=== PATIENT | male | born 1955 | race Caucasian/White ===

== ENCOUNTER 2021-06-18 23:06 | Emergency (ER) | payer SELFPAY ==
--- NOTE | ~2021-06-18 | XR_ITS ---
XR chest 1V portable DATE: 06/18/2021 23:22 INDICATION: Chest pain TECHNIQUE: Portable AP views on 06/18/2021 at 23/12 and 2313 hours COMPARISON: 01/13/2015 2 view chest FINDINGS: Diffuse osteopenia. Bilateral rotator cuff atrophy is suggested. Heart size is within normal range. No pulmonary infiltrate or consolidation, pleural effusion or pulm onary vascular congestion or pneumothorax is detected. IMPRESSION: No active cardiopulmonary disease Reviewed, dictated and finalized at location A.
[2021-06-18 23:06] VITALS: BP 128/90; PULSE 105; RESP 12; TEMP 37.3; O2SAT 100
--- NOTE | 2021-06-18 23:14 | ECG_ITS ---
Measurements Intervals [place] Rate: 96 P: 69 SD: 221 QRS: -68 QRSD: 137 T: 71 QT: 393 QTc: 497 Interpretive Statements SINUS RHYTHM WITH FIRST DEGREE AV BLOCK LEFT BUNDLE BRANCH BLOCK LOW VOLTAGE- PRECORDIAL LEADS INFERIOR INFARCT, AGE INDETERMINATE ABNORMAL ECG Electronically Signed On 06-19-2021 6:50:32 CDT by Terry Vicente D.O.
[2021-06-18 23:45] VITALS: PULSE 95; RESP 9; O2SAT 97
[2021-06-18 23:46] VITALS: BP 128/93; PULSE 97; RESP 13; O2SAT 97
[2021-06-18 23:58] LABS: Hematocrit 39.5 % (40.0-54.0); Hemoglobin 13.8 g/dL (14.0-18.0); Mean Corpuscular HGB Conc 34.9 g/dL (32.0-36.0); Mean Corpuscular Volume 94.5 fL (78.0-102.0); Mean Platelet Volume 12.2 fl (8.7-11.0); Platelet Count Result 152 K/mm3 (150-420); Red Blood Count 4.18 M/mm3 (4.70-6.10); Red Cell Distribution Width 15.4 % (11.6-14.4); White Blood Count 11.1 K/mm3 (4.8-10.8)
[2021-06-19] VITALS (13 sets, daily range): BP systolic 126–144; BP diastolic 88–108; PULSE 94–105; RESP 12–25; O2SAT 97–99
[2021-06-19] MEDS: THIAMINE HCL INJ 100 MG, FOLIC ACID 1 MG, MULTIVITAMINS-12 INJ 10 ML, MAGNESIUM SULFATE... 1000 MG IV CONT (00:01)
[2021-06-19 00:06] LABS: Amphetamine Screen Urine Negative (Negative); Barbiturate Screen Urine Negative (Negative); Benzodiazepines Screen Urine Negative (Negative); Cannabinoid Screen Urine Negative (Negative); Cocaine Screen Urine Negative (Negative); Methadone Screen Urine Negative (Negative); Opiate Screen Urine Negative (Negative); Phencyclidine Screen Urine Negative (Negative)
[2021-06-19 00:12] LABS: Lactic Acid Reflex 1.7 mmol/L (0.4-2.0)
[2021-06-19 00:21] LABS: Alanine Aminotransferase 20 U/L (16-63); Albumin Level 2.3 g/dL (3.4-5.0); Alkaline Phosphatase 165 U/L (46-116); Anion Gap 9 mmol/L (8-16); Aspartate Amino Transferase 59 U/L (15-37); Bilirubin,Total 1.3 mg/dL (0.00-1.00); Blood Urea Nitrogen 4 mg/dL (7-18); Calcium 7.3 mg/dL (8.5-10.1); Carbon Dioxide 23 mmol/L (21-32); Chloride 109 mmol/L (98-108); Estimated Glomerular Filt Rate > 60; Glucose 111 mg/dL (70-99); Osmolality Calculated 289 mOsm/kg (285-295); Potassium 3.2 mmol/L (3.5-5.1); Sodium 141 mmol/L (136-145); Total Protein 6.8 g/dL (6.4-8.2)
[2021-06-19 00:25] LABS: Ethanol 288 mg/dL (0-6); Troponin I 355.4 ng/L (0.00-60.4)
[2021-06-19 00:39] LABS: Band Neutrophils Percent 0 % (0-6); Lymphocytes Absolute Manual 4.99 K/mm3 (1.1-4.5); Lymphocytes Percent Manual 45 % (18-44); Monocytes Absolute Manual 0.88 K/mm3 (0.1-0.90); Monocytes Percent Manual 8 % (3-9); Neutrophils Absolute Manual 5.21 K/mm3 (1.3-6.7); Neutrophils Percent Manual 47 % (46-73); Platelet Estimate Adequate (Adequate); Total Cells Counted 100
--- NOTE | 2021-06-19 00:46 | PC.NURSE ---
PT HAS BEEN READJUSTED ON STRETCHER MULTIPLE TIMES. PT DENIES ANY CP, SOB. PT IS AWARE OF PLAN OF CARE, CURRENTLY AWAITING RETURN CALL FROM [facility]. NAD NOTED. VSS PER MONITOR.
--- NOTE | 2021-06-19 00:51 | PC.NURSE ---
2330 PT IS RESTING ON STRETCHER, WARM BLANKET PROVIDED. PT DENIES ANY NEEDS OR COMPLAINTS AT THIS TIME. WILL CONTINUE TO MONITOR.
--- NOTE | 2021-06-19 00:52 | PC.NURSE ---
0005 NO CHANGE IN PT STATUS. IVF INFUSING ORDERED WITHOUT DIFFICULTY. PT REPORTS CP OVER THE PAST 3 DAYS, HOWEVER HAS BEEN ON A BUS X 3 DAYS COMING FROM [place]. PT STATES PAIN HAS BEEN INTERMITTENT, HOWEVER NONE AT PRESENT.
--- NOTE | 2021-06-19 01:01 | ED.GENADULT ---
HPI - General Adult General Chief complaint: Unspecified Stated complaint: pain Time Seen by Provider: 06/18/21 23:10 Source: patient and RN notes reviewed Mode of arrival: ambulatory Limitations: no limitations History of Present Illness Onset (ago): hour(s) (8) Location: chest Radiation: non-radiation Severity: moderate Severity scale (1-10): 7 Quality: aching, dull and constant Pain Consistency: constant Relieving factors: none Exacerbating factors: none Associated symptoms: chest pain Treatments prior to arrival: none Related Data Home Medications Medication Instructions Recorded Confirmed No Home Medications 06/19/21 06/19/21 Allergies Allergy/AdvReac Type Severity Reaction Status Date / Time No Known Allergies Allergy Verified 06/18/21 23:49 Review of Systems Review of Systems: All systems reviewed & are unremarkable except as noted in HPI and below PMFSH Past Medical History Medical History COPD (chronic obstructive pulmonary disease) ETOH abuse Non-STEMI (non-ST elevated myocardial infarction) Tobacco abuse Family History Family History Mother Carcinoma of colon Family history of Alzheimer's disease Father Family history of diabetes mellitus in first degree relative Social History Social History Smoking packs per day: 0 Smoking cigarettes per day: 0.0 Years smoked: 30 Smoking pack-years: 0.00 Smoking status: Current every day smoker Tobacco type: cigarettes Second hand tobacco smoke exposure: Yes Smoking end date: 06/19/21 Alcohol intake: current Substance use: never Spiritual care concerns: No Exam Const: General: cooperative, no acute distress and Physically active Orientation/consciousness: patient oriented x3 Limitations: no limitations HENMT: Head: normal to inspection, normocephalic and atraumatic Ears: hearing grossly normal bilaterally, external ears normal, TM's normal bilaterally and EAC's normal General nose exam: Normal external nose present and Normal nares present Face and sinus: normal facial exam and sinuses nontender Mouth: Yes Normal oral and palatal mucosa present and Yes moist mucous membranes Teeth and gingiva: dentition normal Throat: posterior oropharynx normal Eyes: General: appearance normal, both eyes and all related structures Visual Batista: normal visual batista by confrontation Eyelids: eyelids normal Conjunctivae: conjunctivae normal Sclera: sclerae normal Cornea: corneas normal Pupils: Equal, round and reactive pupils present and Pupils normal by confrontation EOM: EOMs intact bilaterally Direct Ophthalmoscopy: normal light reflex Neck: Neck: normal visual inspection, full ROM and no lymphadenopathy Chest: Chest palpation & inspection: normal inspection of the chest and normal palpation of entire chest wall Resp: Effort & Inspection: normal respiratory effort and able to speak in complete sentences Auscultation: clear to auscultation bilaterally Cardio: Jugular venous distension: no JVD Palpation: normal PMI Rate: regular rate Rhythm: regular rhythm Heart sounds: S1 normal heart sound present and S2 normal heart sound present GI: Inspection: normal to inspection GI Palp: No abdominal tenderness Auscultation: normal bowel sounds : General: Yes bladder normal to inspection and Yes bladder normal to palpation Back/Spine/Pelvis: Back: no CVA tenderness Cervical Spine: cervical ROM normal Thoracic/Lumbar Spine: thoraco-lumbar ROM normal Skin: General skin exam: normal color and no rashes or lesions noted Neuro: General: patient oriented x3, moves all extremities, no meningeal signs, no focal motor deficits and CN's II-XI intact bilaterally Cranial nerves: Yes CN's II-XII intact bilaterally, Yes Facial sensation intact/muscles of mastication intact,
--- NOTE | 2021-06-19 01:41 | PC.NURSE ---
PT REFUSED POTASSIUM, STATES IT'S ALWAYS LOW. ERP AWARE. PT IS AWAITING EMS TRANSPORT AT THIS TIME. WILL CONTINUE TO MONITOR. NAD NOTED. VSS.
== END 2021-06-19 02:00 | disposition short-term general hospital (02) ==
PROVIDERS: Emergency Provider Emergency Medicine
DX: I21.4 Non-ST elevation (NSTEMI) myocardial infarction (principal)
CPT/HCPCS: 36415; 71045; 80053; 80307; 83605; 84484; 85025; 93005; 96365; 99285; J3411; J3475; J7030

== ENCOUNTER 2021-06-19 03:31 | Observation (INO) | payer MEDICAID, SELFPAY ==
[2021-06-19] VITALS (11 sets, daily range): BP systolic 114–135; BP diastolic 75–88; PULSE 71–102; RESP 16–22; TEMP 36.6–37.9; O2SAT 93–100; BMI 27.5; BMI 26.9
--- NOTE | 2021-06-19 | ECHO_ITS ---
Patient Info Name: Estiven Rg Age: 65 years : 1955 Gender: Male Ht: 77 in Wt: 231 lbs BSA: 2.40 m2 HR: 81 bpm BP: 127 / 88 mmHg Technical Quality: Good Exam Date: 06/19/2021 9:44 AM Exam Location: [facility] Patient Status: Outpatient Admit Date: 06/19/2021 Staff Ordering Physician: Stefan Martinez DO Core Paster: Christy Parra RDCS Attending Provider: Stefan Martinez DO Exam Type: CA echo doppler color flow Study Info Indications I20.0 - Unstable angina Complete two-dimensional, color flow and Doppler transthoracic echocardiogram is performed. Summary 1. Complete two-dimensional, color flow and Doppler transthoracic echocardiogram is performed. 2. Left ventricular chamber dimension is normal. 3. Left ventricular systolic function is normal, estimated at 55-60%. 4. Left ventricular septal wall motion is abnormal with septal motion related to pacing. 5. The left ventricular diastolic function is grade I diastolic dysfunction. 6. E/e' 7 is not elevated. 7. Left atrial chamber dimension is mildly enlarged. 8. Right atrial chamber dimension is mildly enlarged. 9. The mitral valve has moderately calcified annulus. 10. There is mild mitral valve regurgitation. 11. There is mild tricuspid valve regurgitation. 12. No pulmonary hypertension, estimated pulmonary arterial systolic pressure is 34 mmHg. 13. There is trace pulmonic regurgitation. Left Ventricle E/e' 7 is not elevated. Left ventricular chamber dimension is normal. Left ventricular systolic function is normal, estimated at 55-60%. Left ventricular septal wall motion is abnormal with septal motion related to pacing. The left ventricular diastolic function is grade I diastolic dysfunction. Right Ventricle Right ventricular chamber dimension is normal. Right ventricular systolic function is normal. Left Atria Left atrial chamber dimension is mildly enlarged. Right Atria Right atrial chamber dimension is mildly enlarged. Aortic Valve The aortic valve is trileaflet. There is no aortic valve sclerosis. There is no aortic valve stenosis. There is no aortic valve regurgitation. Pulmonic Valve There is trace pulmonic regurgitation. Mitral Valve The mitral valve has moderately calcified annulus. There is no mitral valve stenosis. There is mild mitral valve regurgitation. Tricuspid Valve There is mild tricuspid valve regurgitation. No pulmonary hypertension, estimated pulmonary arterial systolic pressure is 34 mmHg. Pericardium/Pleural The pericardium appears normal. There is no pericardial effusion. Inferior Vena Cava Normal inferior vena cava with >50% collapse upon inspiration consistent with normal right atrial pressure, 5 mmHg. Aorta The aortic root size at the sinus of Valsalva is normal. Left Ventricular Outflow Tract Name Value Normal LVOT 2D LVOT Diameter 2.6 cm LVOT Doppler LVOT Peak Gradient 3 mmHg LVOT Mean Gradient 2 mmHg LVOT VTI 15 cm LVOT VTI/AV VTI Ratio 0.8
--- NOTE | ~2021-06-19 | MR_ITS ---
EXAMINATION: MR abdomen wo/w con DATE: 06/21/2021 14:00 INDICATION: Hepatocellular carcinoma. Liver mass. TECHNIQUE: Magnetic resonance imaging (MRI) of the abdomen was performed without and with 20 mL Multi lucien intravenous contrast. Sequences included coronal T2-weighted SS-FSE, coronal and axial FS 2D-F IESTA, axial STIR FSE, axial T2-weighted SS-FSE, axial T2-weighted FS SS-FSE, axial diffusion-weighte d SE, axial dual-echo T1-weighted FSPGR, and axial and coronal T1-weighted LAVA. Postcontrast axial T 1-weighted LAVA images were obtained in a time course. Postcontrast coronal T1-weighted LAVA images w ere obtained. COMPARISON: CT dated 06/20/2021 FINDINGS: Again seen is a shrunken cirrhotic liver with surface nodularity. 8.2 cm mass in segment IVb of the l iver which demonstrates heterogeneous arterial enhancement greater than the surrounding liver with wa shout on delayed imaging. There is also a nonenhancing peripheral capsule. No other hepatic lesions i dentified. Couple small low signal intensity gallstones at the neck of the otherwise normal-appearing gallbladder. Pancreas, bilateral adrenal glands and left kidney are normal. 3 T2 hyperintense nonenh ancing subcentimeter cysts in the right kidney. Visualized portions of the bowels are unremarkable. N o pathologically enlarged abdominal lymphadenopathy. Mild lumbar levocurvature with mild spondylosis. IMPRESSION: 1. 7.8 cm enhancing mass with washout and nonenhancing peripheral capsule in segment IVb of the liver or the spleen consistent with a LI-RADS 5 lesion (100% definite hepatocellular carcinoma). 2. Cirrhosis 3. Cholelithiasis. Reviewed, dictated and finalized at location A. IMPRESSION: 1. 7.8 cm enhancing mass with washout and nonenhancing peripheral capsule in se gment IVb of the liver or the spleen consistent with a LI-RADS 5 lesion (100% d efinite hepatocellular carcinoma). 2. Cirrhosis 3. Cholelithiasis.
--- NOTE | ~2021-06-19 | CT_ITS ---
EXAMINATION: CT abdomen pelvis w con DATE: 06/20/2021 10:30 INDICATION: Liver mass. TECHNIQUE: Computed tomography (CT) of the abdomen and pelvis was performed with 100 mL Omnipaque 300 intravenous contrast. Automated exposure control and iterative reconstruction technique were employe d. The dose-length product was 995.03 mGy-cm. COMPARISON: CT abdomen and pelvis 04/21/2014 FINDINGS: The visualized portions of the lung bases demonstrate mild atelectasis. Calcified pulmonary nodules are consistent with old granulomatous disease. There is mucous plugging in right lower lobe. There is a trace right pleural effusion. The heart size is normal. No pericardial effusion. The live r is small with nodular surface contour, consistent with cirrhosis. There is a 7.7 cm hyperenhancing mass in left hepatic lobe. There are gallstones in the gallbladder, which is normal in size. The sple en is small. The pancreas, adrenal glands, and left kidney are normal. There are cysts in right kidne y measuring up to 10 mm. There are no dilated loops of bowel. The appendix is normal. Paraesophageal varices are noted. There is a small volume of pelvic ascites. There is lumbar levocurvature and mild spondylosis. IMPRESSION: 1. 7.7 cm hyperenhancing liver mass, new from 04/21/14, consistent with hepatocellular carcinoma (LI-R ADS category LR-4). Consider abdomen MRI without and with contrast to assess for washout, which would upgrade the mass to category LR-5. Biopsy is likely not necessary given these imaging findings. 2. Cirrhosis of the liver with portal venous hypertension. 3. Small volume of ascites. Reviewed, dictated and finalized at location B. IMPRESSION: 1. 7.7 cm hyperenhancing liver mass, new from 04/21/14, consistent with hepatoce llular carcinoma (LI-RADS category LR-4). Consider abdomen MRI without and with contrast to assess for washout, which would upgrade the mass to category LR-5. Biopsy is likely not necessary given these imaging findings. 2. Cirrhosis of the liver with portal venous hypertension. 3. Small volume of ascites.
--- NOTE | ~2021-06-19 | US_ITS ---
US abdomen limited DATE: 06/19/2021 08:29 INDICATION: Transaminitis. History of ethanol abuse. TECHNIQUE: Real-time imaging and Doppler analysis, liver, pancreas, gallbladder COMPARISON: 04/21/2014 CT abdomen pelvis FINDINGS: There is surface nodularity of the liver consistent with cirrhosis. Approximately 7.5 cm liver mass is suggested. CTR MR evaluation of liver is recommended. Cholelithiasis. No gallbladder wall thickening. Negative sonographic Michele's sign. The common bile duct measures 5.6 mm. The pancreas is obscured. IMPRESSION: Cirrhosis 7.5 cm liver mass; this raises concern for hepatocellular carcinoma. CT or MR liver examination is re commended Cholelithiasis Reviewed, dictated and finalized at [facility]. Reviewed, dictated and finalized at location A. IMPRESSION: Cirrhosis 7.5 cm liver mass; this raises concern for hepatocellular carcinoma. CT or MR l iver examination is recommended Cholelithiasis
--- NOTE | ~2021-06-19 | US_ITS ---
US venous doppler [facility] DATE: 06/19/2021 08:29 INDICATION: Deep venous thrombosis TECHNIQUE: Real-time and color flow imaging and Doppler analysis of the veins of the right leg COMPARISON: None FINDINGS: The left greater saphenous vein is patent. There is spontaneous and phasic flow and normal augmentation and color flow signal and normal compression of the deep veins of the right lower extrem ity. IMPRESSION: No evidence of deep venous thrombosis of right leg Reviewed, dictated and finalized at [facility]. Reviewed, dictated and finalized at location A.
--- NOTE | 2021-06-19 02:42 | ADMGEN ---
This patient, Estiven Rg, was admitted to IMU Room 214-01 at 0235 direct admit from [facility]. Patient/family oriented to hospital policies and general routines including ID bracelet, bed and alarms, visiting hours, pain management, procedures, bathroom and other care routines, personal items, smoking policy, room service/diet, and visiting hours. Information on how to activate the Rapid Response Team has been discussed. Patient/Family are encouraged to report perceived risks to care and to ask questions if they do not understand what they are told or what they should do.
--- NOTE | 2021-06-19 03:37 | PM.IMHP ---
H&P: HPI History of Present Illness Date/Time: Greater than 30 minutes spent reviewing chart, evaluating, treating, and counseling patient. Anticipate less than 48 hours admission, will admit under observation 06/19/21 03:37 65 yo M PMHx of EtOH abuse, tobacco abuse, COPD, PUD. Patient reports he just moved here from [place] via bus for 2 days, arrived yesterday. Patient reports he had sharp epigastric pain that started after walking upstairs yesterday evening. Patient reports pain lasted about 20 minutes, radiating to back and neck. He states his sister noted that he was pale and diaphoretic. Patient admits to nausea with pain. Has SOB at baseline, but has been worse since yesterday. Patient admits to smoking 2 ppd for 10 years, now down to 2 cigarettes a day. He states he is a heavy drinker, drinks about 9 cans of beer a day. Denies ever withdrawing from alcohol. States he has been coughing up some yellow phlegm about 2 days ago, which is new for him. Denies fevers/chills, palpitations, vomiting, diarrhea, dysuria, hematuria. No pleuritic component to chest pain. Patient reports constipation, last BM 3 days ago. Patient reports he has LE edema at baseline, states he has some circulation problem and neuropathy. Patient arrived in [facility], vitals stable. Labs remarkable for WBC 11, potassium 3.2, AST 59, bilirubin 1.3, Alk phos 165. Alcohol 288. Initial troponin 355. EKG showing old anterior and inferior infarcts, no acute ST elevation. Potassium repleted, IVF given. ED physician reports patient was given NGT with resolution of chest pain. Patient transferred for further evaluation of chest pain. Chief Complaint: chest pain Review of Systems Review of Systems: 10 point ROS reviewed, negative unless otherwise specified per HPI [facility] Past Medical History Medical History (Updated 06/19/21 @ 03:53 by Stefan Martinez DO) COPD (chronic obstructive pulmonary disease) ETOH abuse Tobacco abuse Family History Family History (Updated 09/04/15 @ 23:19 by DOCTOR UNKNOWN) Mother Carcinoma of colon Family history of Alzheimer's disease Father Family history of diabetes mellitus in first degree relative Social History Social History Smoking status: Current every day smoker Meds Home Medications and Allergies Home Medications Medication Instructions Recorded Confirmed Type No Home Medications 06/19/21 06/19/21 History Allergies Allergy/AdvReac Type Severity Reaction Status Date / Time No Known Allergies Allergy Verified 06/18/21 23:49 Vital Signs Vital Signs - 24 hr 06/19/21 02:47 Temperature 98 F Pulse Rate 99 Respiratory Rate 20 Blood Pressure 135/88 Pulse Oximetry 98 Exam Const: General: comfortable and no acute distress HENMT: Mouth: Yes dry mucous membranes Eyes: General: appearance normal, both eyes and all related structures Resp: Auscultation: clear to auscultation bilaterally Cardio: Rate: regular rate Rhythm: regular rhythm GI: GI Palp: Yes Soft to palpation and Yes Tenderness to palpation present (GI) (diffuse) Auscultation: abnormal bowel sounds (hypoactive BS) Skin: General skin exam: normal color Extrem: Right lower extremity: edema Left lower extremity: edema (LLE edema > RLE edema) Details: pitting and 1+ Psych: Mental Status: mental status grossly normal Other: slightly confused, pleasant Assessment and Plan Assessment and plan (1) Non-ST elevated myocardial infarction (non-STEMI): Code(s): I21.4 - Non-ST elevation (NSTEMI) myocardial infarction Status: Acute Assessment and Plan: cardiology c/s. High suspicion of angina given history. ECHO ordered. Check lipid panel and A1c. Patient with normal sats on RA, however given history r/o PE as below (2) Edema of left lower extremity: Code(s): R60.0 - Localized edema Status: Acute Assessment and Plan: Check ECHO as above. Given unilateral edema and history of p
[2021-06-19 04:37] LABS: Basophils Absolute Auto 0.1 K/mm3 (0.0-0.1); Basophils Percent Auto 0.6 % (0.2-1.2); Eosinophils Percent Auto 0.3 % (0-4.4); Hematocrit 40.7 % (42.0-52.0); Immature Granulocyte Absolute 0.06 K/mm3 (0.00-0.031); Immature Granulocyte Percent A 0.5 % (0-0.5); Lymphocytes Absolute Auto 5.02 K/mm3 (0.9-3.2); Lymphocytes Percent Auto 45.1 % (18.3-44.2); Mean Corpuscular HGB Conc 34.4 g/dl (32-36); Mean Corpuscular Hemoglobin 32.9 pg (26-34); Mean Corpuscular Volume 95.8 fl (80-100); Mean Platelet Volume 12.5 fl (7.4-10.4); Monocytes Absolute Auto 1.5 K/mm3 (0.1-0.6); Monocytes Percent Auto 13.7 % (2.6-8.5); Neutrophils Absolute Auto 4.4 K/mm3 (1.3-6.7); Neutrophils Percent Auto 39.8 % (45.5-73.1); Platelet Count Result 150 k/mm3 (150-375); Red Blood Count 4.25 M/mm3 (4.6-6.20); Red Cell Distribution Width 15.8 % (11.5-14.5); White Blood Count 11.1 K/mm3 (4.5-10.0)
[2021-06-19 04:46] LABS: Hemoglobin A1C 4.6 % (<5.7)
[2021-06-19 04:49] LABS: Cholesterol 145 mg/dL (0-200); HDL Direct 23 mg/dL; Magnesium 1.6 mg/dL (1.6-2.3); Triglycerides 220 mg/dL (<150)
[2021-06-19 04:50] LABS: Alanine Aminotransferase 25 U/L (6-50); Alkaline Phosphatase 180 U/L (38-126); Anion Gap 10 mmol/L (8-16); Aspartate Amino Transferase 71 U/L (17-59); Bilirubin,Total 1.9 mg/dL (0.2-1.3); Blood Urea Nitrogen 2 mg/dL (9-20); Carbon Dioxide 19 mmol/L (22-30); Chloride 112 mmol/L (98-107); Estimated CRCL calculation 138 ml/min; Estimated Glomerular Filt Rate > 60; Glucose 113 mg/dL (65-110); Potassium 3.4 mmol/L (3.4-5.0); Sodium 141 mmol/L (137-145)
[2021-06-19] MEDS: MULTIVITAMINS-12 INJ VIAL 1 5 ML, MULTIVITAMINS-12 INJ VIAL 2 5 ML in SODIUM CHLORIDE 0... 125 ML IV CONT (04:50)
[2021-06-19 05:00] LABS: LDL Cholesterol Direct 73 mg/dL
[2021-06-19 05:02] LABS: Troponin I 0.027 ng/mL (0.000-0.034)
[2021-06-19] MEDS: POTASSIUM CHLORIDE 20 MEQ TABLET 40 MEQ PO (06:30)
[2021-06-19] MEDS: MAGNESIUM SULF 2 GM/WATER 50ML 2 GM/50 ML BAG IVPB ×2 (06:30→11:42)
--- NOTE | 2021-06-19 07:43 | ECG_ITS ---
Measurements Intervals [place] Rate: 71 P: 36 [place]: 217 QRS: -61 QRSD: 132 T: 6 QT: 476 QTc: 521 Interpretive Statements SINUS RHYTHM WITH FIRST DEGREE AV BLOCK LEFT BUNDLE BRANCH BLOCK LOW VOLTAGE- LIMB LEADS INFERIOR INFARCT OR DUE TO LBBB ABNORMAL ECG Electronically Signed On 06-19-2021 15:08:58 CDT by Terry Vicente D.O.
--- NOTE | 2021-06-19 07:49 | PM.CNCAR ---
Assessment and Plan Assessment and plan (1) Elevated troponin: Code(s): R77.8 - Other specified abnormalities of plasma proteins Status: Acute Assessment and Plan: No symptoms to suggest ACS. Troponin went from 355 at [place] [64] to normal here .027 [.034]. 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 Obtain echo. (2) ETOH abuse: Code(s): F10.10 - Alcohol abuse, uncomplicated Status: Acute Assessment and Plan: Counseled regarding alcohol cessation. Monitor and treat withdrawals. (3) Tobacco abuse: Code(s): Z72.0 - Tobacco use Status: Acute Assessment and Plan: Counseled regarding smoking cessation. (4) Abdominal pain: Code(s): R10.9 - Unspecified abdominal pain Status: Acute Assessment and Plan: Has history of PUD and hiatal hernia and has intermittent melena. (5) NSVT (nonsustained ventricular tachycardia): Code(s): I47.2 - Ventricular tachycardia Status: Acute Assessment and Plan: Probably due to alcoholism with low potassium and Mag. Replete levels. Start Metoprolol Tarate 25 mg BID. History of Present Illness History of Present Illness Consult date/time: 06/19/21 07:49 Reason for consult: Elevated troponin. 65 yr old man presented to [place] ER last night for epigastric pain then transferred to [place] for further management. He has a history of significant alcohol abuse, smoking, COPD, cirrhosis of liver, PUD, melena. He moved back to [place] as he is originally from [place] before moving to [place] for 30 years. He arrived just 2 days ago. He has a daughter who lives in [place], [place]. Reports he has intermittent epigastric pain probably due to heart burn and he has hiatal hernia, but yesterday it was more severe that he went to ER. He has chronic sob and can walk only short distances due to weakness/fatigue/MARTINEZ. He smokes 2 ppd down to 2 cigarettes per day. He drinks on average 9 beers a day for many years. His last drink was yesterday and it was 1/2 pint of whiskey and 2 beers. He complains of left ear pain and headaches currently. Denies chest pain, sob, orthopnea, PND, edema, dizziness, palpitations. Troponin at [place] showed elevation of 355 [64], then rechecked here it was OK at .027. EKG shows sinus rhythm with first degree AV block, LBBB. Telemetry shows some short nonsustained VT. WBC 11.1, Potassium 3.2, Mag 1.6, AST 71, Alk Phos 180 then 3.4. TG 220. Ethyl alcohol level 288 [6]. CXR is OK. Reason For Visit: NSTEMI Review of Systems Review of Systems: All systems reviewed & are unremarkable except as noted in HPI and below Constitutional: Constitutional: Reports as per HPI, Denies chills, Reports fatigue and Denies fever(s) Cardiovascular: Cardiovascular: Reports as per HPI, Denies chest pain, Denies irregular heart rhythm and Denies lightheadedness Respiratory: Respiratory: Reports as per HPI, Reports cough and Reports dyspnea on exertion Gastrointestinal: Gastrointestinal: Reports as per HPI, Reports abdominal pain and Reports nausea Genitourinary: Genitourinary: Reports as per HPI and Denies dysuria Musculoskeletal: Musculoskeletal: Reports as per HPI Neurologic: Reports as per HPI, Denies dizziness and Denies syncope [facility] Past Medical History Medical History (Updated 06/19/21 @ 07:59 by Terry Vicente DO) COPD (chronic obstructive pulmonary disease) ETOH abuse Tobacco abuse Family History Family History (Updated 09/04/15 @ 23:19 by DOCTOR UNKNOWN) Mother Carcinoma of colon Family history of Alzheimer's disease Father Family history of diabetes mellitus in first degree relative Social History Social History Smoking packs per day: 0 Smoking cigarettes per day: 0.0 Years smoked: 30 Smoking pack-years: 0.00 Smoking status: Current every day smoker Tobacco type: cigarettes Second hand tobacco smoke exposure: Yes Smoking end date: 06/19/21 Alcohol intake: current S
[2021-06-19] MEDS: ACETAMINOPHEN 325 MG TABLET 650 MG PO ×2 (08:00→20:25)
[2021-06-19] MEDS: METOPROLOL TARTRATE 25 MG TABLET PO ×2 (08:42→20:18)
[2021-06-19] MEDS: PANTOPRAZOLE 40 MG TABLET PO (08:42)
[2021-06-19] MEDS: ENOXAPARIN 40 MG/0.4 ML SYRINGE SUB-Q (08:43)
--- NOTE | 2021-06-19 09:53 | PM.IMPN ---
Progress Note: A&P Assessment and Plan (1) Abdominal pain: Qualifiers: Abdominal location: epigastric Qualified Code(s): R10.13 - Epigastric pain Code(s): R10.9 - Unspecified abdominal pain Status: Acute Assessment and Plan: Improving Likely related to have alcohol intake with gastritis versus pancreatitis Continue PPI and advance diet as tolerated (2) Transaminitis: Code(s): R74.01 - Elevation of levels of liver transaminase levels Status: Acute Assessment and Plan: Hepatitis ABC panel negative Right upper quadrant ultrasound with 7.[address] abdomen and pelvis with contrast and alpha fetoprotein ordered to clarify prior to considering biopsy (3) ETOH abuse: Code(s): F10.10 - Alcohol abuse, uncomplicated Status: Acute Assessment and Plan: Patient reports no withdrawals and does not have withdrawals. Continue to monitor. MVI. (4) Tobacco abuse: Code(s): Z72.0 - Tobacco use Status: Acute Assessment and Plan: He is aware of need to quit (5) COPD (chronic obstructive pulmonary disease): Qualifiers: COPD type: unspecified COPD Qualified Code(s): J44.9 - Chronic obstructive pulmonary disease, unspecified Code(s): J44.9 - Chronic obstructive pulmonary disease, unspecified Status: Acute Assessment and Plan: albuterol prn (6) Elevated troponin I level: Code(s): R77.8 - Other specified abnormalities of plasma proteins Status: Acute Assessment and Plan: Dramatic drop in troponin I possibly due to alcohol intoxication versus lab error No evidence for acute coronary syndrome (7) NSVT (nonsustained ventricular tachycardia): Code(s): I47.2 - Ventricular tachycardia Status: Acute (8) Left otitis externa: Qualifiers: Otitis externa type: unspecified type Chronicity: acute Qualified Code(s): H60.502 - Unspecified acute noninfective otitis externa, left ear Code(s): H60.92 - Unspecified otitis externa, left ear Status: Acute Assessment and Plan: Cortisporin otic (9) Edema of left lower extremity: Code(s): R60.0 - Localized edema Status: Acute Assessment and Plan: Lower extremity Dopplers negative for DVT Likely simply dependent edema Subjective Date/time seen: 06/19/21 09:53 Interval history: 06/19 visit. Left ear pain worse with cough or pressure or movement of the year. Slight decreased hearing. Discomfort no fevers or chills. Mild epigastric discomfort. Denied chest pain. With slowly and a mass in his liver about a year ago he thinks it was 0.5 cm at that time. Review of Systems Review of Systems: All systems reviewed & are unremarkable except as noted in HPI and below Exam Narrative: HEENT: PERRL, sclerae nonicteric, pharyngeal mucosa pink and intact, RIGHT EAR WITH MOD CERUMEN, LEFT EAR MILD ERYTHEMA OF CANAL AND MODERATE CERUMEN, VISIBLE TM'S WNL. LEFT EAR TENDER TO TRAGUS PRESSURE. NECK: No JVD CHEST: Clear to auscultation. Normal effort. HEART: NL S1/S2, regular ABDOMEN: BS+, soft, nontender, w/o mass EXTREMITIES: No cyanosis, edema, or clubbing NEUROLOGIC: CN intact and symmetric to inspection. MUSCULOSKELETAL: Tone and strength symmetric. PSYCH: Alert. Oriented to person, place, and time. Objective Data Vital Signs Vital Signs: Vital Signs - 24 hr 06/19/21 02:47 06/19/21 04:00 06/19/21 06:00 Temperature 98 F 99.1 F Pulse Rate 99 97 102 H Respiratory Rate 20 20 Blood Pressure 135/88 127/88 Pulse Oximetry 98 99 06/19/21 08:00 Temperature 97.9 F Pulse Rate 96 Respiratory Rate 16 Blood Pressure 115/77 Pulse Oximetry 97 Intake/Output Intake/Output: Intake & Output 06/16/21 06/17/21 06/18/21 06/19/21 23:59 23:59 23:59 23:59 Output Total 400 Balance -400 Meds/Results Medications: Active Medications Generic Name Dose Route Start Last Admin Trade Name Freq P
[2021-06-19] MEDS: NEOMYCIN/POLYMYXIN/HYDROCORT OT SUSP 10 ML BTL (*BKC) 3 DROP LEFT EAR ×3 (11:43→20:18)
--- NOTE | 2021-06-19 11:51 | PCCCNOTE ---
On 06/17/21, the student, [Karime Hedrick], provided care and completed [facility] documentation on this patient. I have reviewed the student's documentation and agree with the findings.
[2021-06-19 12:38] LABS: Anion Gap 7 mmol/L (8-16); Blood Urea Nitrogen 2 mg/dL (9-20); Carbon Dioxide 19 mmol/L (22-30); Chloride 112 mmol/L (98-107); Estimated CRCL calculation 163 ml/min; Estimated Glomerular Filt Rate > 60; Glucose 113 mg/dL (65-110); Sodium 138 mmol/L (137-145)
[2021-06-19 12:50] LABS: Troponin I 0.022 ng/mL (0.000-0.034)
[2021-06-19 12:54] LABS: Iron 121 ug/dL (49-181)
[2021-06-19 13:03] LABS: Percent Iron Saturation 54 % (20-50)
[2021-06-19 13:26] LABS: Hepatitis B Surface Antigen Negative (Negative)
[2021-06-19 13:31] LABS: Hepatitis B Core IgM Result Negative (Negative)
[2021-06-19 13:44] LABS: Hepatitis C Virus Antibody Negative (Negative)
--- NOTE | 2021-06-19 18:19 | PC.NURSE ---
patient transferred to room 302 from IMU
[2021-06-19 20:33] LABS: Troponin I 0.019 ng/mL (0.000-0.034)
[2021-06-20] MEDS: ACETAMINOPHEN 325 MG TABLET 650 MG PO ×4 (05:44→20:27)
[2021-06-20 06:00] VITALS: BP 121/83; PULSE 79; RESP 24; TEMP 37.2; O2SAT 96
[2021-06-20 07:11] LABS: Basophils Absolute Auto 0.1 K/mm3 (0.0-0.1); Basophils Percent Auto 0.5 % (0.2-1.2); Eosinophils Percent Auto 0.2 % (0-4.4); Hematocrit 40.4 % (42.0-52.0); Hemoglobin 13.8 g/dL (14.0-18.0); Immature Granulocyte Absolute 0.05 K/mm3 (0.00-0.031); Immature Granulocyte Percent A 0.4 % (0-0.5); Lymphocytes Absolute Auto 5.46 K/mm3 (0.9-3.2); Lymphocytes Percent Auto 44.1 % (18.3-44.2); Mean Corpuscular HGB Conc 34.2 g/dl (32-36); Mean Corpuscular Hemoglobin 33.2 pg (26-34); Mean Corpuscular Volume 97.1 fl (80-100); Mean Platelet Volume 12.4 fl (7.4-10.4); Monocytes Absolute Auto 1.8 K/mm3 (0.1-0.6); Monocytes Percent Auto 14.3 % (2.6-8.5); Neutrophils Percent Auto 40.5 % (45.5-73.1); Platelet Count Result 133 k/mm3 (150-375); Red Blood Count 4.16 M/mm3 (4.6-6.20); Red Cell Distribution Width 15.7 % (11.5-14.5); White Blood Count 12.4 K/mm3 (4.5-10.0)
[2021-06-20 07:26] LABS: Alanine Aminotransferase 22 U/L (6-50); Albumin Level 2.7 g/dL (3.5-5.1); Alkaline Phosphatase 128 U/L (38-126); Anion Gap 5 mmol/L (8-16); Aspartate Amino Transferase 54 U/L (17-59); Bilirubin,Total 4.3 mg/dL (0.2-1.3); Blood Urea Nitrogen 6 mg/dL (9-20); Calcium 7.4 mg/dL (8.4-10.2); Carbon Dioxide 20 mmol/L (22-30); Chloride 108 mmol/L (98-107); Estimated CRCL calculation 163 ml/min; Estimated Glomerular Filt Rate > 60; Glucose 102 mg/dL (65-110); Magnesium 1.8 mg/dL (1.6-2.3); Potassium 3.9 mmol/L (3.4-5.0); Sodium 133 mmol/L (137-145)
[2021-06-20 08:00] VITALS: PULSE 80; RESP 24; O2SAT 96
[2021-06-20 08:14] VITALS: PULSE 80
[2021-06-20] MEDS: PANTOPRAZOLE 40 MG TABLET PO (08:14)
[2021-06-20] MEDS: METOPROLOL TARTRATE 25 MG TABLET PO (08:14)
[2021-06-20] MEDS: NEOMYCIN/POLYMYXIN/HYDROCORT OT SUSP 10 ML BTL (*BKC) 3 DROP LEFT EAR ×4 (08:14→20:26)
--- NOTE | 2021-06-20 11:49 | PM.IMPN ---
Progress Note: A&P Assessment and Plan (1) Abdominal pain: Qualifiers: Abdominal location: epigastric Qualified Code(s): R10.13 - Epigastric pain Code(s): R10.9 - Unspecified abdominal pain Status: Acute Assessment and Plan: Improving Likely related to have alcohol intake with gastritis versus pancreatitis Continue PPI and HH diet (2) Transaminitis: Code(s): R74.01 - Elevation of levels of liver transaminase levels Status: Acute Assessment and Plan: Hepatitis ABC panel negative Right upper quadrant ultrasound with 7.5 cm mass 06/19. CT abdomen and pelvis with contrast and alpha fetoprotein ordered to clarify prior to considering biopsy 06/20. CT abdomen and pelvis with contrast appears to show a large mass in the right lobe of the liver however no official reading is available. (3) ETOH abuse: Code(s): F10.10 - Alcohol abuse, uncomplicated Status: Acute Assessment and Plan: Patient reports no hx of withdrawals and does not have withdrawals. Continue to monitor. MVI. (4) Tobacco abuse: Code(s): Z72.0 - Tobacco use Status: Acute Assessment and Plan: He is aware of need to quit (5) COPD (chronic obstructive pulmonary disease): Qualifiers: COPD type: unspecified COPD Qualified Code(s): J44.9 - Chronic obstructive pulmonary disease, unspecified Code(s): J44.9 - Chronic obstructive pulmonary disease, unspecified Status: Acute Assessment and Plan: albuterol prn (6) Elevated troponin I level: Code(s): R77.8 - Other specified abnormalities of plasma proteins Status: Acute Assessment and Plan: Dramatic drop in troponin I possibly due to alcohol intoxication versus lab error No evidence for acute coronary syndrome (7) NSVT (nonsustained ventricular tachycardia): Code(s): I47.2 - Ventricular tachycardia Status: Acute (8) Left otitis externa: Qualifiers: Otitis externa type: unspecified type Chronicity: acute Qualified Code(s): H60.502 - Unspecified acute noninfective otitis externa, left ear Code(s): H60.92 - Unspecified otitis externa, left ear Status: Acute Assessment and Plan: Cortisporin otic (9) Edema of left lower extremity: Code(s): R60.0 - Localized edema Status: Acute Assessment and Plan: Lower extremity Dopplers negative for DVT Likely simply dependent edema Subjective Date/time seen: 06/20/21 11:49 Interval history: 06/20 visit. Abdominal pain much better. Appetite good. Low-grade fever 5:14 p.m. with some sweats. Did not sleep well. A bit tired today. No complaints of left ear pain today. Denied chest pain or shortness of breath. Denied abnormal bleeding GI or issues. Review of Systems Review of Systems: All systems reviewed & are unremarkable except as noted in HPI and below Exam Narrative: HEENT: PERRL, sclerae nonicteric, pharyngeal mucosa pink and intact NECK: No JVD CHEST: Clear to auscultation. Normal effort. HEART: NL S1/S2, regular ABDOMEN: BS+, soft, nontender, w/o mass EXTREMITIES: No cyanosis, edema, or clubbing NEUROLOGIC: CN intact and symmetric to inspection. MUSCULOSKELETAL: Tone and strength symmetric. PSYCH: Alert. Oriented to person, place, and time. Objective Data Vital Signs Vital Signs: Vital Signs - 24 hr 06/19/21 12:38 06/19/21 16:00 06/19/21 18:06 Temperature 98.5 F 98.8 F 98.0 F Pulse Rate 78 85 84 Pulse Rate [Bilateral Pedal (Dorsalis Pedis)] Respiratory Rate 16 20 16 Blood Pressure 114/78 118/83 126/76 Pulse Oximetry 100 97 97 06/19/21 18:30 06/19/21 20:00 06/19/21 20:18 Temperature 99.4 F Pulse Rate 85 85 85 Pulse Rate [Bilateral Pedal (Dorsalis Pedis)] 85 Respiratory Rate 16 16 Blood Pressure 121/87 Pulse Oximetry 96 96 06/19/21 22:00 06/20/21 06:00 06/20/21 08:00 Temperature 100.3 F H 98.9 F Pulse Rate 73 79 80 Pulse Rate
--- NOTE | 2021-06-20 13:36 | PM.PNCARD ---
Progress Note: A&P Assessment and Plan (1) Elevated troponin: Code(s): R77.8 - Other specified abnormalities of plasma proteins Status: Acute Assessment and Plan: No symptoms to suggest ACS. Troponin went from 355 at [place] [64] to normal here .027 [.034]. 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 Echo shows EF 55-60%, mild biatrial enlargement, mod MAC, mild MR/TR, trace PI. (2) ETOH abuse: Code(s): F10.10 - Alcohol abuse, uncomplicated Status: Acute Assessment and Plan: Counseled regarding alcohol cessation. Monitor and treat withdrawals. (3) Tobacco abuse: Code(s): Z72.0 - Tobacco use Status: Acute Assessment and Plan: Counseled regarding smoking cessation. (4) Abdominal pain: Qualifiers: Abdominal location: epigastric Qualified Code(s): R10.13 - Epigastric pain Code(s): R10.9 - Unspecified abdominal pain Status: Acute Assessment and Plan: Has history of PUD and hiatal hernia and has intermittent melena. Has liver mass. CT abd pending. (5) NSVT (nonsustained ventricular tachycardia): Code(s): I47.2 - Ventricular tachycardia Status: Acute Assessment and Plan: Probably due to alcoholism with low potassium and Mag. Repleted levels. Started Metoprolol Tarate 25 mg BID. Change Metoprolol to Metoprolol Succinate 25 mg daily. Will sign off. Have patient f/u with me in next 2 weeks. Subjective Date/time seen: 06/20/21 3:36 He has left ear pain. Denies anymore epigastric pain. No chest pain or sob. Exam Const: General: cooperative, healthy appearing and comfortable Resp: Auscultation: clear to auscultation bilaterally, no crackles, no rales, no rhonchi and wheezes Cardio: Jugular venous distension: no JVD Rate: regular rate Heart sounds: no murmurs Peripheral pulses: dorsalis pedis present GI: GI Palp: Yes abdominal tenderness and Yes Soft to palpation Neuro: General: oriented to person, oriented to place and oriented to time Extrem: Right lower extremity: no edema Left lower extremity: no edema Objective Data Vital Signs Vital Signs: Vital Signs - 24 hr 06/19/21 16:00 06/19/21 18:06 06/19/21 18:30 Temperature 98.8 F 98.0 F 99.4 F Pulse Rate 85 84 85 Pulse Rate [Bilateral Pedal (Dorsalis Pedis)] 85 Respiratory Rate 20 16 16 Blood Pressure 118/83 126/76 121/87 Pulse Oximetry 97 97 96 06/19/21 20:00 06/19/21 20:18 06/19/21 22:00 Temperature 100.3 F H Pulse Rate 85 85 73 Pulse Rate [Bilateral Pedal (Dorsalis Pedis)] Respiratory Rate 16 22 H Blood Pressure 116/75 Pulse Oximetry 96 93 06/20/21 06:00 06/20/21 08:00 06/20/21 08:14 Temperature 98.9 F Pulse Rate 79 80 80 Pulse Rate [Bilateral Pedal (Dorsalis Pedis)] Respiratory Rate 24 H 24 H Blood Pressure 121/83 Pulse Oximetry 96 96 Intake/Output Intake/Output: Intake & Output 06/17/21 06/18/21 06/19/21 06/20/21 23:59 23:59 23:59 23:59 Intake Total 325 350 Output Total 675 Balance -350 350 Meds/Results Medications: Active Medications Generic Name Dose Route Start Last Admin Trade Name Freq PRN Reason Stop Dose Admin Acetaminophen 650 mg 06/19/21 04:09 06/20/21 10:59 Acetaminophen 325 Mg Tablet PO 650 mg Q4H PRN Administration Headache Albuterol 2.5 mg 06/19/21 03:36 Albuterol Sulfate Neb 2.5 Mg/3 Ml Inh INHALATION Q4HRT PRN Shortness Of Breath Metoprolol Tartrate 25 mg 06/19/21 09:00 06/20/21 08:14 Metoprolol Tartrate 25 Mg Tablet PO 25 mg Q12HR JACK Administration Neomycin/Polymyxin/Hydrocortisone 3 drop 06/19/21 13:00 06/20/21 12:02 Neomycin/Polymyxin/Hydrocort Ot Susp 10 Ml Btl (*Bkc) LEFT EAR 3 drop QID JACK Administration Pantoprazole Sodium 40 mg 06/19/21 09:00 06/20/21 08:14 Pantoprazole 40 Mg Tablet PO 40 mg QAM JACK Administration Perflutren Lipid Microsphere 0 ml 06/19/21 03:25 Perflutren Lipid Ronnie
[2021-06-20 18:46] VITALS: BP 106/66; PULSE 77; RESP 16; TEMP 37.2; O2SAT 97
[2021-06-20 21:02] VITALS: BP 110/70; PULSE 72; RESP 16; TEMP 36.6; O2SAT 97
[2021-06-21 05:32] VITALS: BP 138/75; PULSE 79; RESP 18; TEMP 36.6; O2SAT 99
[2021-06-21] MEDS: ACETAMINOPHEN 325 MG TABLET 650 MG PO ×2 (05:37→09:12)
[2021-06-21 06:44] LABS: Basophils Absolute Auto 0.1 K/mm3 (0.0-0.1); Basophils Percent Auto 0.4 % (0.2-1.2); Eosinophils Absolute Auto 0.1 K/mm3 (0-0.3); Eosinophils Percent Auto 0.4 % (0-4.4); Hematocrit 40.1 % (42.0-52.0); Hemoglobin 13.8 g/dL (14.0-18.0); Immature Granulocyte Absolute 0.08 K/mm3 (0.00-0.031); Immature Granulocyte Percent A 0.6 % (0-0.5); Lymphocytes Absolute Auto 5.87 K/mm3 (0.9-3.2); Lymphocytes Percent Auto 42.6 % (18.3-44.2); Mean Corpuscular HGB Conc 34.4 g/dl (32-36); Mean Corpuscular Hemoglobin 33.3 pg (26-34); Mean Corpuscular Volume 96.9 fl (80-100); Mean Platelet Volume 12.2 fl (7.4-10.4); Monocytes Absolute Auto 1.7 K/mm3 (0.1-0.6); Neutrophils Absolute Auto 6.1 K/mm3 (1.3-6.7); Platelet Count Result 126 k/mm3 (150-375); Red Blood Count 4.14 M/mm3 (4.6-6.20); Red Cell Distribution Width 15.2 % (11.5-14.5); White Blood Count 13.8 K/mm3 (4.5-10.0)
[2021-06-21 06:55] LABS: Alanine Aminotransferase 18 U/L (6-50); Albumin Level 2.5 g/dL (3.5-5.1); Alkaline Phosphatase 114 U/L (38-126); Anion Gap 3 mmol/L (8-16); Aspartate Amino Transferase 42 U/L (17-59); Bilirubin,Total 3.2 mg/dL (0.2-1.3); Blood Urea Nitrogen 7 mg/dL (9-20); Calcium 7.3 mg/dL (8.4-10.2); Carbon Dioxide 21 mmol/L (22-30); Chloride 108 mmol/L (98-107); Estimated CRCL calculation 156 ml/min; Estimated Glomerular Filt Rate > 60; Glucose 84 mg/dL (65-110); Potassium 3.6 mmol/L (3.4-5.0); Sodium 132 mmol/L (137-145)
[2021-06-21 08:00] VITALS: PULSE 80; RESP 18; O2SAT 99
[2021-06-21] MEDS: PANTOPRAZOLE 40 MG TABLET PO (09:12)
[2021-06-21] MEDS: NEOMYCIN/POLYMYXIN/HYDROCORT OT SUSP 10 ML BTL (*BKC) 3 DROP LEFT EAR ×2 (09:13→13:13)
[2021-06-21] MEDS: KETOROLAC 30 MG/ML VIAL (*BKC) IV PUSH (09:14)
[2021-06-21 09:57] VITALS: PULSE 80
[2021-06-21] MEDS: METOPROLOL SUCCINATE EXT REL 25 MG TABCR PO (09:57)
[2021-06-21] MEDS: SODIUM CHLORIDE 0.9% IV 1,000 ML 100 ML IV CONT (09:57)
[2021-06-21 11:04] LABS: INR 1.4; Prothrombin Time 16.7 Seconds (11.1-14.7)
--- NOTE | 2021-06-21 13:01 | PDONCCN ---
HPI - Date of Consult Date/Time: 06/21/21 13:01 Requesting Physician: MORAIMA Callahan Primary Care Provider: [employer] [facility] - Consult Narrative Reason for consult: Hepatocellular carcinoma Narrative: Estiven Rg is a 65 year old male with history of alcohol abuse recently moved from [place]. He came into the hospital with sharp epigastric pain after walking up stairs. Patient has some nausea. He also have a history of smoking 2 pack per day for 10 years duration. According the patient he was diagnosed to have liver mass about a year ago in [place]. CT abdomen and pelvis done on June 20 showed 7.7 cm hyperenhancing liver mass consistent with hepatocellular carcinoma with liver cirrhosis and portal venous hypertension along with small volume of ascites. He denies any chest pain. Denies any weight loss. Denies any other new complaints. Review of Systems - Review of Systems All systems reviewed & are unremarkable except as noted in HPI and bel - Neurologic Denies syncope PMFSH Medical History: Medical History (Last Reviewed 06/21/21 @ 07:46 by Toyin Rocha MD) COPD (chronic obstructive pulmonary disease) ETOH abuse Non-STEMI (non-ST elevated myocardial infarction) Tobacco abuse Family History: Family History (Last Reviewed 06/21/21 @ 07:46 by Toyin Rocha MD) Mother Carcinoma of colon Family history of Alzheimer's disease Father Family history of diabetes mellitus in first degree relative - Social History Social History: Social History (Last Reviewed 06/21/21 @ 07:46 by Toyin Rocha MD) Alcohol Use: Alcohol intake: current Substance Use: Substance use: never Others: Spiritual care concerns: No Smoking Status: Smoking status: Current every day smoker Tobacco type: cigarettes Second hand tobacco smoke exposure: Yes Smoking end date: 06/19/21 Smoking Pack-years: Smoking packs per day: 0 Smoking cigarettes per day: 2 Years smoked: 30 Smoking pack-years: 3.00 Meds Home Medications Medication Instructions Recorded Confirmed Type No Home Medications 06/19/21 06/19/21 History Allergies Allergy/AdvReac Type Severity Reaction Status Date / Time No Known Allergies Allergy Verified 06/18/21 23:49 Results - Labs CBC & Chem 7: 06/21/21 06:07 06/21/21 06:07 Labs: Short CBC 06/21/21 Range/Units 06:07 WBC 13.8 H (4.5-10.0) K/mm3 Hgb 13.8 L (14.0-18.0) g/dL Hct 40.1 L (42.0-52.0) % Plt Count 126 L (150-375) k/mm3 BMP 06/21/21 06:07 Sodium 132 L Potassium 3.6 Chloride 108 H Carbon Dioxide 21 L BUN 7 L Creatinine 0.60 L Glucose 84 Calcium 7.3 L Liver Function 06/21/21 Range/Units 06:07 Total Bilirubin 3.2 H (0.2-1.3) mg/dL AST 42 (17-59) U/L ALT 18 (6-50) U/L Alkaline Phosphatase 114 (38-126) U/L Albumin 2.5 L (3.5-5.1) g/dL Assessment and Plan - Additional Plan Hepatocellular carcinoma. Patient is 65-year-old male with history of alcohol abuse diagnosed to have liver mass about a year ago while he was in [place]. Patient he now came into the hospital with sharp abdominal pain along with some nausea. CT scan showed 7.7 cm hyperenhancing liver mass consistent with hepatocellular carcinoma along with liver cirrhosis and portal hypertension. He also had small volume of ascites. I will cancel the liver biopsy and will order the MRI of liver. I will also order for fetoprotein. Further staging workup will be done as an outpatient after confirmation of the diagnosis. Patient was provided with my office information for follow-up and further management of this likely hepatocellular carcinoma. I have answered all the questions to patient's satisfaction. Exam - Vital Signs Vital Signs - 24 hr 06/20/21 18:46 06/20/21 21:02 06/21/21 05:32 Temperature 37.2 C 36.6 C 36.6 C Pulse Rate 77
--- NOTE | 2021-06-21 13:23 | PM.IMPN ---
Progress Note: A&P Assessment and Plan (1) Abdominal pain: Qualifiers: Abdominal location: epigastric Qualified Code(s): R10.13 - Epigastric pain Code(s): R10.9 - Unspecified abdominal pain Status: Acute Assessment and Plan: Improving Likely related to have alcohol intake with gastritis versus pancreatitis Continue PPI and HH diet - 06/21/21: Abdominal pain has resolved. There is a notable large Hepatic mass in the liver that resembles a Hepatocellular Carcinoma. I consulted Dr. Wayne who is agreeable to seeing the patient, but would prefer an MRI over an US biopsy at this time. It was ordered and is currently pending. (2) Transaminitis: Code(s): R74.01 - Elevation of levels of liver transaminase levels Status: Acute Assessment and Plan: Hepatitis ABC panel negative Right upper quadrant ultrasound with 7.5 cm mass 06/19. CT abdomen and pelvis with contrast and alpha fetoprotein ordered to clarify prior to considering biopsy 06/20. CT abdomen and pelvis with contrast appears to show a large mass in the right lobe of the liver however no official reading is available. - 06/21/21: Large liver mass being managed as above in problem #1. We are currently awaiting MRI results. Transaminitis is most likely secondary to this mass. Bilirubin is elevated also at 3.2 and pt. has mild icterus. Dr. Wayne is covering and we are awaiting results of MRI. (3) ETOH abuse: Code(s): F10.10 - Alcohol abuse, uncomplicated Status: Acute Assessment and Plan: Patient reports no hx of withdrawals and does not have withdrawals. Continue to monitor. MVI. - 06/21/2021: Pt. admits to drinking daily for the past three years at least a 6 pack of beer. He states that prior to that he also drank, but it was intermittently, and not every day. He has not demonstrated any symptoms of Withdrawl here as inpatient. (4) Tobacco abuse: Code(s): Z72.0 - Tobacco use Status: Acute Assessment and Plan: He is aware of need to quit - 06/21/2021: Offered nicotine patch, pt. declines. (5) COPD (chronic obstructive pulmonary disease): Qualifiers: COPD type: unspecified COPD Qualified Code(s): J44.9 - Chronic obstructive pulmonary disease, unspecified Code(s): J44.9 - Chronic obstructive pulmonary disease, unspecified Status: Acute Assessment and Plan: albuterol prn - 06/21/2021: Lungs are currently without any adventitious sounds and he has no dyspnea. Will continue to monitor and intervene as necessary. (6) Elevated troponin I level: Code(s): R77.8 - Other specified abnormalities of plasma proteins Status: Resolved Assessment and Plan: Dramatic drop in troponin I possibly due to alcohol intoxication versus lab error No evidence for acute coronary syndrome - 06/21/2021: Resolved now. Pt. has no pain, Cardiology has consulted and does not appreciate any ACS. In addition, they have signed off of his care attributing the elevated troponin (64), to possibly a machine malfunction as by the time the pt. arrived here it was normal at 0.34. ECHO was performed and demonstrated an EF of 55-60%, mild biatrial enlargement, mod MAC, mild MR/TR, trace PI. (7) NSVT (nonsustained ventricular tachycardia): Code(s): I47.2 - Ventricular tachycardia Status: Acute Assessment and Plan: - 06/21/2021: No further Arrhythmia noted. (8) Left otitis externa: Qualifiers: Otitis externa type: unspecified type Chronicity: acute Qualified Code(s): H60.502 - Unspecified acute noninfective otitis externa, left ear Code(s): H60.92 - Unspecified otitis externa, left ear Status: Acute Assessment and Plan: Cortisporin otic - 06/21/2021: Continue Cortisporin Otic QID. Pt. with continued left ear pain today. Toradol ordered prn. (9) Edema of left lower extremity: Code(s): R60.0 - Localized edema Status: Acute Ass
--- NOTE | 2021-06-21 14:19 | PM.DS ---
DS: Admitting Diagnosis Discharge Date 06/21/2021 Admitting Diagnosis NSTEMI, Edema of LLE, Transaminitis, ETOH Abuse, Tobacco abuse, COPD DS: Discharge Diagnosis Discharge Diagnosis (1) Abdominal pain: Qualifiers: Abdominal location: epigastric Qualified Code(s): R10.13 - Epigastric pain Code(s): R10.9 - Unspecified abdominal pain Status: Acute Assessment and Plan: Improving Likely related to have alcohol intake with gastritis versus pancreatitis Continue PPI and HH diet - 06/21/21: Date of discharge: Abdominal pain has resolved. There is a notable large Hepatic mass in the liver that resembles a Hepatocellular Carcinoma. I consulted Dr. Wayne who is agreeable to seeing the patient, but would prefer an MRI over an US biopsy at this time. MRI is performed and the pt. will follow up with Dr. Wayne as an outpatient. In addition, he would like to schedule with Dr. Rios for a PCP as an outpatient. (2) Transaminitis: Code(s): R74.01 - Elevation of levels of liver transaminase levels Status: Acute Assessment and Plan: Hepatitis ABC panel negative Right upper quadrant ultrasound with 7.5 cm mass 06/19. CT abdomen and pelvis with contrast and alpha fetoprotein ordered to clarify prior to considering biopsy 06/20. CT abdomen and pelvis with contrast appears to show a large mass in the right lobe of the liver however no official reading is available. - 06/21/21: Large liver mass being managed as above in problem #1. We are currently awaiting MRI results. Transaminitis is most likely secondary to this mass. Bilirubin is elevated also at 3.2 and pt. has mild icterus. Dr. Wayne has consulted and he will follow up the MRI results with the patient in 1-2 weeks. (3) ETOH abuse: Code(s): F10.10 - Alcohol abuse, uncomplicated Status: Acute Assessment and Plan: Patient reports no hx of withdrawals and does not have withdrawals. Continue to monitor. MVI. - 06/21/2021: Pt. admits to drinking daily for the past three years at least a 6 pack of beer. He states that prior to that he also drank, but it was intermittently, and not every day. He has not demonstrated any symptoms of Withdrawl here as inpatient. (4) Tobacco abuse: Code(s): Z72.0 - Tobacco use Status: Acute Assessment and Plan: He is aware of need to quit - 06/21/2021: Offered nicotine patch, pt. declines. (5) COPD (chronic obstructive pulmonary disease): Qualifiers: COPD type: unspecified COPD Qualified Code(s): J44.9 - Chronic obstructive pulmonary disease, unspecified Code(s): J44.9 - Chronic obstructive pulmonary disease, unspecified Status: Acute Assessment and Plan: albuterol prn - 06/21/2021: Lungs are currently without any adventitious sounds and he has no dyspnea. Will continue to monitor and intervene as necessary. (6) Elevated troponin I level: Code(s): R77.8 - Other specified abnormalities of plasma proteins Status: Resolved Assessment and Plan: Dramatic drop in troponin I possibly due to alcohol intoxication versus lab error No evidence for acute coronary syndrome - 06/21/2021: Resolved now. Pt. has no pain, Cardiology has consulted and does not appreciate any ACS. In addition, they have signed off of his care attributing the elevated troponin (64), to possibly a machine malfunction as by the time the pt. arrived here it was normal at 0.34. ECHO was performed and demonstrated an EF of 55-60%, mild biatrial enlargement, mod MAC, mild MR/TR, trace PI. Cardiology has signed off. (7) NSVT (nonsustained ventricular tachycardia): Code(s): I47.2 - Ventricular tachycardia Status: Acute Assessment and Plan: - 06/21/2021: No further Arrhythmia noted. (8) Left otitis externa: Qualifiers: Otitis externa type: unspecified type Chronicity: acute Qualified Code(s): H60.502 - Unspecified acute noninfective otitis ext
[2021-06-21 14:32] VITALS: BP 122/71; PULSE 65; RESP 16; TEMP 36.8; O2SAT 100
[2021-06-24 14:57] LABS: Alpha Fetoprotein Tumor Marker 5.3 ng/mL (<6.1)
== END 2021-06-21 15:05 | disposition home or self-care (01) ==
LOC: ANHIMU 09:57 → ANH3MEDSUR 18:16
PROVIDERS: Internal Medicine; Internal Medicine Cardiovascular Disease; Admitting Provider Internal Medicine; Visit Provider Nurse Practitioner Adult Health
DX: R10.13 Epigastric pain (principal); R93.2 Abnormal findings on diagnostic imaging of liver and biliary tract; K74.60 Unspecified cirrhosis of liver; K76.6 Portal hypertension; I47.2 Ventricular tachycardia; J44.9 Chronic obstructive pulmonary disease, unspecified; H60.92 Unspecified otitis externa, left ear; R74.01 Elevation of levels of liver transaminase levels; R60.0 Localized edema; R77.8 Other specified abnormalities of plasma proteins; F17.210 Nicotine dependence, cigarettes, uncomplicated; F10.10 Alcohol abuse, uncomplicated
CPT/HCPCS: 36415; 74177; 74183; 76705; 80048; 80053; 80061; 82105; 83036; 83540; 83550; 83735; 84484; 85025; 85610; 86705; 86803; 87340; 93005; 93306; 93970; 96372; 96374; 96375; 96376; A9270; A9577; G0378; G0379; J1650; J1885; J3475; J7030; Q9967

== ENCOUNTER 2021-07-09 13:35 | Emergency (ER) | payer MEDICAID, SELFPAY ==
[2021-07-09] VITALS (25 sets, daily range): BP systolic 77–125; BP diastolic 57–79; PULSE 65–94; RESP 15–22; TEMP 37.2; O2SAT 97–100
--- NOTE | ~2021-07-09 | XR_ITS ---
EXAMINATION: XR chest 1V portable DATE: 07/09/2021 14:45 INDICATION: Hypotension. TECHNIQUE: A single frontal view of the chest was obtained on 2 radiographs. COMPARISON: Chest single view 06/18/2021, CT abdomen and pelvis 06/20/2021 FINDINGS: The chest demonstrates clear lungs without pneumonia, pleural effusion, or pneumothorax. Th e heart size is normal. IMPRESSION: 1. No acute cardiopulmonary disease. Reviewed, dictated and finalized at location A.
--- NOTE | 2021-07-09 14:17 | ECG_ITS ---
Measurements Intervals [place] Rate: 78 P: 74 [place]: 222 QRS: -64 QRSD: 126 T: 59 QT: 415 QTc: 473 Interpretive Statements SINUS RHYTHM WITH FIRST DEGREE AV BLOCK LEFT ANTERIOR FASCICULAR BLOCK [QRS AXIS <= -45, QR IN I, RS IN II] POSSIBLE ANTERIOR MYOCARDIAL INFARCTION , PROBABLY OLD [30 ms Q WAVE IN V3/V4, OR R < 0.2 mV IN V4] INFERIOR MYOCARDIAL INFARCTION , PROBABLY OLD [40+ ms Q WAVE AND/OR ST/T ABNORMALITY IN II/aVF] ABNORMAL ECG COMPARED TO ECG 06/19/2021 11:22:53 LEFT ANTERIOR FASCICULAR BLOCK NOW PRESENT Electronically Signed On 07-09-2021 16:50:42 CDT by Mateo Betancourt M.D.
[2021-07-09] MEDS: SODIUM CHLORIDE 0.9% IV 1,000 ML 999 ML IV CONT ×2 (14:25→15:47)
[2021-07-09 14:36] LABS: Hematocrit 40.7 % (40.0-54.0); Hemoglobin 13.7 g/dL (14.0-18.0); Mean Corpuscular HGB Conc 33.7 g/dL (32.0-36.0); Mean Corpuscular Hemoglobin 33.7 pg (27.0-31.0); Mean Platelet Volume 11.2 fl (8.7-11.0); Platelet Count Result 188 K/mm3 (150-420); Red Blood Count 4.07 M/mm3 (4.70-6.10); Red Cell Distribution Width 15.7 % (11.6-14.4); White Blood Count 8.6 K/mm3 (4.8-10.8)
[2021-07-09 14:49] LABS: Band Neutrophils Percent 0 % (0-6); Basophils Percent Manual 0 % (0-1); Eosinophils Absolute Manual 0.08 K/mm3 (0.02-0.5); Eosinophils Percent Manual 1 % (1-6); Lymphocytes Absolute Manual 4.12 K/mm3 (1.1-4.5); Lymphocytes Percent Manual 48 % (18-44); Monocytes Absolute Manual 1.54 K/mm3 (0.1-0.90); Monocytes Percent Manual 18 % (3-9); Neutrophils Absolute Manual 2.83 K/mm3 (1.3-6.7); Neutrophils Percent Manual 33 % (46-73); Platelet Estimate Adequate (Adequate); Total Cells Counted 100
[2021-07-09 14:56] LABS: Alanine Aminotransferase 35 U/L (16-63); Albumin Level 2.2 g/dL (3.4-5.0); Alkaline Phosphatase 129 U/L (46-116); Anion Gap 5 mmol/L (8-16); Aspartate Amino Transferase 65 U/L (15-37); Bilirubin,Total 1.4 mg/dL (0.00-1.00); Blood Urea Nitrogen 9 mg/dL (7-18); Calcium 8.3 mg/dL (8.5-10.1); Carbon Dioxide 25 mmol/L (21-32); Chloride 105 mmol/L (98-108); Estimated CRCL calculation 98 ml/min; Estimated Glomerular Filt Rate > 60; Glucose 112 mg/dL (70-99); Osmolality Calculated 279 mOsm/kg (285-295); Potassium 3.7 mmol/L (3.5-5.1); Sodium 135 mmol/L (136-145); Total Protein 7.5 g/dL (6.4-8.2)
[2021-07-09 15:35] LABS: Add Urine Microscopic? YES; Bilirubin Urine 2+ (Negative); Blood Urine Negative (Negative); Color Urine Dark Yellow (Yellow); Glucose Urine UA Negative (Negative); Ketones Urine Trace (Negative); Leukocyte Esterase Ur Trace (Negative); Nitrate Urine Positive (Negative); Protein Urine Trace (Negative); Specific Grav Ur 1.015 (1.010-1.020)
[2021-07-09 15:42] LABS: Appearance Urine Cloudy (Clear); RBC Urine None seen /hpf (0-2)
[2021-07-09 15:43] LABS: Bacteria Urine 4+ /hpf; Squamous Epithelial Cell Urine Few /hpf (Few)
[2021-07-09 16:23] LABS: NT Pro B Type Natriuretic Pept 454 pg/mL (0-125)
[2021-07-09 16:27] LABS: Troponin I 261.8 ng/L (0.00-60.4)
--- NOTE | 2021-07-09 16:49 | ED.GENADULT ---
HPI - General Adult General Chief complaint: Unspecified Stated complaint: low blood pressure,cant hear out of left ear Time Seen by Provider: 07/09/21 13:39 Source: patient and RN notes reviewed Mode of arrival: wheelchair Limitations: no limitations History of Present Illness complaint: low BP. Onset (ago): hour(s) (1) Radiation: non-radiation Quality: other (pt denied acute chest pain or SOB) Relieving factors: none Exacerbating factors: none Associated symptoms: other (left ear congestion/pain) Related Data Home Medications Medication Instructions Recorded Confirmed No Home Medications 07/09/21 07/09/21 Allergies Allergy/AdvReac Type Severity Reaction Status Date / Time No Known Allergies Allergy Verified 07/09/21 14:05 Review of Systems Review of Systems: All systems reviewed & are unremarkable except as noted in HPI and below Constitutional: Constitutional: Reports no additional constitutional complaints Eyes: Eyes: Reports no additional eye complaints ENT: Reports system reviewed and no additional complaints, except as documented Cardiovascular: Cardiovascular: Reports no additional cardiovascular complaints Respiratory: Respiratory: Reports no additional respiratory complaints Gastrointestinal: Gastrointestinal: Reports no additional gastrointestinal complaints Musculoskeletal: Musculoskeletal: Reports no additional musculoskeletal complaints Integumentary/Breasts: Skin/Breast: Reports system reviewed and no additional complaints, except as docu Neurologic: Reports system reviewed and no additional complaints, except as documented Psychiatric: Psychiatric: Reports no additional psychiatric complaints Endocrine: Endocrine: Reports no additional endocrine complaints Hematologic/Lymphatic: Hematologic/Lymphatic: Reports no additional hematologic/lymphatic complaints Allergic/Immunologic: Allergic/Immunologic: Reports no additional allergic/immunologic complaints PMFSH Past Medical History Medical History COPD (chronic obstructive pulmonary disease) ETOH abuse Non-STEMI (non-ST elevated myocardial infarction) Tobacco abuse Family History Family History Mother Carcinoma of colon Family history of Alzheimer's disease Father Family history of diabetes mellitus in first degree relative Social History Social History Smoking packs per day: 0 Smoking cigarettes per day: 0.0 Years smoked: 30 Smoking pack-years: 0.00 Smoking status: Current every day smoker Tobacco type: cigarettes Second hand tobacco smoke exposure: Yes Smoking end date: 06/19/21 Alcohol intake: current Substance use: never Spiritual care concerns: No Exam Const: General: cooperative and no acute distress Nutritional Appearance: well nourished Orientation/consciousness: patient oriented x3 Limitations: no limitations HENMT: Head: normal to inspection and other (mild left TM dullness) Ears: external ears normal, TM's normal bilaterally and EAC's normal General nose exam: Normal external nose present and Normal nares present Face and sinus: normal facial exam and sinuses nontender Mouth: Yes Normal oral and palatal mucosa present and Yes moist mucous membranes Teeth and gingiva: dentition normal Throat: posterior oropharynx normal Eyes: Conjunctivae: conjunctivae normal Pupils: Equal, round and reactive pupils present EOM: EOMs intact bilaterally Neck: Neck: normal visual inspection, no lymphadenopathy and no meningeal signs Chest: Chest palpation & inspection: normal inspection of the chest Resp: Effort & Inspection: normal respiratory effort Auscultation: clear to auscultation bilaterally Cardio: Rate: regular rate Rhythm: regular rhythm GI: GI Palp: Yes Soft to palpation and No Tenderness to palpation present (
[2021-07-09] MEDS: ACETAMINOPHEN 325 MG TABLET 650 MG PO (17:19)
[2021-07-09] MEDS: guaiFENesin 12 HR 600 MG TABCR PO (17:21)
--- NOTE | 2021-07-09 17:25 | PC.NURSE ---
Pt refusing transfer to [facility]. Pt states that he does not have money for a cab and would be stranded there. Pt states that he has the number for the admissions advisor and will call them himself tomorrow. Pt agreed to finish antibiotic before signing out AMA. ERP aware.
== END 2021-07-09 18:02 | disposition left against medical advice (07) ==
PROVIDERS: Emergency Provider Emergency Medicine; PCP Nurse Practitioner Family
DX: I21.4 Non-ST elevation (NSTEMI) myocardial infarction (principal); H69.92 Unspecified Eustachian tube disorder, left ear; N39.0 Urinary tract infection, site not specified
CPT/HCPCS: 36415; 71045; 80053; 81001; 83880; 84484; 85025; 93005; 96361; 96365; 99284; A9270; J0696; J7030

== ENCOUNTER 2021-07-21 14:36 | Emergency (ER) | payer MEDICAID, SELFPAY ==
[2021-07-21] VITALS (32 sets, daily range): BP systolic 110–133; BP diastolic 71–112; PULSE 74–98; RESP 11–23; TEMP 36.8–36.9; O2SAT 92–100
--- NOTE | ~2021-07-21 | CT_ITS ---
EXAMINATION: CT chest abdomen pelvis wo con DATE: 07/21/2021 16:03 INDICATION: EPIGASTRIC PAIN,SOB,WEAKNESS,CP . TECHNIQUE: Computed tomography (CT) of the chest, abdomen, and pelvis was performed without intraveno us contrast. Automated exposure control and iterative reconstruction technique were employed. The dos e-length product was 1130.27 mGy-cm. COMPARISON: CT abdomen pelvis 06/20/2021. MR abdomen 06/21/2021. FINDINGS: Thoracic aorta: Moderate arch calcification. No significant dilation. Lung parenchyma and airways: Lungs are clear. Small focus of aerated secretion in the mid trachea, ot herwise the airways are clear. Thoracic inlet, axillae and chest wall: No thyroid or soft tissue mass. No axillary lymphadenopathy. Mediastinum: No mass or lymphadenopathy. Heart and pericardium: Normal heart size. No pericardial effusion. Aortic and mitral valve calcificat ion. Coronary artery calcifications: Mild. Pleura: No effusion or mass. Fat-containing left posterior diaphragmatic hernia. Thoracic bones: No acute osseous finding in the chest. ABDOMEN/PELVIS: Liver: Cirrhotic change. 9.5 cm left lobe mass, previously reported as hepatocellular carcinoma, incr eased in size. Biliary/Gallbladder: Cholelithiasis. No bile duct dilation. Pancreas: No mass or duct dilation. Spleen: Normal. Adrenals:No mass. Kidneys: No mass, stone, or hydronephrosis. GI tract: No small or large bowel dilation. Normal appendix. Diverticulosis without diverticulitis. Mesentery/Peritoneum: No ascites, mass, or free air. Upper abdominal varices. Retroperitoneum: No mass. Atherosclerotic abdominal arterial calcifications. Pelvis: Partially decompressed bladder with wall thickening and surrounding inflammatory change. Pros tatomegaly. Soft Tissues: Soft tissues and body wall unremarkable. Abdominopelvic bones: No acute osseous finding in the abdomen/pelvis. IMPRESSION: No acute finding in the chest, abdomen, or pelvis. Enlarging left liver lobe hepatocellular carcinoma , now 9.5 cm. Cirrhosis with portal hypertension. Cholelithiasis. Reviewed, dictated and finalized at location K. IMPRESSION: No acute finding in the chest, abdomen, or pelvis. Enlarging left liver lobe he patocellular carcinoma, now 9.5 cm. Cirrhosis with portal hypertension. Choleli thiasis.
--- NOTE | 2021-07-21 15:43 | ECG_ITS ---
Measurements Intervals [place] Rate: 83 P: 22 IN: 208 QRS: -57 QRSD: 137 T: 50 QT: 435 QTc: 514 Interpretive Statements SINUS RHYTHM INTRAVENTRICULAR CONDUCTION DELAY [130+ ms QRS DURATION] POSSIBLE ANTERIOR MYOCARDIAL INFARCTION , OF INDETERMINATE AGE [30 ms Q WAVE IN V3/V4, OR R < 0.2 mV IN V4] ABNORMAL ECG COMPARED TO ECG 07/09/2021 14:37:49 INTRAVENTRICULAR CONDUCTION DELAY NOW PRESENT Electronically Signed On 07-22-2021 12:49:12 CDT by Robin Barber M.D.
[2021-07-21] MEDS: SODIUM CHLORIDE 0.9% IV 1,000 ML 999 ML IV CONT (16:15)
[2021-07-21 16:19] LABS: Hematocrit 35.1 % (40.0-54.0); Hemoglobin 12.4 g/dL (14.0-18.0); Mean Corpuscular HGB Conc 35.3 g/dL (32.0-36.0); Mean Corpuscular Hemoglobin 33.7 pg (27.0-31.0); Mean Corpuscular Volume 95.4 fL (78.0-102.0); Mean Platelet Volume 10.9 fl (8.7-11.0); Platelet Count Result 156 K/mm3 (150-420); Red Blood Count 3.68 M/mm3 (4.70-6.10); Red Cell Distribution Width 16.5 % (11.6-14.4); White Blood Count 9.4 K/mm3 (4.8-10.8)
[2021-07-21 16:38] LABS: Alanine Aminotransferase 29 U/L (16-63); Albumin Level 2.2 g/dL (3.4-5.0); Alkaline Phosphatase 176 U/L (46-116); Anion Gap 10 mmol/L (8-16); Aspartate Amino Transferase 75 U/L (15-37); Bilirubin,Total 1.3 mg/dL (0.00-1.00); Blood Urea Nitrogen 6 mg/dL (7-18); Calcium 7.5 mg/dL (8.5-10.1); Carbon Dioxide 21 mmol/L (21-32); Chloride 114 mmol/L (98-108); Estimated CRCL calculation 103 ml/min; Estimated Glomerular Filt Rate > 60; Glucose 88 mg/dL (70-99); Lactic Acid Reflex 1.6 mmol/L (0.4-2.0); Lipase 132 U/L (73-393); Osmolality Calculated 296 mOsm/kg (285-295); Potassium 3.4 mmol/L (3.5-5.1); Sodium 145 mmol/L (136-145); Total Protein 6.7 g/dL (6.4-8.2)
[2021-07-21 16:40] LABS: Base Excess ABG -0.7 mmol/L (0-2); Oxygen Content ABG 17.5 %vol (16.0-22.0); Oxygen Saturation ABG 96.9 % (95-97); Oxyhemoglobin 95.9 % (94-100); PCO2 ABG 30.3 mmHg (35-45); PO2 ABG 98.5 mmHg (80-90); Total Hemoglobin 12.9 g/dL (12.0-18.0); pH ABG 7.48 (7.35-7.45)
[2021-07-21 16:40] LABS: Troponin I 451.5 ng/L (0.00-60.4)
[2021-07-21 16:41] LABS: Device ROOM AIR; Modified Allen's Test Pass; Site Drawn RIGHT RADIAL
--- NOTE | 2021-07-21 16:45 | PC.NURSE ---
pt has ivf infusing as ordered without difficulty. pt is awaiting return call from cardiology and [facility] hospitalist at this time. pt reports abd pain. vss. will continue to monitor.
[2021-07-21 17:01] LABS: Band Neutrophils Percent 1 % (0-6); Basophils Percent Manual 0 % (0-1); Eosinophils Absolute Manual 0.47 K/mm3 (0.02-0.5); Eosinophils Percent Manual 5 % (1-6); Lymphocytes Absolute Manual 6.67 K/mm3 (1.1-4.5); Lymphocytes Percent Manual 71 % (18-44); Monocytes Absolute Manual 0.37 K/mm3 (0.1-0.90); Monocytes Percent Manual 4 % (3-9); Neutrophils Absolute Manual 1.88 K/mm3 (1.3-6.7); Neutrophils Percent Manual 19 % (46-73); Platelet Estimate Adequate (Adequate); Total Cells Counted 100
--- NOTE | 2021-07-21 17:07 | PC.NURSE ---
PT REFUSED ASA DUE TO ULCERS. ERP AWARE. PT PROVIDED URINE SPECIMEN, SENT TO LAB.
[2021-07-21 17:10] LABS: Add Urine Microscopic? YES; Appearance Urine Clear (Clear); Bilirubin Urine 1+ (Negative); Blood Urine 1+ (Negative); Color Urine Yellow (Yellow); Glucose Urine UA Negative (Negative); Ketones Urine Negative (Negative); Leukocyte Esterase Ur 1+ (Negative); Nitrate Urine Negative (Negative); Protein Urine 1+ (Negative)
[2021-07-21 17:20] LABS: Bacteria Urine Trace /hpf; Squamous Epithelial Cell Urine Rare /hpf (Few)
--- NOTE | 2021-07-21 17:34 | ED.GENADULT ---
HPI - General Adult General Chief complaint: Unspecified Stated complaint: dizzy,pain in ear Time Seen by Provider: 07/21/21 14:40 Source: patient and RN notes reviewed Mode of arrival: ambulatory Limitations: no limitations History of Present Illness HPI narrative: dizziness and earache Onset (ago): day(s) (1) Location: head Severity: mild Severity scale (1-10): 3 Quality: aching Pain Consistency: constant Relieving factors: none Exacerbating factors: none Associated symptoms: chest pain Related Data Home Medications Medication Instructions Recorded Confirmed cetirizine 10 mg tablet 10 mg PO DAILY 07/21/21 07/21/21 hydrocodone 5 mg-acetaminophen 325 1 tablet PO Q8H PRN Pain 07/21/21 07/21/21 mg tablet pantoprazole 40 mg tablet,delayed 40 mg PO QAM 07/21/21 07/21/21 release Allergies Allergy/AdvReac Type Severity Reaction Status Date / Time No Known Allergies Allergy Verified 08/27/21 07:30 Review of Systems Review of Systems: All systems reviewed & are unremarkable except as noted in HPI and below Constitutional: Constitutional: Reports no additional constitutional complaints Eyes: Eyes: Reports no additional eye complaints ENT: Reports system reviewed and no additional complaints, except as documented Cardiovascular: Cardiovascular: Reports no additional cardiovascular complaints Respiratory: Respiratory: Reports no additional respiratory complaints Gastrointestinal: Gastrointestinal: Reports no additional gastrointestinal complaints Musculoskeletal: Musculoskeletal: Reports no additional musculoskeletal complaints Integumentary/Breasts: Skin/Breast: Reports system reviewed and no additional complaints, except as docu Neurologic: Reports system reviewed and no additional complaints, except as documented Psychiatric: Psychiatric: Reports no additional psychiatric complaints Endocrine: Endocrine: Reports no additional endocrine complaints Hematologic/Lymphatic: Hematologic/Lymphatic: Reports no additional hematologic/lymphatic complaints Allergic/Immunologic: Allergic/Immunologic: Reports no additional allergic/immunologic complaints [facility] Past Medical History Medical History COPD (chronic obstructive pulmonary disease) ETOH abuse Non-STEMI (non-ST elevated myocardial infarction) Tobacco abuse Family History Family History Mother Family history of Alzheimer's disease Carcinoma of colon Father Family history of diabetes mellitus in first degree relative Septicemia Femur fracture Social History Social History Smoking packs per day: 0 Smoking cigarettes per day: 0.0 Years smoked: 30 Smoking pack-years: 0.00 Smoking status: Current every day smoker Second hand tobacco smoke exposure: Yes Alcohol intake: current Substance use: never Spiritual care concerns: No Exam Const: General: healthy appearing and no acute distress Nutritional Appearance: well nourished Orientation/consciousness: patient oriented x3 Limitations: no limitations HENMT: Head: normal to inspection Ears: external ears normal, TM's normal bilaterally and EAC's normal General nose exam: Normal external nose present and Normal nares present Face and sinus: normal facial exam and sinuses nontender Mouth: Yes Normal oral and palatal mucosa present and Yes moist mucous membranes Teeth and gingiva: dentition normal Throat: posterior oropharynx normal Eyes: General: appearance normal, both eyes and all related structures Conjunctivae: conjunctivae normal Pupils: Equal, round and reactive pupils present EOM: EOMs intact bilaterally Neck: Neck: normal visual inspection, no lymphadenopathy and no meningeal signs Chest: Chest palpation & inspection: normal inspection of the chest Resp: Effort & Inspection: normal respirato
[2021-07-21 17:53] LABS: Troponin I 462.6 ng/L (0.00-60.4)
--- NOTE | 2021-07-21 18:02 | PC.NURSE ---
pt is lying on stretcher in exam room awaiting room assignment at [facility] for transfer. pt is aware of plan of care. pt denies any needs or complaints at this time. will continue to monitor. vss per monitor.
--- NOTE | 2021-07-21 18:17 | PC.NURSE ---
madina diane paged at this time
== END 2021-07-21 18:35 | disposition short-term general hospital (02) ==
PROVIDERS: Emergency Provider Emergency Medicine; PCP Family Medicine
DX: I21.4 Non-ST elevation (NSTEMI) myocardial infarction (principal); C22.0 Liver cell carcinoma; F17.200 Nicotine dependence, unspecified, uncomplicated
CPT/HCPCS: 36415; 36600; 71250; 74176; 80053; 81001; 82805; 83605; 83690; 84484; 85025; 93005; 96360; 99285; J7030

== ENCOUNTER 2021-07-21 19:14 | Inpatient (IN) | payer MEDICAID, SELFPAY ==
--- NOTE | ~2021-07-21 | XR_ITS ---
EXAMINATION: XR chest 1V portable Exam Date/Time: 07/24/2021 17:02 CDT HISTORY: shortness of breath HX COPD Comparison: 07/09/2021. RESULT: Lines, tubes, and devices: None. Lungs and pleura: Mild diffuse reticular pattern. Cardiomediastinal silhouette: Stable cardiomediastinal silhouette. Other: No acute osseous or upper abdominal finding. IMPRESSION: Pulmonary opacities may reflect mild interstitial edema. Reviewed, dictated and finalized at location K.
[2021-07-21 19:25] VITALS: BP 150/88; PULSE 87; RESP 18; TEMP 36.6; O2SAT 100
--- NOTE | 2021-07-21 20:00 | PM.IMHP ---
H&P: HPI History of Present Illness Date/Time: 07/21/21 20:00 Chief Complaint: Chest pain. Narrative: This is a 65-year-old male with past medical history significant for alcohol dependence, hepatocellular carcinoma, COPD/emphysema, tobacco dependence. 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 Patient has had a productive cough of sputum which was initially clear phlegm and now has turned lin color however no fevers but states that has had chills, bilateral lower extremity swelling, shortness of breath, fatigue, patient does not have a transportation and had to walk under extreme heat to his primary care physician's office for evaluation of these he was sent to emergency room from his primary care physician's office. Preliminary lab work was significant for elevated troponin a CT of chest abdomen and pelvis showed increased mass of the liver. Patient drinks 4-5 beers daily and is trying to cut back on his tobacco use usually smokes 1-2 cigarettes daily, has been admitted for further evaluation, management and treatment. Review of Systems Review of Systems: Chest pain on and off, recurrent falls, dizziness, Constitutional: Constitutional: Reports chills, Reports fatigue, Denies fever(s), Reports frequent falls, Reports lethargy, Denies night sweats, Denies poor appetite and Reports weight gain Eyes: Eyes: Denies change in vision ENT: Denies dysphagia, Reports vertigo, Reports dizziness, Denies nasal congestion, Denies nasal discharge, Denies odynophagia and Reports disequilibrium Cardiovascular: Cardiovascular: Reports chest pain, Denies syncope, Reports pedal edema, Denies irregular heart rhythm, Reports leg edema, Reports lightheadedness, Denies radiating jaw, neck or arm pain, Denies palpitations and Reports dyspnea on exertion Respiratory: Respiratory: Reports change in phlegm color, Reports chest congestion, Reports cough, Reports excessive phlegm production, Denies pain on inspiration and Reports dyspnea on exertion Gastrointestinal: Gastrointestinal: Denies abdominal pain, Denies dyspepsia and Denies heartburn Genitourinary: Genitourinary: Denies dysuria Musculoskeletal: Musculoskeletal: Reports back pain Integumentary/Breasts: Skin/Breast: Denies rash Neurologic: Reports vertigo, Reports dizziness, Denies focal weakness, Denies Sensory deficit (Neuro) and Reports disequilibrium Psychiatric: Psychiatric: Reports no additional psychiatric complaints and Reports as per HPI Endocrine: Endocrine: Denies cold intolerance, Denies fatigue, Denies flushing, Denies heat intolerance, Denies polyphagia, Denies polydipsia and Denies palpitations Hematologic/Lymphatic: Hematologic/Lymphatic: Reports no additional hematologic/lymphatic complaints and Reports as per HPI Allergic/Immunologic: Allergic/Immunologic: Reports no additional allergic/immunologic complaints and Reports as per HPI PMFSH Past Medical History Medical History COPD (chronic obstructive pulmonary disease) ETOH abuse Non-STEMI (non-ST elevated myocardial infarction) Tobacco abuse Family History Family History (Updated 07/21/21 @ 20:13 by Ml Medina RN) Mother Family history of Alzheimer's disease Carcinoma of colon Father Family history of diabetes mellitus in first degree relative Septicemia Femur fracture Social History Social History (Updated 07/21/21 @ 13:57 by Rosi Nicholas) Smoking packs per day: 0 Smoking cigarettes per day: 0.0 Years smoked: 30 Smoking pack-years: 0.00 Smoking status: Current every day smoker Second hand tobacco smoke exposure: Yes Alcohol intake:
--- NOTE | 2021-07-21 20:11 | ADMGEN ---
This patient, Estiven Rg, was admitted to IMU Room 201-01 at 1915. Patient/family oriented to hospital policies and general routines including ID bracelet, bed and alarms, visiting hours, pain management, procedures, bathroom and other care routines, personal items, smoking policy, room service/diet, and visiting hours. Information on how to activate the Rapid Response Team has been discussed. Patient/Family are encouraged to report perceived risks to care and to ask questions if they do not understand what they are told or what they should do.
[2021-07-21 20:16] VITALS: BMI 28.8
[2021-07-21 20:19] VITALS: PULSE 87; RESP 18; O2SAT 100
[2021-07-21 22:00] VITALS: PULSE 83
--- NOTE | 2021-07-21 22:32 | PC.NURSE ---
dr grover is aware that patient is here. still waiting for orders.
--- NOTE | 2021-07-21 23:16 | PC.NURSE ---
patient is c/o chest pain, upset stomach and diarrhea. [employer] manpower development manager is aware that patient is not feeling well. dr grover was informed of patients arrival through [employer] manpower development manager. still waiting on orders.
--- NOTE | 2021-07-21 23:20 | PC.NURSE ---
dr grover was made aware by manas again of patients arrival, and current symptoms.
[2021-07-21 23:23] VITALS: BP 150/88
--- NOTE | 2021-07-21 23:26 | ECG_ITS ---
Measurements Intervals [place] Rate: 81 P: 42 TN: 208 QRS: -56 QRSD: 136 T: 51 QT: 435 QTc: 507 Interpretive Statements SINUS RHYTHM INTRAVENTRICULAR CONDUCTION DELAY [130+ ms QRS DURATION] POSSIBLE ANTERIOR MYOCARDIAL INFARCTION [30 ms Q WAVE IN V3/V4, OR R < 0.2 mV IN V4], OF INDETERMINATE AGE INFERIOR MYOCARDIAL INFARCTION [40+ ms Q WAVE AND/OR ST/T ABNORMALITY IN II/aVF], PROBABLY OLD COMPARED TO ECG 07/21/2021 16:18:09 NO SIGNIFICANT CHANGES Electronically Signed On 07-22-2021 11:14:56 CDT by Alissa Gamino MD
[2021-07-22] VITALS (17 sets, daily range): BP systolic 120–139; BP diastolic 74–93; PULSE 81–107; RESP 18–22; TEMP 36.5–36.9; O2SAT 96–99
--- NOTE | 2021-07-22 | ECHOL_ITS ---
Patient Info Name: Estiven Rg Age: 65 years : 1955 Gender: Male Ht: 77 in Wt: 175 lbs BSA: 2.06 m2 BP: 135 / 79 mmHg Technical Quality: Good Exam Date: 07/22/2021 2:18 PM Exam Location: [facility] Patient Status: Inpatient Admit Date: 07/21/2021 Staff Ordering Physician: Jamal Grace MD Licensing Services Clerk: Darien Michele RDCS, RT Attending Provider: Balwinder Krause MD Referring Physician: Sanjay BARBOZA; Exam Type: CA echo limited Study Info Indications R60.0 - Localized edema Limited two-dimensional transthoracic echocardiogram is performed with contrast. Summary 1. Limited echocardiogram to assess for wall motion abnormalities. 2. Definity contrast administered improved wall motion interpretation. 3. Left ventricular chamber dimension is mildly enlarged. 4. Left ventricular systolic function is severely reduced, estimated at 25-30%. 5. Left ventricular septal wall motion is abnormal with septal motion related to bundle branch block. Left Ventricle Definity contrast administered improved wall motion interpretation. The left ventricular diastolic function is indeterminate as it was not assessed. Limited echocardiogram to assess for wall motion abnormalities. Left ventricular chamber dimension is mildly enlarged. Left ventricular systolic function is severely reduced, estimated at 25-30%. Left ventricular septal wall motion is abnormal with septal motion related to bundle branch block. Ventricles Name Value Normal LV Dimensions 2D/MM IVS Diastolic Thickness (2D) 1.1 cm 0.6-1.0 LVID Diastole (2D) 4.5 cm 4.2-5.8 LVIW Diastolic Thickness (2D) 1.0 cm 0.6-1.0 LVID Systole (2D) 4.0 cm 2.5-4.0 LV Mass (2D Cubed) 162.02 g 88.00-224.00 LV Mass Index (2D Cubed) 78 g/m2 49-115 Relative Wall Thickness (2D) 0.47 LV Fractional Shortening/Ejection Fraction 2D/MM LV Fractional Shortening (2D) 11 % 25-43 LV EF (2D Teicholz) 24 % 52-72 LV Diastolic Volume (4C MOD) 131 ml LV EF (4C MOD) 19 % LV Diastolic Volume (2C MOD) 97 ml LV EF (2C MOD) 28 % LV Diastolic Volume (BP MOD) 113 ml 62-150 LV Diastolic Volume Index (BP MOD) 55 ml/m2 34-74 LV Systolic Volume (BP MOD) 88 ml 21-61 LV Systolic Volume Index (BP MOD) 43 ml/m2 11-31 LV EF (BP MOD) 22 % 52-72 LV Diastolic Length (4C) 9.4 cm LV Systolic Length (4C) 9.0 cm LV Stroke Volume (4C MOD) 25 ml Report Signatures
[2021-07-22] MEDS: THIAMINE HCL INJ 100 MG, FOLIC ACID INJ 1 MG, MULTIVITAMINS-12 INJ VIAL 1 5 ML, MULTIVI... 125 MG IV CONT (00:43)
[2021-07-22] MEDS: chlordiazePOXIDE (*CRX) 25 MG CAPSULE 50 MG PO ×4 (00:45→23:44)
[2021-07-22 01:07] LABS: Magnesium 1.6 mg/dL (1.6-2.3); Phosphorus 4.6 mg/dL (2.5-4.5)
[2021-07-22 01:44] LABS: Troponin I 0.035 ng/mL (0.000-0.034)
[2021-07-22] MEDS: HYDROcodone/acetaminophen (*CRX) 5-325 MG TABLET 1 TAB PO (01:44)
[2021-07-22 02:04] LABS: NT Pro B Type Natriuretic Pept 348 pg/mL (5-100)
--- NOTE | 2021-07-22 02:12 | PC.NURSE ---
dr grover called at 0145 and 0210 for critical troponin on patient in 201. no answer. patient is not having chest pain at this time. patient is sleeping. still waiting on dr grover to call back.
--- NOTE | 2021-07-22 02:58 | PC.NURSE ---
finally was able to give dr grover the critical results on 201. called at 0145, 0210, [phone], on [facility] and hospitalist phone. was able to reach her in dr aguilar number. charge nurse segundo aware and household appliance installer aware.
[2021-07-22] MEDS: MAGNESIUM SULF 2 GM/WATER 50ML 2 GM/50 ML BAG IVPB (04:18)
[2021-07-22] MEDS: LORazepam INJ (*CRX) 2 MG/ML VIAL IV PUSH ×2 (04:19→10:32)
[2021-07-22] MEDS: DOXYCYCLINE 100 MG/NS 100 ML 100 MG/100 ML BAG IVPB ×2 (04:19→17:55)
[2021-07-22 04:35] LABS: Troponin I 0.038 ng/mL (0.000-0.034)
[2021-07-22] MEDS: ENOXAPARIN 120 MG/0.8 ML SYRINGE 110 MG SUB-Q (06:04)
[2021-07-22 07:42] LABS: Troponin I 0.037 ng/mL (0.000-0.034)
[2021-07-22 08:21] LABS: Basophils Absolute Auto 0.1 K/mm3 (0.0-0.1); Basophils Percent Auto 0.8 % (0.2-1.2); Eosinophils Absolute Auto 0.4 K/mm3 (0-0.3); Eosinophils Percent Auto 5.3 % (0-4.4); Hematocrit 36.9 % (42.0-52.0); Hemoglobin 12.1 g/dL (14.0-18.0); Immature Granulocyte Absolute 0.02 K/mm3 (0.00-0.031); Immature Granulocyte Percent A 0.3 % (0-0.5); Lymphocytes Absolute Auto 4.06 K/mm3 (0.9-3.2); Lymphocytes Percent Auto 51.5 % (18.3-44.2); Mean Corpuscular HGB Conc 32.8 g/dl (32-36); Mean Corpuscular Volume 100.5 fl (80-100); Mean Platelet Volume 11.8 fl (7.4-10.4); Monocytes Absolute Auto 0.8 K/mm3 (0.1-0.6); Monocytes Percent Auto 10.6 % (2.6-8.5); Neutrophils Absolute Auto 2.5 K/mm3 (1.3-6.7); Neutrophils Percent Auto 31.5 % (45.5-73.1); Platelet Count Result 139 k/mm3 (150-375); Red Blood Count 3.67 M/mm3 (4.6-6.20); White Blood Count 7.9 K/mm3 (4.5-10.0)
[2021-07-22 08:23] LABS: Alanine Aminotransferase 25 U/L (6-50); Albumin Level 2.5 g/dL (3.5-5.1); Alkaline Phosphatase 179 U/L (38-126); Anion Gap 7 mmol/L (8-16); Aspartate Amino Transferase 74 U/L (17-59); Bilirubin,Total 2.2 mg/dL (0.2-1.3); Blood Urea Nitrogen 5 mg/dL (9-20); Calcium 7.2 mg/dL (8.4-10.2); Carbon Dioxide 21 mmol/L (22-30); Chloride 115 mmol/L (98-107); Estimated CRCL calculation 121 ml/min; Estimated Glomerular Filt Rate > 60; Glucose 87 mg/dL (65-110); Potassium 3.5 mmol/L (3.4-5.0); Sodium 143 mmol/L (137-145)
[2021-07-22] MEDS: PANTOPRAZOLE 40 MG TABLET PO (10:17)
[2021-07-22] MEDS: LORATADINE 10 MG TABLET PO (10:18)
--- NOTE | 2021-07-22 10:18 | PM.IMPN ---
Progress Note: A&P Assessment and Plan (1) Hepatocellular carcinoma: Code(s): C22.0 - Liver cell carcinoma Status: Acute Assessment and Plan: Patient is supposed to follow-up in the outpatient setting However patient lacks transportation content development manager consult Supportive care He is scheduled to see in [facility] which he has not been there yet. (2) PUD (peptic ulcer disease): Code(s): K27.9 - Peptic ulcer, site unspecified, unspecified as acute or chronic, without hemorrhage or perforation Status: Acute Assessment and Plan: PPI Continue to monitor Zofran p.r.n. for nausea (3) Elevated troponin I level: Code(s): R77.8 - Other specified abnormalities of plasma proteins Status: Resolved Assessment and Plan: Repeat troponin downtrending now back to normal Cardiology consult due to patient's risk factors HOANG risk score is 5-7 Recent echocardiogram reviewed EKG with no acute changes Supportive care On Lovenox full dose (4) Tobacco abuse: Code(s): Z72.0 - Tobacco use Status: Acute Assessment and Plan: Patient is down to 1-2 cigarettes a day and is trying to completely quit Nicotine patch as needed (5) COPD (chronic obstructive pulmonary disease): Qualifiers: COPD type: unspecified COPD Qualified Code(s): J44.9 - Chronic obstructive pulmonary disease, unspecified Code(s): J44.9 - Chronic obstructive pulmonary disease, unspecified Status: Acute Assessment and Plan: Breathing treatments Currently on doxycycline due to change in sputum quality which will be continued (6) ETOH abuse: Code(s): F10.10 - Alcohol abuse, uncomplicated Status: Acute Assessment and Plan: CIWA protocol as needed On scheduled Librium Subjective Date/time seen: 07/22/21 10:18 Interval history: HPI:This is a 65-year-old male with past medical history significant for alcohol dependence, hepatocellular carcinoma, COPD/emphysema, tobacco dependence.? 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 Patient has had a productive cough of sputum which was initially clear phlegm and now has turned lin color however no fevers? but? states that has had chills, bilateral lower extremity swelling, shortness of breath, fatigue, patient does not have a transportation and had to walk under extreme heat to his primary care physician's office for evaluation of these he was sent to emergency room from his primary care physician's office.? Preliminary lab work was significant for elevated troponin a CT of chest abdomen and pelvis showed increased mass of the liver.? Patient drinks 4-5 beers daily and is trying to cut back on his tobacco use usually smokes 1-2 cigarettes daily, has been admitted for further evaluation, management and treatment. 07/22/2021 feels weak and tired was retching and threw up during the visit. Abdominal pain reported which has been chronic. No fever chills no current chest pain denies shortness of breath has been having cough Review of Systems Review of Systems: All systems reviewed & are unremarkable except as noted in HPI and below (HPI) Exam Narrative: GENERAL: The patient is ill looking, not in acute distress HEENT: Nonicteric sclerae, PERRLA, EOMI. Oropharynx clear. Moist mucous membranes. Conjunctivae appear well perfused. CHEST: Chest wall is nontender. HEART: Regular rate and rhythm without murmur, rubs, or gallops LUNGS: Coarse breath sounds bilaterally. no respiratory distress ABDOMEN: Soft, positive bowel sounds, tender epigastric area, no organomegaly. SKIN: No rash, no excessive bruising, petechiae, or pur
[2021-07-22] MEDS: ONDANSETRON INJ 4 MG/2 ML VIAL IV PUSH (10:42)
--- NOTE | 2021-07-22 10:56 | PM.CNCAR ---
Assessment and Plan Assessment and plan (1) Chest pain: Code(s): R07.9 - Chest pain, unspecified Status: Acute Assessment and Plan: Resolved now. Could be CAD, musculoskeletal, COPD. (2) Elevated troponin I level: Code(s): R77.8 - Other specified abnormalities of plasma proteins Status: Resolved Assessment and Plan: Troponin peaked at .038 here and trended down. Could be related to alcoholism, CAD. 06/19/21 Echo: EF 55-60%, grade I diastolic dysfunction (E/e '7), mild biatrial enlargement, mild MR/TR. Receiving Lovenox. Since troponin peaked, may stop Lovenox. Start aspirin if OK from GI standpoint given history of PUD/melena. Obtain limited echo to assess WMA. (3) Tobacco abuse: Code(s): Z72.0 - Tobacco use Status: Acute Assessment and Plan: Counseled regarding smoking cessation. (4) ETOH abuse: Code(s): F10.10 - Alcohol abuse, uncomplicated Status: Acute Assessment and Plan: Advise to avoid alcohol. (5) NSVT (nonsustained ventricular tachycardia): Code(s): I47.2 - Ventricular tachycardia Status: Acute Assessment and Plan: He had NSVT last month but Metoprolol was stopped for unknown reasons. Resume Metoprolol Tartate 25 mg BID. History of Present Illness History of Present Illness Consult date/time: 07/22/21 10:56 65 yr old man presented to [place] ER last night for chest pain then transferred to [place] for further management. He has a history of significant alcohol abuse, smoking, COPD, cirrhosis of liver, PUD, melena, hepatocellular carcinoma. He moved back to [place] as he is originally from [place] before moving to [place] for 30 years. He has a daughter who lives in [place], [place]. States he was walking to his PCP office yesterday when had chest pain that prompted him to go to ER. Reports he has intermittent epigastric pain probably due to heart burn and he has hiatal hernia. He has chronic sob and can walk only short distances due to weakness/fatigue/MARTINEZ.? He smokes 2 ppd down to 2 cigarettes per day. He drinks on average 9 beers a day for many years. Denies sob, orthopnea, PND, edema, dizziness, palpitations. Consult reason: chest pain Reason For Visit: chest pain, elevated trop Review of Systems Review of Systems: All systems reviewed & are unremarkable except as noted in HPI and below Constitutional: Constitutional: Reports as per HPI, Denies chills and Denies fever(s) Cardiovascular: Cardiovascular: Reports as per HPI, Reports chest pain and Denies leg edema Respiratory: Respiratory: Reports as per HPI and Denies dyspnea Gastrointestinal: Gastrointestinal: Reports as per HPI and Reports abdominal pain Genitourinary: Genitourinary: Reports as per HPI and Denies dysuria Musculoskeletal: Musculoskeletal: Reports as per HPI Neurologic: Reports as per HPI, Denies dizziness and Denies syncope [facility] Past Medical History Medical History COPD (chronic obstructive pulmonary disease) ETOH abuse Non-STEMI (non-ST elevated myocardial infarction) Tobacco abuse Family History Family History (Updated 07/21/21 @ 20:13 by Ml Medina RN) Mother Family history of Alzheimer's disease Carcinoma of colon Father Family history of diabetes mellitus in first degree relative Septicemia Femur fracture Social History Social History (Updated 07/21/21 @ 13:57 by Rosi Nicholas) Smoking packs per day: 0 Smoking cigarettes per day: 0.0 Years smoked: 30 Smoking pack-years: 0.00 Smoking status: Current every day smoker Second hand tobacco smoke exposure: Yes Alcohol intake: current Substance use: never Spiritual care concerns: No Meds Home Medications and Allergies Home Medications Medication Instructions Recorded Confirmed Type cetirizine 10 mg tablet 10 mg PO DAILY 07/21/21 07/21/21 History hydrocodone 5 mg-acetam
--- NOTE | 2021-07-22 12:09 | PCCCNOTE ---
On 07/22/21, the student, [Karime Hedrick], provided care and completed [employer] documentation on this patient. I have reviewed the student's documentation and agree with the findings.
[2021-07-22 12:10] LABS: Glucose Point of Care 110 mg/dl (65-105)
[2021-07-22] MEDS: METOPROLOL TARTRATE 25 MG TABLET PO (13:43)
[2021-07-22] MEDS: PERFLUTREN LIPID MICROSPHERES 1.5 ML VIAL DILUTED TO 10 ML TOTAL VOLUME IV PUSH (14:16)
[2021-07-22 16:14] LABS: Glucose Point of Care 94 mg/dl (65-105)
[2021-07-22] MEDS: carvediloL 3.125 MG TABLET PO (22:21)
[2021-07-22] MEDS: SACUBITRIL/VALSARTAN 24-26 MG TABLET 1 TAB PO (22:22)
[2021-07-23] VITALS (17 sets, daily range): BP systolic 110–125; BP diastolic 68–82; PULSE 55–98; RESP 18–24; TEMP 36.4–37.7; O2SAT 93–98
[2021-07-23 00:19] LABS: Glucose Point of Care 103 mg/dl (65-105)
[2021-07-23] MEDS: DOXYCYCLINE 100 MG/NS 100 ML 100 MG/100 ML BAG IVPB ×2 (04:24→16:08)
--- NOTE | 2021-07-23 07:49 | PC.NURSE ---
Spoke with Dr. Vicente regarding patient's mental. Pt is lethargic and only able to answer that he's at [facility]. Pt not oriented enough to sign consent. Only contact listed is a friend . RN called contact and got voicemail, message was left. Awaiting return call. When asked who the patient would like to make decisions for him if he's unable to, pt stated I don't know. I don't have anybody. New order from Dr. Vicente to cancel Lexiscan for today
--- NOTE | 2021-07-23 07:54 | PC.NURSE ---
Notified Dr. Krause of patient being lethargic. Informed him that RN has spoken with Dr. Vicente regarding the situation, and the Lexiscan has been canceled. Pt is receiving Librium 50mg PO q6h, last dose at 2344 on 07/22/21. Pt also has 2mg Ativan IVP q4h PRN for anxiety, last dose was at 1032 on 07/22/21. New order to hold Librium until seen by MD. Will continue to monitor
--- NOTE | 2021-07-23 08:04 | PM.PNCARD ---
Progress Note: A&P Assessment and Plan (1) Chest pain: Code(s): R07.9 - Chest pain, unspecified Status: Acute Assessment and Plan: Resolved now. Could be CAD, musculoskeletal, COPD. (2) Elevated troponin I level: Code(s): R77.8 - Other specified abnormalities of plasma proteins Status: Resolved Assessment and Plan: Troponin peaked at .038 here and trended down. Could be related to alcoholism, CAD. 06/19/21 Echo: EF 55-60%, grade I diastolic dysfunction (E/e '7), mild biatrial enlargement, mild MR/TR. Limited echo on 07/22/21 shows EF 25-30%, mild LAE. Start aspirin, Atorvastatin, Entresto and Coreg. Stop Lovenox as no chest pains and troponin had peaked. Add Clopidogrel. (3) Tobacco abuse: Code(s): Z72.0 - Tobacco use Status: Acute Assessment and Plan: Counseled regarding smoking cessation. (4) ETOH abuse: Code(s): F10.10 - Alcohol abuse, uncomplicated Status: Acute Assessment and Plan: Advise to avoid alcohol. 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 Appears to be euvolemic. Started on Coreg, Entresto. Limited echo on 07/22/21 shows EF 25-30%, mild LAE. Consider lexiscan nuclear stress test vs left heart cath, and I was tending towards nuclear stress test given risk of non-compliance, progressive liver cancer. However, he is confused and cannot have either test/procedure at this time. His confusion could be due to sedatives to control alcohol withdrawal. (6) NSVT (nonsustained ventricular tachycardia): Code(s): I47.2 - Ventricular tachycardia Status: Acute Assessment and Plan: He had NSVT last month but Metoprolol was stopped for unknown reasons. Started Coreg. Subjective Date/time seen: 07/23/21 08:04 Patient is confused this morning, pulling off his gown. No chest pain or sob. Exam Const: General: cooperative and comfortable Resp: Auscultation: clear to auscultation bilaterally, no crackles, no rales, no rhonchi and no wheezes Cardio: Jugular venous distension: no JVD Rate: regular rate Rhythm: regular rhythm Heart sounds: no murmurs Peripheral pulses: dorsalis pedis present GI: GI Palp: No abdominal tenderness and Yes Soft to palpation Neuro: General: oriented to person, oriented to place and oriented to time Extrem: Right lower extremity: no edema Left lower extremity: no edema Objective Data Vital Signs Vital Signs: Vital Signs - 24 hr 07/22/21 10:00 07/22/21 11:53 07/22/21 12:00 Temperature 98.2 F Pulse Rate 97 103 H 105 H Respiratory Rate 20 Blood Pressure 135/79 Pulse Oximetry 96 Oxygen Delivery 07/22/21 12:00 07/22/21 13:43 07/22/21 13:57 Temperature Pulse Rate 107 H Respiratory Rate Blood Pressure Pulse Oximetry 96 Oxygen Delivery Room Air Room Air 07/22/21 14:00 07/22/21 16:00 07/22/21 16:00 Temperature Pulse Rate 98 82 Respiratory Rate Blood Pressure Pulse Oximetry Oxygen Delivery Room Air 07/22/21 16:00 07/22/21 18:00 07/22/21 19:59 Temperature 98.1 F 98.1 F Pulse Rate 81 89 86 Respiratory Rate 22 H 18 Blood Pressure 120/76 120/76 Pulse Oximetry 97 97 Oxygen Delivery 07/22/21 20:00 07/22/21 20:00 07/22/21 20:00 Temperature Pulse Rate 87 87 Respiratory Rate 18 Blood Pressure 120/76 Pulse Oximetry 97 Oxygen Delivery Room Air 07/22/21 22:21 07/23/21 00:00 07/22/21 22:00 Temperature 98 F Pulse Rate 88 85 87 Respiratory Rate 20 Blood Pressure 117/75 Pulse Oximetry 98 Oxygen Delivery 07/23/21 00:00 07/23/21 00:00 07/23/21 00:00 Temperature Pulse Rate 85 84 Respiratory Rate 20 Blood Pressure 117/75 Pulse Oximetry 98 Oxygen Delivery Room Air 07/23/21 02:00 07/23/21 04:00 07/23/21 04:00 Temperature
[2021-07-23 08:13] LABS: Basophils Percent Auto 0.5 % (0.2-1.2); Eosinophils Percent Auto 0.1 % (0-4.4); Hematocrit 41.5 % (42.0-52.0); Hemoglobin 14.6 g/dL (14.0-18.0); Immature Granulocyte Absolute 0.03 K/mm3 (0.00-0.031); Immature Granulocyte Percent A 0.4 % (0-0.5); Lymphocytes Absolute Auto 2.91 K/mm3 (0.9-3.2); Lymphocytes Percent Auto 36.7 % (18.3-44.2); Mean Corpuscular HGB Conc 35.2 g/dl (32-36); Mean Corpuscular Hemoglobin 33.6 pg (26-34); Mean Corpuscular Volume 95.4 fl (80-100); Mean Platelet Volume 12.3 fl (7.4-10.4); Monocytes Absolute Auto 0.8 K/mm3 (0.1-0.6); Monocytes Percent Auto 10.3 % (2.6-8.5); Neutrophils Absolute Auto 4.1 K/mm3 (1.3-6.7); Platelet Count Result 136 k/mm3 (150-375); Red Blood Count 4.35 M/mm3 (4.6-6.20); Red Cell Distribution Width 16.6 % (11.5-14.5); White Blood Count 7.9 K/mm3 (4.5-10.0)
[2021-07-23 08:24] LABS: Ammonia 18 umol/L (9-30)
[2021-07-23 08:26] LABS: Alanine Aminotransferase 25 U/L (6-50); Albumin Level 2.7 g/dL (3.5-5.1); Alkaline Phosphatase 141 U/L (38-126); Anion Gap 4 mmol/L (8-16); Aspartate Amino Transferase 86 U/L (17-59); Bilirubin,Total 2.3 mg/dL (0.2-1.3); Blood Urea Nitrogen 9 mg/dL (9-20); Calcium 7.5 mg/dL (8.4-10.2); Carbon Dioxide 23 mmol/L (22-30); Chloride 108 mmol/L (98-107); Estimated CRCL calculation 117 ml/min; Estimated Glomerular Filt Rate > 60; Glucose 96 mg/dL (65-110); Magnesium 1.5 mg/dL (1.6-2.3); Potassium 3.8 mmol/L (3.4-5.0); Sodium 135 mmol/L (137-145)
[2021-07-23 12:09] LABS: Glucose Point of Care 111 mg/dl (65-105)
[2021-07-23] MEDS: ENOXAPARIN 40 MG/0.4 ML SYRINGE SUB-Q (12:28)
[2021-07-23] MEDS: carvediloL 3.125 MG TABLET PO ×2 (12:29→20:36)
[2021-07-23] MEDS: SACUBITRIL/VALSARTAN 24-26 MG TABLET 1 TAB PO ×2 (12:29→20:36)
[2021-07-23] MEDS: CLOPIDOGREL BISULFATE 75 MG TABLET PO (12:29)
[2021-07-23] MEDS: PANTOPRAZOLE 40 MG TABLET PO (12:29)
[2021-07-23] MEDS: LORATADINE 10 MG TABLET PO (12:29)
[2021-07-23] MEDS: ATORVASTATIN 40 MG TABLET PO (13:27)
[2021-07-23] MEDS: ASPIRIN 81 MG ENTERIC TABLET PO (13:28)
[2021-07-23] MEDS: MAGNESIUM SULF 2 GM/WATER 50ML 2 GM/50 ML BAG IVPB (13:29)
--- NOTE | 2021-07-23 16:23 | PM.IMPN ---
Progress Note: A&P Assessment and Plan (1) Hepatocellular carcinoma: Code(s): C22.0 - Liver cell carcinoma Status: Acute Assessment and Plan: Patient is supposed to follow-up in the outpatient setting However patient lacks transportation merchandising execution manager consult Supportive care He is scheduled to see in [facility] which he has not been there yet. (2) PUD (peptic ulcer disease): Code(s): K27.9 - Peptic ulcer, site unspecified, unspecified as acute or chronic, without hemorrhage or perforation Status: Acute Assessment and Plan: PPI Continue to monitor Zofran p.r.n. for nausea (3) Elevated troponin I level: Code(s): R77.8 - Other specified abnormalities of plasma proteins Status: Resolved Assessment and Plan: Repeat troponin downtrending now back to normal Cardiology consult due to patient's risk factors HOANG risk score is 5-7 Recent echocardiogram reviewed EKG with no acute changes Supportive care On Lovenox full dose started with Echocardiogram with lowered ejection fraction down to 20-25%. Patient started on Entresto and beta-vania by Cardiology Stress test ordered for ski florentino evaluation (4) Tobacco abuse: Code(s): Z72.0 - Tobacco use Status: Acute Assessment and Plan: Patient is down to 1-2 cigarettes a day and is trying to completely quit Nicotine patch as needed (5) COPD (chronic obstructive pulmonary disease): Qualifiers: COPD type: unspecified COPD Qualified Code(s): J44.9 - Chronic obstructive pulmonary disease, unspecified Code(s): J44.9 - Chronic obstructive pulmonary disease, unspecified Status: Acute Assessment and Plan: Breathing treatments Currently on doxycycline due to change in sputum quality which will be continued (6) ETOH abuse: Code(s): F10.10 - Alcohol abuse, uncomplicated Status: Acute Assessment and Plan: CIWA protocol as needed On scheduled Librium (7) Delirium: Code(s): R41.0 - Disorientation, unspecified Status: Acute Assessment and Plan: Hypoactive delirium. Could be from Librium will lower the dose monitor Labs were stable Ammonia level is normal Subjective Date/time seen: 07/23/21 16:23 Interval history: HPI:This is a 65-year-old male with past medical history significant for alcohol dependence, hepatocellular carcinoma, COPD/emphysema, tobacco dependence.? 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 Patient has had a productive cough of sputum which was initially clear phlegm and now has turned lin color however no fevers? but? states that has had chills, bilateral lower extremity swelling, shortness of breath, fatigue, patient does not have a transportation and had to walk under extreme heat to his primary care physician's office for evaluation of these he was sent to emergency room from his primary care physician's office.? Preliminary lab work was significant for elevated troponin a CT of chest abdomen and pelvis showed increased mass of the liver.? Patient drinks 4-5 beers daily and is trying to cut back on his tobacco use usually smokes 1-2 cigarettes daily, has been admitted for further evaluation, management and treatment. 07/22/2021 feels weak and tired was retching and threw up during the visit. Abdominal pain reported which has been chronic. No fever chills no current chest pain denies shortness of breath has been having cough 07/23/2021 more sleepy today. She was course has been lower. Awakes and arouses upon verbal command and answers appropriately. Review of Systems Review of Systems: All systems reviewed & are unr
[2021-07-23] MEDS: chlordiazePOXIDE (*CRX) 25 MG CAPSULE PO (18:23)
[2021-07-24] VITALS (19 sets, daily range): BP systolic 108–123; BP diastolic 71–80; PULSE 65–87; RESP 14–20; TEMP 36.8–37.3; O2SAT 94–99
[2021-07-24 00:10] LABS: Glucose Point of Care 89 mg/dl (65-105)
[2021-07-24] MEDS: chlordiazePOXIDE (*CRX) 25 MG CAPSULE PO ×5 (00:25→23:12)
[2021-07-24] MEDS: ONDANSETRON INJ 4 MG/2 ML VIAL IV PUSH (00:29)
[2021-07-24] MEDS: DOXYCYCLINE 100 MG/NS 100 ML 100 MG/100 ML BAG IVPB ×2 (03:26→16:21)
[2021-07-24 04:45] LABS: Basophils Percent Auto 0.5 % (0.2-1.2); Eosinophils Absolute Auto 0.1 K/mm3 (0-0.3); Eosinophils Percent Auto 1.4 % (0-4.4); Hematocrit 39.7 % (42.0-52.0); Hemoglobin 13.3 g/dL (14.0-18.0); Immature Granulocyte Absolute 0.02 K/mm3 (0.00-0.031); Immature Granulocyte Percent A 0.3 % (0-0.5); Lymphocytes Absolute Auto 3.23 K/mm3 (0.9-3.2); Lymphocytes Percent Auto 49.5 % (18.3-44.2); Mean Corpuscular HGB Conc 33.5 g/dl (32-36); Mean Corpuscular Hemoglobin 32.9 pg (26-34); Mean Corpuscular Volume 98.3 fl (80-100); Mean Platelet Volume 12.7 fl (7.4-10.4); Monocytes Absolute Auto 0.7 K/mm3 (0.1-0.6); Neutrophils Absolute Auto 2.4 K/mm3 (1.3-6.7); Neutrophils Percent Auto 37.3 % (45.5-73.1); Nucleated Red Blood Cells Perc 0.3 % (0.0-0.2); Platelet Count Result 110 k/mm3 (150-375); Red Blood Count 4.04 M/mm3 (4.6-6.20); Red Cell Distribution Width 16.9 % (11.5-14.5); White Blood Count 6.5 K/mm3 (4.5-10.0)
[2021-07-24 04:52] LABS: Alanine Aminotransferase 29 U/L (6-50); Albumin Level 2.2 g/dL (3.5-5.1); Alkaline Phosphatase 111 U/L (38-126); Anion Gap 3 mmol/L (8-16); Aspartate Amino Transferase 112 U/L (17-59); Bilirubin,Total 1.6 mg/dL (0.2-1.3); Blood Urea Nitrogen 10 mg/dL (9-20); Calcium 7.1 mg/dL (8.4-10.2); Carbon Dioxide 21 mmol/L (22-30); Chloride 111 mmol/L (98-107); Estimated CRCL calculation 135 ml/min; Estimated Glomerular Filt Rate > 60; Glucose 87 mg/dL (65-110); Lipase 144 U/L (23-300); Magnesium 1.7 mg/dL (1.6-2.3); Potassium 3.3 mmol/L (3.4-5.0); Sodium 135 mmol/L (137-145)
--- NOTE | 2021-07-24 06:58 | PM.PNCARD ---
Progress Note: A&P Assessment and Plan (1) Chest pain: Code(s): R07.9 - Chest pain, unspecified Status: Acute Assessment and Plan: Resolved now. Could be CAD, musculoskeletal, COPD. (2) Elevated troponin I level: Code(s): R77.8 - Other specified abnormalities of plasma proteins Status: Resolved Assessment and Plan: Troponin peaked at .038 here and trended down. Could be related to alcoholism, CAD. 06/19/21 Echo: EF 55-60%, grade I diastolic dysfunction (E/e '7), mild biatrial enlargement, mild MR/TR. Limited echo on 07/22/21 shows EF 25-30%, mild LAE. On aspirin, Clopidogrel, Atorvastatin, Entresto and Coreg. (3) Tobacco abuse: Code(s): Z72.0 - Tobacco use Status: Acute Assessment and Plan: Counseled regarding smoking cessation. (4) ETOH abuse: Code(s): F10.10 - Alcohol abuse, uncomplicated Status: Acute Assessment and Plan: Advise to avoid alcohol. 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 Appears to be euvolemic. On Coreg, Entresto. Limited echo on 07/22/21 shows EF 25-30%, mild LAE. Consider lexiscan nuclear stress test vs left heart cath, and I was tending towards nuclear stress test for risk stratification given risk of non-compliance, progressive liver cancer. He was confused yesterday and could not proceed with stress testing. His confusion could be due to sedatives to control alcohol withdrawal. Discuss with patient his cardiac status and proposed plan to have nuclear stress test on Monday. If it is abnormal, we may continue with medical therapy given risk of non-compliance with medication, and liver cancer. (6) NSVT (nonsustained ventricular tachycardia): Code(s): I47.2 - Ventricular tachycardia Status: Acute Assessment and Plan: He had NSVT last month but Metoprolol was stopped for unknown reasons. On Coreg. Start MagOx 400 mg daily for low Mag level. Subjective Date/time seen: 07/24/21 06:58 Reports feeling weak. No chest pain or sob. Exam Const: General: cooperative and comfortable Resp: Auscultation: clear to auscultation bilaterally, no crackles, no rales, no rhonchi and no wheezes Cardio: Jugular venous distension: no JVD Rate: regular rate Rhythm: regular rhythm Heart sounds: no murmurs Peripheral pulses: dorsalis pedis present GI: GI Palp: No abdominal tenderness and Yes Soft to palpation Neuro: General: oriented to person, oriented to place and oriented to time Extrem: Right lower extremity: no edema Left lower extremity: no edema Objective Data Vital Signs Vital Signs: Vital Signs - 24 hr 07/23/21 08:00 07/23/21 08:00 07/23/21 08:00 Temperature 97.6 F Pulse Rate 80 88 Pulse Rate [Bilateral Pedal (Dorsalis Pedis) Palpation] Respiratory Rate 20 Blood Pressure 116/76 116/76 Pulse Oximetry 98 Oxygen Delivery 07/23/21 08:00 07/23/21 10:00 07/23/21 12:00 Temperature 100 F H Pulse Rate 87 91 Pulse Rate [Bilateral Pedal (Dorsalis Pedis) Palpation] Respiratory Rate 24 H Blood Pressure 118/68 Pulse Oximetry 98 96 Oxygen Delivery Room Air 07/23/21 12:29 07/23/21 12:00 07/23/21 12:00 Temperature Pulse Rate 98 88 Pulse Rate [Bilateral Pedal (Dorsalis Pedis) Palpation] Respiratory Rate Blood Pressure 118/68 Pulse Oximetry Oxygen Delivery 07/23/21 12:00 07/23/21 14:00 07/23/21 15:46 Temperature Pulse Rate 85 85 Pulse Rate [Bilateral Pedal (Dorsalis Pedis) Palpation] Respiratory Rate 24 H Blood Pressure Pulse Oximetry 98 98 Oxygen Delivery Room Air Room Air 07/23/21 15:48 07/23/21 16:00 07/23/21 16:00 Temperature 99.2 F Pulse Rate 82 82 Pulse Rate [Bilateral Pedal (Dorsalis Pedis) Palpation] 82 Respiratory Rate 20 Blood Pressure 110/69 110/69
[2021-07-24 07:46] LABS: Glucose Point of Care 96 mg/dl (65-105)
[2021-07-24] MEDS: ATORVASTATIN 40 MG TABLET PO (09:04)
[2021-07-24] MEDS: ASPIRIN 81 MG ENTERIC TABLET PO (09:04)
[2021-07-24] MEDS: LORATADINE 10 MG TABLET PO (09:04)
[2021-07-24] MEDS: carvediloL 3.125 MG TABLET PO ×2 (09:05→21:35)
[2021-07-24] MEDS: CLOPIDOGREL BISULFATE 75 MG TABLET PO (09:05)
[2021-07-24] MEDS: PANTOPRAZOLE 40 MG TABLET PO (09:05)
[2021-07-24] MEDS: MAGNESIUM OXIDE 400 MG TABLET PO (09:06)
[2021-07-24] MEDS: ENOXAPARIN 40 MG/0.4 ML SYRINGE SUB-Q (09:06)
[2021-07-24] MEDS: SACUBITRIL/VALSARTAN 24-26 MG TABLET 1 TAB PO ×2 (09:06→21:35)
--- NOTE | 2021-07-24 11:38 | PM.IMPN ---
Progress Note: A&P Assessment and Plan (1) Hepatocellular carcinoma: Code(s): C22.0 - Liver cell carcinoma Status: Acute Assessment and Plan: Patient is supposed to follow-up in the outpatient setting However patient lacks transportation manager money consult Supportive care He is scheduled to see in [facility] which he has not been there yet. (2) PUD (peptic ulcer disease): Code(s): K27.9 - Peptic ulcer, site unspecified, unspecified as acute or chronic, without hemorrhage or perforation Status: Acute Assessment and Plan: PPI Continue to monitor Zofran p.r.n. for nausea (3) Elevated troponin I level: Code(s): R77.8 - Other specified abnormalities of plasma proteins Status: Resolved Assessment and Plan: Repeat troponin downtrending now back to normal Cardiology consult due to patient's risk factors HOANG risk score is 5-7 Recent echocardiogram reviewed EKG with no acute changes Supportive care On Lovenox full dose started with Echocardiogram with lowered ejection fraction down to 20-25%. Patient started on Entresto and beta-vania by Cardiology Stress test ordered for ischemic evaluation (4) Tobacco abuse: Code(s): Z72.0 - Tobacco use Status: Acute Assessment and Plan: Patient is down to 1-2 cigarettes a day and is trying to completely quit Nicotine patch as needed (5) COPD (chronic obstructive pulmonary disease): Qualifiers: COPD type: unspecified COPD Qualified Code(s): J44.9 - Chronic obstructive pulmonary disease, unspecified Code(s): J44.9 - Chronic obstructive pulmonary disease, unspecified Status: Acute Assessment and Plan: Breathing treatments Currently on doxycycline due to change in sputum quality which will be continued (6) ETOH abuse: Code(s): F10.10 - Alcohol abuse, uncomplicated Status: Acute Assessment and Plan: CIWA protocol as needed On scheduled Librium (7) Delirium: Code(s): R41.0 - Disorientation, unspecified Status: Acute Assessment and Plan: Hypoactive delirium. Could be from Librium will lower the dose monitor Labs were stable Ammonia level is normal More awake today. Librium dose lowered Plan PT OT to see Start diet Subjective Date/time seen: 07/24/21 11:38 Interval history: HPI:This is a 65-year-old male with past medical history significant for alcohol dependence, hepatocellular carcinoma, COPD/emphysema, tobacco dependence.? 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 Patient has had a productive cough of sputum which was initially clear phlegm and now has turned lin color however no fevers? but? states that has had chills, bilateral lower extremity swelling, shortness of breath, fatigue, patient does not have a transportation and had to walk under extreme heat to his primary care physician's office for evaluation of these he was sent to emergency room from his primary care physician's office.? Preliminary lab work was significant for elevated troponin a CT of chest abdomen and pelvis showed increased mass of the liver.? Patient drinks 4-5 beers daily and is trying to cut back on his tobacco use usually smokes 1-2 cigarettes daily, has been admitted for further evaluation, management and treatment. 07/22/2021 feels weak and tired was retching and threw up during the visit. Abdominal pain reported which has been chronic. No fever chills no current chest pain denies shortness of breath has been having cough 07/23/2021 more sleepy today. She was course has been lower. Awakes and arouses upon verbal command and answers appropria
[2021-07-24 12:21] LABS: Glucose Point of Care 97 mg/dl (65-105)
[2021-07-24] MEDS: POTASSIUM CHLORIDE 20 MEQ PACKET (FOR LIQUID) 40 MEQ PO (13:54)
[2021-07-24] MEDS: ARTIFICIAL TEARS OPHTH SOLN 15 ML BOTTLE 1 DROP EACH EYE (13:54)
[2021-07-24 17:17] LABS: Glucose Point of Care 86 mg/dl (65-105)
[2021-07-24] MEDS: FUROSEMIDE INJ 40 MG/4 ML VIAL IV PUSH (18:20)
[2021-07-24] MEDS: IPRATROPIUM BR 0.02% INH SOLN 0.5 MG/2.5 ML VIAL INHALATION (18:28)
[2021-07-24] MEDS: ALBUTEROL SULFATE NEB 2.5 MG/0.5 ML INH (18:32)
[2021-07-24] MEDS: HYDROcodone/acetaminophen (*CRX) 5-325 MG TABLET 1 TAB PO (23:10)
[2021-07-24 23:25] LABS: Glucose Point of Care 103 mg/dl (65-105)
[2021-07-25] VITALS (16 sets, daily range): BP systolic 94–107; BP diastolic 60–76; PULSE 69–95; RESP 14–20; TEMP 36.5–37.2; O2SAT 96–100
[2021-07-25] MEDS: MORPHINE SULFATE (*CRX) 2 MG/ML INJ IV PUSH (00:22)
[2021-07-25] MEDS: DOXYCYCLINE 100 MG/NS 100 ML 100 MG/100 ML BAG IVPB ×2 (03:10→16:34)
[2021-07-25 04:35] LABS: Basophils Percent Auto 0.4 % (0.2-1.2); Eosinophils Absolute Auto 0.2 K/mm3 (0-0.3); Eosinophils Percent Auto 2.6 % (0-4.4); Hematocrit 38.5 % (42.0-52.0); Hemoglobin 13.3 g/dL (14.0-18.0); Immature Granulocyte Absolute 0.03 K/mm3 (0.00-0.031); Immature Granulocyte Percent A 0.4 % (0-0.5); Lymphocytes Absolute Auto 4.31 K/mm3 (0.9-3.2); Lymphocytes Percent Auto 56.3 % (18.3-44.2); Mean Corpuscular HGB Conc 34.5 g/dl (32-36); Mean Corpuscular Hemoglobin 33.2 pg (26-34); Monocytes Percent Auto 12.9 % (2.6-8.5); Neutrophils Absolute Auto 2.1 K/mm3 (1.3-6.7); Neutrophils Percent Auto 27.4 % (45.5-73.1); Platelet Count Result 104 k/mm3 (150-375); Red Blood Count 4.01 M/mm3 (4.6-6.20); Red Cell Distribution Width 16.9 % (11.5-14.5); White Blood Count 7.7 K/mm3 (4.5-10.0)
[2021-07-25 05:02] LABS: Alanine Aminotransferase 30 U/L (6-50); Albumin Level 2.6 g/dL (3.5-5.1); Alkaline Phosphatase 121 U/L (38-126); Anion Gap 5 mmol/L (8-16); Aspartate Amino Transferase 107 U/L (17-59); Bilirubin,Total 1.5 mg/dL (0.2-1.3); Blood Urea Nitrogen 10 mg/dL (9-20); Calcium 7.4 mg/dL (8.4-10.2); Carbon Dioxide 21 mmol/L (22-30); Chloride 110 mmol/L (98-107); Estimated CRCL calculation 135 ml/min; Estimated Glomerular Filt Rate > 60; Glucose 91 mg/dL (65-110); Magnesium 1.5 mg/dL (1.6-2.3); Potassium 3.3 mmol/L (3.4-5.0); Sodium 136 mmol/L (137-145)
[2021-07-25 05:12] LABS: Anisocytosis 1+ (NORMAL); Atypical Lymphocytes Present
[2021-07-25] MEDS: chlordiazePOXIDE (*CRX) 25 MG CAPSULE PO ×3 (05:52→23:44)
[2021-07-25 05:55] LABS: Glucose Point of Care 88 mg/dl (65-105)
--- NOTE | 2021-07-25 07:16 | PM.PNCARD ---
Progress Note: A&P Assessment and Plan (1) Chest pain: Code(s): R07.9 - Chest pain, unspecified Status: Acute Assessment and Plan: Resolved now. Could be CAD, musculoskeletal, COPD. (2) Elevated troponin I level: Code(s): R77.8 - Other specified abnormalities of plasma proteins Status: Resolved Assessment and Plan: Troponin peaked at .038 here and trended down. Could be related to alcoholism, CAD. 06/19/21 Echo: EF 55-60%, grade I diastolic dysfunction (E/e '7), mild biatrial enlargement, mild MR/TR. Limited echo on 07/22/21 shows EF 25-30%, mild LAE. On aspirin, Clopidogrel, Atorvastatin, Entresto and Coreg. (3) Tobacco abuse: Code(s): Z72.0 - Tobacco use Status: Acute Assessment and Plan: Counseled regarding smoking cessation. (4) ETOH abuse: Code(s): F10.10 - Alcohol abuse, uncomplicated Status: Acute Assessment and Plan: Advise to avoid alcohol. 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 Appears to be euvolemic. On Coreg, Entresto. Limited echo on 07/22/21 shows EF 25-30%, mild LAE. Consider lexiscan nuclear stress test vs left heart cath, and I was tending towards nuclear stress test for risk stratification given risk of non-compliance, progressive liver cancer. He was confused yesterday and could not proceed with stress testing. His confusion could be due to sedatives to control alcohol withdrawal. Discuss with patient his cardiac status and proposed plan to have nuclear stress test on Monday. If it is abnormal, we may continue with medical therapy given risk of non-compliance with medication, and liver cancer. Discuss life vent to prevent sudden cardiac arrest and he is interested in it but concerned about cost. Will place order and determine cost. Replete potassium and Mag. CXR showed mild pulm edema and he received a dose of Lasix. (6) NSVT (nonsustained ventricular tachycardia): Code(s): I47.2 - Ventricular tachycardia Status: Acute Assessment and Plan: He had NSVT last month but Metoprolol was stopped for unknown reasons. On Coreg. On MagOx 400 mg daily for low Mag level. Subjective Date/time seen: 07/25/21 07:16 Denies chest pain or sob. He feels weak. Exam Const: General: cooperative and comfortable Resp: Auscultation: clear to auscultation bilaterally, no crackles, no rales, no rhonchi and no wheezes Cardio: Jugular venous distension: no JVD Rate: regular rate Rhythm: regular rhythm Heart sounds: no murmurs Peripheral pulses: dorsalis pedis present GI: GI Palp: No abdominal tenderness and Yes Soft to palpation Neuro: General: oriented to person, oriented to place and oriented to time Extrem: Right lower extremity: no edema Left lower extremity: no edema Objective Data Vital Signs Vital Signs: Vital Signs - 24 hr 07/24/21 07:56 07/24/21 09:05 07/24/21 08:00 Temperature 99.1 F Pulse Rate 76 65 79 Pulse Rate [Bilateral Pedal (Dorsalis Pedis) Palpation] Respiratory Rate 20 Blood Pressure 112/71 Pulse Oximetry 96 Oxygen Delivery 07/24/21 10:00 07/24/21 08:00 07/24/21 08:00 Temperature Pulse Rate 82 82 Pulse Rate [Bilateral Pedal (Dorsalis Pedis) Palpation] 73 Respiratory Rate 20 Blood Pressure 112/71 Pulse Oximetry 96 Oxygen Delivery Room Air 07/24/21 12:00 07/24/21 12:00 07/24/21 12:00 Temperature 98.4 F Pulse Rate 73 74 Pulse Rate [Bilateral Pedal (Dorsalis Pedis) Palpation] 74 Respiratory Rate 20 Blood Pressure 122/75 Pulse Oximetry 95 Oxygen Delivery 07/24/21 14:00 07/24/21 14:00 07/24/21 12:00 Temperature Pulse Rate 86 Pulse Rate [Bilateral Pedal (Dorsalis Pedis) Palpation] Respiratory Rate Blood Pressure Pulse Oximetry 96 Oxygen Delivery Room
[2021-07-25] MEDS: POTASSIUM CHLORIDE 20 MEQ PACKET (FOR LIQUID) 40 MEQ PO (09:00)
[2021-07-25] MEDS: CLOPIDOGREL BISULFATE 75 MG TABLET PO (09:01)
[2021-07-25] MEDS: ATORVASTATIN 40 MG TABLET PO (09:01)
[2021-07-25] MEDS: MAGNESIUM OXIDE 400 MG TABLET PO ×2 (09:01→17:47)
[2021-07-25] MEDS: carvediloL 3.125 MG TABLET PO ×2 (09:01→21:24)
[2021-07-25] MEDS: ENOXAPARIN 40 MG/0.4 ML SYRINGE SUB-Q (09:02)
[2021-07-25] MEDS: LORATADINE 10 MG TABLET PO (09:03)
[2021-07-25] MEDS: PANTOPRAZOLE 40 MG TABLET PO (09:03)
[2021-07-25] MEDS: ASPIRIN 81 MG ENTERIC TABLET PO (09:03)
[2021-07-25] MEDS: SACUBITRIL/VALSARTAN 24-26 MG TABLET 1 TAB PO ×2 (09:03→21:23)
--- NOTE | 2021-07-25 11:11 | PCSTNOTE ---
Attempted bedside swallow evaluation at 11:00 AM, but patient refused evaluation. After further education, patient continued to refuse to be evaluated.
--- NOTE | 2021-07-25 11:14 | PCOTNOTE ---
Attempted to see pt. for occupational therapy evaluation. Per nurse, pt. is currently leaving AMA.
--- NOTE | 2021-07-25 11:56 | PC.NURSE ---
Patient oriented x4, no complaints of chest pain or shortness of breath. Patient signed AMA paperwork. Patient encouraged by this nurse, physical therapy, and physician to remain in the hospital for further evaluation and care - patient scheduled for stress test tomorrow, life vest at discharge. Patient advised that he does not want stress test, and if I feel bad, I'll come back. Dr. Vicente, Dr. Krause notified.
--- NOTE | 2021-07-25 15:20 | PM.IMPN ---
Progress Note: A&P Assessment and Plan (1) Hepatocellular carcinoma: Code(s): C22.0 - Liver cell carcinoma Status: Acute Assessment and Plan: Patient is supposed to follow-up in the outpatient setting However patient lacks transportation manager home consult Supportive care He is scheduled to see in [facility] which he has not been there yet. (2) PUD (peptic ulcer disease): Code(s): K27.9 - Peptic ulcer, site unspecified, unspecified as acute or chronic, without hemorrhage or perforation Status: Acute Assessment and Plan: PPI Continue to monitor Zofran p.r.n. for nausea (3) Elevated troponin I level: Code(s): R77.8 - Other specified abnormalities of plasma proteins Status: Resolved Assessment and Plan: Repeat troponin downtrending now back to normal Cardiology consult due to patient's risk factors HOANG risk score is 5-7 Recent echocardiogram reviewed EKG with no acute changes Supportive care On Lovenox full dose started with Echocardiogram with lowered ejection fraction down to 20-25%. Patient started on Entresto and beta-vania by Cardiology Stress test ordered for ischemic evaluation that is scheduled to be done tomorrow (4) Tobacco abuse: Code(s): Z72.0 - Tobacco use Status: Acute Assessment and Plan: Patient is down to 1-2 cigarettes a day and is trying to completely quit Nicotine patch as needed (5) COPD (chronic obstructive pulmonary disease): Qualifiers: COPD type: unspecified COPD Qualified Code(s): J44.9 - Chronic obstructive pulmonary disease, unspecified Code(s): J44.9 - Chronic obstructive pulmonary disease, unspecified Status: Acute Assessment and Plan: Breathing treatments Currently on doxycycline due to change in sputum quality which will be continued (6) ETOH abuse: Code(s): F10.10 - Alcohol abuse, uncomplicated Status: Acute Assessment and Plan: CIWA protocol as needed On scheduled Librium (7) Delirium: Code(s): R41.0 - Disorientation, unspecified Status: Acute Assessment and Plan: Hypoactive delirium. Could be from Librium will lower the dose monitor Labs were stable Ammonia level is normal More awake now. Librium dose lowered Plan PT OT to see Start diet Subjective Date/time seen: 07/25/21 15:20 Interval history: HPI:This is a 65-year-old male with past medical history significant for alcohol dependence, hepatocellular carcinoma, COPD/emphysema, tobacco dependence.? 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 Patient has had a productive cough of sputum which was initially clear phlegm and now has turned lin color however no fevers? but? states that has had chills, bilateral lower extremity swelling, shortness of breath, fatigue, patient does not have a transportation and had to walk under extreme heat to his primary care physician's office for evaluation of these he was sent to emergency room from his primary care physician's office.? Preliminary lab work was significant for elevated troponin a CT of chest abdomen and pelvis showed increased mass of the liver.? Patient drinks 4-5 beers daily and is trying to cut back on his tobacco use usually smokes 1-2 cigarettes daily, has been admitted for further evaluation, management and treatment. 07/22/2021 feels weak and tired was retching and threw up during the visit. Abdominal pain reported which has been chronic. No fever chills no current chest pain denies shortness of breath has been having cough 07/23/2021 more sleepy today. She was course has been lower. Awakes and arouses upon v
--- NOTE | 2021-07-25 15:24 | PC.NURSE ---
Addendum entered by Soumya Randolph RN 07/25/21 15:41: 206-2 Original Note: Pt alert and oriented stating he wanted to leave AMA. soybean specialties cook(Soumya), Kacey MANNING and Dr Krause at bedside talking to patient asking all orientation questions. Dr. Krause agreed patient cognitive to leave AMA. Patient signed paperwork and got dressed. Called a cab for the patient and he agreed to pay out of pocket. When cab arrived pt stated he would not pay for the cab and tripped on his feet. Security placed patient in wheelchair and tried to convince patient to stay. Patient stated I will not go to the ER. Therapeutic Mentor, myself, and security and compliance project manager and Director discussed the plan. CNO Surekha agreed to send patient back to and readmit under Dr. Krause. Dr. Krause called to go back and assess patient. At this time he has not gone to the bedside to discuss the plan with the patient. Called admitting to readmit patient back with original medical number.
--- NOTE | 2021-07-25 15:40 | PC.NURSE ---
Addendum entered by Kacey Evans RN 07/25/21 15:42: *at this time. Original Note: Patient returned to room per CNO instructions, patient oriented x4, no complaints of chest pain or shortness of breath at this aysha.
[2021-07-25 16:31] LABS: Glucose Point of Care 87 mg/dl (65-105)
[2021-07-25 18:21] LABS: Glucose Point of Care 91 mg/dl (65-105)
[2021-07-25] MEDS: ALBUTEROL SULFATE NEB 2.5 MG/0.5 ML INH (18:37)
[2021-07-25] MEDS: IPRATROPIUM BR 0.02% INH SOLN 0.5 MG/2.5 ML VIAL INHALATION (18:37)
[2021-07-25 23:48] LABS: Glucose Point of Care 85 mg/dl (65-105)
[2021-07-26] VITALS (10 sets, daily range): BP systolic 92–103; BP diastolic 59–76; PULSE 71–85; RESP 16–20; TEMP 36.4–36.6; O2SAT 96–100
[2021-07-26] MEDS: DOXYCYCLINE 100 MG/NS 100 ML 100 MG/100 ML BAG IVPB (03:37)
[2021-07-26 04:28] LABS: Basophils Percent Auto 0.3 % (0.2-1.2); Eosinophils Absolute Auto 0.3 K/mm3 (0-0.3); Eosinophils Percent Auto 3.4 % (0-4.4); Hematocrit 37.7 % (42.0-52.0); Hemoglobin 13.2 g/dL (14.0-18.0); Immature Granulocyte Absolute 0.02 K/mm3 (0.00-0.031); Immature Granulocyte Percent A 0.2 % (0-0.5); Lymphocytes Absolute Auto 5.02 K/mm3 (0.9-3.2); Lymphocytes Percent Auto 57.3 % (18.3-44.2); Mean Corpuscular Hemoglobin 32.9 pg (26-34); Mean Platelet Volume 12.7 fl (7.4-10.4); Monocytes Absolute Auto 1.4 K/mm3 (0.1-0.6); Neutrophils Percent Auto 22.8 % (45.5-73.1); Platelet Count Result 108 k/mm3 (150-375); Red Blood Count 4.01 M/mm3 (4.6-6.20); Red Cell Distribution Width 16.9 % (11.5-14.5); White Blood Count 8.8 K/mm3 (4.5-10.0)
[2021-07-26 04:41] LABS: Alanine Aminotransferase 27 U/L (6-50); Albumin Level 2.4 g/dL (3.5-5.1); Alkaline Phosphatase 111 U/L (38-126); Anion Gap 1 mmol/L (8-16); Aspartate Amino Transferase 90 U/L (17-59); Bilirubin,Total 1.4 mg/dL (0.2-1.3); Blood Urea Nitrogen 8 mg/dL (9-20); Calcium 7.6 mg/dL (8.4-10.2); Carbon Dioxide 23 mmol/L (22-30); Chloride 111 mmol/L (98-107); Estimated CRCL calculation 159 ml/min; Estimated Glomerular Filt Rate > 60; Glucose 81 mg/dL (65-110); Magnesium 1.4 mg/dL (1.6-2.3); Potassium 3.4 mmol/L (3.4-5.0); Sodium 135 mmol/L (137-145)
[2021-07-26] MEDS: chlordiazePOXIDE (*CRX) 25 MG CAPSULE PO ×2 (05:41→12:35)
--- NOTE | 2021-07-26 08:20 | PM.PNCARD ---
Progress Note: A&P Assessment and Plan (1) Chest pain: Code(s): R07.9 - Chest pain, unspecified Status: Acute Assessment and Plan: Resolved now. Could be CAD, musculoskeletal, COPD. (2) Elevated troponin I level: Code(s): R77.8 - Other specified abnormalities of plasma proteins Status: Resolved Assessment and Plan: Troponin peaked at .038 here and trended down. Could be related to alcoholism, CAD. 06/19/21 Echo: EF 55-60%, grade I diastolic dysfunction (E/e '7), mild biatrial enlargement, mild MR/TR. Limited echo on 07/22/21 shows EF 25-30%, mild LAE. On aspirin, Clopidogrel, Atorvastatin, Entresto and Coreg. (3) Tobacco abuse: Code(s): Z72.0 - Tobacco use Status: Acute Assessment and Plan: Counseled regarding smoking cessation. (4) ETOH abuse: Code(s): F10.10 - Alcohol abuse, uncomplicated Status: Acute Assessment and Plan: Advise to avoid alcohol. 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 Appears to be euvolemic. On Coreg, Entresto. Limited echo on 07/22/21 shows EF 25-30%, mild LAE. Consider lexiscan nuclear stress test vs left heart cath, and I was tending towards nuclear stress test for risk stratification given risk of non-compliance, progressive liver cancer. He was confused yesterday and could not proceed with stress testing. His confusion could be due to sedatives to control alcohol withdrawal. Discuss with patient his cardiac status and proposed plan to have nuclear stress test today but he refused it. If it is abnormal, we may continue with medical therapy given risk of non-compliance with medication, and liver cancer. Discuss life vent to prevent sudden cardiac arrest and he is interested in it but concerned about cost. Will place order and determine cost. Replete potassium and Mag. CXR showed mild pulm edema and he received a dose of Lasix. After determining life vest, he may d/c home and f/u with me in 1 week. (6) NSVT (nonsustained ventricular tachycardia): Code(s): I47.2 - Ventricular tachycardia Status: Acute Assessment and Plan: He had NSVT last month but Metoprolol was stopped for unknown reasons. On Coreg. Increased MagOx 400 mg BID for low Mag level. Mag Nestor 2 gm IV x1. Subjective Date/time seen: 07/26/21 08:20 He feels good today. No chest pain or sob. Mildly weak. Exam Const: General: cooperative and comfortable Resp: Auscultation: clear to auscultation bilaterally, no crackles, no rales, no rhonchi and no wheezes Cardio: Jugular venous distension: no JVD Rate: regular rate Rhythm: regular rhythm Heart sounds: no murmurs Peripheral pulses: dorsalis pedis present GI: GI Palp: No abdominal tenderness and Yes Soft to palpation Neuro: General: oriented to person, oriented to place and oriented to time Extrem: Right lower extremity: no edema Left lower extremity: no edema Objective Data Vital Signs Vital Signs: Vital Signs - 24 hr 07/25/21 09:01 07/25/21 10:00 07/25/21 16:31 Temperature 98.1 F Pulse Rate 72 75 74 Pulse Rate [Bilateral Pedal (Dorsalis Pedis) Palpation] Respiratory Rate 16 Blood Pressure 94/66 L Pulse Oximetry 100 Oxygen Delivery 07/25/21 16:00 07/25/21 18:30 07/25/21 18:30 Temperature Pulse Rate 70 71 Pulse Rate [Bilateral Pedal (Dorsalis Pedis) Palpation] Respiratory Rate 20 Blood Pressure Pulse Oximetry 97 Oxygen Delivery Room Air Room Air 07/25/21 18:38 07/25/21 16:00 07/25/21 18:00 Temperature Pulse Rate 81 76 71 Pulse Rate [Bilateral Pedal (Dorsalis Pedis) Palpation] Respiratory Rate 20 Blood Pressure Pulse Oximetry Oxygen Delivery 07/25/21 20:00 07/25/21 20:00 07/25/21 20:00 Temperature 98.9 F Pulse Rate 76 74 Pulse Rate [Bila
[2021-07-26] MEDS: PANTOPRAZOLE 40 MG TABLET PO (08:40)
[2021-07-26] MEDS: MAGNESIUM OXIDE 400 MG TABLET PO (08:40)
[2021-07-26] MEDS: ATORVASTATIN 40 MG TABLET PO (08:41)
[2021-07-26] MEDS: LORATADINE 10 MG TABLET PO (08:41)
[2021-07-26] MEDS: ASPIRIN 81 MG ENTERIC TABLET PO (08:41)
[2021-07-26] MEDS: carvediloL 3.125 MG TABLET PO (08:41)
[2021-07-26] MEDS: SACUBITRIL/VALSARTAN 24-26 MG TABLET 1 TAB PO (08:41)
[2021-07-26] MEDS: CLOPIDOGREL BISULFATE 75 MG TABLET PO (08:41)
[2021-07-26] MEDS: ENOXAPARIN 40 MG/0.4 ML SYRINGE SUB-Q (08:41)
[2021-07-26] MEDS: MAGNESIUM SULF 2 GM/WATER 50ML 2 GM/50 ML BAG IVPB (08:41)
--- NOTE | 2021-07-26 10:35 | PCSTNOTE ---
Please refer to the Bedside Swallow Evaluation in the EMR. Please note, silent aspiration cannot be ruled out at bedside.
[2021-07-26 11:28] LABS: Glucose Point of Care 87 mg/dl (65-105)
--- NOTE | 2021-07-26 15:15 | PC.NURSE ---
Patient notified of risks of leaving AMA. [Jimi ] notified. Follow up instructions given to patient. Patient signed AMA form.
--- NOTE | 2021-07-26 17:06 | PM.DS ---
DS: Admitting Diagnosis Discharge Date 07/26/21 Admitting Diagnosis Chest pain DS: Discharge Diagnosis Discharge Diagnosis (1) Hepatocellular carcinoma: Code(s): C22.0 - Liver cell carcinoma Status: Acute Assessment and Plan: Patient is supposed to follow-up in the outpatient setting However patient lacks transportation corporate development manager consult Supportive care He is scheduled to see in [facility] which he has not been there yet. (2) PUD (peptic ulcer disease): Code(s): K27.9 - Peptic ulcer, site unspecified, unspecified as acute or chronic, without hemorrhage or perforation Status: Acute Assessment and Plan: PPI Continue to monitor Zofran p.r.n. for nausea (3) Elevated troponin I level: Code(s): R77.8 - Other specified abnormalities of plasma proteins Status: Resolved Assessment and Plan: Repeat troponin downtrending now back to normal Cardiology consult due to patient's risk factors HOANG risk score is 5-7 Recent echocardiogram reviewed EKG with no acute changes Supportive care On Lovenox full dose started with Echocardiogram repeat with lowered ejection fraction down to 20-25%. Patient started on Entresto and beta-vania by Cardiology Stress test recommended by Cardiology patient however refused. He was also discussed with regards to Life Vest and arrangements were being made however patient was remanded getting discharged. He was discussed with regard to risk of getting discharged prematurely and he understands the risk. I visited him several times during the day to certified lactation counselor on this He is alert and oriented x3 and decisional (4) Tobacco abuse: Code(s): Z72.0 - Tobacco use Status: Acute Assessment and Plan: Patient is down to 1-2 cigarettes a day and is trying to completely quit Nicotine patch as needed (5) COPD (chronic obstructive pulmonary disease): Qualifiers: COPD type: unspecified COPD Qualified Code(s): J44.9 - Chronic obstructive pulmonary disease, unspecified Code(s): J44.9 - Chronic obstructive pulmonary disease, unspecified Status: Acute Assessment and Plan: Breathing treatments Currently on doxycycline due to change in sputum quality which will be continued (6) ETOH abuse: Code(s): F10.10 - Alcohol abuse, uncomplicated Status: Acute Assessment and Plan: CIWA protocol as needed On scheduled Librium (7) Delirium: Code(s): R41.0 - Disorientation, unspecified Status: Acute Assessment and Plan: Hypoactive delirium. Could be from Librium will lower the dose monitor Labs were stable Ammonia level is normal More awake now. Librium dose lowered Plan PT OT to see and recommended rehab placement which he refuses as well Start diet DS: Summary Hospital Course Hospital Course: The patient was admitted with chest pain. He has underlying history of liver cancer and supposed to see an oncologist however has not made it there due to social issues and transportation issues. He also continues to drink and came in with alcohol withdrawal symptoms. For which he was treated he had hypoactive delirium due to a fall and/or medications. When he became more awake he became adamant at leaving. His evaluation this admission was noted to have cardiomyopathy with ejection fraction 20-25% he refused to undergo stress testing and also refused to get LifeVest. He was also weak and PT OT suggested going to rehab placement and arrangements were made however he refused to go there as well. He holds decisional capacity upon my evaluation has he is alert and oriented and understands his disease process as well as his risk of leaving against medical advise. Time Spent with Patient Time attestation: Total time spent providing and/or coordinating discharge services: 60 minutes Exam Narrative: GENERAL: The patient is ill looking, More awake but slow to respond (likel
[2021-08-02 08:10] LABS: Glucose Point of Care 88 mg/dl (65-105)
== END 2021-07-26 15:15 | disposition left against medical advice (07) | DRG 198 ==
PROVIDERS: Internal Medicine; Admitting Provider Internal Medicine; PCP Family Medicine; Visit Provider Internal Medicine
DX: R07.89 Other chest pain (principal); C22.0 Liver cell carcinoma; K27.9 Peptic ulcer, site unspecified, unspecified as acute or chronic, without hemorrhage or perforation; R41.0 Disorientation, unspecified; T42.6X5A Adverse effect of other antiepileptic and sedative-hypnotic drugs, initial encounter; F10.239 Alcohol dependence with withdrawal, unspecified; I42.6 Alcoholic cardiomyopathy; I25.10 Atherosclerotic heart disease of native coronary artery without angina pectoris; R77.8 Other specified abnormalities of plasma proteins; J44.9 Chronic obstructive pulmonary disease, unspecified; I50.20 Unspecified systolic (congestive) heart failure; I47.2 Ventricular tachycardia; F17.210 Nicotine dependence, cigarettes, uncomplicated; K44.9 Diaphragmatic hernia without obstruction or gangrene; W19.XXXA Unspecified fall, initial encounter; I25.2 Old myocardial infarction
CPT/HCPCS: 36415; 71045; 80053; 82140; 82948; 83690; 83735; 83880; 84100; 84484; 85025; 92610; 93005; 93308; 94640; 96365; 96366; 96367; 96372; 96375; 97116; 97162; 97165; 97530; A9270; G0378; G0379; J1650; J1940; J2060; J2270; J2405; J3411; J3475; J7030; Q9957

== ENCOUNTER 2021-08-20 12:18 | Outpatient (CLI) | payer OTHER, SELFPAY ==
[2021-08-20 12:54] LABS: INR 1.1; Partial Thromboplastin Time 29.1 SEC (23.90-30.70); Prothrombin Time 12.4 Seconds (9.50-12.10)
[2021-08-23 12:17] LABS: Fibrinogen 249 mg/dL (175-425)
[2021-08-24 23:04] LABS: Factor VIII Activity 182 % normal (50-180)
[2021-08-25 15:58] LABS: Alpha Fetoprotein Tumor Marker 5.2 ng/mL (<6.1)
== END 2021-08-20 12:19 | disposition home or self-care (01) ==
LOC: CHSLAB 12:21
PROVIDERS: PCP Family Medicine; Visit Provider Internal Medicine Hematology & Oncology
DX: K76.9 Liver disease, unspecified (principal)
CPT/HCPCS: 36415; 82105; 85240; 85384; 85610; 85730

== ENCOUNTER 2021-08-24 10:00 | Outpatient (CLI) | payer OTHER, SELFPAY ==
--- NOTE | ~2021-08-24 | XR_ITS ---
XR lumbar spine 2-3V DATE: 08/24/2021 11:02 INDICATION: Fall on concrete 5 days ago. Back, coccyx and bilateral hip pain TECHNIQUE: AP, lateral, coned lateral lumbosacral views COMPARISON: 11/15/2014 CT lumbar spine FINDINGS: Mild thoracolumbar dextroscoliosis. Osteopenia. There are 6 functional lumbar vertebrae. There is mild degenerative disc disease of the lumbar spine. No fracture or bone destruction is evident. Included lower thoracic and lumbar pedicles are intact. N o spondylolisthesis. The sacroiliac joints are intact. There is abdominal aortic and iliac arterial calcification; no evidence of abdominal aortic aneurysm IMPRESSION: Mild degenerative disc disease Osteopenia No fracture Reviewed, dictated and finalized at location B.
--- NOTE | ~2021-08-24 | XR_ITS ---
XR hip BI 2V w AP pelvis DATE: 08/24/2021 11:02 INDICATION: Fall on concrete. Back, coccyx and bilateral hip pain TECHNIQUE: AP pelvis. AP and lateral views of each hip. COMPARISON: 10/07/2012 pelvis 08/24/2021 lumbar spine FINDINGS: The pubic symphysis and sacroiliac joints are intact. No pelvic fracture or left or right hip fracture or dislocation is detected. Hip joint spaces appear relatively well preserved and symmetric. No avascular necrosis or bone destruction. IMPRESSION: No pelvic or hip fracture or dislocation is detected Reviewed, dictated and finalized at location B.
== END 2021-08-24 10:01 | disposition home or self-care (01) ==
LOC: CHSIMG 10:06
PROVIDERS: PCP Family Medicine; Visit Provider Family Medicine
DX: M25.559 Pain in unspecified hip (principal); M54.9 Dorsalgia, unspecified; W19.XXXA Unspecified fall, initial encounter
CPT/HCPCS: 72100; 73521

== ENCOUNTER 2021-11-19 02:19 | Outpatient (CLI) | payer OTHER, SELFPAY ==
[2021-11-19] VITALS (8 sets, daily range): BP systolic 117–133; BP diastolic 78–88; PULSE 63–74; RESP 14–16; TEMP 36.8; O2SAT 98–100
--- NOTE | ~2021-11-19 | US_ITS ---
EXAMINATION: US biopsy liver DATE: 11/19/2021 13:48 INDICATION: Liver mass. TECHNIQUE: The procedure including the risks, benefits, and alternatives was discussed with the patie nt. Risks discussed included bleeding and infection. The patient understood the risks and agreed to p roceed. The skin overlying the liver was prepped and draped in usual sterile fashion. Anesthetic was administered with 1% lidocaine subcutaneously. An 18 gauge core biopsy needle was then used to obta in 4 core biopsy specimens under continuous sonographic guidance. The entry site was cleaned and dres sed. There were no immediate complications. FINDINGS: Ultrasound images demonstrate the needle in an 8 cm liver mass. IMPRESSION: 1. Ultrasound-guided core needle biopsy of a liver mass. Reviewed, dictated and finalized at location A.
[2021-11-19] MEDS: SODIUM CHLORIDE 0.9% IV 1,000 ML 30 ML IV CONT (11:50)
[2021-11-19 12:04] LABS: Immature Platelet Fraction Pct 14.7 % (0.9-11.2); Mean Platelet Volume 12.8 fl (7.4-10.4); Platelet Count Result 86 k/mm3 (150-375)
[2021-11-19 12:13] LABS: INR 1.3
--- NOTE | 2021-11-19 12:18 | SUR.PREOP ---
1215- CONTACTED ULTRASOUND. UPDATED TECH THAT PT LAB VALUES ARE BACK AND PLATELET COUNT IS LOW- 86 AND PT LEVEL, ELEVATED- 16. HE STATED THEY WILL DISCUSS WITH DR. SPAIN AND HAVE HIM REVIEW.
--- NOTE | 2021-11-19 12:53 | SUR.PREOP ---
[facility] STATES DR. SPAIN IS AWARE OF LAB RESULTS AND PLANS TO PROCEED
--- NOTE | 2021-11-19 18:40 | SUR.PHASEII ---
1445- Patient requesting to be discharged home. Call to Dr. Hanks to notify patient wanting to leave early. Patient educated of risks leaving prior to 4 hour observation post procedure. 1515- Dr. Hanks to bedside and explained patient can be discharged. Patient given parameters for returning to Emergency department.
== END 2021-11-19 15:55 | disposition home or self-care (01) ==
PROVIDERS: PCP Family Medicine; Visit Provider Radiology Diagnostic Radiology
PROC: BF45ZZZ Ultrasonography of Liver (ICD-10-PCS; CPT 47000; principal; 2021-11-19 13:00)
DX: C22.8 Malignant neoplasm of liver, primary, unspecified as to type (principal)
CPT/HCPCS: 36415; 47000; 76942; 85049; 85055; 85610; 88307; 88312; 88342; J7030

== ENCOUNTER 2022-01-24 17:03 | Observation (INO) | payer OTHER, SELFPAY ==
--- NOTE | ~2022-01-24 | XR_ITS ---
XR chest 2V DATE: 01/24/2022 19:02 INDICATION: Lightheadedness. Weakness. Elevated white blood cell count. History of COPD. TECHNIQUE: PA and lateral views COMPARISON: 07/24/2021 portable AP chest at 1702 hours FINDINGS: Heart size is within normal range. There is bilateral hyperinflation consistent with histor y of COPD. No pulmonary infiltrate or consolidation, pleural effusion or pulmonary vascular congestio n or pneumothorax is detected. There is osteopenia. Degenerative change of the thoracic spine. IMPRESSION: No active pulmonary disease Reviewed, dictated and finalized at location [facility]. [facility]IST IMPRESSION: No active pulmonary disease
--- NOTE | ~2022-01-24 | CT_ITS ---
EXAMINATION: CT abdomen pelvis w con DATE: 01/24/2022 20:57 INDICATION: Elevated white blood cell count. History of hepatocellular carcinoma, peptic ulcer diseas e, hypertension. Increased weakness. TECHNIQUE: Computed tomography (CT) of the abdomen and pelvis was performed with 100 CC Omnipaque 350 intravenous contrast. Automated exposure control and iterative reconstruction technique were employe d. Exam dose: 1011.52 mGy-cm total exam DLP. COMPARISON: 07/21/2021 CT chest abdomen 06/21/2021 MR abdomen FINDINGS: There is scattered bilateral lower lung patchy infiltrates, including most prominently some scattered tree-in-bud infiltrates in the left lower lobe, likely infectious. Heart size is normal. No pericardial or pleural effusion. Approximately 8.6 x 9.5 cm centrally necrotic mass in the medial segment of the left hepatic lobe. There is surface nodularity of liver consistent with cirrhosis. Varices are noted. Multiple gallstones. No pericholecystic abnormal fluid fat stranding. No bile duct or pancreatic duct dilatation. There are several up to 8 mm hypoattenuating lesions of the right kidney, likely small cysts. The kid neys are otherwise unremarkable. There is mild diffuse thickening of the urinary bladder wall. There is extensive calcification of the abdominal aorta, iliac and femoral arteries. No abdominal aor tic aneurysm. No intraperitoneal or retroperitoneal or pelvic mass lesion or adenopathy or ascites, o ther than the previously reported hepatic mass lesion. Diffuse idiopathic skeletal hyperostosis of the lower thoracic spine. IMPRESSION: Scattered bilateral pulmonary infiltrates likely due to pneumonia Metastatic carcinoma of the liver Cirrhosis, varices Cholelithiasis Probable right renal cysts Reviewed, dictated and finalized at Location [facility]. Reviewed, dictated and finalized at location A. WAY WORKER
[2022-01-24 17:06] VITALS: BP 99/83; PULSE 101; RESP 16; TEMP 37.2; O2SAT 95
--- NOTE | 2022-01-24 17:40 | ED.WEAKNESS ---
HPI - Weakness General Chief complaint: Weakness Stated complaint: ambulance Time Seen by Provider: 01/24/22 17:10 Source: patient, EMS and RN notes reviewed Mode of arrival: EMS Limitations: no limitations History of Present Illness MD Complaint: generalized weakness Onset (ago): day(s) (1) Duration: constant Location: generalized Migration: none Severity: severe Relieving factors: none Exacerbating factors: exertion Associated symptoms: headaches, loss of appetite, myalgias and other ( Lightheaded) Related Data Home Medications Medication Instructions Recorded Confirmed cetirizine 10 mg tablet 10 mg PO DAILY 07/21/21 01/24/22 Allergies Allergy/AdvReac Type Severity Reaction Status Date / Time No Known Allergies Allergy Verified 01/24/22 17:13 Review of Systems Review of Systems: All systems reviewed & are unremarkable except as noted in HPI and below PMFSH Past Medical History Medical History (Updated 01/24/22 @ 22:18 by Rahat Barrera MD) COPD (chronic obstructive pulmonary disease) ETOH abuse Hepatocellular carcinoma Hyperlipidemia (03/14/14) Non-STEMI (non-ST elevated myocardial infarction) PUD (peptic ulcer disease) Systolic heart failure Tobacco abuse Family History Family History Mother Family history of Alzheimer's disease Carcinoma of colon Father Family history of diabetes mellitus in first degree relative Septicemia Femur fracture Social History Social History Smoking packs per day: 0 Smoking cigarettes per day: 0.0 Years smoked: 32 Smoking pack-years: 0.00 Smoking status: Current every day smoker Tobacco type: cigarettes Second hand tobacco smoke exposure: Yes Alcohol intake: current Drinks per week: 8 Substance use: never Substance use type: does not use Lack of Transportation: YES Lack of Food: Never True Current Housing: I Have Housing Concerned About Future Housing: No Difficulty Paying Gas/Electric Bills: No Difficulty Paying for Meds: No Currently Unemployed: No Education: High School Diploma/GED Difficulty w/ Childcare or Family Care: No Spiritual care concerns: No Exam Const: General: no acute distress, alert and ill appearing acutely Nutritional Appearance: well nourished Orientation/consciousness: patient oriented x3 HENMT: Head: normal to inspection Ears: external ears normal Face/Nose/Sinus: Normal external nose present Face and sinus: normal facial exam Mouth: Yes moist mucous membranes Eyes: Conjunctivae: conjunctivae normal Pupils: Equal, round and reactive pupils present EOM: EOMs intact bilaterally Neck: Neck: normal visual inspection Resp: Effort & Inspection: normal respiratory effort Auscultation: clear to auscultation bilaterally Cardio: Rate: regular rate Rhythm: regular rhythm GI: GI Palp: Yes Soft to palpation and No Tenderness to palpation present (GI) Auscultation: normal bowel sounds Back/Spine/Pelvis: Cervical Spine: cervical ROM normal Thoracic/Lumbar Spine: thoraco-lumbar ROM normal Skin: General skin exam: normal color Rashes: no rashes Neuro: General: patient oriented x3, moves all extremities, no focal motor deficits and CN's II-XI intact bilaterally Speech: normal speech Gait exam (Neuro): Normal gait present Extrem: General: normal to inspection and no clubbing, cyanosis or edema Psych: Mental Status: mental status grossly normal Affect: normal affect Attitude: cooperative Course Course Emergency Course: I discussed the case with Dr. Osorio who agreed with admission. Vital Signs Vital signs: Vital Signs Temperature 37.2 C 01/24/22 17:06 Pulse Rate 101 H 01/24/22 17:06 Respiratory Rate 16 01/24/22 17:06 Blood Pressure 99/83 L 01/24/22 17:06 Pulse Oximetry 95 01/24/22 17:06 Oxygen Delivery Room Air 01/24/22 17:06 Temperature 36.8 C
[2022-01-24 18:04] LABS: Basophils Absolute Auto 0.06 K/mm3 (0.00-0.10); Basophils Percent Auto 0.3 % (0.0-1.0); Hematocrit 40.6 % (40.0-54.0); Hemoglobin 14.3 g/dL (14.0-18.0); Immature Granulocyte Absolute 0.08 K/mm3 (0.00-0.00); Immature Granulocyte Percent A 0.4 % (0.0-0.0); Lymphocytes Absolute Auto 2.97 K/mm3 (1.10-4.50); Lymphocytes Percent Auto 15.4 % (18.0-42.0); Mean Corpuscular HGB Conc 35.2 g/dL (32.0-36.0); Mean Corpuscular Hemoglobin 34.2 pg (27.0-31.0); Mean Corpuscular Volume 97.1 fL (78.0-102.0); Mean Platelet Volume 12.4 fl (8.7-11.0); Monocytes Absolute Auto 1.53 K/mm3 (0.10-0.90); Monocytes Percent Auto 7.9 % (2.0-11.0); Neutrophils Absolute Auto 14.7 K/mm3 (1.7-7.2); Platelet Count Result 128 K/mm3 (150-420); Red Blood Count 4.18 M/mm3 (4.70-6.10); White Blood Count 19.3 K/mm3 (4.8-10.8)
[2022-01-24 18:19] LABS: Alanine Aminotransferase 49 U/L (16-63); Albumin Level 2.4 g/dL (3.4-5.0); Alkaline Phosphatase 129 U/L (46-116); Anion Gap 15 mmol/L (8-16); Aspartate Amino Transferase 109 U/L (15-37); Bilirubin,Total 2.2 mg/dL (0.00-1.00); Blood Urea Nitrogen 7 mg/dL (7-18); CRP 3.7 mg/dL (0.0-0.9); Calcium 7.6 mg/dL (8.5-10.1); Carbon Dioxide 22 mmol/L (21-32); Chloride 106 mmol/L (98-108); Estimated Glomerular Filt Rate > 60; Glucose 118 mg/dL (70-99); Magnesium 1.2 mg/dL (1.8-2.4); Osmolality Calculated 295 mOsm/kg (285-295); Potassium 3.4 mmol/L (3.5-5.1); Sodium 143 mmol/L (136-145)
[2022-01-24 18:39] LABS: Influenza A QL RT-PCR Negative (Negative); Influenza B QL RT-PCR Negative (Negative); SARS-CoV-2 RNA PCR Negative (Negative)
[2022-01-24] MEDS: MAGNESIUM SULF 4 GM/WATER100ML 4 GM/100 ML BAG IVPB (18:57)
[2022-01-24 19:45] VITALS: BP 129/85; PULSE 82; RESP 20; O2SAT 96
[2022-01-24 19:46] LABS: Appearance Urine Clear (Clear); Bilirubin Urine 1+ (Negative); Blood Urine Negative (Negative); Glucose Urine UA Negative (Negative); Ketones Urine Negative (Negative); Leukocyte Esterase Ur Trace LEU/UL (Negative); Nitrate Urine Negative (Negative); Protein Urine 1+ (Negative); Specific Grav Ur 1.015 (1.010-1.020); Urobilinogen Urine >=8.0 mg/dL (0.2-1.0)
--- NOTE | 2022-01-24 19:46 | PC.NURSE ---
Care resumed, upon assessment of pt. Mag not infusing as site is clotted. IVP flush of NS given and Mag rider resumed and infusing s difficulty. VSS on pt at this time. Pt assisted c SBA to stand and urinate. Output of approx 600ml dark bonny urine collected and sent for UA per order. Pt c/o feeling some dizziness when standing, is A&O x3. Informed pt on wait time for rest of lab results, call pratt at pt side.
[2022-01-24 19:55] LABS: Add Urine Microscopic? YES; Bacteria Urine None seen /hpf; Color Urine Dark Yellow (Yellow); Mucus Urine Few /lpf; RBC Urine 0-2 /hpf (0-2); Squamous Epithelial Cell Urine None seen /hpf (Few); WBC Urine 0-3 /hpf (0-3)
--- NOTE | 2022-01-24 20:12 | PC.NURSE ---
Pt assisted to sitting bedside, Dr Barrera in to discuss POC options c pt. CT scan ordered of abd/pelvi. VSS.
[2022-01-24 21:30] VITALS: BP 134/72; PULSE 78; RESP 20; O2SAT 97
[2022-01-24 22:00] VITALS: O2SAT 96
--- NOTE | 2022-01-24 22:02 | PC.NURSE ---
Pt resting, no distress, still awaiting CT report results.
--- NOTE | 2022-01-24 22:11 | PC.NURSE ---
Dr Barrera spoke to pt. about CT results, orders to admit, Call placed to HORTENSIA Oritz.
[2022-01-24 22:27] VITALS: BP 122/81; PULSE 77; RESP 20; TEMP 36.6; O2SAT 96
[2022-01-24 22:46] LABS: Lactic Acid Reflex 3.7 mmol/L (0.4-2.0)
--- NOTE | 2022-01-24 22:50 | PC.NURSE ---
call repoaced for 2nd attempt to reach HORTENSIA Ortiz hospitalist for Dr Barrera to speak to. Awaiting return call.
--- NOTE | 2022-01-24 23:30 | PC.NURSE ---
3rd attempt call made to reach [facility] [facility] to speak c Dr Barrera. Pt repositioned for comfort, explained awaiting call back from hospitalist for possible admission. VSS, call pratt in reach.
[2022-01-24 23:44] VITALS: BP 128/83; PULSE 73; RESP 20; TEMP 36.7; O2SAT 95
--- NOTE | 2022-01-24 23:53 | PC.NURSE ---
Call placed again to HORTENSIA Ortiz per Dr Barrera request to keep calling. Message left again for callback to speak to hospitalist for this pt for admission.
[2022-01-25] VITALS (10 sets, daily range): BP systolic 116–138; BP diastolic 80–89; PULSE 67–94; RESP 16–20; TEMP 36.2–36.8; O2SAT 94–98; BMI 27.3
[2022-01-25] MEDS: LACTATED RINGERS 1,000 ML 999 ML IV CONT (00:08)
--- NOTE | 2022-01-25 00:25 | PC.NURSE ---
Call placed to [facility], Dr Mercado number received to try to call him to respond for possible pt admission. ERP Dr Barrera spoke c Dr Meracdo and orders received then to admit pt. ERP Dr Barrera to make pt a full admit and place orders.
--- NOTE | 2022-01-25 00:31 | PC.NURSE ---
Orders in per Dr Barrera for admit, call placed to NIGEL Mclaughlin on and info about pt given. pt will be full admit to Rm [id number].
--- NOTE | 2022-01-25 00:35 | PC.NURSE ---
Call back received from HORTENSIA Ortiz asking if we were trying to call. Advised CIVIL RIGHTS REPRESENTATIVE that ER Dr Barrera already spoke to Dr Osorio and pt has been accepted for admission.
[2022-01-25] MEDS: THIAMINE HCL 100 MG TABLET 50 MG PO (01:12)
[2022-01-25] MEDS: LACTATED RINGERS 1,000 ML 150 ML IV CONT ×3 (01:13→16:50)
--- NOTE | 2022-01-25 02:25 | PC.NURSE ---
Notified Elpidio Collado NP of patient having moderate risk on [place] Suicide Scale due to attempting suicide in [address] [facility]. Patient no longer has suicidal thoughts.
--- NOTE | 2022-01-25 02:43 | ADMGEN ---
This patient, Estiven Rg, was admitted to 2nd Floor Room 209-1. Patient/family oriented to hospital policies and general routines including ID bracelet, bed and alarms, pain management, procedures, bathroom and other care routines, personal items, smoking policy, room service/diet, and visiting hours. Information on how to activate the Rapid Response Team has been discussed. Patient/Family are encouraged to report perceived risks to care and to ask questions if they do not understand what they are told or what they should do.
[2022-01-25 05:30] LABS: Hematocrit 36.8 % (40.0-54.0); Hemoglobin 12.7 g/dL (14.0-18.0); Mean Corpuscular HGB Conc 34.5 g/dL (32.0-36.0); Mean Corpuscular Hemoglobin 33.1 pg (27.0-31.0); Mean Corpuscular Volume 95.8 fL (78.0-102.0); Mean Platelet Volume 12.8 fl (8.7-11.0); Platelet Count Result 127 K/mm3 (150-420); Red Blood Count 3.84 M/mm3 (4.70-6.10); Red Cell Distribution Width 13.7 % (11.6-14.4); White Blood Count 16.3 K/mm3 (4.8-10.8)
[2022-01-25 05:47] LABS: Lactic Acid 2.4 mmol/L (0.4-2.0)
[2022-01-25 05:48] LABS: Alanine Aminotransferase 41 U/L (16-63); Alkaline Phosphatase 109 U/L (46-116); Anion Gap 11 mmol/L (8-16); Aspartate Amino Transferase 89 U/L (15-37); Bilirubin,Total 2.9 mg/dL (0.00-1.00); Blood Urea Nitrogen 8 mg/dL (7-18); Calcium 7.5 mg/dL (8.5-10.1); Carbon Dioxide 23 mmol/L (21-32); Chloride 106 mmol/L (98-108); Estimated CRCL calculation 109 ml/min; Estimated Glomerular Filt Rate > 60; Glucose 100 mg/dL (70-99); Osmolality Calculated 288 mOsm/kg (285-295); Potassium 3.2 mmol/L (3.5-5.1); Sodium 140 mmol/L (136-145); Total Protein 6.2 g/dL (6.4-8.2)
[2022-01-25 05:57] LABS: Magnesium 1.6 mg/dL (1.8-2.4)
--- NOTE | 2022-01-25 11:24 | PM.IMHP ---
H&P: HPI History of Present Illness Date/Time: 01/25/22 11:24 Chief Complaint: Weakness, lightheadedness Narrative: This is a 67-year-old male who presented to our emergency department for her lightheadedness and weakness. According to patient he woke up yesterday morning feeling weak unable to phlegm up his stairs. He notes that he felt lightheaded and dizzy all day he also has had a cough with yellow sputum for a couple of days. patient has a past medical history of COPD, ETOH abuse, liver cancer, hyperlipidemia, congestive heart failure and tobacco dependence notes that his neighbor came over and this is when he neighbor experiencing having a syncopal episode. Patient's vital signs on admission 37.2, 101, 16, 99/83, 95% on air, WBCs 19.3, hemoglobin 14.3, hematocrit 40.6, platelets 128, sodium 143, potassium 3.4, BUN 7 creatinine 1.13, blood sugar 118 , lactic acid 3.7 patient admitted for pneumonia and COPD exacerbation. The patient denies CP, palpitation, extremity numbness, constipation, diarrhea, chills, or fever. Patient notes his symptoms have since resolved he still continues to have shortness of breath. Review of Systems Review of Systems: A 14 organ system Review of Systems was performed and pertinent positives included in the HPI, otherwise remaining ROS is negative. [facility] Past Medical History Medical History (Updated 01/27/22 @ 14:39 by FRANK FordC) COPD (chronic obstructive pulmonary disease) ETOH abuse Hepatocellular carcinoma Hyperlipidemia (03/14/14) Non-STEMI (non-ST elevated myocardial infarction) PUD (peptic ulcer disease) Systolic heart failure Tobacco abuse Family History Family History Mother Family history of Alzheimer's disease Carcinoma of colon Father Family history of diabetes mellitus in first degree relative Septicemia Femur fracture Social History Social History Smoking packs per day: 0 Smoking cigarettes per day: 0.0 Years smoked: 32 Smoking pack-years: 0.00 Smoking status: Current every day smoker Tobacco type: cigarettes Second hand tobacco smoke exposure: Yes Alcohol intake: current Drinks per week: 8 Substance use: never Substance use type: does not use Lack of Transportation: YES Lack of Food: Never True Current Housing: I Have Housing Concerned About Future Housing: No Difficulty Paying Gas/Electric Bills: No Difficulty Paying for Meds: No Currently Unemployed: No Education: High School Diploma/GED Difficulty w/ Childcare or Family Care: No Spiritual care concerns: No Meds Home Medications and Allergies Home Medications Medication Instructions Recorded Confirmed Type cetirizine 10 mg tablet 10 mg PO DAILY 07/21/21 01/24/22 History pantoprazole 40 mg tablet,delayed 40 mg PO DAILY #90 tabs 12/07/21 01/24/22 Rx release oxycodone 5 mg tablet 5 mg PO Q8H PRN pain #30 tabs 01/19/22 01/24/22 Rx albuterol sulfate 90 mcg/actuation 2 puff inhalation QID PRN 01/26/22 Rx aerosol inhaler (Proventil HFA) Shortness Of Breath #8.5 grams azithromycin 250 mg tablet See Rx Instructions PO .COMPLEX #6 01/26/22 Rx (Zithromax Z-Juan) tabs benzonatate 100 mg capsule 200 mg PO TID #20 caps 01/26/22 Rx methylprednisolone 4 mg tablets in See Rx Instructions PO .COMPLEX 01/26/22 Rx a dose pack (Medrol (Juan)) #21 ea Allergies Allergy/AdvReac Type Severity Reaction Status Date / Time No Known Allergies Allergy Verified 01/24/22 17:13 Vital Signs Vital Signs - 24 hr 01/24/22 17:06 01/24/22 19:45 01/24/22 21:30 Temperature 99.0 F Pulse Rate 101 H 82 78 Respiratory Rate 16 20 20 Blood Pressure 99/83 L 129/85 134/72 Pulse Oximetry 95 96 97 Oxygen Delivery Room Air Room Air 01/24/22 22:27 01/24/22 22:00 01/24/22 23:44 Temperature 97.9 F 98.1 F Pulse Rate 77 73 Respiratory Rate 20 20 Bl
[2022-01-25] MEDS: methylPREDNISolone SOD SUCC 40 MG VIAL IV PUSH ×2 (12:32→22:30)
[2022-01-25] MEDS: BENZONATATE 100 MG CAPSULE 200 MG PO ×2 (12:45→16:56)
[2022-01-25] MEDS: IPRATROPIUM 0.5 MG/ALBUTEROL SULFATE 2.5 MG AMPUL.NEB 3 ML INHALATION ×3 (13:20→23:32)
[2022-01-25] MEDS: ACETAMINOPHEN 325 MG TABLET 650 MG PO (16:35)
--- NOTE | 2022-01-25 18:19 | PC.NURSE ---
Patient became very sweaty and clammy. Tylenol had been administered for pain, and patient stated that he thinks his fever broke, though no significant fever noted in VS today. Kettle Hand assisted patient with bed bath and changed bedding. Patient states that he is feeling somewhat better and is resting comfortably.
[2022-01-25] MEDS: traZODone HCL 50 MG TABLET PO (20:33)
[2022-01-25] MEDS: guaiFENesin 12 HR 600 MG TABCR 1200 MG PO (20:33)
[2022-01-26] VITALS: BP 120/83; PULSE 75; RESP 18; TEMP 36; O2SAT 96
[2022-01-26] MEDS: LACTATED RINGERS 1,000 ML 150 ML IV CONT ×2 (01:06→08:52)
[2022-01-26] MEDS: IPRATROPIUM 0.5 MG/ALBUTEROL SULFATE 2.5 MG AMPUL.NEB 3 ML INHALATION ×2 (05:14→12:51)
[2022-01-26 05:15] VITALS: PULSE 70; RESP 16; O2SAT 95
[2022-01-26 05:24] VITALS: PULSE 68; RESP 16
[2022-01-26 05:33] LABS: Hematocrit 39.3 % (40.0-54.0); Hemoglobin 13.7 g/dL (14.0-18.0); Mean Corpuscular HGB Conc 34.9 g/dL (32.0-36.0); Mean Corpuscular Hemoglobin 33.7 pg (27.0-31.0); Mean Corpuscular Volume 96.8 fL (78.0-102.0); Mean Platelet Volume 12.6 fl (8.7-11.0); Platelet Count Result 135 K/mm3 (150-420); Red Blood Count 4.06 M/mm3 (4.70-6.10); Red Cell Distribution Width 13.4 % (11.6-14.4); White Blood Count 13.6 K/mm3 (4.8-10.8)
[2022-01-26 05:54] LABS: Alanine Aminotransferase 39 U/L (16-63); Albumin Level 2.1 g/dL (3.4-5.0); Alkaline Phosphatase 122 U/L (46-116); Anion Gap 12 mmol/L (8-16); Aspartate Amino Transferase 66 U/L (15-37); Blood Urea Nitrogen 9 mg/dL (7-18); Calcium 7.9 mg/dL (8.5-10.1); Carbon Dioxide 20 mmol/L (21-32); Chloride 106 mmol/L (98-108); Estimated CRCL calculation 89 ml/min; Estimated Glomerular Filt Rate > 60; Glucose 140 mg/dL (70-99); Osmolality Calculated 286 mOsm/kg (285-295); Potassium 3.9 mmol/L (3.5-5.1); Sodium 138 mmol/L (136-145); Total Protein 6.7 g/dL (6.4-8.2)
[2022-01-26 08:00] VITALS: BP 117/87; PULSE 89; RESP 16; TEMP 36.6; O2SAT 95
[2022-01-26] MEDS: PANTOPRAZOLE 40 MG TABLET PO (08:39)
[2022-01-26] MEDS: LORATADINE 10 MG TABLET PO (08:39)
[2022-01-26] MEDS: BENZONATATE 100 MG CAPSULE 200 MG PO ×2 (08:39→13:47)
[2022-01-26] MEDS: guaiFENesin 12 HR 600 MG TABCR 1200 MG PO (08:40)
--- NOTE | 2022-01-26 10:34 | PM.DS ---
DS: Admitting Diagnosis Discharge Date 01/26/2022 Admitting Diagnosis Pneumonia, Hypomagnesium , LIVer METS DS: Discharge Diagnosis Discharge Diagnosis (1) Pneumonia: Qualifiers: Laterality: bilateral Lung location: lower lobe of lung Pneumonia type: due to unspecified organism Qualified Code(s): J18.9 - Pneumonia, unspecified organism Code(s): J18.9 - Pneumonia, unspecified organism Status: Acute Assessment and Plan: Imaging indicates pneumonia Wbc's 19.3>16.3 Lactic acid 3.7>2.4 Started azithromycin Rocephin Blood culture No Growth (2) Hypomagnesemia: Code(s): E83.42 - Hypomagnesemia Status: Acute Assessment and Plan: Replaced supplements (3) Back pain: Code(s): M54.9 - Dorsalgia, unspecified Status: Acute Assessment and Plan: Continue pain medication (4) Hepatocellular carcinoma: Code(s): C22.0 - Liver cell carcinoma Status: Acute Assessment and Plan: Imaging indicateMetastatic carcinoma of the liver Follow-up with his oncologist lpc FAREED (5) Lightheadedness: Code(s): R42 - Dizziness and giddiness Status: Acute Assessment and Plan: Resolved Possibly secondary to COPD versus pneumonia Treat underlying cause (6) COPD (chronic obstructive pulmonary disease): Qualifiers: COPD type: unspecified COPD Qualified Code(s): J44.9 - Chronic obstructive pulmonary disease, unspecified Code(s): J44.9 - Chronic obstructive pulmonary disease, unspecified Status: Acute Assessment and Plan: Worsened by pneumonia Continue breathing treatments along with antibiotic, steroids Continue supplementary oxygen Home with oral antibiotic, steroids and nebulizer treatments DS: Summary Hospital Course Reason for hospitalization: pneumonia, hypo magnesium, liver Mets Hospital Course: this is a 66-year-old male that was admitted to the hospital with increased shortness of breath was found to have pneumonia. Patient has previously been treated with for some liver Mets and is being followed by oncologist. Patient was also found to have some hypo magnesium IV magnesium as being given. Patient was treated with some IV fluids as well as some IV antibiotics breathing treatments and IV steroids. Patient's symptoms are improving he is now not requiring any oxygen and vitals are stable patient has remained afebrile and labs are trending down at this time patient will with a nebulizer oral antibiotics and oral steroids and follow-up with the primary care provider as well as his oncologist. On discharge patient's labs are as potassium 3.9, sodium 138, BUN 9, creatinine 0.96, RBCs 40.06, WBCs 13.6, hemoglobin 13.7, platelets 135 Time Spent with Patient Time attestation: Total time spent providing and/or coordinating discharge services: Exam Narrative: GENERAL:Well-appearing, well-nourished, and in no acute distress. HEAD:Normocephalic, atraumatic. EYES: PERRLA and EOMI. ENT: Nares clear, no rhinorrhea or epistaxis. Mucous membranes moist. CHEST: Clear to Diminished auscultation. No respiratory distress. HEART: Regular rate and rhythm. Normal peripheral pulses. ABDOMEN: Soft, nontender, normal active bowel sounds. EXTREMITIES: Normal range of motion. No edema. neuropathy per patient NEURO: No focal deficits. Alert and oriented x3. DS: Data Data Completed and Pending Labs on day of discharge: Labs from last 24 hours 01/26/22 01/26/22 05:15 05:15 WBC 13.6 H RBC 4.06 L Hgb 13.7 L Hct 39.3 L MCV 96.8 MCH 33.7 H MCHC 34.9 RDW 13.4 Plt Count 135 L MPV 12.6 H Sodium 138 Potassium 3.9 Chloride 106 Carbon Dioxide 20 L Anion Gap 12 BUN 9 Creatinine 0.96 Estim Creat Clear Calc 89 Estimated GFR > 60 Glucose 140 H Calculated Osmolality 286 Calcium 7.9 L Total Bilirubin 2.0 H AST 66 H ALT 39 Alkaline Phospha
[2022-01-26] MEDS: methylPREDNISolone SOD SUCC 40 MG VIAL IV PUSH (11:17)
[2022-01-26 12:53] VITALS: PULSE 95; RESP 16; O2SAT 97
[2022-01-26 13:02] VITALS: PULSE 93; RESP 16; O2SAT 99
--- NOTE | 2022-01-26 13:21 | PC.NURSE ---
SPINDLE TESTER notified of sepsis surveillance.
--- NOTE | 2022-01-26 14:41 | PC.NURSE ---
Patient given discharge instructions. Rx';x sent to [facility]. Patient and his friend aware. Reviewed antibiotic and medications. Taken to private car by wheelchair
--- NOTE | 2022-02-02 09:31 | PC.NURSE ---
Unable to contact for discharge call back.
== END 2022-01-26 14:40 | disposition home or self-care (01) ==
LOC: CHSED 22:18 → CHS2ND 01-25 00:41
PROVIDERS: Nurse Practitioner; Admitting Provider Internal Medicine; Emergency Provider Emergency Medicine; PCP Family Medicine; Visit Provider Internal Medicine
DX: J18.9 Pneumonia, unspecified organism (principal); E83.42 Hypomagnesemia; C22.0 Liver cell carcinoma; J44.9 Chronic obstructive pulmonary disease, unspecified; I50.22 Chronic systolic (congestive) heart failure; I25.2 Old myocardial infarction; K27.9 Peptic ulcer, site unspecified, unspecified as acute or chronic, without hemorrhage or perforation; E78.5 Hyperlipidemia, unspecified; F10.10 Alcohol abuse, uncomplicated; F17.210 Nicotine dependence, cigarettes, uncomplicated; Z20.822 Contact with and (suspected) exposure to COVID-19
CPT/HCPCS: 36415; 71046; 74177; 80053; 81001; 83605; 83735; 85025; 85027; 86140; 87040; 87636; 94640; 96361; 96365; 96366; 96367; 96374; 96375; 96376; 99285; A9270; G0378; J0456; J0696; J2920; J3475; J7120; Q9967

== ENCOUNTER 2022-04-20 17:24 | Emergency (ER) | payer OTHER, SELFPAY ==
--- NOTE | ~2022-04-20 | CT_ITS ---
EXAMINATION: CT chest abdomen pelvis w con DATE: 04/20/2022 20:27 INDICATION: SYNCOPE EPISODE 3 DAYS AGO WITH FALL. ETOH FREQ FALLS. . TECHNIQUE: Computed tomography (CT) of the chest, abdomen, and pelvis was performed with 100 mL Omnip aque-350 intravenous contrast. Automated exposure control and iterative reconstruction technique were employed. The dose-length product was 1948.77 mGy-cm. COMPARISON: X-ray chest, same date; CT abdomen and pelvis 01/24/2022, CT cap 07/21/2021 FINDINGS: CHEST: No thoracic aortic injury. Mild arch calcification. No mediastinal hematoma. No pericardial effusion. Aortic and coronary artery calcification. No acute lung injury. Islands of groundglass opacity in the bilateral upper lobes, all greater than 6 mm in size. Emphysematous change. No pleural effusion or pneumothorax. Fat-containing left posterior diaphragmatic hernia. ABDOMEN/PELVIS: No solid organ injury. 9.6 cm heterogeneous left upper lobe mass. Cirrhosis. Upper abdominal varices. Steatosis. Gallbladder hydrops with gallstones, no inflammatory change or bile duct dilation. Atroph ic spleen. Right renal subcentimeter hypodensities, too small to characterize but most likely represe nt cysts. No evidence of bowel or mesenteric injury. Normal appendix. Diverticulosis without diverticulitis. No free fluid or free air. No retroperitoneal hematoma. Pelvic contents are atraumatic. Distended urinary bladder. MUSCULOSKELETAL: No acute fracture. No fracture or traumatic malalignment of the thoracic or lumbar spine. IMPRESSION: 1. No acute traumatic process detected in the chest, abdomen, or pelvis. 2. Multiple subsolid pulmonary nodules/opacities greater than 6 mm in size, likely infectious/inflamm atory, recommend follow-up low-dose noncontrast chest CT in 3-6 months. 3. Distended urinary bladder, correlate for findings of cystitis and/or urinary retention. 4. Additional chronic and incidental findings detailed above. Reviewed, dictated and finalized at location K. IMPRESSION: 1. No acute traumatic process detected in the chest, abdomen, or pelvis. 2. Multiple subsolid pulmonary nodules/opacities greater than 6 mm in size, lik acacia infectious/inflammatory, recommend follow-up low-dose noncontrast chest CT in 3-6 months. 3. Distended urinary bladder, correlate for findings of cystitis and/or urinary retention. 4. Additional chronic and incidental findings detailed above.
--- NOTE | ~2022-04-20 | CT_ITS ---
EXAMINATION: CT brain wo con DATE: 04/20/2022 18:59 INDICATION: SYNCOPE EPISODE 3 DAYS AGO; POSTERIOR HEAD INJURY. . TECHNIQUE: Computed tomography (CT) of the head was performed without intravenous contrast. The mA wa s adjusted according to patient size. Iterative reconstruction technique was employed. The dose-lengt h product was 605.33 mGy-cm. COMPARISON: 10/06/2012. FINDINGS: No acute intracranial hemorrhage or extra-axial fluid collection. No hydrocephalus, mass, or herniation. No acute ischemic infarct. Unremarkable dural venous sinus attenuation. No acute osseous abnormality. Left mastoid effusion, the remaining aerated spaces are clear. Mild atrophy and chronic white matter change. Atherosclerotic intracranial calcification. Bilateral l ens replacements. IMPRESSION: No acute intracranial process. Reviewed, dictated and finalized at location K.
--- NOTE | ~2022-04-20 | XR_ITS ---
EXAMINATION: XR chest 1V portable Exam Date/Time: 04/20/2022 18:40 CDT HISTORY: SYNCOPE EPISODE 3 DAYS AGO; FALL. Comparison: 01/24/2022. RESULT: Lines, tubes, and devices: None. Lungs and pleura: Bibasilar scar/atelectasis. Cardiomediastinal silhouette: Stable. Other: No acute osseous or upper abdominal finding. IMPRESSION: No acute cardiopulmonary process. Reviewed, dictated and finalized at location K.
[2022-04-20 17:24] VITALS: BP 112/89; PULSE 105; RESP 18; TEMP 36.5; O2SAT 96
--- NOTE | 2022-04-20 17:30 | ED.FALL ---
HPI - Fall General Chief Complaint: Fall Stated Complaint: fall 3 days ago/ weakness Time Seen by Provider: 04/20/22 17:29 Source: patient Mode of arrival: wheelchair History of Present Illness HPI Narrative: 66-year-old male, smoker, alcoholic with hepatocellular cancer / questionable lung cancer, COPD, non-STEMI/ systolic CHF with an EF of 20-25%, peptic ulcer disease with a history of falls and blackouts presents to the ER after he fell 3 days ago after a blackout with -- rib pain- bilateral rib pains. complains of bilateral hip shoulder pains. -- Multiple bruises/abrasions -- facial trauma with epistaxis. the patient lost consciousness before he fell down. patient smells of alcohol. Urinary incontinence while in the ER room complaint: fall Onset (ago): day(s) ( 3 days ago) Fall from: standing Fall witnessed: no Place fall occurred: street Loss of consciousness: yes Prolonged down time: unclear Symptoms prior to fall: lightheadedness and dizziness Location of injury: face and chest Location of injury - extremities: Bilateral: shoulder Related Data Home Medications Medication Instructions Recorded Confirmed cetirizine 10 mg tablet 10 mg PO DAILY 07/21/21 01/24/22 Allergies Allergy/AdvReac Type Severity Reaction Status Date / Time No Known Allergies Allergy Verified 04/20/22 17:45 Review of Systems Review of Systems: All systems reviewed & are unremarkable except as noted in HPI and below Constitutional: Constitutional: Reports as per HPI and Reports no additional constitutional complaints Eyes: Eyes: Reports as per HPI and Reports no additional eye complaints ENT: Reports system reviewed and no additional complaints, except as documented and Reports as per HPI Comments: Epistaxis 3 days ago Cardiovascular: Cardiovascular: Reports as per HPI and Reports no additional cardiovascular complaints Respiratory: Respiratory: Reports as per HPI, Reports no additional respiratory complaints, Reports chest congestion, Reports cough and Reports dyspnea Gastrointestinal: Gastrointestinal: Reports as per HPI and Reports no additional gastrointestinal complaints Genitourinary: Genitourinary: Reports no additional male genitourinary complaints and Reports urinary incontinence Musculoskeletal: Musculoskeletal: Reports no additional musculoskeletal complaints and Reports as per HPI Comments: pain in multiple joints Integumentary/Breasts: Skin/Breast: Reports system reviewed and no additional complaints, except as docu and Reports as per HPI Comments: multiple bruises/ abrasions in the lower extremities. Neurologic: Reports system reviewed and no additional complaints, except as documented, Reports as per HPI and Reports confusion Psychiatric: Psychiatric: Reports no additional psychiatric complaints and Reports as per HPI Endocrine: Endocrine: Reports no additional endocrine complaints and Reports as per HPI Hematologic/Lymphatic: Hematologic/Lymphatic: Reports no additional hematologic/lymphatic complaints and Reports as per HPI Allergic/Immunologic: Allergic/Immunologic: Reports no additional allergic/immunologic complaints and Reports as per HPI [facility] Past Medical History Medical History COPD (chronic obstructive pulmonary disease) ETOH abuse Hepatocellular carcinoma Hyperlipidemia (03/14/14) Non-STEMI (non-ST elevated myocardial infarction) PUD (peptic ulcer disease) Systolic heart failure Tobacco abuse Family History Family History Mother Family history of Alzheimer's disease Carcinoma of colon Father Family history of diabetes mellitus in first degree relative Septicemia Femur fracture Social History Social History Smoking packs per day: 0 Smoking cigarettes per day: 0.0 Years smoked: 32 Smoking pack-years: 0
--- NOTE | 2022-04-20 18:04 | ECG_ITS ---
Measurements Intervals [place] Rate: 91 P: 47 TN: 236 QRS: -71 QRSD: 141 T: 68 QT: 412 QTc: 507 Interpretive Statements SINUS RHYTHM WITH FIRST DEGREE AV BLOCK LEFT AXIS DEVIATION LEFT BUNDLE BRANCH BLOCK BASELINE ARTIFACT- I, V2-V3 ABNORMAL ECG COMPARED TO ECG 07/21/2021 22:38:15 NO SIGNIFICANT CHANGES Electronically Signed On 04-20-2022 20:33:10 CDT by Terry Vicente D.O.
[2022-04-20 18:22] LABS: Hematocrit 38.4 % (40.0-54.0); Hemoglobin 13.7 g/dL (14.0-18.0); Mean Corpuscular HGB Conc 35.7 g/dL (32.0-36.0); Mean Corpuscular Hemoglobin 34.1 pg (27.0-31.0); Mean Corpuscular Volume 95.5 fL (78.0-102.0); Mean Platelet Volume 11.4 fl (8.7-11.0); Platelet Count Result 164 K/mm3 (150-420); Red Blood Count 4.02 M/mm3 (4.70-6.10); White Blood Count 7.9 K/mm3 (4.8-10.8)
[2022-04-20 18:24] VITALS: O2SAT 97
[2022-04-20 18:25] VITALS: BP 104/77; O2SAT 97
[2022-04-20 18:39] LABS: Atypical Lymphocytes Present; Band Neutrophils Percent 0 % (0-6); Basophils Absolute Manual 0.07 K/mm3 (0-0.1); Basophils Percent Manual 1 % (0-1); Eosinophils Absolute Manual 0.15 K/mm3 (0.02-0.5); Eosinophils Percent Manual 2 % (1-6); Lymphocytes Percent Manual 71 % (18-44); Monocytes Absolute Manual 0.39 K/mm3 (0.1-0.90); Monocytes Percent Manual 5 % (3-9); Neutrophils Absolute Manual 1.65 K/mm3 (1.3-6.7); Neutrophils Percent Manual 21 % (46-73); Partial Thromboplastin Time 30.8 SEC (23.90-30.70); Platelet Estimate Adequate (Adequate); Total Cells Counted 100
[2022-04-20 18:44] LABS: Lactic Acid Reflex 2.3 mmol/L (0.4-2.0)
[2022-04-20 18:49] LABS: Alanine Aminotransferase 52 U/L (16-63); Albumin Level 2.1 g/dL (3.4-5.0); Alkaline Phosphatase 209 U/L (46-116); Anion Gap 12 mmol/L (8-16); Aspartate Amino Transferase 135 U/L (15-37); Bilirubin,Total 1.7 mg/dL (0.00-1.00); Blood Urea Nitrogen 7 mg/dL (7-18); Calcium 7.4 mg/dL (8.5-10.1); Carbon Dioxide 23 mmol/L (21-32); Chloride 109 mmol/L (98-108); Estimated CRCL calculation 98 ml/min; Estimated Glomerular Filt Rate > 60; Glucose 102 mg/dL (70-99); Lipase 65 U/L (16-77); NT Pro B Type Natriuretic Pept 184 pg/mL (0-125); Osmolality Calculated 296 mOsm/kg (285-295); Potassium 3.5 mmol/L (3.5-5.1); Sodium 144 mmol/L (136-145); Total Protein 6.5 g/dL (6.4-8.2)
[2022-04-20 18:51] LABS: Ethanol 378 mg/dL (0-6); Troponin I 498.8 ng/L (0.00-60.4)
[2022-04-20] MEDS: ASPIRIN 81 MG CHEWABLE TABLET 324 MG PO (19:21)
[2022-04-20] MEDS: THIAMINE HCL INJ 100 MG, FOLIC ACID 1 MG, MULTIVITAMINS-12 INJ 10 ML, MAGNESIUM SULFATE... IV CONT (19:38)
[2022-04-20 19:49] LABS: Creatine Kinase 223 U/L (39-308)
[2022-04-20 20:41] VITALS: BP 131/81; PULSE 77; RESP 20; TEMP 36.9; O2SAT 99
[2022-04-20 21:19] LABS: Reflex Lactic Acid Yes or No Add Lactic
== END 2022-04-20 20:33 | disposition left against medical advice (07) ==
PROVIDERS: Emergency Provider Internal Medicine Critical Care Medicine; PCP Family Medicine
DX: I21.4 Non-ST elevation (NSTEMI) myocardial infarction (principal); K70.10 Alcoholic hepatitis without ascites; F10.129 Alcohol abuse with intoxication, unspecified; S80.812A Abrasion, left lower leg, initial encounter; S80.811A Abrasion, right lower leg, initial encounter; S09.90XA Unspecified injury of head, initial encounter; I50.20 Unspecified systolic (congestive) heart failure; J44.9 Chronic obstructive pulmonary disease, unspecified; E78.5 Hyperlipidemia, unspecified; I25.2 Old myocardial infarction; F17.210 Nicotine dependence, cigarettes, uncomplicated; W18.30XA Fall on same level, unspecified, initial encounter; Y90.0 Blood alcohol level of less than 20 mg/100 ml; Y92.410 Unspecified street and highway as the place of occurrence of the external cause
CPT/HCPCS: 36415; 70450; 71045; 71260; 74177; 80053; 80307; 82550; 83605; 83690; 83880; 84484; 85025; 85730; 93005; 96365; 99284; A9270; J3411; J3475; J7120; Q9967

== ENCOUNTER 2022-04-22 16:54 | Emergency (ER) | payer OTHER, SELFPAY ==
--- NOTE | ~2022-04-22 | XR_ITS ---
XR chest 1V portable 04/22/2022 19:01 Indication: Frequent falls. COPD. Dyspnea. Procedure: AP portable chest Comparison: Comparison to multiple prior studies sequentially, with oldest reviewed study dated 04/2021. Findings: Borderline heart size. Mild interstitial edema. No pleural effusion or pneumothorax. No acu te osseous abnormality. Impression: 1: Mild interstitial edema. Reviewed, dictated and finalized at location A. Impression: 1: Mild interstitial edema.
[2022-04-22 17:20] VITALS: BP 108/64; PULSE 84; RESP 20; TEMP 36.3; O2SAT 99
--- NOTE | 2022-04-22 18:05 | ED.GENADULT ---
HPI - General Adult General Chief complaint: Alcohol Stated complaint: ambulance Time Seen by Provider: 04/22/22 18:05 History of Present Illness HPI narrative: The patient is a 66-year-old male with history of chronic alcohol use. He has a history of hepatocellular carcinoma with hepatic cirrhosis. Has frequent falls, COPD, peptic ulcer disease, attended infarction x3, congestive heart failure with reduced ejection fraction, ejection fraction 20%. He smokes cigarettes and drinks alcohol on daily basis. He was seen here 2 days ago, 04/20/2022 after a fall in the setting of acute alcohol intoxication (EtOH 378 at the time). At that point, his troponin was elevated 499. CT of the chest abdomen pelvis did not reveal any other significant acute pathologies. He was diagnosed with a non-ST elevation myocardial infarction. He was due to be transferred to [facility] but he declined and left AMA. Yesterday at home, the patient fell the evening and was on the ground for approximately 3 hours. He spilled his spaghetti that he had made. He was able to get up subsequently. He went to the bar today but felt weak. He fell at the bar as well after a few shots. He was referred here by EMS for evaluation. He denies any chest pain or abdominal pain. No nausea vomiting. No fevers or chills. No cough or URI or UTI symptoms. Does feel weak and tired. Intoxicated but in good spirits. Related Data Home Medications Medication Instructions Recorded Confirmed cetirizine 10 mg tablet 10 mg PO DAILY 07/21/21 04/22/22 Allergies Allergy/AdvReac Type Severity Reaction Status Date / Time No Known Allergies Allergy Verified 04/22/22 18:56 Review of Systems Review of Systems: All systems reviewed & are unremarkable except as noted in HPI and below Constitutional: Constitutional: Reports as per HPI, Reports no additional constitutional complaints, Denies chills, Denies excessive sweating, Reports fatigue, Denies fever(s), Denies headache(s) and Reports weakness Eyes: Eyes: Reports as per HPI, Reports no additional eye complaints, Denies change in vision and Denies photophobia ENT: Reports system reviewed and no additional complaints, except as documented, Reports as per HPI, Denies dysphagia, Denies vertigo, Denies dizziness, Denies headache(s), Denies lip swelling, Denies nasal congestion, Denies sore throat, Denies throat swelling and Denies tongue swelling Cardiovascular: Cardiovascular: Reports as per HPI, Reports no additional cardiovascular complaints, Denies chest pain, Denies syncope, Denies rapid heart rate and Denies dyspnea Respiratory: Respiratory: Reports as per HPI, Reports no additional respiratory complaints, Denies chest congestion, Denies cough, Denies dyspnea and Denies wheezing Gastrointestinal: Gastrointestinal: Reports as per HPI, Reports no additional gastrointestinal complaints, Denies abdominal pain, Denies constipation, Denies dysphagia, Denies diarrhea, Denies nausea and Denies vomiting Genitourinary: Genitourinary: Reports as per HPI, Denies hematuria, Denies oliguria, Denies dysuria, Denies urinary frequency, Denies urinary incontinence and Denies urinary urgency Musculoskeletal: Musculoskeletal: Reports no additional musculoskeletal complaints, Denies back pain, Reports myalgias, Denies arthralgias, Denies joint swelling and Denies numbness Integumentary/Breasts: Skin/Breast: Reports system reviewed and no additional complaints, except as docu, Denies pruritus, Denies erythema, Denies rash and Denies skin ulcer Neurologic: Reports system reviewed and no additional complaints, except as documented, Reports as per HPI, Reports confusion, Denies vertigo, Denies dizziness, Denies syncope, Denies headache(s), Denies focal weakness, Denies numbness and Denies weakness Psychiatric: Psychiatric: Reports as per HPI, Denies anxiety, Denies confusion, Denies depression, Denies homicidal ideation and Denies suicidal ideation
--- NOTE | 2022-04-22 18:20 | ECG_ITS ---
Measurements Intervals [place] Rate: 75 P: 205 [place]: 147 QRS: -74 QRSD: 114 T: 48 QT: 440 QTc: 491 Interpretive Statements SINUS RHYTHM LEFT AXIS DEVIATION IVCD, FEATURES OF BOTH IRBBB/ILBBB LOW QRS VOLTAGE IN PRECORDIAL LEADS BORDERLINE R WAVE PROGRESSION, ANTERIOR LEADS BORDERLINE T WAVE ABNORMALITY- ANTERIOR LEADS ABNORMAL ECG COMPARED TO ECG 04/20/2022 18:15:23 NO SIGNIFICANT CHANGES Electronically Signed On 04-23-2022 8:18:04 CDT by Terry Vicente D.O.
[2022-04-22 18:42] LABS: Hematocrit 39.3 % (40.0-54.0); Hemoglobin 14.1 g/dL (14.0-18.0); Mean Corpuscular HGB Conc 35.9 g/dL (32.0-36.0); Mean Corpuscular Hemoglobin 34.5 pg (27.0-31.0); Mean Corpuscular Volume 96.1 fL (78.0-102.0); Platelet Count Result 137 K/mm3 (150-420); Red Blood Count 4.09 M/mm3 (4.70-6.10); Red Cell Distribution Width 16.9 % (11.6-14.4); White Blood Count 7.9 K/mm3 (4.8-10.8)
[2022-04-22 18:54] LABS: INR 1.3; Partial Thromboplastin Time 31.1 SEC (23.90-30.70); Prothrombin Time 13.5 Seconds (9.50-12.10)
[2022-04-22 19:02] LABS: Lactic Acid Reflex 2.4 mmol/L (0.4-2.0)
[2022-04-22 19:07] LABS: Alanine Aminotransferase 28 U/L (16-63); Albumin Level 2.2 g/dL (3.4-5.0); Alkaline Phosphatase 180 U/L (46-116); Amylase 112 U/L (25-115); Anion Gap 9 mmol/L (8-16); Aspartate Amino Transferase 140 U/L (15-37); Bilirubin,Total 2.2 mg/dL (0.00-1.00); Blood Urea Nitrogen 5 mg/dL (7-18); Calcium 7.3 mg/dL (8.5-10.1); Carbon Dioxide 27 mmol/L (21-32); Chloride 108 mmol/L (98-108); Creatine Kinase 299 U/L (39-308); Estimated CRCL calculation 96 ml/min; Estimated Glomerular Filt Rate > 60; Glucose 90 mg/dL (70-99); Lipase 60 U/L (16-77); Magnesium 1.5 mg/dL (1.8-2.4); NT Pro B Type Natriuretic Pept 320 pg/mL (0-125); Osmolality Calculated 295 mOsm/kg (285-295); Potassium 3.7 mmol/L (3.5-5.1); Sodium 144 mmol/L (136-145); Total Protein 6.9 g/dL (6.4-8.2)
[2022-04-22] MEDS: SODIUM CHLORIDE 0.9% IV 1,000 ML 999 ML IV CONT (19:08)
[2022-04-22 19:09] LABS: CRP < 0.5 mg/dL (0.0-0.9); Troponin I 628.8 ng/L (0.00-60.4)
[2022-04-22 19:10] LABS: Ethanol 397 mg/dL (0-6)
[2022-04-22 19:16] LABS: Influenza A QL RT-PCR Negative (Negative); Influenza B QL RT-PCR Negative (Negative); SARS-CoV-2 RNA PCR Negative (Negative)
[2022-04-22 19:17] LABS: RSV RNA, RT-PCR Negative (Negative)
[2022-04-22 19:27] LABS: Band Neutrophils Percent 0 % (0-6); Basophils Absolute Manual 0.07 K/mm3 (0-0.1); Basophils Percent Manual 1 % (0-1); Eosinophils Absolute Manual 0.15 K/mm3 (0.02-0.5); Eosinophils Percent Manual 2 % (1-6); Lymphocytes Percent Manual 57 % (18-44); Monocytes Absolute Manual 0.86 K/mm3 (0.1-0.90); Monocytes Percent Manual 11 % (3-9); Neutrophils Absolute Manual 2.29 K/mm3 (1.3-6.7); Neutrophils Percent Manual 29 % (46-73); Platelet Estimate Adequate (Adequate)
[2022-04-22 19:34] LABS: Acetone Negative (Negative)
[2022-04-22 19:43] LABS: Erythrocyte Sedimentation Rate 32 mm/hr (0-20)
--- NOTE | 2022-04-22 21:11 | PC.NURSE ---
2030: Pt stating that he no longer wants to be admitted or transferred for further work up of his chest pain. Dr. Bonilla aware and at bedside to discuss with patient. Dr. Bonilla and RN inform the patient that it is recommended he stay for treatment, and that his current condition including his elevated troponin is cause for concern and can lead to increased risk of injury and possibly . Pt still adamant that he would like to go home and verbalizes risks vs benefits back to staff. Per Dr. Bonilla, pt is clinically sober and decisional at this time. Pt given AMA paperwork which this RN read to the patient slowly and clearly before signing. Pt advised to come back to the ER at any time if he changes his mind, or to seek medical care at another facility of his choosing if he would like to have his work up continued. Pt verbalizes understanding. Pt wheeled to lobby and ambulatory with steady gait to exit where his brother Subhash picked him up.
== END 2022-04-22 21:22 | disposition left against medical advice (07) ==
PROVIDERS: Emergency Provider Emergency Medicine; PCP Family Medicine
DX: I21.4 Non-ST elevation (NSTEMI) myocardial infarction (principal); K70.30 Alcoholic cirrhosis of liver without ascites; I50.9 Heart failure, unspecified; E83.42 Hypomagnesemia; J44.9 Chronic obstructive pulmonary disease, unspecified; E78.5 Hyperlipidemia, unspecified; I25.2 Old myocardial infarction; F17.210 Nicotine dependence, cigarettes, uncomplicated; Z20.822 Contact with and (suspected) exposure to COVID-19; Z85.05 Personal history of malignant neoplasm of liver; W18.30XA Fall on same level, unspecified, initial encounter; Z91.81 History of falling; Y92.89 Other specified places as the place of occurrence of the external cause
CPT/HCPCS: 36415; 71045; 80053; 80307; 82010; 82150; 82550; 83605; 83690; 83735; 83880; 84484; 85025; 85610; 85652; 85730; 86140; 87637; 93005; 96360; 96361; 99283; J7030

== ENCOUNTER 2022-06-21 17:22 | Emergency (ER) | payer OTHER, SELFPAY ==
--- NOTE | ~2022-06-21 | CT_ITS ---
EXAMINATION: CT cervical spine wo con DATE: 06/21/2022 19:06 INDICATION: Syncopal episodes with multiple falls over the last 3 days and posterior head injury TECHNIQUE: Computed tomography (CT) of the cervical spine was performed without intravenous contrast. Automated exposure control and iterative reconstruction technique were employed. The dose-length pro duct was 440.70 mGy-cm. COMPARISON: 10/06/2012 FINDINGS: And seen is mild reversal of the normal lordosis in the upper cervical spine. No spondylolisthesis or facet subluxation. Cervical vertebral body heights are normal. Chronic T3 compression fracture with mild anterior vertebral body height loss unchanged since 10/06/2012. No acute fracture. Moderate disc height loss at C3-C4, C4-C5 and C5-6. Mild disc height loss at C2-C3, C6-C7 and C7-T1. Disc bulges at C3-C4 through C6-C7. There is a likely superimposed central disc extrusion at C6-C7 with disc materi al extending up to 6 mm cephalad to the level of the inferior endplate of C6. Moderate to severe bila teral uncovertebral osteoarthritis at C3-C4 through C5-C6 and multilevel bilateral mild to moderate c ervical facet osteoarthritis contributing to multilevel cervical neural foraminal stenosis. This is m oderate on the left at C3-C4 and bilaterally at C4-C5 and C5-C6. Mild neural foraminal stenosis on th e right at C3-C4 and bilaterally at C6-C7 and C7-T1. Atherosclerotic calcifications at the bilateral carotid bulbs. Cervical soft tissues are otherwise unremarkable. IMPRESSION: 1. Moderate cervical spondylosis. No acute osseous abnormality. Reviewed, dictated and finalized at location A.
--- NOTE | ~2022-06-21 | CT_ITS ---
EXAMINATION: CT brain wo con DATE: 06/21/2022 19:05 INDICATION: Head pain post multiple falls the past 3 days TECHNIQUE: Computed tomography (CT) of the head was performed without intravenous contrast. Sagittal and coronal reconstructions were performed. The mA was adjusted according to patient size. Iterative reconstruction technique was employed. The dose-length product was 681.00 mGy-cm. COMPARISON: head CT dated 04/20/2022 FINDINGS: No fracture. No acute intracranial hemorrhage, acute infarction or abnormal extra axial fluid collect ion. Symmetric prominence of the sulci consistent with mild likely age-related diffuse cerebral volum e loss. Ventricles are normal and symmetric. No mass/mass effect. Unchanged left mastoid effusion. M ild mucosal thickening the bilateral ethmoid sinuses. The orbits are normal. IMPRESSION: 1. No fracture or acute intracranial process. 2. Unchanged left mastoid effusion. Reviewed, dictated and finalized at location A.
--- NOTE | ~2022-06-21 | CT_ITS ---
EXAMINATION: CT chest abdomen pelvis wo con DATE: 06/21/2022 19:07 INDICATION: Multiple falls over the last 3 days with posterior left chest and rib pain. TECHNIQUE: Computed tomography (CT) of the chest, abdomen, and pelvis was performed without intraveno us contrast. Automated exposure control and iterative reconstruction technique were employed. The dos e-length product was 1405.06 mGy-cm. COMPARISON: 04/20/2022 FINDINGS: CHEST CT: Calcite pulmonary nodules in the bilateral lower lobes consistent with old granulomatous disease. No pneumonia, pulmonary edema, pleural effusion or pneumothorax. Heart size is normal. Atherosclerotic c oronary artery calcific location. Aortic valve calcific location. No pericardial effusion. Thoracic a lewis is normal in caliber. No pathologically enlarged thoracic lymphadenopathy. There are several huber ateral old healed rib fractures. Mild thoracic spondylosis with bridging osteophytes at multiple leve ls consistent with diffuse idiopathic skeletal hyperostosis (DISH). ABDOMEN/PELVIS CT: Shrunken and nodular cirrhotic liver with gastroesophageal varices and left perirenal collaterals con sistent with secondary portal venous hypertension. Again seen is an 8 cm mass in segment 4A of the li shaheen concerning for malignancy. There are few gallstones in the dependent aspect of the otherwise norm al gallbladder. Atrophic spleen. Pancreas, bilateral adrenal glands and kidneys are normal. Bladder i s normal. Bowels including the appendix are normal. No free intraperitoneal gas or fluid. No patholog ically enlarged abdominal or pelvic lymphadenopathy. Mild degenerative skeletal changes in the lumbar spine and pelvis. No acute osseous abnormality. IMPRESSION: 1. No acute osseous abnormality or acute visceral organ injury in the chest, abdomen or pelvis. 2. Cirrhosis with portosystemic collaterals consistent with portal venous hypertension as well as an 8 cm hepatic mass consistent with biopsy-proven hepatocellular carcinoma. 3. Cholelithiasis. Reviewed, dictated and finalized at location A. IMPRESSION: 1. No acute osseous abnormality or acute visceral organ injury in the chest, ab domen or pelvis. 2. Cirrhosis with portosystemic collaterals consistent with portal venous hyper tension as well as an 8 cm hepatic mass consistent with biopsy-proven hepatocel lular carcinoma. 3. Cholelithiasis.
[2022-06-21 17:22] VITALS: BP 119/98; PULSE 88; RESP 18; TEMP 36.7; O2SAT 100
--- NOTE | 2022-06-21 17:55 | PC.NURSE ---
PT HAS REMOVED C COLLAR X2 AT THIS TIME. EDUCATED ABOUT THE IMPORTANCE OF LEAVING IN PLACE, HOWEVER HE REFUSED TO ALLOW REPLACEMENT.
[2022-06-21 18:23] LABS: Hematocrit 38.3 % (40.0-54.0); Hemoglobin 13.4 g/dL (14.0-18.0); Mean Corpuscular Hemoglobin 34.9 pg (27.0-31.0); Mean Corpuscular Volume 99.7 fL (78.0-102.0); Mean Platelet Volume 12.4 fl (8.7-11.0); Platelet Count Result 120 K/mm3 (150-420); Red Blood Count 3.84 M/mm3 (4.70-6.10); Red Cell Distribution Width 14.4 % (11.6-14.4); White Blood Count 7.7 K/mm3 (4.8-10.8)
[2022-06-21 18:37] LABS: Alanine Aminotransferase 34 U/L (16-63); Albumin Level 2.3 g/dL (3.4-5.0); Alkaline Phosphatase 166 U/L (46-116); Anion Gap 13 mmol/L (8-16); Aspartate Amino Transferase 89 U/L (15-37); Bilirubin,Total 1.6 mg/dL (0.00-1.00); Blood Urea Nitrogen 6 mg/dL (7-18); Calcium 7.5 mg/dL (8.5-10.1); Carbon Dioxide 23 mmol/L (21-32); Chloride 107 mmol/L (98-108); Estimated CRCL calculation 94 ml/min; Estimated Glomerular Filt Rate > 60; Glucose 87 mg/dL (70-99); Osmolality Calculated 292 mOsm/kg (285-295); Potassium 3.5 mmol/L (3.5-5.1); Sodium 143 mmol/L (136-145); Total Protein 6.8 g/dL (6.4-8.2)
[2022-06-21 18:40] LABS: Ethanol 358 mg/dL (0-6)
--- NOTE | 2022-06-21 18:40 | PC.NURSE ---
ETOH 358 DR FIELDS AWARE
[2022-06-21 18:56] LABS: Band Neutrophils Percent 0 % (0-6); Basophils Percent Manual 0 % (0-1); Eosinophils Absolute Manual 0.07 K/mm3 (0.02-0.5); Eosinophils Percent Manual 1 % (1-6); Lymphocytes Absolute Manual 6.16 K/mm3 (1.1-4.5); Lymphocytes Percent Manual 80 % (18-44); Monocytes Absolute Manual 0.53 K/mm3 (0.1-0.90); Monocytes Percent Manual 7 % (3-9); Neutrophils Absolute Manual 0.92 K/mm3 (1.3-6.7); Neutrophils Percent Manual 12 % (46-73); Platelet Estimate Adequate (Adequate); Total Cells Counted 100
[2022-06-21 19:09] LABS: Appearance Urine Clear (Clear); Bilirubin Urine Negative (Negative); Blood Urine Negative (Negative); Color Urine Yellow (Yellow); Glucose Urine UA Negative (Negative); Ketones Urine Negative (Negative); Leukocyte Esterase Ur Negative LEU/UL (Negative); Nitrate Urine Negative (Negative); Protein Urine Negative (Negative); Specific Grav Ur <= 1.005 (1.010-1.020); pH Urine 6.5 (5.0-8.0)
[2022-06-21 19:11] LABS: Add Urine Microscopic? NO
--- NOTE | 2022-06-21 19:11 | PC.NURSE ---
PT RETURNS FROM CT AT THIS TIME. UA COLLECTED AND SENT TO LAB. PT IS CALM AND COOPERATIVE. REPORT TO NIGEL GONZALEZ.
[2022-06-21 19:17] LABS: Amphetamine Screen Urine Negative (Negative); Barbiturate Screen Urine Negative (Negative); Benzodiazepines Screen Urine Negative (Negative); Cannabinoid Screen Urine Negative (Negative); Cocaine Screen Urine Negative (Negative); Methadone Screen Urine Negative (Negative); Opiate Screen Urine Negative (Negative); Phencyclidine Screen Urine Negative (Negative)
--- NOTE | 2022-06-21 19:42 | ED.FALL ---
HPI - Fall General Chief Complaint: Fall Stated Complaint: Fall Time Seen by Provider: 06/21/22 17:48 Source: patient, EMS and other (neighbor) Mode of arrival: EMS Limitations: no limitations and intoxication History of Present Illness HPI Narrative: 66-year-old white male with long history of alcoholism, hepatocellular cellular carcinoma, COPD, prior DC,was picked up by EMS after his neighbor called stating that he had taken 1 step off although porch and had fallen striking left side of his head. There was no information as to whether he lost consciousness or not, but the patient has been drinking heavily. When EMS picked him up he was oriented x3, sitting with his back against the wall, was noted to have abrasion and ecchymosis to the left congregation area. He also complains of some discomfort in his mid to lower back, left anterior lateral and posterior ribs, left upper abdomen. He denies shortness of breaths, coughing, weakness, paresthesias, any loss of strength in any of his extremities. And he reports he is ready to go home. he denies any recent fever chills, sinus drainage, sore throat, coughing, chest pain, palpitations denies any recent abdominal pain, nausea vomiting, diarrhea constipation, dysuria urgency or frequency. Related Data Allergies Allergy/AdvReac Type Severity Reaction Status Date / Time No Known Allergies Allergy Verified 06/21/22 17:34 Review of Systems Review of Systems: All systems reviewed & are unremarkable except as noted in HPI and below (per hpi) PMFSH Past Medical History Medical History COPD (chronic obstructive pulmonary disease) ETOH abuse Hepatocellular carcinoma Hyperlipidemia (03/14/14) Non-STEMI (non-ST elevated myocardial infarction) PUD (peptic ulcer disease) Systolic heart failure Tobacco abuse Family History Family History Mother Family history of Alzheimer's disease Carcinoma of colon Father Family history of diabetes mellitus in first degree relative Septicemia Femur fracture Social History Social History Smoking packs per day: 0 Smoking cigarettes per day: 0.0 Years smoked: 32 Smoking pack-years: 0.00 Smoking status: Current every day smoker Tobacco type: cigarettes Second hand tobacco smoke exposure: Yes Alcohol intake: current Drinks per week: 8 Substance use: never Substance use type: does not use Lack of Transportation: YES Lack of Food: Never True Current Housing: I Have Housing Concerned About Future Housing: No Difficulty Paying Gas/Electric Bills: No Difficulty Paying for Meds: No Currently Unemployed: No Education: High School Diploma/GED Difficulty w/ Childcare or Family Care: No Spiritual care concerns: No Exam Narrative: awake, alert, oriented x3, talkative, assist with moving from the EMS stretcher to ER stretcher, no ataxia, very strong odor of tobacco and of an intoxicating substances. He does have an abrasion to the left anterior lateral aspect of the congregation, without deformity, crepitus, or step-off. No other facial injury is noted, no other scalp injury is noted. Skin changes consistent with longstanding tobacco use Const: General: no acute distress and alert Nutritional Appearance: well nourished Orientation/consciousness: patient oriented x3 HENMT: Ears: external ears normal Face/Nose/Sinus: Normal external nose present Face and sinus: normal facial exam Mouth: Yes Normal oral and palatal mucosa present Eyes: Conjunctivae: conjunctivae normal Pupils: Equal, round and reactive pupils present EOM: EOMs intact bilaterally Neck: Neck: normal visual inspection Other: C-collar is in place, removed it, palpate his neck, there is no point tenderness, however with the apparent heavy overall been intoxicated substances by a
[2022-06-21 20:40] VITALS: BP 107/82; PULSE 98; RESP 18; TEMP 37; O2SAT 97
== END 2022-06-21 20:43 | disposition home or self-care (01) ==
PROVIDERS: Emergency Provider Emergency Medicine; PCP Family Medicine
DX: C22.0 Liver cell carcinoma (principal); S09.90XA Unspecified injury of head, initial encounter; S20.219A Contusion of unspecified front wall of thorax, initial encounter; E78.5 Hyperlipidemia, unspecified; I25.2 Old myocardial infarction; I50.20 Unspecified systolic (congestive) heart failure; J44.9 Chronic obstructive pulmonary disease, unspecified; F17.210 Nicotine dependence, cigarettes, uncomplicated; F10.129 Alcohol abuse with intoxication, unspecified; Y90.8 Blood alcohol level of 240 mg/100 ml or more; W17.89XA Other fall from one level to another, initial encounter
CPT/HCPCS: 36415; 70450; 71250; 72125; 74176; 80053; 80307; 81003; 85025; 99284

== ENCOUNTER 2022-09-07 11:39 | Outpatient (CLI) | payer BC, SELFPAY ==
[2022-09-07 12:10] LABS: Basophils Absolute Auto 0.08 K/mm3 (0.00-0.10); Basophils Percent Auto 0.9 % (0.0-1.0); Eosinophils Absolute Auto 0.24 K/mm3 (0.02-0.50); Eosinophils Percent Auto 2.7 % (1.0-6.0); Hematocrit 35.7 % (40.0-54.0); Hemoglobin 12.5 g/dL (14.0-18.0); Immature Granulocyte Absolute 0.02 K/mm3 (0.00-0.00); Immature Granulocyte Percent A 0.2 % (0.0-0.0); Lymphocytes Absolute Auto 4.72 K/mm3 (1.10-4.50); Lymphocytes Percent Auto 53.8 % (18.0-42.0); Mean Corpuscular Hemoglobin 35.6 pg (27.0-31.0); Mean Corpuscular Volume 101.7 fL (78.0-102.0); Mean Platelet Volume 11.1 fl (8.7-11.0); Monocytes Absolute Auto 1.21 K/mm3 (0.10-0.90); Monocytes Percent Auto 13.8 % (2.0-11.0); Neutrophils Absolute Auto 2.5 K/mm3 (1.7-7.2); Neutrophils Percent Auto 28.6 % (50.0-70.0); Platelet Count Result 181 K/mm3 (150-420); Red Blood Count 3.51 M/mm3 (4.70-6.10); Red Cell Distribution Width 17.8 % (11.6-14.4); White Blood Count 8.8 K/mm3 (4.8-10.8)
[2022-09-07 13:18] LABS: Alanine Aminotransferase 45 U/L (16-63); Albumin Level 1.7 g/dL (3.4-5.0); Alkaline Phosphatase 212 U/L (46-116); Anion Gap 7 mmol/L (8-16); Aspartate Amino Transferase 102 U/L (15-37); Bilirubin,Total 2.6 mg/dL (0.00-1.00); Blood Urea Nitrogen 6 mg/dL (7-18); Calcium 7.5 mg/dL (8.5-10.1); Carbon Dioxide 26 mmol/L (21-32); Chloride 108 mmol/L (98-108); Estimated Glomerular Filt Rate > 60; Folic Acid 7.5 ng/mL (8.6->20); Glucose 103 mg/dL (70-99); Magnesium 1.8 mg/dL (1.8-2.4); Osmolality Calculated 289 mOsm/kg (285-295); Potassium 3.7 mmol/L (3.5-5.1); Sodium 141 mmol/L (136-145); Total Protein 6.3 g/dL (6.4-8.2); Vitamin B12 1418 pg/mL (193-986)
[2022-09-07 13:31] LABS: Thyroid Stimulating Hormone Reflex 9.38 u/IU/mL (0.36-3.74)
[2022-09-07 13:32] LABS: Free T4 Free Thyroxine Reflex 1.02 ng/dL (0.76-1.46)
== END 2022-09-07 11:40 | disposition home or self-care (01) ==
PROVIDERS: PCP Family Medicine; Visit Provider Family Medicine
DX: E11.9 Type 2 diabetes mellitus without complications (principal); E53.8 Deficiency of other specified B group vitamins; C22.0 Liver cell carcinoma
CPT/HCPCS: 36415; 80053; 82607; 82746; 83735; 84439; 84443; 85025

== ENCOUNTER 2022-09-14 19:55 | Emergency (ER) | payer BC, SELFPAY ==
--- NOTE | ~2022-09-14 | XR_ITS ---
EXAM: XR abdomen/kub 1V DATE: 09/14/2022 20:45 HISTORY: constipation . COMPARISON: CT CAP 06/21/2022. FINDINGS: Bibasilar scar/atelectasis. Amorphous hyperdensities over the right upper quadrant, may be related to prior hepatic mass embolization or ablation. The rectum is dilated to 8.3 cm by partially formed stool. Otherwise normal bowel gas pattern. No organomegaly. Lumbar degenerative disc disease. Scattered vascular calcifications. Bilateral hip osteoarthritis. IMPRESSION: Likely fecal impaction. No overt obstruction or ileus. Reviewed, dictated and finalized at location K.
[2022-09-14 19:55] VITALS: BP 104/77; PULSE 103; RESP 20; TEMP 36.4; O2SAT 98
--- NOTE | 2022-09-14 20:09 | ED.GENADULT ---
HPI - General Adult General Chief complaint: Unspecified Stated complaint: Constipation Source: patient Mode of arrival: ambulatory Limitations: no limitations History of Present Illness HPI narrative: 66-year-old male smoker, alcoholic with COPD, cirrhosis of liver/hepatocellular carcinoma, dyslipidemia, peptic ulcer disease, non-STEMI presented to the ER with a five-day history of -- constipation. The patient has been taking Dulcolax without any improvement. patient takes oxycodone for pain. -- Abdominal discomfort and distension. No nausea / vomiting. Onset (ago): day(s) ( Constipated for the past 5 days) Relieving factors: none Exacerbating factors: none Associated symptoms: denies other symptoms Treatments prior to arrival: other ( Dulcolax) Related Data Allergies Allergy/AdvReac Type Severity Reaction Status Date / Time No Known Allergies Allergy Verified 09/07/22 08:15 Review of Systems Review of Systems: All systems reviewed & are unremarkable except as noted in HPI and below Constitutional: Constitutional: Reports as per HPI and Reports no additional constitutional complaints Eyes: Eyes: Reports as per HPI and Reports no additional eye complaints ENT: Reports system reviewed and no additional complaints, except as documented and Reports as per HPI Cardiovascular: Cardiovascular: Reports as per HPI and Reports no additional cardiovascular complaints Respiratory: Respiratory: Reports as per HPI, Reports no additional respiratory complaints, Reports cough and Reports dyspnea Gastrointestinal: Gastrointestinal: Reports as per HPI Comments: constipation with abdominal distension. No Nausea/vomiting. Genitourinary: Genitourinary: Reports no additional male genitourinary complaints Musculoskeletal: Musculoskeletal: Reports no additional musculoskeletal complaints Integumentary/Breasts: Skin/Breast: Reports system reviewed and no additional complaints, except as docu and Reports as per HPI Neurologic: Reports system reviewed and no additional complaints, except as documented and Reports as per HPI Psychiatric: Psychiatric: Reports no additional psychiatric complaints and Reports as per HPI Endocrine: Endocrine: Reports no additional endocrine complaints and Reports as per HPI Hematologic/Lymphatic: Hematologic/Lymphatic: Reports no additional hematologic/lymphatic complaints and Reports as per HPI Allergic/Immunologic: Allergic/Immunologic: Reports no additional allergic/immunologic complaints and Reports as per HPI [facility] Past Medical History Medical History COPD (chronic obstructive pulmonary disease) ETOH abuse Hepatocellular carcinoma Hyperlipidemia (03/14/14) Non-STEMI (non-ST elevated myocardial infarction) PUD (peptic ulcer disease) Systolic heart failure Tobacco abuse Family History Family History Mother Family history of Alzheimer's disease Carcinoma of colon Father Family history of diabetes mellitus in first degree relative Septicemia Femur fracture Social History Social History Smoking packs per day: 0 Smoking cigarettes per day: 0.0 Years smoked: 32 Smoking pack-years: 0.00 Smoking status: Current every day smoker Tobacco type: cigarettes Second hand tobacco smoke exposure: Yes Alcohol intake: current Drinks per week: 8 Substance use: never Substance use type: does not use Lack of Transportation: YES Lack of Food: Never True Current Housing: I Have Housing Concerned About Future Housing: No Difficulty Paying Gas/Electric Bills: No Difficulty Paying for Meds: No Currently Unemployed: No Education: High School Diploma/GED Difficulty w/ Childcare or Family Care: No Spiritual care concerns: No Exam Const: General: cooperative and no acute distress HENMT: He
[2022-09-14 20:16] VITALS: PULSE 96; RESP 18; O2SAT 98
[2022-09-14 20:26] LABS: Hematocrit 35.2 % (40.0-54.0); Hemoglobin 12.6 g/dL (14.0-18.0); Mean Corpuscular HGB Conc 35.8 g/dL (32.0-36.0); Mean Corpuscular Hemoglobin 35.7 pg (27.0-31.0); Mean Corpuscular Volume 99.7 fL (78.0-102.0); Mean Platelet Volume 11.6 fl (8.7-11.0); Platelet Count Result 125 K/mm3 (150-420); Red Blood Count 3.53 M/mm3 (4.70-6.10); Red Cell Distribution Width 16.1 % (11.6-14.4)
[2022-09-14 20:30] VITALS: BP 106/71; PULSE 96; RESP 14; O2SAT 97
[2022-09-14 20:37] LABS: INR 1.3; Prothrombin Time 13.6 Seconds (9.50-12.10)
[2022-09-14 20:38] LABS: Partial Thromboplastin Time 33.1 SEC (23.90-30.70)
[2022-09-14 20:41] LABS: Alanine Aminotransferase 27 U/L (16-63); Albumin Level 1.9 g/dL (3.4-5.0); Alkaline Phosphatase 163 U/L (46-116); Anion Gap 12 mmol/L (8-16); Aspartate Amino Transferase 87 U/L (15-37); Bilirubin,Total 2.4 mg/dL (0.00-1.00); Blood Urea Nitrogen 5 mg/dL (7-18); Calcium 7.4 mg/dL (8.5-10.1); Carbon Dioxide 25 mmol/L (21-32); Chloride 106 mmol/L (98-108); Estimated CRCL calculation 85 ml/min; Estimated Glomerular Filt Rate > 60; Glucose 135 mg/dL (70-99); Osmolality Calculated 295 mOsm/kg (285-295); Sodium 143 mmol/L (136-145)
[2022-09-14 20:48] LABS: Band Neutrophils Percent 1 % (0-6); Basophils Absolute Manual 0.18 K/mm3 (0-0.1); Basophils Percent Manual 2 % (0-1); Eosinophils Absolute Manual 0.18 K/mm3 (0.02-0.5); Eosinophils Percent Manual 2 % (1-6); Lymphocytes Absolute Manual 6.57 K/mm3 (1.1-4.5); Lymphocytes Percent Manual 73 % (18-44); Monocytes Absolute Manual 0.18 K/mm3 (0.1-0.90); Monocytes Percent Manual 2 % (3-9); Neutrophils Absolute Manual 1.89 K/mm3 (1.3-6.7); Neutrophils Percent Manual 20 % (46-73); Platelet Estimate Adequate (Adequate); Total Cells Counted 100
[2022-09-14 20:54] LABS: Thyroid Stimulating Hormone 13.43 uIU/mL (0.36-3.74)
[2022-09-14 21:00] VITALS: BP 118/79; PULSE 93; RESP 18; O2SAT 97
[2022-09-14 21:30] VITALS: BP 110/70; PULSE 95; RESP 16; O2SAT 99
[2022-09-14] MEDS: polyethylene glycoL 3350 17 GM POWD.PACK PO (21:45)
[2022-09-14] MEDS: POTASSIUM CHLORIDE 20 MEQ ER TABLET 40 MEQ PO (21:45)
== END 2022-09-14 23:10 | disposition left against medical advice (07) ==
PROVIDERS: Emergency Provider Internal Medicine Critical Care Medicine; PCP Family Medicine
DX: K56.41 Fecal impaction (principal); E03.9 Hypothyroidism, unspecified; C22.0 Liver cell carcinoma; J44.9 Chronic obstructive pulmonary disease, unspecified; I25.2 Old myocardial infarction; E78.5 Hyperlipidemia, unspecified; I50.20 Unspecified systolic (congestive) heart failure; K74.60 Unspecified cirrhosis of liver; F17.210 Nicotine dependence, cigarettes, uncomplicated
CPT/HCPCS: 36415; 74018; 80053; 84443; 85025; 85610; 85730; 99283; A9270

== ENCOUNTER 2022-10-07 13:13 | Emergency (ER) | payer BC, SELFPAY ==
[2022-10-07] VITALS (28 sets, daily range): BP systolic 90–104; BP diastolic 54–76; PULSE 61–81; RESP 12–24; TEMP 36.7–37.2; O2SAT 93–100
--- NOTE | ~2022-10-07 | CT_ITS ---
Non-contrast Head CT History: Weakness COMPARISON: 06/21/2022 Technique: Axial non-contrast imaging of the brain was performed. Dose reduction technique was used on this scan by utilizing automated exposure control and iterative reconstruction technique. The dose -length product (DLP) was 681.00 mGy-cm. Findings: There is no evidence of intracranial hemorrhage, mass lesion, or acute infarct. Brain par enchyma appears normal. The ventricles and subarachnoid spaces are normal in size. The calvarium ap pears normal. The visualized paranasal sinuses and mastoid air cells are clear. Impression: No significant abnormality seen. Reviewed, dictated and finalized at location . Impression: No significant abnormality seen.
--- NOTE | ~2022-10-07 | XR_ITS ---
EXAMINATION: XR chest 2V DATE: 10/07/2022 14:18 INDICATION: Weakness of bilateral lower extremities. TECHNIQUE: Frontal and lateral views of the chest were obtained on 5 radiographs. COMPARISON: Chest single view 04/22/2022, chest CT 06/21/2022 FINDINGS: There is no pneumonia, pleural effusion, or pneumothorax. The heart size is normal. There a re old healed bilateral rib fractures. IMPRESSION: 1. No acute cardiopulmonary disease. Reviewed, dictated and finalized at location E.
--- NOTE | 2022-10-07 13:18 | ECG_ITS ---
Measurements Intervals [place] Rate: 71 P: 77 [place]: 254 QRS: -60 QRSD: 139 T: 51 QT: 452 QTc: 492 Interpretive Statements SINUS RHYTHM WITH FIRST DEGREE AV BLOCK LEFT AXIS DEVIATION LEFT BUNDLE BRANCH BLOCK BASELINE ARTIFACT- I, II, AVR, AVL, V1 ABNORMAL ECG COMPARED TO ECG 04/22/2022 18:42:54 FIRST DEGREE AV BLOCK NOW PRESENT LEFT BUNDLE-BRANCH BLOCK NOW PRESENT Electronically Signed On 10-07-2022 14:46:40 CDT by Terry Vicente D.O.
--- NOTE | 2022-10-07 13:40 | ED.WEAKNESS ---
HPI - Weakness General Chief complaint: Extremity Problem,Nontraumatic Stated complaint: weakness Time Seen by Provider: 10/07/22 13:14 Source: patient and EMS Mode of arrival: EMS Limitations: intoxication (alcohol) History of Present Illness HPI Narrative: patient is a 66-year-old male known to have alcoholism in cycles. Patient was at the bar today which is across the street from his house and he called an ambulance for weakness of the lower extremities bilaterally. Patient was in a rehab recently according to him, he has been having generalized weakness and more so lower extremity of his peripheral neuropathy worsening over the past few weeks. He has no focal neurological complaints. patient has significant cardiac history with a non-STEMI and CHF 2022 monitored and cared for at [facility]. FAST: negative NIH: 0 GCS: 15 MD Complaint: generalized weakness ( Bilateral lower extremities are most of the complaint) Onset (ago): week(s) Duration: intermittent ( he was noted to walk per EMS) Location: LLE and RLE Migration: none Severity: moderate Severity scale (1-10): 4 Quality: numbness Relieving factors: none Exacerbating factors: none Associated symptoms: denies other symptoms Related Data Allergies Allergy/AdvReac Type Severity Reaction Status Date / Time No Known Allergies Allergy Verified 09/07/22 08:15 Review of Systems Review of Systems: All systems reviewed & are unremarkable except as noted in HPI and below Constitutional: Constitutional: Reports no additional constitutional complaints Eyes: Eyes: Reports no additional eye complaints ENT: Reports system reviewed and no additional complaints, except as documented Cardiovascular: Cardiovascular: Reports no additional cardiovascular complaints Respiratory: Respiratory: Reports no additional respiratory complaints Gastrointestinal: Gastrointestinal: Reports no additional gastrointestinal complaints Genitourinary: Genitourinary: Reports no additional male genitourinary complaints Musculoskeletal: Musculoskeletal: Reports no additional musculoskeletal complaints Integumentary/Breasts: Skin/Breast: Reports system reviewed and no additional complaints, except as docu Neurologic: Reports system reviewed and no additional complaints, except as documented Psychiatric: Psychiatric: Reports no additional psychiatric complaints Endocrine: Endocrine: Reports no additional endocrine complaints Hematologic/Lymphatic: Hematologic/Lymphatic: Reports no additional hematologic/lymphatic complaints Allergic/Immunologic: Allergic/Immunologic: Reports no additional allergic/immunologic complaints PMFSH Past Medical History Medical History COPD (chronic obstructive pulmonary disease) ETOH abuse Hepatocellular carcinoma Hyperlipidemia (03/14/14) Non-STEMI (non-ST elevated myocardial infarction) PUD (peptic ulcer disease) Systolic heart failure Tobacco abuse Family History Family History Mother Family history of Alzheimer's disease Carcinoma of colon Father Family history of diabetes mellitus in first degree relative Septicemia Femur fracture Social History Social History Smoking packs per day: 0 Smoking cigarettes per day: 0.0 Years smoked: 32 Smoking pack-years: 0.00 Smoking status: Current every day smoker Tobacco type: cigarettes Second hand tobacco smoke exposure: Yes Alcohol intake: current Drinks per week: 8 Substance use: never Substance use type: does not use Lack of Transportation: YES Lack of Food: Never True Current Housing: I Have Housing Concerned About Future Housing: No Difficulty Paying Gas/Electric Bills: No Difficulty Paying for Meds: No Currently Unemployed: No Education: High School Diploma/GED Difficulty w/ Childcare or Fa
[2022-10-07 14:30] LABS: Hematocrit 34.4 % (40.0-54.0); Hemoglobin 12.2 g/dL (14.0-18.0); Immature Platelet Fraction Pct 12.2 % (1.0-7.0); Mean Corpuscular HGB Conc 35.5 g/dL (32.0-36.0); Mean Corpuscular Hemoglobin 34.8 pg (27.0-31.0); Mean Platelet Volume 13.3 fl (8.7-11.0); Platelet Count Result 61 K/mm3 (150-420); Red Blood Count 3.51 M/mm3 (4.70-6.10); Red Cell Distribution Width 15.9 % (11.6-14.4); White Blood Count 7.2 K/mm3 (4.8-10.8)
[2022-10-07 14:49] LABS: Lactic Acid Reflex 2.5 mmol/L (0.4-2.0)
[2022-10-07 14:54] LABS: Alanine Aminotransferase 41 U/L (16-63); Albumin Level 1.8 g/dL (3.4-5.0); Alkaline Phosphatase 206 U/L (46-116); Anion Gap 7 mmol/L (8-16); Aspartate Amino Transferase 173 U/L (15-37); Bilirubin,Total 2.6 mg/dL (0.00-1.00); Blood Urea Nitrogen 5 mg/dL (7-18); Calcium 7.1 mg/dL (8.5-10.1); Carbon Dioxide 27 mmol/L (21-32); Chloride 105 mmol/L (98-108); Estimated CRCL calculation 101 ml/min; Estimated Glomerular Filt Rate > 60; Glucose 82 mg/dL (70-99); Magnesium 1.3 mg/dL (1.8-2.4); Osmolality Calculated 284 mOsm/kg (285-295); Potassium 3.2 mmol/L (3.5-5.1); Sodium 139 mmol/L (136-145); Total Protein 6.4 g/dL (6.4-8.2)
[2022-10-07 14:55] LABS: Troponin I 662.2 ng/L (0.00-60.4)
[2022-10-07 14:56] LABS: Ethanol 354 mg/dL (0-6)
[2022-10-07 14:58] LABS: INR 1.5; Partial Thromboplastin Time 34.5 SEC (23.90-30.70); Prothrombin Time 16.2 Seconds (9.50-12.10)
[2022-10-07 15:00] LABS: Thyroid Stimulating Hormone 7.96 uIU/mL (0.36-3.74)
[2022-10-07 15:13] LABS: Creatine Kinase 158 U/L (39-308)
[2022-10-07 15:21] LABS: Band Neutrophils Percent 0 % (0-6); Basophils Absolute Manual 0.07 K/mm3 (0-0.1); Basophils Percent Manual 1 % (0-1); Eosinophils Absolute Manual 0.21 K/mm3 (0.02-0.5); Eosinophils Percent Manual 3 % (1-6); Lymphocytes Absolute Manual 4.96 K/mm3 (1.1-4.5); Lymphocytes Percent Manual 69 % (18-44); Monocytes Absolute Manual 0.43 K/mm3 (0.1-0.90); Monocytes Percent Manual 6 % (3-9); Neutrophils Absolute Manual 1.51 K/mm3 (1.3-6.7); Neutrophils Percent Manual 21 % (46-73); Total Cells Counted 100
[2022-10-07 15:22] LABS: Platelet Estimate Decreased (Adequate)
[2022-10-07] MEDS: POTASSIUM CHLORIDE 20 MEQ ER TABLET 40 MEQ PO (15:29)
[2022-10-07] MEDS: SODIUM CHLORIDE 0.9% IV 500 ML 999 ML IV CONT (15:29)
[2022-10-07] MEDS: MAGNESIUM SULF 2 GM/WATER 50ML 2 GM/50 ML BAG IVPB (15:30)
[2022-10-07 15:48] LABS: NT Pro B Type Natriuretic Pept 241 pg/mL (0-125)
[2022-10-07 16:46] LABS: Appearance Urine Clear (Clear); Bilirubin Urine Negative (Negative); Blood Urine Negative (Negative); Color Urine Yellow (Yellow); Glucose Urine UA Negative (Negative); Ketones Urine Negative (Negative); Leukocyte Esterase Ur Negative LEU/UL (Negative); Nitrate Urine Negative (Negative); Protein Urine Negative (Negative); Specific Grav Ur <= 1.005 (1.010-1.020)
[2022-10-07 16:49] LABS: Add Urine Microscopic? YES; RBC Urine None seen /hpf (0-2); Squamous Epithelial Cell Urine Rare /hpf (Few); WBC Urine None seen /hpf (0-3)
[2022-10-07 16:50] LABS: Bacteria Urine Trace /hpf; Mucus Urine Moderate /lpf
[2022-10-07 16:52] LABS: Amphetamine Screen Urine Negative (Negative); Barbiturate Screen Urine Negative (Negative); Benzodiazepines Screen Urine Negative (Negative); Cannabinoid Screen Urine Negative (Negative); Cocaine Screen Urine Negative (Negative); Methadone Screen Urine Negative (Negative); Opiate Screen Urine Negative (Negative); Phencyclidine Screen Urine Negative (Negative)
--- NOTE | 2022-10-07 17:12 | PC.NURSE ---
1710 pt loaded to ems cot. minimal assist. pt alert and oriented . denies pain. departed with all personal belongings
[2022-10-07 17:26] LABS: Reflex Lactic Acid Yes or No Add Lactic
== END 2022-10-07 17:16 | disposition short-term general hospital (02) ==
PROVIDERS: Emergency Provider Emergency Medicine; PCP Family Medicine
DX: I21.4 Non-ST elevation (NSTEMI) myocardial infarction (principal); D69.6 Thrombocytopenia, unspecified; E87.8 Other disorders of electrolyte and fluid balance, not elsewhere classified; D68.9 Coagulation defect, unspecified; I95.9 Hypotension, unspecified; F10.920 Alcohol use, unspecified with intoxication, uncomplicated; J44.9 Chronic obstructive pulmonary disease, unspecified; E78.5 Hyperlipidemia, unspecified; I25.2 Old myocardial infarction; I50.20 Unspecified systolic (congestive) heart failure; F17.210 Nicotine dependence, cigarettes, uncomplicated
CPT/HCPCS: 36415; 70450; 71046; 80053; 80307; 81001; 82550; 83605; 83735; 83880; 84443; 84484; 85025; 85055; 85610; 85730; 93005; 96361; 96365; 99285; A9270; J3475; J7040

== ENCOUNTER 2022-10-07 18:53 | Inpatient (IN) | payer BC, SELFPAY ==
--- NOTE | ~2022-10-07 | NM_ITS ---
EXAMINATION: NM angel stress w perfusion DATE: 10/11/2022 11:49 INDICATION: Shortness of breath. TECHNIQUE: Rest images were obtained following intravenous administration of 10.2 mCi Tc99m tetrofosm in (Myoview). The patient was infused intravenously with Lexiscan (regadenoson). Then, 32.8 mCi Tc99m tetrofosmin (Myoview) was administered intravenously, and stress images were obtained. Data was seth nstructed into short axis and horizontal and vertical long axis SPECT images. Gated SPECT images were also obtained. COMPARISON: Myocardial perfusion imaging 04/07/2014, chest CT 06/21/2022 FINDINGS: There is artifact from the patient's failure to lift his arms. There is a small, mild, fixe d perfusion defect involving apical lateral segment of left ventricle, consistent with infarct. There is no reversible component to suggest ischemia. There is no segmental wall motion abnormality. Lef t ventricular ejection fraction measures 45%. IMPRESSION: 1. Small area of mild infarct involving apical lateral segment of left ventricle. 2. Left ventricular ejection fraction measuring 45%. Reviewed, dictated and finalized at location A. IMPRESSION: 1. Small area of mild infarct involving apical lateral segment of left ventricl e. 2. Left ventricular ejection fraction measuring 45%.
--- NOTE | 2022-10-07 18:19 | PC.NURSE ---
This patient, Estiven Rg, was admitted to IMU Room 231-01. Patient/family oriented to hospital policies and general routines including ID bracelet, bed and alarms, visiting hours, pain management, procedures, bathroom and other care routines, personal items, smoking policy, room service/diet, and visiting hours. Information on how to activate the Rapid Response Team has been discussed. Patient/Family are encouraged to report perceived risks to care and to ask questions if they do not understand what they are told or what they should do.
[2022-10-07 18:20] VITALS: BP 107/72; PULSE 71; RESP 20; TEMP 35.8; O2SAT 100; BMI 27.1
--- NOTE | 2022-10-07 18:56 | PM.IMHP ---
H&P: HPI History of Present Illness Date/Time: 10/07/22 18:56 Chief Complaint: Weakness Narrative: Patient is a 66-year-old male with past medical history COPD, alcohol abuse, hepatocellular carcinoma (11/19/21 well differentiated HCC) status post chemotherapy, hyperlipidemia, peptic ulcer disease, congestive heart failure with reduced ejection fraction, tobacco abuse who presents to [place] ED with complaints of generalized weakness. Patient is intoxicated with last drink at 10:00 a.m. today. Patient states he was recently diagnosed with a liver tumor LIRADS 5 lesion (positive for HCC on biopsy) and had chemotherapy with pellets done at [facility] with Dr. Tiwari about 2 months ago. Since the procedure he has had progressive lower extremity weakness. Patient lives alone and typically ambulates without assistance. He has no family and he takes care of himself. His best friend is Subhash (who he would like to set up as health surrogate). He typically walks to the supermarket but now is having progressive weakness of his legs. Patient recently went to the hospital month ago and was diagnosed with constipation and was told he has hypothyroidism and was started on Synthroid. He has no other scheduled meds. Of note patient had peptic ulcers disease with 2 gastric ulcers leading to a GI bleed in [place]. He states during the hospitalization he received 12 units of blood and a unit of platelets. He currently is not on any PPI or H2B. In the ED at [place] he was found to have elevated troponin at 662. Patient did complain of some mild chest discomfort but that was not the reason for him coming to the ED. is found have potassium 3.2, mag 1.3. His alcohol level is elevated at 354. Review of Systems Review of Systems: Constitutional: No Fever, No Chills, No Night Sweats, endorses generalized weakness worsened lower extremity ENT/Mouth: No Hearing Changes, No Ear Pain, No Nasal Congestion, No Sinus Pain, No Hoarseness, No sore throat, No Rhinorrhea, No Swallowing Difficulty Eyes: No Eye Pain, No Redness, No Vision Changes Cardiovascular: Endorses some mild chest pain intermittent, No Palpitations, No Dyspnea on Exertion, No Orthopnea, No Claudication, No Edema Respiratory: No Cough, No Sputum, No Wheezing, No Shortness of Breath Gastrointestinal: No Nausea, No Vomiting, No Diarrhea, No Constipation, No Abdominal Pain, No Heartburn, No Hematochezia, No Melena Genitourinary: No Dysuria, No Urinary Frequency, No Hematuria, No Urinary Incontinence, No Urgency Musculoskeletal: No Arthralgias, No Myalgias, No Joint Swelling, No Joint Stiffness, No Back Pain Skin: No Skin Lesions, No Pruritis, No Hair Changes Neuro: Endorses lower extremity weakness, no Numbness, No Paresthesias, No Loss of Consciousness, No Syncope, No Dizziness, No Headache Psych: No Anxiety/Panic, No Depression, No Insomnia Heme: No Bruising, No Bleeding Lymph: No Adenopathy Endocrine: No Polyuria, No Polydipsia, No Temperature Intolerance [facility] Past Medical History Medical History COPD (chronic obstructive pulmonary disease) ETOH abuse Hepatocellular carcinoma Hyperlipidemia (03/14/14) Non-STEMI (non-ST elevated myocardial infarction) PUD (peptic ulcer disease) Systolic heart failure Tobacco abuse Family History Family History Mother Family history of Alzheimer's disease Carcinoma of colon Father Family history of diabetes mellitus in first degree relative Septicemia Femur fracture Social History Social History Social History: Best friend Subhash to be healthcare surrogate. Patient has no other family. Does not drive Fairly independent. Usually walks to supermarket, manages his ADLs Smoking packs per day: 0 Smoking cigarettes per day: 0.0 Years smoked: 35 Smo
[2022-10-07 20:00] VITALS: BP 93/53; PULSE 65; PULSE 74; RESP 18; TEMP 36.8; O2SAT 100
[2022-10-07 21:01] LABS: Basophils Absolute Auto 0.1 K/mm3 (0.0-0.1); Basophils Percent Auto 1.5 % (0.2-1.2); Eosinophils Absolute Auto 0.3 K/mm3 (0-0.3); Eosinophils Percent Auto 4.6 % (0-4.4); Hematocrit 32.9 % (42.0-52.0); Hemoglobin 11.4 g/dL (14.0-18.0); Immature Granulocyte Absolute 0.01 K/mm3 (0.00-0.031); Immature Granulocyte Percent A 0.2 % (0-0.5); Immature Platelet Fraction Pct 16.4 % (0.9-11.2); Lymphocytes Absolute Auto 3.99 K/mm3 (0.9-3.2); Lymphocytes Percent Auto 65.1 % (18.3-44.2); Mean Corpuscular HGB Conc 34.7 g/dl (32-36); Mean Corpuscular Hemoglobin 34.2 pg (26-34); Mean Corpuscular Volume 98.8 fl (80-100); Mean Platelet Volume 13.6 fl (7.4-10.4); Monocytes Absolute Auto 0.7 K/mm3 (0.1-0.6); Monocytes Percent Auto 10.9 % (2.6-8.5); Neutrophils Absolute Auto 1.1 K/mm3 (1.3-6.7); Neutrophils Percent Auto 17.7 % (45.5-73.1); Platelet Count Result 59 k/mm3 (150-375); Red Blood Count 3.33 M/mm3 (4.6-6.20); White Blood Count 6.1 K/mm3 (4.5-10.0)
[2022-10-07] MEDS: HEPARIN SOD/D5W 100 UNITS/ML 25,000 UNITS/250 ML BAG 10 UNITS IV CONT (21:02)
[2022-10-07 21:10] LABS: INR 1.7; Prothrombin Time 20.9 Seconds (11.1-14.7)
[2022-10-07 21:11] LABS: Partial Thromboplastin Time 41.2 SECONDS (22.3-36.8)
[2022-10-07] MEDS: PANTOPRAZOLE 40 MG TABLET PO (21:11)
[2022-10-07] MEDS: ATORVASTATIN 40 MG TABLET PO (21:11)
[2022-10-07] MEDS: HEPARIN SODIUM 5,000 UNITS/ML VIAL 4000 UNITS IV PUSH (21:11)
[2022-10-07] MEDS: MAGNESIUM SULF 4 GM/WATER100ML 4 GM/100 ML BAG IVPB (21:12)
[2022-10-07] MEDS: POTASSIUM CHLORIDE 20 MEQ ER TABLET 40 MEQ PO (21:20)
[2022-10-07 21:22] LABS: Troponin I 0.016 ng/mL (0.000-0.034)
[2022-10-07 22:13] LABS: Anisocytosis 1+ (NORMAL); Platelet Estimate Decreased (Adequate); Target Cells 1+ (NORMAL)
[2022-10-07 22:14] LABS: Schistocytes None Seen (NORMAL)
[2022-10-07 23:15] LABS: Glucose Point of Care 107 mg/dl (65-105)
[2022-10-07 23:47] VITALS: BP 99/52; PULSE 71; RESP 18; TEMP 36.1; O2SAT 100
[2022-10-08] VITALS (12 sets, daily range): BP systolic 106–140; BP diastolic 66–83; PULSE 70–92; RESP 18–20; TEMP 36–37.2; O2SAT 96–100
--- NOTE | 2022-10-08 | ECHO_ITS ---
Patient Info Name: Estiven Rg Age: 66 years : 1955 Gender: Male Ht: 67 in Wt: 229 lbs BSA: 2.26 m2 HR: 71 bpm BP: 106 / 70 mmHg Heart Rhythm: Sinus Rhythm Technical Quality: Fair Exam Date: 10/08/2022 7:41 AM Exam Location: [facility] Pul[facility] Patient Status: Inpatient Admit Date: 10/07/2022 Staff Ordering Physician: Vick Shelton DO [employer] Captain: Marcella Riddle RDCS Attending Provider: Vick Shelton DO Referring Physician: Nikita MCELROY; Exam Type: CA echo dop color flow w con Study Info Indications - NSTEMI Complete two-dimensional, color flow and Doppler transthoracic echocardiogram is performed with contrast to opacify the left ventricle and to improve the deliniation of the left ventricle endocardial borders. Contrast/Agitated Saline Contrast/Ag. Saline: Definity Amount: 2.00 ml Administered By: Marcella Riddle RDCS Existing IV Access: Yes IV Access Condition: patent with no signs of infiltration Summary 1. Left ventricular chamber dimension is moderately enlarged. 2. Definity contrast administered improved wall motion interpretation. 3. Left ventricular systolic function is moderately reduced, estimated at 35-40%. 4. There is mildly increased left ventricular wall thickness. 5. The left ventricular diastolic function is grade I diastolic dysfunction. 6. E/e' 8 is minimally elevated. 7. Left atrial chamber dimension is severely enlarged. 8. Right atrial chamber dimension is mildly enlarged. 9. The mitral valve has mildly calcified annulus. 10. There is mild mitral valve regurgitation. 11. There is mild tricuspid valve regurgitation. 12. No pulmonary hypertension, estimated pulmonary arterial systolic pressure is 23 mmHg. Left Ventricle E/e' 8 is minimally elevated. Definity contrast administered improved wall motion interpretation. Left ventricular chamber dimension is moderately enlarged. Left ventricular systolic function is moderately reduced, estimated at 35-40%. There is mildly increased left ventricular wall thickness. The left ventricular diastolic function is grade I diastolic dysfunction. Right Ventricle Right ventricular systolic function is normal and with normal TAPSE 2.7 cm. Right ventricular chamber dimension is normal. Left Atria Left atrial chamber dimension is severely enlarged. Right Atria Right atrial chamber dimension is mildly enlarged. Aortic Valve The aortic valve is trileaflet. There is no aortic valve stenosis. There is no aortic valve regurgitation. Pulmonic Valve There is no pulmonic regurgitation. Mitral Valve The mitral valve has mildly calcified annulus. There is no mitral valve stenosis. There is mild mitral valve regurgitation. Tricuspid Valve There is mild tricuspid valve regurgitation. No pulmonary hypertension, estimated pulmonary arterial systolic pressure is 23 mmHg. Pericardium/Pleural There is no pericardial effusion. Inferior Vena Cava Normal inferior vena cava with >50% collapse upon inspiration consistent with normal right atrial pressure, 5 mmHg. Aorta The aortic root size at the sinus of Valsalva is normal. Left Ventricular Outflow Tract Name Value Normal LVOT 2D LVOT Diameter 2.44 cm LVOT Doppler ---
[2022-10-08 00:02] LABS: Troponin I 0.015 ng/mL (0.000-0.034)
[2022-10-08 03:19] LABS: Basophils Absolute Auto 0.1 K/mm3 (0.0-0.1); Basophils Percent Auto 1.6 % (0.2-1.2); Eosinophils Absolute Auto 0.3 K/mm3 (0-0.3); Eosinophils Percent Auto 4.9 % (0-4.4); Hematocrit 31.9 % (42.0-52.0); Hemoglobin 11.4 g/dL (14.0-18.0); Immature Granulocyte Absolute 0.02 K/mm3 (0.00-0.031); Immature Granulocyte Percent A 0.3 % (0-0.5); Immature Platelet Fraction Pct 14.3 % (0.9-11.2); Lymphocytes Absolute Auto 3.48 K/mm3 (0.9-3.2); Lymphocytes Percent Auto 55.1 % (18.3-44.2); Mean Corpuscular HGB Conc 35.7 g/dl (32-36); Mean Corpuscular Volume 97.9 fl (80-100); Mean Platelet Volume 13.4 fl (7.4-10.4); Monocytes Absolute Auto 0.7 K/mm3 (0.1-0.6); Monocytes Percent Auto 11.6 % (2.6-8.5); Neutrophils Absolute Auto 1.7 K/mm3 (1.3-6.7); Neutrophils Percent Auto 26.5 % (45.5-73.1); Platelet Count Result 58 k/mm3 (150-375); Red Blood Count 3.26 M/mm3 (4.6-6.20); Red Cell Distribution Width 15.9 % (11.5-14.5); White Blood Count 6.3 K/mm3 (4.5-10.0)
[2022-10-08 03:38] LABS: Cholesterol 96 mg/dL (0-200); HDL Direct 10 mg/dL; Lactic Acid Reflex 1.5 mmol/L (0.7-2.0); Triglycerides 93 mg/dL (<150)
[2022-10-08 03:48] LABS: LDL Cholesterol Direct 66 mg/dL
[2022-10-08 03:50] LABS: Troponin I 0.019 ng/mL (0.000-0.034)
[2022-10-08 04:13] LABS: Partial Thromboplastin Time > 200.0 SECONDS (22.3-36.8)
[2022-10-08 04:37] LABS: Hemoglobin A1C 4.4 % (<5.7)
[2022-10-08 05:26] LABS: Free T4 Free Thyroxine Reflex 1.57 ng/dL (0.78-2.19)
[2022-10-08 06:37] LABS: Glucose Point of Care 98 mg/dl (65-105)
[2022-10-08 06:48] LABS: Total Triiodothyronine (T3) 0.81 NG/ML (0.97-1.69)
[2022-10-08] MEDS: PERFLUTREN LIPID MICROSPHERES 1.5 ML VIAL DILUTED TO 10 ML TOTAL VOLUME IV PUSH (08:12)
--- NOTE | 2022-10-08 08:45 | IVDEFINITY ---
Prior to administration of IV Definity the patient was educated on the risks and benefits of the imaging enhancing agent including potential adverse side effects. The patient verbalized understanding. Allergies were verified. No exclusion criteria were identified and at least one of the following inclusion criteria were met: 1) physician request, 2) patient technically difficult to image (per the [place] [employer] Echocardi[employer] guidelines of two or more segments not discernable within the apical view), or 3) questionable left ventricular function. ?
--- NOTE | 2022-10-08 09:26 | PM.IMPN ---
Progress Note: A&P Assessment and Plan (1) Acute non-ST elevation myocardial infarction (NSTEMI): Code(s): I21.4 - Non-ST elevation (NSTEMI) myocardial infarction Status: Inactive (2) Thrombocytopenic: Code(s): D69.6 - Thrombocytopenia, unspecified Status: Inactive (3) Alcohol intoxication: Qualifiers: Complication of substance-induced condition: uncomplicated Qualified Code(s): F10.920 - Alcohol use, unspecified with intoxication, uncomplicated Code(s): F10.929 - Alcohol use, unspecified with intoxication, unspecified Status: Inactive (4) Electrolyte imbalance: Code(s): E87.8 - Other disorders of electrolyte and fluid balance, not elsewhere classified Status: Inactive Plan NSTEMI -patient had elevated troponin 662, will continue trending troponins -patient did have some chest pain which was nonexertional however he is having decreased functional capacity -anticoagulation: Will start heparin drip considering the elevated troponin and NSTEMI diagnosis, patient does have a significant history of peptic ulcer disease and gastric ulcers with GI bleed requiring 12 unit blood transfusion about 3 years ago -patient has a history of left bundle-branch block -checking lipid panel, start statin -starting aspirin congestive heart failure reduced ejection fraction -echocardiogram from 07/22/2021 shows EF of 25-30% -patient is not on any medications for heart failure. After workup for ACS will consider starting medications for heart failure -he is having worsening dyspnea on exertion hepatocellular carcinoma -11/19/21 well differentiated HCC -LIRADS 5 lesion (positive for HCC on biopsy) and had chemotherapy with pellets done at [facility] with Dr. 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 Unclear what his regimen was -s/p TIPS procedure Lower extremity weakness -may be related to chemotherapy or heart failure -having difficulty with ADLs -PT/OT consulted electrolyte imbalances, acute lactic acidosis -hypermagnesemia: magnesium 1.3 giving 4 g Mag sulfate -hypokalemia: Potassium 3.2 giving 40 mEq KCL -lactate 2.5, will monitor. We are giving banana bag, may be secondary to his alcohol abuse -electrolyte imbalances likely due to alcoholism thrombocytopenia - likely secondary to alcohol and HCC chronic conditions -peptic ulcer disease: Will give Protonix, not on any home PPI or H2B, last GI bleed 3 years ago with 2 gastric ulcers, he does not report having follow-up EGD -alcohol use disorder: Continue monitoring CIWA protocol, alcohol levels elevated in the ED, last drink 10:00 a.m. /, p.r.n. Ativan. Will give banana bag Diet: Heart healthy, will keep NPO midnight for possible heart catheterization tomorrow DVT prophylaxis: Starting heparin drip GI prophylaxis: Protonix Code status: Full code Disposition: Likely home in greater than 2 days, pending ACS work up Subjective Date/time seen: 10/08/22 09:26 Interval history: I saw and examined patient in the morning Patient still had chest pain locating middle of the chest associated with shortness of breath. Patient denies cough and dizziness. Patient has chronic right upper quadrant pain, and baseline Exam Narrative: - GENERAL: Pleasant male acutely intoxicated no acute distress. - EYES: EOMI. Anicteric. - HENT: Moist mucous membranes. Poor dentition - LUNGS: Clear to auscultation bilaterally, no wheezing, rhonchi, or rales. - CARDIOVASCULAR: Regular rate and rhythm. No murmur. No JVD. - ABDOMEN: Soft, right upper quadrant tender and non-distended. No palpable masses. - EXTREMITIES: trace edema. Peripheral pulses 2+. Non-tender. - NEUROLOGIC: Awake alert oriented x3, no focal neurological deficits, lower extremity strength is 4/5. CN II-XII grossly intact. - PSYCHIATRIC: Appropriate mood and affect. - SKIN: No rashes or lesions. Warm
--- NOTE | 2022-10-08 09:57 | PM.CNCAR ---
Assessment and Plan Assessment and plan (1) Elevated troponin: Code(s): R77.8 - Other specified abnormalities of plasma proteins Status: Acute Assessment and Plan: At [facility] troponin elevated at 662, but normal at [facility] x 3 sets. Could be elevated initially due to alcoholism, chronic systolic dysfunction. No ACS. Stop heparin drip. 10/08/22 Echo: EF 35-40%, mod LVE, mild LVH, grade I diastolic dysfunction (E/e' 8), severe LAE, mild CHRIS, mild MR/TR. (2) Tobacco abuse: Code(s): Z72.0 - Tobacco use Status: Acute Assessment and Plan: Counseled regarding smoking cessation. (3) ETOH abuse: Code(s): F10.10 - Alcohol abuse, uncomplicated Status: Acute Assessment and Plan: Counseled regarding alcohol cessation. (4) Systolic dysfunction: Code(s): I51.9 - Heart disease, unspecified Status: Acute Assessment and Plan: Euvolemic. 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 Moderate now which surprisingly improved from a year ago when it was severe. Discuss stress testing but it won't be until Monday. Even if stress test is abnormal, I don't think he would have [facility] given significant history of PUD (requiring significant blood transfusions), liver cancer, thrombocytopenia. History of Present Illness History of Present Illness Consult date/time: 10/08/22 09:57 Reason For Visit: Elevated Troponin Narrative: 66 yr old man presented to [place] ER for lower extremity weakness, was found to have elevated troponin and transferred to [facility]. The last time I saw him was July 2021 as an inpatient and he did not f/u with me after hospitalization. He has a history of significant alcohol abuse, smoking, COPD, cirrhosis of liver, PUD, melena, hepatocellular carcinoma, systolic dysfunction, non-compliance. Reports he had pellet chemotherapy in [place], [place] last month and has noted progressive weakness and lower extremity weakness/burning/tingling. This was reason why he went to ER yesterday. He still drinks about 6 pack of beers daily. His last drink was yesterday morning consisting of beer and abel. He smokes a few cigarettes daily. Normally, he has chronic MARTINEZ and can walk only short distances due to weakness/fatigue/MARTINEZ. Denies chest pain, sob, orthopnea, PND, edema. Previously, he moved back to [place] as he is originally from [place] before moving to [place] for 30 years. He has a daughter who lives in [place], [place]. States he was walking to his PCP office yesterday when had chest pain that prompted him to go to ER. ? Reports he has intermittent epigastric pain probably due to heart burn and he has hiatal hernia. He smoked 2 ppd down to 2 cigarettes per day. He drinks on average 9 beers a day for many years. Review of Systems Review of Systems: All systems reviewed & are unremarkable except as noted in HPI and below Constitutional: Constitutional: Reports as per HPI, Denies chills, Reports fatigue and Denies fever(s) Cardiovascular: Cardiovascular: Reports as per HPI, Denies chest pain, Denies irregular heart rhythm and Denies leg edema Respiratory: Respiratory: Reports as per HPI and Reports dyspnea on exertion Gastrointestinal: Gastrointestinal: Reports as per HPI and Denies abdominal pain Genitourinary: Genitourinary: Reports as per HPI and Denies dysuria Musculoskeletal: Musculoskeletal: Reports as per HPI Neurologic: Reports as per HPI, Denies dizziness and Denies syncope [facility] Past Medical History Medical History COPD (chronic obstructive pulmonary disease) ETOH abuse Hepatocellular carcinoma Hyperlipidemia (03/14/14) Non-STEMI (non-ST elevated myocardial infarction) PUD (peptic ulcer disease) Systolic heart failure Tobacco abuse Family History Family History Mother Family history of Alzheimer's dise
[2022-10-08] MEDS: LEVOTHYROXINE SODIUM 75 MCG TABLET PO (10:01)
[2022-10-08] MEDS: PANTOPRAZOLE 40 MG TABLET PO (10:01)
[2022-10-08 11:21] LABS: Partial Thromboplastin Time 62.9 SECONDS (22.3-36.8)
[2022-10-08 11:37] LABS: Glucose Point of Care 119 mg/dl (65-105)
[2022-10-08 16:37] LABS: Glucose Point of Care 84 mg/dl (65-105)
[2022-10-08] MEDS: ATORVASTATIN 40 MG TABLET PO (21:45)
[2022-10-09] VITALS (16 sets, daily range): BP systolic 106–142; BP diastolic 52–76; PULSE 65–97; RESP 18–20; TEMP 35.8–36.6; O2SAT 98–100
[2022-10-09 04:42] LABS: Glucose Point of Care 94 mg/dl (65-105)
[2022-10-09 08:30] LABS: Anion Gap 5 mmol/L (8-16); Blood Urea Nitrogen 4 mg/dL (9-20); Calcium 7.4 mg/dL (8.4-10.2); Carbon Dioxide 24 mmol/L (22-30); Chloride 104 mmol/L (98-107); Estimated CRCL calculation 133 ml/min; Estimated Glomerular Filt Rate > 60; Glucose 133 mg/dL (65-110); Potassium 3.8 mmol/L (3.4-5.0); Sodium 133 mmol/L (137-145)
--- NOTE | 2022-10-09 08:32 | PM.PNCARD ---
Progress Note: A&P Assessment and Plan (1) Elevated troponin: Code(s): R77.8 - Other specified abnormalities of plasma proteins Status: Acute Assessment and Plan: At [facility] troponin elevated at 662, but normal at [facility] x 3 sets. Could be elevated initially due to alcoholism, chronic systolic dysfunction. No ACS. 10/08/22 Echo: EF 35-40%, mod LVE, mild LVH, grade I diastolic dysfunction (E/e' 8), severe LAE, mild CHRIS, mild MR/TR. (2) Tobacco abuse: Code(s): Z72.0 - Tobacco use Status: Acute Assessment and Plan: Counseled regarding smoking cessation. (3) ETOH abuse: Code(s): F10.10 - Alcohol abuse, uncomplicated Status: Acute Assessment and Plan: Counseled regarding alcohol cessation. (4) Systolic dysfunction: Code(s): I51.9 - Heart disease, unspecified Status: Acute Assessment and Plan: Euvolemic. 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 Moderate now which surprisingly improved from a year ago when it was severe. Start Losartan 12.5 mg daily and Metoprolol Succinate 12.5 mg daily. Discuss stress testing but it won't be until Monday. Even if stress test is abnormal, I don't think he would have LHC given significant history of PUD (requiring significant blood transfusions), liver cancer, thrombocytopenia. Subjective Date/time seen: 10/09/22 08:32 Interval history: Denies chest pain or sob. Exam Const: General: cooperative, healthy appearing and comfortable Orientation/consciousness: oriented to person, oriented to place and oriented to time Resp: Auscultation: clear to auscultation bilaterally, no crackles, no rales, no rhonchi and no wheezes Cardio: Rate: regular rate Rhythm: regular rhythm Heart sounds: no murmurs Neuro: General: oriented to person, oriented to place and oriented to time Extrem: Right lower extremity: no edema Left lower extremity: no edema Objective Data Vital Signs Vital Signs: Vital Signs - 24 hr 10/08/22 08:36 10/08/22 10:35 10/08/22 12:34 Temperature 96.9 F L 98.7 F Pulse Rate 73 92 Respiratory Rate 20 20 Blood Pressure 110/66 140/82 Pulse Oximetry 99 96 97 Oxygen Delivery Room Air 10/08/22 16:41 10/08/22 12:00 10/08/22 16:00 Temperature 96.8 F L Pulse Rate 79 78 71 Respiratory Rate 18 Blood Pressure 117/83 Pulse Oximetry 98 Oxygen Delivery 10/08/22 12:00 10/08/22 16:00 10/08/22 20:00 Temperature 97.0 F L Pulse Rate 87 Respiratory Rate 20 Blood Pressure 134/82 Pulse Oximetry 98 99 99 Oxygen Delivery Room Air Room Air 10/08/22 20:00 10/08/22 20:00 10/08/22 22:00 Temperature Pulse Rate 77 81 Respiratory Rate Blood Pressure Pulse Oximetry 99 Oxygen Delivery Room Air 10/09/22 00:00 10/09/22 00:00 10/09/22 00:00 Temperature 97.9 F Pulse Rate 75 69 Respiratory Rate 18 Blood Pressure 110/52 L Pulse Oximetry 98 98 Oxygen Delivery Room Air 10/09/22 02:00 10/09/22 04:00 10/09/22 04:00 Temperature Pulse Rate 65 69 Respiratory Rate Blood Pressure Pulse Oximetry 98 Oxygen Delivery Room Air 10/09/22 04:00 10/09/22 06:00 10/09/22 08:30 Temperature 97.7 F 96.5 F L Pulse Rate 65 73 76 Respiratory Rate 18 20 Blood Pressure 113/63 142/76 H Pulse Oximetry 99 100 Oxygen Delivery Intake/Output Intake/Output: Intake & Output 10/06/22 10/07/22 10/08/22 10/09/22 23:59 23:59 23:59 23:59 Intake Total 100 3033.2 550 Output Total 2000 400 Balance 100 1033.2 150 Meds/Results Medications: Active Medications Generic Name Dose Route Start Last Admin Trade Name Freq PRN Reason Stop Dose Admin Acetaminophen 650 mg 10/07/22 18:53 Acetaminophen 325 Mg Tablet PO Q4H PRN Mild Pain (1-3) or Fever Hydrocodone Bitart/Acetaminophen 1 tab 10/07/22 18:53 Hydrocodone/Acetaminophen (*Crx) 5-325 Mg Tablet PO Q4H PRN Moderate Pain (4-6) A
[2022-10-09 08:37] LABS: Magnesium 1.5 mg/dL (1.6-2.3)
--- NOTE | 2022-10-09 08:57 | PM.IMPN ---
Progress Note: A&P Assessment and Plan (1) Acute non-ST elevation myocardial infarction (NSTEMI): Code(s): I21.4 - Non-ST elevation (NSTEMI) myocardial infarction Status: Inactive (2) Thrombocytopenic: Code(s): D69.6 - Thrombocytopenia, unspecified Status: Inactive (3) Alcohol intoxication: Qualifiers: Complication of substance-induced condition: uncomplicated Qualified Code(s): F10.920 - Alcohol use, unspecified with intoxication, uncomplicated Code(s): F10.929 - Alcohol use, unspecified with intoxication, unspecified Status: Inactive (4) Electrolyte imbalance: Code(s): E87.8 - Other disorders of electrolyte and fluid balance, not elsewhere classified Status: Inactive Plan NSTEMI -patient had elevated troponin 662, will continue trending troponins -patient did have some chest pain which was nonexertional however he is having decreased functional capacity -anticoagulation: Received heparin drip considering the elevated troponin and NSTEMI diagnosis, -patient has a history of left bundle-branch block -checking lipid panel, start statin -starting aspirin elevated at 662, but normal at [facility] x 3 sets. Could be elevated initially due to alcoholism, chronic systolic dysfunction per appetizer packer evaluation.? congestive heart failure reduced ejection fraction -echocardiogram from 07/22/2021 shows EF of 25-30% . 10/08/22 Echo: EF 35-40%, mod LVE, mild LVH, grade I diastolic dysfunction (E/e' 8), severe LAE, mild CHRIS, mild MR/TR. -Start Losartan 12.5 mg daily and Metoprolol Succinate 12.5 mg daily per appetizer packer recommendation -he is having worsening dyspnea on exertion hepatocellular carcinoma -11/19/21 well differentiated HCC -LIRADS 5 lesion (positive for HCC on biopsy) and had chemotherapy with pellets done at [facility] with Dr. 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 Unclear what his regimen was -s/p TIPS procedure Lower extremity weakness -may be related to chemotherapy or heart failure -having difficulty with ADLs -PT/OT consulted electrolyte imbalances, acute lactic acidosis, hypocalcemia, hypomagnesemia -hypomagnesemia: magnesium 1.3 giving 4 g Mag sulfate 1.5 October 09 -hypokalemia: Potassium 3.2 giving 40 mEq KCL, resolves -lactate 2.5, will monitor. Resolves we are giving banana bag, may be secondary to his alcohol abuse -electrolyte imbalances likely due to alcoholism Start calcium carbonate in the 500 mg t.i.d. p.o. thrombocytopenia - likely secondary to alcohol and HCC chronic conditions -peptic ulcer disease: Will give Protonix, not on any home PPI or H2B, last GI bleed 3 years ago with 2 gastric ulcers, he does not report having follow-up EGD -alcohol use disorder: Continue monitoring CIWA protocol, alcohol levels elevated in the ED, last drink 10:00 a.m. 10/07, p.r.n. Ativan. Received banana bag Diet: Heart healthy, will keep NPO midnight for possible heart catheterization tomorrow DVT prophylaxis: Starting heparin drip GI prophylaxis: Protonix Code status: Full code Disposition: Likely home in greater than 2 days, pending ACS work up Subjective Date/time seen: 10/09/22 08:57 Interval history: I saw on exam patient, patient denies chest pain, still has general weakness. Patient denies visual hallucination anxiety, nausea vomiting Exam Narrative: - GENERAL: Pleasant male acutely intoxicated no acute distress. - EYES: EOMI. Anicteric. - HENT: Moist mucous membranes. Poor dentition - LUNGS: Clear to auscultation bilaterally, no wheezing, rhonchi, or rales. - CARDIOVASCULAR: Regular rate and rhythm. No murmur. No JVD. - ABDOMEN: Soft, right upper quadrant tender and non-distended. No palpable masses. - EXTREMITIES: trace edema. Peripheral pulses 2+. Non-tender. - NEUROLOGIC: Awake alert oriented x3, no focal neurological deficits, lower extremity
[2022-10-09 09:32] LABS: Basophils Absolute Auto 0.1 K/mm3 (0.0-0.1); Eosinophils Absolute Auto 0.2 K/mm3 (0-0.3); Eosinophils Percent Auto 2.1 % (0-4.4); Hematocrit 37.2 % (42.0-52.0); Hemoglobin 12.6 g/dL (14.0-18.0); Immature Granulocyte Absolute 0.02 K/mm3 (0.00-0.031); Immature Granulocyte Percent A 0.2 % (0-0.5); Immature Platelet Fraction Pct 18.6 % (0.9-11.2); Lymphocytes Absolute Auto 5.21 K/mm3 (0.9-3.2); Lymphocytes Percent Auto 63.4 % (18.3-44.2); Mean Corpuscular HGB Conc 33.9 g/dl (32-36); Mean Corpuscular Hemoglobin 34.5 pg (26-34); Mean Corpuscular Volume 101.9 fl (80-100); Mean Platelet Volume 13.6 fl (7.4-10.4); Monocytes Absolute Auto 0.7 K/mm3 (0.1-0.6); Monocytes Percent Auto 8.5 % (2.6-8.5); Neutrophils Percent Auto 24.8 % (45.5-73.1); Nucleated Red Blood Cells Perc 0.2 % (0.0-0.2); Platelet Count Result 59 k/mm3 (150-375); Red Blood Count 3.65 M/mm3 (4.6-6.20); Red Cell Distribution Width 16.4 % (11.5-14.5); White Blood Count 8.2 K/mm3 (4.5-10.0)
[2022-10-09 10:15] LABS: Anisocytosis 1+ (NORMAL); Macrocytosis 1+ (NORMAL); Platelet Estimate Decreased (Adequate); Schistocytes None Seen (NORMAL); Target Cells 1+ (NORMAL)
[2022-10-09] MEDS: LOSARTAN POTASSIUM 12.5 MG TABLET PO (10:39)
[2022-10-09] MEDS: METOPROLOL SUCCINATE EXT REL 12.5 MG TABCR PO (10:39)
[2022-10-09] MEDS: PANTOPRAZOLE 40 MG TABLET PO (10:40)
[2022-10-09] MEDS: LEVOTHYROXINE SODIUM 75 MCG TABLET PO (10:40)
[2022-10-09 12:02] LABS: Glucose Point of Care 146 mg/dl (65-105)
[2022-10-09 16:41] LABS: Glucose Point of Care 103 mg/dl (65-105)
[2022-10-09] MEDS: MAGNESIUM SULF 2 GM/WATER 50ML 2 GM/50 ML BAG IVPB (20:57)
[2022-10-09] MEDS: ATORVASTATIN 40 MG TABLET PO (20:57)
[2022-10-10] VITALS (13 sets, daily range): BP systolic 97–110; BP diastolic 54–71; PULSE 60–92; RESP 18–24; TEMP 36–36.5; O2SAT 98–100
[2022-10-10 00:25] LABS: Glucose Point of Care 86 mg/dl (65-105)
[2022-10-10 05:29] LABS: Glucose Point of Care 83 mg/dl (65-105)
--- NOTE | 2022-10-10 08:02 | PM.PNCARD ---
Progress Note: A&P Assessment and Plan (1) Elevated troponin: Code(s): R77.8 - Other specified abnormalities of plasma proteins Status: Acute Assessment and Plan: At [facility] troponin elevated at 662, but normal at [facility] x 3 sets. Could be elevated initially due to alcoholism, chronic systolic dysfunction. No ACS. 10/08/22 Echo: EF 35-40%, mod LVE, mild LVH, grade I diastolic dysfunction (E/e' 8), severe LAE, mild CHRIS, mild MR/TR. (2) Tobacco abuse: Code(s): Z72.0 - Tobacco use Status: Acute Assessment and Plan: Counseled regarding smoking cessation. (3) ETOH abuse: Code(s): F10.10 - Alcohol abuse, uncomplicated Status: Acute Assessment and Plan: Counseled regarding alcohol cessation. (4) Systolic dysfunction: Code(s): I51.9 - Heart disease, unspecified Status: Acute Assessment and Plan: Euvolemic. 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 Moderate now which surprisingly improved from a year ago when it was severe. Started Losartan 12.5 mg daily and Metoprolol Succinate 12.5 mg daily. Discuss stress testing for risk stratification. Even if stress test is abnormal, I don't think he would have LHC given significant history of PUD (requiring significant blood transfusions), liver cancer, thrombocytopenia, and non-compliance. Obtain [employer] in AM. Subjective Date/time seen: 10/10/22 08:02 Interval history: Denies chest pain or sob. Exam Const: General: cooperative, healthy appearing and comfortable Orientation/consciousness: oriented to person, oriented to place and oriented to time Resp: Auscultation: clear to auscultation bilaterally, no crackles, no rales, no rhonchi and no wheezes Cardio: Rate: regular rate Rhythm: regular rhythm Heart sounds: no murmurs Neuro: General: oriented to person, oriented to place and oriented to time Extrem: Right lower extremity: no edema Left lower extremity: no edema Objective Data Vital Signs Vital Signs: Vital Signs - 24 hr 10/09/22 08:30 10/09/22 10:39 10/09/22 12:04 Temperature 96.5 F L 97.2 F L Pulse Rate 76 76 78 Respiratory Rate 20 18 Blood Pressure 142/76 H 110/54 L Pulse Oximetry 100 100 Oxygen Delivery 10/09/22 13:55 10/09/22 10:00 10/09/22 12:00 Temperature Pulse Rate 97 74 Respiratory Rate Blood Pressure Pulse Oximetry Oxygen Delivery Room Air 10/09/22 12:00 10/09/22 14:22 10/09/22 14:00 Temperature Pulse Rate 67 Respiratory Rate Blood Pressure Pulse Oximetry Oxygen Delivery Room Air Room Air 10/09/22 16:00 10/09/22 16:47 10/09/22 16:00 Temperature 97.3 F L Pulse Rate 69 73 Respiratory Rate 20 Blood Pressure 110/62 Pulse Oximetry 99 Oxygen Delivery Room Air 10/09/22 18:00 10/09/22 20:00 10/09/22 20:00 Temperature 97.5 F L Pulse Rate 66 68 68 Respiratory Rate 18 Blood Pressure 106/62 Pulse Oximetry 99 Oxygen Delivery 10/09/22 22:00 10/10/22 00:00 10/10/22 00:00 Temperature 97.6 F Pulse Rate 65 64 Respiratory Rate 20 Blood Pressure 97/54 L Pulse Oximetry 98 Oxygen Delivery Room Air 10/10/22 00:00 10/10/22 02:00 10/10/22 04:00 Temperature Pulse Rate 92 61 67 Respiratory Rate Blood Pressure Pulse Oximetry Oxygen Delivery 10/10/22 04:00 10/10/22 04:00 10/10/22 06:00 Temperature 97.5 F L Pulse Rate 67 76 Respiratory Rate 18 Blood Pressure 110/71 Pulse Oximetry 98 Oxygen Delivery Room Air Intake/Output Intake/Output: Intake & Output 10/07/22 10/08/22 10/09/22 10/10/22 23:59 23:59 23:59 23:59 Intake Total 100 3033.2 1460 550 Output Total 1999 1400 1100 Balance 100 1033.2 60 -550 Meds/Results Medications: Active Medications Generic Name Dose Route Start Last Admin Trade Name Freq PRN Reason Stop Dose Admin Acetaminophen 650 mg 10/07/22 18:53 Acetaminophen 325 Mg Tablet
--- NOTE | 2022-10-10 08:54 | PM.IMPN ---
Progress Note: A&P Assessment and Plan (1) Acute non-ST elevation myocardial infarction (NSTEMI): Code(s): I21.4 - Non-ST elevation (NSTEMI) myocardial infarction Status: Inactive (2) Thrombocytopenic: Code(s): D69.6 - Thrombocytopenia, unspecified Status: Inactive (3) Alcohol intoxication: Qualifiers: Complication of substance-induced condition: uncomplicated Qualified Code(s): F10.920 - Alcohol use, unspecified with intoxication, uncomplicated Code(s): F10.929 - Alcohol use, unspecified with intoxication, unspecified Status: Inactive (4) Electrolyte imbalance: Code(s): E87.8 - Other disorders of electrolyte and fluid balance, not elsewhere classified Status: Inactive Plan NSTEMI -patient had elevated troponin 662, will continue trending troponins -patient did have some chest pain which was nonexertional however he is having decreased functional capacity -anticoagulation: Received heparin drip considering the elevated troponin and NSTEMI diagnosis, -patient has a history of left bundle-branch block -checking lipid panel, start statin -starting aspirin elevated at 662, but normal at [facility] x 3 sets. Could be elevated initially due to alcoholism, chronic systolic dysfunction per cathode washer evaluation.? congestive heart failure reduced ejection fraction -echocardiogram from 07/22/2021 shows EF of 25-30% . 10/08/22 Echo: EF 35-40%, mod LVE, mild LVH, grade I diastolic dysfunction (E/e' 8), severe LAE, mild CHRIS, mild MR/TR. -Start Losartan 12.5 mg daily and Metoprolol Succinate 12.5 mg daily per cathode washer recommendation -he is having worsening dyspnea on exertion hepatocellular carcinoma -11/19/21 well differentiated HCC -LIRADS 5 lesion (positive for HCC on biopsy) and had chemotherapy with pellets done at [facility] with Dr. 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 Unclear what his regimen was -s/p TIPS procedure Lower extremity weakness -may be related to chemotherapy or heart failure -having difficulty with ADLs -PT/OT consulted electrolyte imbalances, acute lactic acidosis, hypocalcemia, hypomagnesemia -hypomagnesemia: magnesium 1.3 giving 4 g Mag sulfate 1.5 October 09 -hypokalemia: Potassium 3.2 giving 40 mEq KCL, resolves -lactate 2.5, will monitor. Resolves we are giving banana bag, may be secondary to his alcohol abuse -electrolyte imbalances likely due to alcoholism Start calcium carbonate in the 500 mg t.i.d. p.o. thrombocytopenia - likely secondary to alcohol and HCC chronic conditions -peptic ulcer disease: Will give Protonix, not on any home PPI or H2B, last GI bleed 3 years ago with 2 gastric ulcers, he does not report having follow-up EGD -alcohol use disorder: Continue monitoring CIWA protocol, alcohol levels elevated in the ED, last drink 10:00 a.m. 10/07, p.r.n. Ativan. Received banana bag No obvious sign of alcohol withdrawal Diet: Heart healthy, will keep NPO midnight for possible heart catheterization tomorrow DVT prophylaxis: Starting heparin drip GI prophylaxis: Protonix Code status: Full code Disposition: Likely home in greater than 2 days, pending ACS work up Consult PT OT morning caregiver for evaluation and system placement Subjective Date/time seen: 10/10/22 08:54 Interval history: I saw on exam today patient today. Patient denies chest pain, still has general weakness. Patient denies headache, shortness breath, abdomen pain, nausea vomiting care I reviewed labs, Exam Narrative: - GENERAL: Pleasant male acutely intoxicated no acute distress. - EYES: EOMI. Anicteric. - HENT: Moist mucous membranes. Poor dentition - LUNGS: Clear to auscultation bilaterally, no wheezing, rhonchi, or rales. - CARDIOVASCULAR: Regular rate and rhythm. No murmur. No JVD. - ABDOMEN: Soft, right upper quadrant tender and non-distended. No palpable mas
[2022-10-10 09:33] LABS: Basophils Absolute Auto 0.1 K/mm3 (0.0-0.1); Basophils Percent Auto 1.2 % (0.2-1.2); Eosinophils Absolute Auto 0.2 K/mm3 (0-0.3); Eosinophils Percent Auto 2.5 % (0-4.4); Hematocrit 36.5 % (42.0-52.0); Hemoglobin 12.4 g/dL (14.0-18.0); Immature Granulocyte Absolute 0.01 K/mm3 (0.00-0.031); Immature Granulocyte Percent A 0.2 % (0-0.5); Immature Platelet Fraction Pct 16.3 % (0.9-11.2); Lymphocytes Absolute Auto 3.45 K/mm3 (0.9-3.2); Lymphocytes Percent Auto 56.8 % (18.3-44.2); Mean Corpuscular Hemoglobin 34.3 pg (26-34); Mean Corpuscular Volume 100.8 fl (80-100); Mean Platelet Volume 12.9 fl (7.4-10.4); Monocytes Absolute Auto 0.7 K/mm3 (0.1-0.6); Monocytes Percent Auto 11.7 % (2.6-8.5); Neutrophils Absolute Auto 1.7 K/mm3 (1.3-6.7); Neutrophils Percent Auto 27.6 % (45.5-73.1); Platelet Count Result 60 k/mm3 (150-375); Red Blood Count 3.62 M/mm3 (4.6-6.20); Red Cell Distribution Width 16.3 % (11.5-14.5); White Blood Count 6.1 K/mm3 (4.5-10.0)
[2022-10-10 09:40] LABS: Anion Gap 7 mmol/L (8-16); Blood Urea Nitrogen 5 mg/dL (9-20); Calcium 7.6 mg/dL (8.4-10.2); Carbon Dioxide 21 mmol/L (22-30); Chloride 106 mmol/L (98-107); Estimated CRCL calculation 116 ml/min; Estimated Glomerular Filt Rate > 60; Glucose 128 mg/dL (65-110); Magnesium 1.6 mg/dL (1.6-2.3); Potassium 3.4 mmol/L (3.4-5.0); Sodium 134 mmol/L (137-145)
[2022-10-10] MEDS: METOPROLOL SUCCINATE EXT REL 12.5 MG TABCR PO (09:41)
[2022-10-10] MEDS: PANTOPRAZOLE 40 MG TABLET PO (09:48)
[2022-10-10] MEDS: LEVOTHYROXINE SODIUM 75 MCG TABLET PO (09:48)
[2022-10-10] MEDS: LOSARTAN POTASSIUM 12.5 MG TABLET PO (09:48)
[2022-10-10 10:14] LABS: Anisocytosis 1+ (NORMAL); Platelet Estimate Decreased (Adequate); Schistocytes None Seen (NORMAL); Target Cells 1+ (NORMAL)
[2022-10-10] MEDS: ATORVASTATIN 40 MG TABLET PO (20:11)
[2022-10-11] VITALS (18 sets, daily range): BP systolic 105–141; BP diastolic 62–71; PULSE 54–99; RESP 18–20; TEMP 36–36.9; O2SAT 95–100
[2022-10-11 05:25] LABS: Basophils Absolute Auto 0.1 K/mm3 (0.0-0.1); Basophils Percent Auto 0.8 % (0.2-1.2); Eosinophils Absolute Auto 0.2 K/mm3 (0-0.3); Eosinophils Percent Auto 2.4 % (0-4.4); Hematocrit 35.8 % (42.0-52.0); Hemoglobin 12.8 g/dL (14.0-18.0); Immature Granulocyte Absolute 0.01 K/mm3 (0.00-0.031); Immature Granulocyte Percent A 0.1 % (0-0.5); Immature Platelet Fraction Pct 16.3 % (0.9-11.2); Lymphocytes Absolute Auto 6.09 K/mm3 (0.9-3.2); Lymphocytes Percent Auto 63.6 % (18.3-44.2); Mean Corpuscular HGB Conc 35.8 g/dl (32-36); Mean Corpuscular Hemoglobin 35.2 pg (26-34); Mean Corpuscular Volume 98.4 fl (80-100); Monocytes Absolute Auto 1.3 K/mm3 (0.1-0.6); Monocytes Percent Auto 13.7 % (2.6-8.5); Neutrophils Absolute Auto 1.9 K/mm3 (1.3-6.7); Neutrophils Percent Auto 19.4 % (45.5-73.1); Platelet Count Result 67 k/mm3 (150-375); Red Blood Count 3.64 M/mm3 (4.6-6.20); Red Cell Distribution Width 16.4 % (11.5-14.5); White Blood Count 9.6 K/mm3 (4.5-10.0)
[2022-10-11 05:35] LABS: Anion Gap 4 mmol/L (8-16); Blood Urea Nitrogen 6 mg/dL (9-20); Calcium 7.9 mg/dL (8.4-10.2); Carbon Dioxide 22 mmol/L (22-30); Chloride 108 mmol/L (98-107); Estimated CRCL calculation 133 ml/min; Estimated Glomerular Filt Rate > 60; Glucose 90 mg/dL (65-110); Potassium 3.9 mmol/L (3.4-5.0); Sodium 134 mmol/L (137-145)
[2022-10-11 06:05] LABS: Anisocytosis 2+ (NORMAL); Burr Cells 1+ (NORMAL); Platelet Estimate Decreased (Adequate); Schistocytes None Seen (NORMAL); Target Cells 1+ (NORMAL)
[2022-10-11] MEDS: LOSARTAN POTASSIUM 12.5 MG TABLET PO (08:54)
[2022-10-11] MEDS: LEVOTHYROXINE SODIUM 75 MCG TABLET PO (08:54)
[2022-10-11] MEDS: METOPROLOL SUCCINATE EXT REL 12.5 MG TABCR PO (08:55)
[2022-10-11] MEDS: PANTOPRAZOLE 40 MG TABLET PO (08:55)
--- NOTE | 2022-10-11 09:00 | EST_ITS ---
Patient Info Name: Estiven Rg Age: 66 years : 1955 Gender: Male Ht: 77 in Wt: 226 lbs BSA: 2.37 m2 HR: 57 bpm BP: 107 / 76 mmHg Exam Date: 10/11/2022 10:28 AM Exam Location: [facility] Stress Patient Status: Inpatient Admit Date: 10/07/2022 Staff Ordering Physician: Terry Vicente DO Attending Provider: Vick Shelton DO Exercise Technologist: Tamika Coker CT Exercise Physician: Terry Vicente DO Exam Type: CA stress angel w NM Study Info A regadenoson stress test was performed. Summary 1. 1. Negative lexiscan stress test for ischemic ST changes by ECG changes. 2. 2. Stable hemodynamics throughout the test. 3. 3. Nuclear scan to follow and will be reported separately. Please correlate with it. 4. 4. Patient informed of the above results. Protocol: Lexiscan Stress ECG Details Stage: REST Duration (min): 0 min : 56 sec HR (bpm): 58 SBP (mmHg): 107 DBP (mmHg): 76 Stage: REST Duration (min): 11 min : 13 sec HR (bpm): 63 SBP (mmHg): 107 DBP (mmHg): 76 Stage: STAGE 1 Duration (min): 0 min : 59 sec HR (bpm): 72 SBP (mmHg): 124 DBP (mmHg): 88 Stage: RECOVERY Duration (min): 1 min : 0 sec HR (bpm): 80 SBP (mmHg): 124 DBP (mmHg): 88 Stage: RECOVERY Duration (min): 2 min : 0 sec HR (bpm): 72 SBP (mmHg): 124 DBP (mmHg): 88 Stage: RECOVERY Duration (min): 3 min : 0 sec HR (bpm): 66 SBP (mmHg): 113 DBP (mmHg): 81 Stage: RECOVERY Duration (min): 3 min : 5 sec HR (bpm): 66 SBP (mmHg): 113 DBP (mmHg): 81 Rest HR: 63 bpm Peak HR: 81 bpm Rest Sys BP: 107 mmHg Peak Sys BP: 124 mmHg Max Pred HR: 156 bpm % Max Pred HR: 52 % Target HR: 133 bpm Max RPP: 10,044 bpm*mmHg Termination Reason: Completed protocol Cardiac Symptoms: Shortness of breath Total Time: 1 min : 0 sec Rest Harry BP: 76 mmHg Peak Harry BP: 88 mmHg Total Dose: 0.4 mg Resting ECG Sinus rhythm, anteroseptal infarct, age indeterminate. Stress ECG No ST changes. Arrhythmias None. Report Signatures
--- NOTE | 2022-10-11 09:09 | PM.IMPN ---
Progress Note: A&P Assessment and Plan (1) Acute non-ST elevation myocardial infarction (NSTEMI): Code(s): I21.4 - Non-ST elevation (NSTEMI) myocardial infarction Status: Inactive (2) Thrombocytopenic: Code(s): D69.6 - Thrombocytopenia, unspecified Status: Inactive (3) Alcohol intoxication: Qualifiers: Complication of substance-induced condition: uncomplicated Qualified Code(s): F10.920 - Alcohol use, unspecified with intoxication, uncomplicated Code(s): F10.929 - Alcohol use, unspecified with intoxication, unspecified Status: Inactive (4) Electrolyte imbalance: Code(s): E87.8 - Other disorders of electrolyte and fluid balance, not elsewhere classified Status: Inactive Plan NSTEMI -patient had elevated troponin 662, will continue trending troponins -patient did have some chest pain which was nonexertional however he is having decreased functional capacity -anticoagulation: Received heparin drip considering the elevated troponin and NSTEMI diagnosis, -patient has a history of left bundle-branch block -checking lipid panel, start statin -starting aspirin elevated at 662, but normal at [facility] x 3 sets. Could be elevated initially due to alcoholism, chronic systolic dysfunction per tone artist apprentice evaluation.? Cardiac stress test per tone artist apprentice congestive heart failure reduced ejection fraction -echocardiogram from 07/22/2021 shows EF of 25-30% . 10/08/22 Echo: EF 35-40%, mod LVE, mild LVH, grade I diastolic dysfunction (E/e' 8), severe LAE, mild CHRIS, mild MR/TR. -Start Losartan 12.5 mg daily and Metoprolol Succinate 12.5 mg daily per tone artist apprentice recommendation -he is having worsening dyspnea on exertion hepatocellular carcinoma -11/19/21 well differentiated HCC -LIRADS 5 lesion (positive for HCC on biopsy) and had chemotherapy with pellets done at [facility] with Dr. 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 Unclear what his regimen was -s/p TIPS procedure Lower extremity weakness -may be related to chemotherapy or heart failure -having difficulty with ADLs -PT/OT consulted electrolyte imbalances, acute lactic acidosis, hypocalcemia, hypomagnesemia -hypomagnesemia: magnesium 1.3 giving 4 g Mag sulfate 1.5 October 09 -hypokalemia: Potassium 3.2 giving 40 mEq KCL, resolves -lactate 2.5, will monitor. Resolves we are giving banana bag, may be secondary to his alcohol abuse -electrolyte imbalances likely due to alcoholism Start calcium carbonate in the 500 mg t.i.d. p.o. thrombocytopenia - likely secondary to alcohol and HCC chronic conditions -peptic ulcer disease: Will give Protonix, not on any home PPI or H2B, last GI bleed 3 years ago with 2 gastric ulcers, he does not report having follow-up EGD -alcohol use disorder: Continue monitoring CIWA protocol, alcohol levels elevated in the ED, last drink 10:00 a.m. 10/07, p.r.n. Ativan. Received banana bag No obvious sign of alcohol withdrawal Diet: Heart healthy, will keep NPO midnight for possible heart catheterization tomorrow DVT prophylaxis: Starting heparin drip GI prophylaxis: Protonix Code status: Full code Disposition: Likely home in greater than 2 days, pending ACS work up Consult PT OT care transitions nurse for evaluation and system placement Subjective Date/time seen: 10/11/22 09:09 Interval history: I saw on exam today patient today. Patient denies headache, chest pain, shortness breath, abdomen pain, nausea vomiting care I reviewed labs, patient has no new issue or events overnight Exam Narrative: - GENERAL: Pleasant male acutely intoxicated no acute distress. - EYES: EOMI. Anicteric. - HENT: Moist mucous membranes. Poor dentition - LUNGS: Clear to auscultation bilaterally, no wheezing, rhonchi, or rales. - CARDIOVASCULAR: Regular rate and rhythm. No murmur. No JVD. - ABDOMEN: Soft, right upper quadran
[2022-10-11] MEDS: ATORVASTATIN 40 MG TABLET PO (20:18)
[2022-10-12] VITALS (9 sets, daily range): BP systolic 110–130; BP diastolic 70–71; PULSE 55–101; RESP 18–20; TEMP 35.8–36.7; O2SAT 99–100
[2022-10-12 05:07] LABS: Basophils Absolute Auto 0.1 K/mm3 (0.0-0.1); Basophils Percent Auto 1.4 % (0.2-1.2); Eosinophils Absolute Auto 0.2 K/mm3 (0-0.3); Eosinophils Percent Auto 3.7 % (0-4.4); Hemoglobin 12.3 g/dL (14.0-18.0); Immature Granulocyte Absolute 0.01 K/mm3 (0.00-0.031); Immature Granulocyte Percent A 0.2 % (0-0.5); Lymphocytes Absolute Auto 3.41 K/mm3 (0.9-3.2); Lymphocytes Percent Auto 53.2 % (18.3-44.2); Mean Corpuscular HGB Conc 35.1 g/dl (32-36); Mean Corpuscular Hemoglobin 34.6 pg (26-34); Mean Corpuscular Volume 98.3 fl (80-100); Monocytes Absolute Auto 1.2 K/mm3 (0.1-0.6); Monocytes Percent Auto 18.4 % (2.6-8.5); Neutrophils Absolute Auto 1.5 K/mm3 (1.3-6.7); Neutrophils Percent Auto 23.1 % (45.5-73.1); Platelet Count Result 75 k/mm3 (150-375); Red Blood Count 3.56 M/mm3 (4.6-6.20); Red Cell Distribution Width 16.3 % (11.5-14.5); White Blood Count 6.4 K/mm3 (4.5-10.0)
[2022-10-12 05:29] LABS: Blood Urea Nitrogen 7 mg/dL (9-20); Calcium 7.6 mg/dL (8.4-10.2); Carbon Dioxide 22 mmol/L (22-30); Estimated CRCL calculation 116 ml/min; Estimated Glomerular Filt Rate > 60; Glucose 89 mg/dL (65-110)
[2022-10-12 06:25] LABS: Anion Gap 4 mmol/L (8-16); Chloride 107 mmol/L (98-107); Potassium 3.6 mmol/L (3.4-5.0); Sodium 133 mmol/L (137-145)
--- NOTE | 2022-10-12 08:05 | PM.PNCARD ---
Progress Note: A&P Assessment and Plan (1) Elevated troponin: Code(s): R77.8 - Other specified abnormalities of plasma proteins Status: Acute Assessment and Plan: At [facility] troponin elevated at 662, but normal at [facility] x 3 sets. Could be elevated initially due to alcoholism, chronic systolic dysfunction. No ACS. 10/08/22 Echo: EF 35-40%, mod LVE, mild LVH, grade I diastolic dysfunction (E/e' 8), severe LAE, mild CHRIS, mild MR/TR. 10/11/22 Lexiscan myoview: Negative for ischemia. Small apical lateral infarct, probably scar related. (2) Tobacco abuse: Code(s): Z72.0 - Tobacco use Status: Acute Assessment and Plan: Counseled regarding smoking cessation. (3) ETOH abuse: Code(s): F10.10 - Alcohol abuse, uncomplicated Status: Acute Assessment and Plan: Counseled regarding alcohol cessation. (4) Systolic dysfunction: Code(s): I51.9 - Heart disease, unspecified Status: Acute Assessment and Plan: Euvolemic. 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 Moderate now which surprisingly improved from a year ago when it was severe. On Losartan 12.5 mg daily and Metoprolol Succinate 12.5 mg daily. No further cardiac workup is needed. May d/c home and f/u with me in 1-2 weeks. Subjective Date/time seen: 10/12/22 08:05 Interval history: Denies chest pain or sob. Exam Const: General: cooperative, healthy appearing and comfortable Orientation/consciousness: oriented to person, oriented to place and oriented to time Resp: Auscultation: clear to auscultation bilaterally, no crackles, no rales, no rhonchi and no wheezes Cardio: Rate: regular rate Rhythm: regular rhythm Heart sounds: no murmurs Neuro: General: oriented to person, oriented to place and oriented to time Extrem: Right lower extremity: no edema Left lower extremity: no edema Objective Data Vital Signs Vital Signs: Vital Signs - 24 hr 10/11/22 08:26 10/11/22 10:00 10/11/22 12:37 Temperature 98.5 F 97.1 F L Pulse Rate 62 60 62 Respiratory Rate 20 18 Blood Pressure 105/67 105/63 Pulse Oximetry 98 100 Oxygen Delivery 10/11/22 12:00 10/11/22 12:00 10/11/22 14:00 Temperature Pulse Rate 54 L 73 Respiratory Rate Blood Pressure Pulse Oximetry Oxygen Delivery Room Air 10/11/22 16:43 10/11/22 16:00 10/11/22 16:00 Temperature 96.8 F L Pulse Rate 74 99 Respiratory Rate 18 Blood Pressure 107/62 Pulse Oximetry 100 Oxygen Delivery Room Air 10/11/22 18:00 10/11/22 20:00 10/11/22 20:00 Temperature Pulse Rate 61 61 62 Respiratory Rate 18 Blood Pressure Pulse Oximetry 100 Oxygen Delivery Room Air 10/11/22 20:00 10/11/22 22:00 10/11/22 23:37 Temperature 98.3 F 97.7 F Pulse Rate 73 64 69 Respiratory Rate 20 20 Blood Pressure 117/71 111/68 Pulse Oximetry 100 100 Oxygen Delivery 10/11/22 23:47 10/12/22 00:00 10/12/22 02:00 Temperature Pulse Rate 69 58 L 80 Respiratory Rate 20 Blood Pressure Pulse Oximetry 100 Oxygen Delivery Room Air 10/12/22 03:39 10/12/22 04:00 10/12/22 04:00 Temperature 98.1 F Pulse Rate 72 59 L 59 L Respiratory Rate 20 20 Blood Pressure 130/71 Pulse Oximetry 99 99 Oxygen Delivery Room Air 10/12/22 06:00 Temperature Pulse Rate 55 L Respiratory Rate Blood Pressure Pulse Oximetry Oxygen Delivery Intake/Output Intake/Output: Intake & Output 10/09/22 10/10/22 10/11/22 10/12/22 23:59 23:59 23:59 23:59 Intake Total 1460 1870 1280 Output Total 1400 1100 500 Balance 60 770 1280 -500 Meds/Results Medications: Active Medications Generic Name Dose Route Start Last Admin Trade Name Freq PRN Reason Stop Dose Admin Acetaminophen 650 mg 10/07/22 18:53 Acetaminophen 325 Mg Tablet PO Q4H PRN Mild Pain (1-3) or Fever Hydrocodone Bitart/Acetaminophen 1 tab 10/07/22 18:53 Hydrocodone/Acetaminophen (*C
[2022-10-12] MEDS: LOSARTAN POTASSIUM 12.5 MG TABLET PO (08:35)
[2022-10-12] MEDS: PANTOPRAZOLE 40 MG TABLET PO (08:35)
[2022-10-12] MEDS: METOPROLOL SUCCINATE EXT REL 12.5 MG TABCR PO (08:35)
[2022-10-12] MEDS: LEVOTHYROXINE SODIUM 75 MCG TABLET PO (08:35)
--- NOTE | 2022-10-12 12:03 | PM.DS ---
DS: Admitting Diagnosis Discharge Date October 12, 2022 Admitting Diagnosis Non-STEMI DS: Discharge Diagnosis Discharge Diagnosis (1) Acute non-ST elevation myocardial infarction (NSTEMI): Code(s): I21.4 - Non-ST elevation (NSTEMI) myocardial infarction Status: Inactive (2) Thrombocytopenic: Code(s): D69.6 - Thrombocytopenia, unspecified Status: Inactive (3) Alcohol intoxication: Qualifiers: Complication of substance-induced condition: uncomplicated Qualified Code(s): F10.920 - Alcohol use, unspecified with intoxication, uncomplicated Code(s): F10.929 - Alcohol use, unspecified with intoxication, unspecified Status: Inactive (4) Electrolyte imbalance: Code(s): E87.8 - Other disorders of electrolyte and fluid balance, not elsewhere classified Status: Inactive Plan NSTEMI -patient had elevated troponin 662, will continue trending troponins -patient did have some chest pain which was nonexertional however he is having decreased functional capacity -anticoagulation: Received heparin drip considering the elevated troponin and NSTEMI diagnosis, -patient has a history of left bundle-branch block -checking lipid panel, start statin -starting aspirin elevated at 662, but normal at [facility] x 3 sets. Could be elevated initially due to alcoholism, chronic systolic dysfunction per director oracle database evaluation.? Cardiac stress test per director oracle database congestive heart failure reduced ejection fraction -echocardiogram from 07/22/2021 shows EF of 25-30% . 10/08/22 Echo: EF 35-40%, mod LVE, mild LVH, grade I diastolic dysfunction (E/e' 8), severe LAE, mild CHRIS, mild MR/TR. -Start Losartan 12.5 mg daily and Metoprolol Succinate 12.5 mg daily per director oracle database recommendation -he is having worsening dyspnea on exertion hepatocellular carcinoma -11/19/21 well differentiated HCC -LIRADS 5 lesion (positive for HCC on biopsy) and had chemotherapy with pellets done at [facility] with Dr. 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 Unclear what his regimen was -s/p TIPS procedure Lower extremity weakness -may be related to chemotherapy or heart failure -having difficulty with ADLs -PT/OT consulted electrolyte imbalances, acute lactic acidosis, hypocalcemia, hypomagnesemia -hypomagnesemia: magnesium 1.3 giving 4 g Mag sulfate 1.5 October 09 -hypokalemia: Potassium 3.2 giving 40 mEq KCL, resolves -lactate 2.5, will monitor. Resolves we are giving banana bag, may be secondary to his alcohol abuse -electrolyte imbalances likely due to alcoholism Start calcium carbonate in the 500 mg t.i.d. p.o. thrombocytopenia - likely secondary to alcohol and HCC chronic conditions -peptic ulcer disease: Will give Protonix, not on any home PPI or H2B, last GI bleed 3 years ago with 2 gastric ulcers, he does not report having follow-up EGD -alcohol use disorder: Continue monitoring CIWA protocol, alcohol levels elevated in the ED, last drink 10:00 a.m. /, p.r.n. Ativan. Received banana bag No obvious sign of alcohol withdrawal Diet: Heart healthy, will keep NPO midnight for possible heart catheterization tomorrow DVT prophylaxis: Starting heparin drip GI prophylaxis: Protonix Code status: Full code Disposition: Likely home in greater than 2 days, pending ACS work up Consult PT OT resident care assistant for evaluation and system placement DS: Summary Hospital Course Hospital Course: Admitted for non STEMI, Cardiology did evaluate the patient. Bernadette noted. No need for for her cardiac workup at this time. Okay to discharge. Cardiac medications were adjusted Time Spent with Patient Time attestation: Total time spent providing and/or coordinating discharge services: Exam Narrative: - GENERAL: Pleasant male acutely intoxicated no acute distress. - EYES: EOMI. Anicteric. - HENT: Moist mucous membranes. Poor
== END 2022-10-12 13:21 | disposition home or self-care (01) | DRG 190 ==
PROVIDERS: Hospitalist; Internal Medicine; Internal Medicine Cardiovascular Disease; Admitting Provider Student in an Organized Health Care Education/Training Program; PCP Family Medicine; Visit Provider Chiropractor
DX: I21.4 Non-ST elevation (NSTEMI) myocardial infarction (principal); D69.6 Thrombocytopenia, unspecified; I42.6 Alcoholic cardiomyopathy; C22.7 Other specified carcinomas of liver; E78.5 Hyperlipidemia, unspecified; D69.59 Other secondary thrombocytopenia; I50.32 Chronic diastolic (congestive) heart failure; F10.229 Alcohol dependence with intoxication, unspecified; K27.7 Chronic peptic ulcer, site unspecified, without hemorrhage or perforation; G62.9 Polyneuropathy, unspecified; J44.9 Chronic obstructive pulmonary disease, unspecified; F17.210 Nicotine dependence, cigarettes, uncomplicated; E87.8 Other disorders of electrolyte and fluid balance, not elsewhere classified
CPT/HCPCS: 36415; 78452; 80048; 80061; 82948; 83036; 83605; 83735; 84439; 84443; 84480; 84484; 85025; 85055; 85610; 85730; 93017; 97110; 97161; 97165; 97530; 97535; A9270; A9502; C8929; J1644; J2785; J3411; J3475; J7030; Q9957

== ENCOUNTER 2022-11-04 15:49 | Emergency (ER) | payer BC, SELFPAY ==
--- NOTE | ~2022-11-04 | CT_ITS ---
EXAMINATION: CT brain wo con INDICATION: Head injury COMPARISON: 10/07/2022 TECHNIQUE: Standard unenhanced head CT. The dose-length product (DLP) was 681.00 mGy-cm. The mA was a djusted according to patient size. Iterative reconstruction technique was employed. FINDINGS: No acute intraparenchymal hemorrhage. No evidence of mass lesion. No evidence of acute infa rction. There is mild periventricular and subcortical hypodensity probably related to small vessel is chemic disease. There is mild prominence of the sulci and ventricles related to cerebral atrophy. Int racranial calcified cerebral atherosclerosis is noted. No extra-axial collections. No mass effect or midline shift. The orbits and soft tissues are unremarkable. There is a left mastoid effusion. IMPRESSION: 1. No acute intracranial abnormality. 2. Age related findings. Reviewed, dictated and finalized at location F.
[2022-11-04 15:50] VITALS: BP 109/76; PULSE 95; RESP 17; TEMP 36.7; O2SAT 95
[2022-11-04 15:54] VITALS: BP 109/76; PULSE 90; PULSE 94; RESP 20; TEMP 37.1; O2SAT 99
--- NOTE | 2022-11-04 15:59 | ED.GENADULT ---
HPI - General Adult General Chief complaint: Weakness Stated complaint: Fall Time Seen by Provider: 11/04/22 15:52 History of Present Illness HPI narrative: 66-year-old male presenting with neuropathy . Patient states he has neuropathy in his lower extremities and that he feels like they are shaking . He states this has been going on for approximately 3 years. He denies any new symptomatology today. Patient did tell the nurse he fell a few days ago. He denies this to me. He has no specific or acute complaints. He admits to drinking alcohol today but states he is not intoxicated. Related Data Allergies Allergy/AdvReac Type Severity Reaction Status Date / Time No Known Allergies Allergy Verified 10/17/22 07:20 [facility] Past Medical History Medical History COPD (chronic obstructive pulmonary disease) ETOH abuse Hepatocellular carcinoma Hyperlipidemia (03/14/14) Non-STEMI (non-ST elevated myocardial infarction) PUD (peptic ulcer disease) Systolic heart failure Tobacco abuse Family History Family History Mother Family history of Alzheimer's disease Carcinoma of colon Father Family history of diabetes mellitus in first degree relative Septicemia Femur fracture Social History Social History Social History: Best friend Subhash to be healthcare surrogate. Patient has no other family. Does not drive Fairly independent. Usually walks to supermarket, manages his ADLs Smoking packs per day: 0 Smoking cigarettes per day: 0.0 Years smoked: 35 Smoking pack-years: 0.00 Smoking status: Current every day smoker Tobacco type: cigarettes Second hand tobacco smoke exposure: Yes Alcohol intake: current Drinks per week: 42 Substance use: never Substance use type: does not use Lack of Transportation: YES Lack of Food: Sometimes True Current Housing: I Have Housing Concerned About Future Housing: No Difficulty Paying Gas/Electric Bills: YES Difficulty Paying for Meds: No Currently Unemployed: No Education: Trade/Vocational Certificate Difficulty w/ Childcare or Family Care: No Spiritual care concerns: No Exam Narrative: Chronic appearing skin changes to the lower extremities. Neurologically intact. Neurovascularly intact. Patient moves all extremities without difficulty. All other systems otherwise unremarkable or negative Course Vital Signs Vital signs: Vital Signs Temperature 36.7 C 11/04/22 15:50 Pulse Rate 95 11/04/22 15:50 Respiratory Rate 17 11/04/22 15:50 Blood Pressure 109/76 11/04/22 15:50 Pulse Oximetry 95 11/04/22 15:50 Oxygen Delivery Room Air 11/04/22 15:50 Temperature 37.1 C 11/04/22 15:54 Pulse Rate 94 11/04/22 15:54 Respiratory Rate 20 11/04/22 15:54 Blood Pressure 109/76 11/04/22 15:54 Pulse Oximetry 99 11/04/22 15:54 Oxygen Delivery Room Air 11/04/22 15:54 Medical Decision Making MDM Narrative Medical decision making narrative: patient has decided to leave during his evaluation and treatment. He has declined IV fluids. He is alert and oriented and of decision-making capacity. He will be leaving against medical advice. Vital Signs Vital Signs: Vital Signs Temperature 36.7 C 11/04/22 15:50 Pulse Rate 95 11/04/22 15:50 Respiratory Rate 17 11/04/22 15:50 Blood Pressure 109/76 11/04/22 15:50 Pulse Oximetry 95 11/04/22 15:50 Oxygen Delivery Room Air 11/04/22 15:50 Temperature 37.1 C 11/04/22 15:54 Pulse Rate 94 11/04/22 15:54 Respiratory Rate 11/04/22 15:54 Blood Pressure 109/76 11/04/22 15:54 Pulse Oximetry 99 11/04/22 15:54 Oxygen Delivery Room Air 11/04/22 15:54 Lab Data 11/04/22 16:19 11/04/22 16:19 Labs: Lab Results
[2022-11-04 16:22] LABS: Basophils Absolute Auto 0.07 K/mm3 (0.00-0.10); Basophils Percent Auto 0.7 % (0.0-1.0); Eosinophils Absolute Auto 0.24 K/mm3 (0.02-0.50); Eosinophils Percent Auto 2.4 % (1.0-6.0); Hematocrit 33.7 % (40.0-54.0); Hemoglobin 12.1 g/dL (14.0-18.0); Immature Granulocyte Absolute 0.02 K/mm3 (0.00-0.00); Immature Granulocyte Percent A 0.2 % (0.0-0.0); Lymphocytes Absolute Auto 6.44 K/mm3 (1.10-4.50); Lymphocytes Percent Auto 64.3 % (18.0-42.0); Mean Corpuscular HGB Conc 35.9 g/dL (32.0-36.0); Mean Corpuscular Hemoglobin 34.9 pg (27.0-31.0); Mean Corpuscular Volume 97.1 fL (78.0-102.0); Monocytes Absolute Auto 1.11 K/mm3 (0.10-0.90); Monocytes Percent Auto 11.1 % (2.0-11.0); Neutrophils Absolute Auto 2.1 K/mm3 (1.7-7.2); Neutrophils Percent Auto 21.3 % (50.0-70.0); Platelet Count Result 123 K/mm3 (150-420); Red Blood Count 3.47 M/mm3 (4.70-6.10); Red Cell Distribution Width 17.1 % (11.6-14.4)
--- NOTE | 2022-11-04 16:27 | PC.NURSE ---
pt refused iv access and iv fluids, pt states it will go to my feet and i refuse .
[2022-11-04 16:40] LABS: Alanine Aminotransferase 41 U/L (16-63); Albumin Level 1.7 g/dL (3.4-5.0); Alkaline Phosphatase 224 U/L (46-116); Anion Gap 12 mmol/L (8-16); Aspartate Amino Transferase 127 U/L (15-37); Bilirubin,Total 2.1 mg/dL (0.00-1.00); Blood Urea Nitrogen 6 mg/dL (7-18); Calcium 7.6 mg/dL (8.5-10.1); Carbon Dioxide 21 mmol/L (21-32); Chloride 111 mmol/L (98-108); Creatine Kinase 170 U/L (39-308); Estimated CRCL calculation 110 ml/min; Estimated Glomerular Filt Rate > 60; Glucose 101 mg/dL (70-99); Magnesium 1.7 mg/dL (1.8-2.4); Osmolality Calculated 295 mOsm/kg (285-295); Potassium 3.8 mmol/L (3.5-5.1); Sodium 144 mmol/L (136-145); Total Protein 6.6 g/dL (6.4-8.2)
[2022-11-04 16:41] LABS: Ethanol 362 mg/dL (0-6)
== END 2022-11-04 16:45 | disposition left against medical advice (07) ==
LOC: CHSED 16:41
PROVIDERS: Emergency Provider Emergency Medicine; PCP Family Medicine
DX: R53.1 Weakness (principal); J44.9 Chronic obstructive pulmonary disease, unspecified; E78.5 Hyperlipidemia, unspecified; I25.2 Old myocardial infarction; I50.9 Heart failure, unspecified; F17.210 Nicotine dependence, cigarettes, uncomplicated; W19.XXXA Unspecified fall, initial encounter
CPT/HCPCS: 36415; 70450; 80053; 80307; 82550; 83735; 85025; 99284

== ENCOUNTER 2022-11-17 09:00 | Outpatient (CLI) | payer MEDICARE, MEDICAID, SELFPAY ==
--- NOTE | ~2022-11-17 | XR_ITS ---
EXAMINATION: XR orbit foreign body DATE: 11/17/2022 09:34 INDICATION: Foreign body. TECHNIQUE: 4 views of the orbits were obtained. COMPARISON: Head CT 11/04/22 FINDINGS: There is leftward deviation of the nasal septum. No fracture. There is no radiopaque foreig n body. IMPRESSION: 1. No radiopaque foreign body. Reviewed, dictated and finalized at location A.
--- NOTE | ~2022-11-17 | MR_ITS ---
EXAMINATION: MR abdomen wo/w con INDICATION: Elevated liver enzymes, cirrhosis and known hepatocellular carcinoma TECHNIQUE: Coronal SSFSE, WATER:coronal LAVA-FLEX, Coronal 2D FIESTA FatSat, Axial SSFSE BH ARC, Axia l T2 frFSE, Axial DWI, pre and dynamic postcontrast Axial LAVA ARC, postcontrast Coronal LAVA FLEX, A xial T1 FSPGR COMPARISON: 06/21/2021 CONTRAST: Multihance, 20 cc FINDINGS: There is nodularity of the liver surface. There is a 9.7 x 9.0 cm mass in liver segment VII I, consistent with biopsy-proven hepatocellular carcinoma. There is mass effect on the intrahepatic v eins. Early postcontrast sequence is limited by respiratory motion artifact. There are focal areas of enhancement within the mass. There is a 13 mm washout lesion in liver segment Stacey. There is a 9 mm w ashout lesion in liver segment VII. There is an 18 mm washout lesion segment . There is a new 6.0 x 4.2 cm mass with heterogeneous T1 and T2 signal intensity as well as heterogeneous enhancement locat ed in the right upper quadrant anteriorly just anterior to the gallbladder, liver segment IVb, and li shaheen segment III. There is a new 3.7 x 2.4 cm mass of the right adrenal gland. The spleen is absent. The pancreas and l eft adrenal gland are normal. There are gastric and periesophageal varices. Stones are present in the nondistended gallbladder. There are small cysts of the right kidney. The left kidney is unremarkable . There are no dilated loops of bowel. IMPRESSION: 1. Cirrhosis with interval enlargement of the biopsy-proven hepatocellular carcinoma as well as multi ple smaller liver masses with washout, also concerning for hepatocellular carcinoma. 2. Development of a new mass anteriorly in the right upper quadrant and right adrenal mass, consisten t with metastatic disease 3. Upper abdominal and periesophageal varices. Reviewed, dictated and finalized at location L. IMPRESSION: 1. Cirrhosis with interval enlargement of the biopsy-proven hepatocellular carc inoma as well as multiple smaller liver masses with washout, also concerning fo r hepatocellular carcinoma. 2. Development of a new mass anteriorly in the right upper quadrant and right a drenal mass, consistent with metastatic disease 3. Upper abdominal and periesophageal varices.
== END 2022-11-17 09:01 | disposition home or self-care (01) ==
DX: C22.0 Liver cell carcinoma (principal); K74.60 Unspecified cirrhosis of liver; E27.9 Disorder of adrenal gland, unspecified
CPT/HCPCS: 70030; 74183; A9577

== ENCOUNTER 2022-11-30 14:06 | Emergency (ER) | payer MEDICARE, MEDICAID, SELFPAY ==
[2022-11-30] VITALS (8 sets, daily range): BP systolic 104–111; BP diastolic 70–84; PULSE 78–91; RESP 12–20; TEMP 36.3; O2SAT 96–100
--- NOTE | ~2022-11-30 | CT_ITS ---
EXAMINATION: CT chest abdomen pelvis w con DATE: 11/30/2022 15:59 INDICATION: Right upper quadrant abdominal pain. Right lower rib pain. Fall. TECHNIQUE: Computed tomography (CT) of the chest, abdomen, and pelvis was performed with 100 mL Omnip aque 350 intravenous contrast. Pelvis The dose-length product was 681.00 mGy-cm. COMPARISON: Head CT 06/21/2022, abdomen MRI 11/17/22 FINDINGS: CHEST CT: There is mild emphysema. There is mild atelectasis bilaterally. There is mucous in the trachea and br onchi. No pleural effusion. The heart size is normal. There are coronary artery calcifications. No pe ricardial effusion. Paraesophageal varices are noted. There are old healed bilateral rib fractures. T here are acute fractures of right sixth, seventh, and eighth ribs. ABDOMEN AND PELVIS CT: The liver demonstrates a nodular surface contour, consistent with cirrhosis. There is an 8.6 cm mass in right hepatic lobe with areas of hyperdensity, likely changes of chemoembolization. There are gall stones in the gallbladder, which is distended. The spleen is very small. The pancreas and left adrena l gland are normal. There is a 3.9 cm mass in right adrenal gland measuring soft tissue attenuation t hat enhanced on the recent MRI. There are cysts in right kidney measuring up to 5 mm. Left kidney is normal. Stool distends the rectum. The appendix is normal. There is calcified atherosclerosis of the aorta and many of the other arteries. There is a 6.5 x 5.0 x 6.7 cm mass in right rectus abdominis mu scle that enhanced on the recent MRI. There are no pathologically enlarged lymph nodes. There is no f ree intraperitoneal fluid. There is mild lumbar spondylosis. IMPRESSION: 1. Acute fractures of right sixth, seventh, and eighth ribs. 2. 8.6 cm liver mass with changes of chemoembolization, consistent with hepatocellular carcinoma. 3. Right rectus abdominis mass in right adrenal mass, consistent with metastatic disease. 4. Cirrhosis of the liver with portal venous hypertension. 5. Cholelithiasis. Gallbladder distention may be secondary to fasting. Reviewed, dictated and finalized at location E. IMPRESSION: 1. Acute fractures of right sixth, seventh, and eighth ribs. 2. 8.6 cm liver mass with changes of chemoembolization, consistent with hepatoc ellular carcinoma. 3. Right rectus abdominis mass in right adrenal mass, consistent with metastati c disease. 4. Cirrhosis of the liver with portal venous hypertension. 5. Cholelithiasis. Gallbladder distention may be secondary to fasting.
--- NOTE | ~2022-11-30 | CT_ITS ---
EXAMINATION: CT brain wo con DATE: 11/30/2022 15:59 INDICATION: Head injury from fall, striking head on a microwave. TECHNIQUE: Computed tomography (CT) of the head was performed without intravenous contrast. The mA wa s adjusted according to patient size. Iterative reconstruction technique was employed. Exam dose: 68 1.00 mGy-cm total exam DLP. COMPARISON: 11/04/2022 CT brain FINDINGS: There is greater than expected central and cortical cerebral and cerebellar atrophy in this 67-year-old patient. Bilateral vertebral artery, basilar artery and bilateral carotid siphon internal carotid artery calci fications. No intracranial mass lesion or hemorrhage or cerebrovascular accident is detected. No midline shift o r mass effect. No subdural or epidural hematoma is detected. Left mastoid air cell effusions. The right mastoid air cells are normally developed and aerated. Midd le and inner ear apparatus appear normal. No fracture or bone destruction of the cranial vault is detected. IMPRESSION: Prominent central and cortical cerebral and moderately prominent cerebellar atrophy, lat eral and expected for patient's chronological age Cerebral atherosclerosis No acute intracranial finding Left mastoid effusions Reviewed, dictated and finalized at Location A. Reviewed, dictated and finalized at location A. IMPRESSION: Prominent central and cortical cerebral and moderately prominent c erebellar atrophy, lateral and expected for patient's chronological age Cerebral atherosclerosis No acute intracranial finding Left mastoid effusions
--- NOTE | 2022-11-30 14:48 | ED.ABDPAIN ---
HPI - Abdominal Pain General Chief Complaint: Abdominal Pain Stated Complaint: abd pain s/p fall Time Seen by Provider: 11/30/22 14:17 History of Present Illness HPI narrative: 67-year-old male with history of cancer presented emergency department for evaluation after having a ground-level fall. Patient yesterday had a fall where he struck his head and had possible loss of consciousness. Patient is also complaining of right upper quadrant abdominal pain. Patient declined any medications for pain control. Patient states he does have increased weakness due to his treatment. Patient states he also does like his beer , patient also states that he has not been using his walker or wheelchairs around the house. Related Data Allergies Allergy/AdvReac Type Severity Reaction Status Date / Time No Known Allergies Allergy Verified 10/17/22 07:20 Review of Systems Review of Systems: All systems reviewed & are unremarkable except as noted in HPI and below PMFSH Past Medical History Medical History COPD (chronic obstructive pulmonary disease) ETOH abuse Hepatocellular carcinoma Hyperlipidemia (03/14/14) Non-STEMI (non-ST elevated myocardial infarction) PUD (peptic ulcer disease) Systolic heart failure Tobacco abuse Family History Family History Mother Family history of Alzheimer's disease Carcinoma of colon Father Family history of diabetes mellitus in first degree relative Septicemia Femur fracture Social History Social History Social History: Best friend Subhash to be healthcare surrogate. Patient has no other family. Does not drive Fairly independent. Usually walks to supermarket, manages his ADLs Smoking packs per day: 0 Smoking cigarettes per day: 0.0 Years smoked: 35 Smoking pack-years: 0.00 Smoking status: Current every day smoker Tobacco type: cigarettes Second hand tobacco smoke exposure: Yes Alcohol intake: current Drinks per week: 42 Substance use: never Substance use type: does not use Lack of Transportation: YES Lack of Food: Sometimes True Current Housing: I Have Housing Concerned About Future Housing: No Difficulty Paying Gas/Electric Bills: YES Difficulty Paying for Meds: No Currently Unemployed: No Education: Trade/Vocational Certificate Difficulty w/ Childcare or Family Care: No Spiritual care concerns: No Exam Narrative: APPEARANCE: Well appearing, no pain, no distress, well-nourished. HEAD: normocephalic, atraumatic. EYES: PERRLA/EOMI, conjunctivae clear. NOSE: Normal no drainage EARS:TMS clear with good light reflex. THROAT: Pharynx clear, no exudate. NECK: Supple. No adenopathy, no masses. RESPIRATORY: Airway patent, respirations nonlabored. Clear to auscultation bilaterally, no rales, rhonchi, wheezing. CARDIOVASCULAR: Regular rate and rhythm without murmurs rubs or gallops. ABDOMINAL: Palpable mass in the right upper quadrant with tenderness to palpation MUSCULOSKELETAL: Moves all extremities. Strength/ROM intact, No edema, No calf tenderness. NEURO: Alert. Cranial nerves II through XII intact. Grossly intact SKIN: Warm, dry. Normal Color Course Course Emergency Course: 67-year-old male presented to ED for evaluation after having a ground-level fall. Head CT was ordered to evaluate for intracranial abnormality. Head CT was negative for acute intracranial normality. Chest x-ray did show fractures of the right ribs. No pneumonia or pneumothorax. Patient's pain was controlled in the ED. Patient was provided incentive spirometer. Patient was updated on the results of the work-up including the rib fractures. Patient's palpable abdominal mass is a liver mass. The patient was updated on the results of his work-up and on reasons to return to emergency room. Sneha
[2022-11-30 15:22] LABS: Basophils Absolute Auto 0.1 K/mm3 (0.0-0.1); Basophils Percent Auto 1.3 % (0.2-1.2); Eosinophils Absolute Auto 0.2 K/mm3 (0-0.3); Eosinophils Percent Auto 2.1 % (0-4.4); Hematocrit 37.4 % (42.0-52.0); Hemoglobin 12.9 g/dL (14.0-18.0); Immature Granulocyte Absolute 0.02 K/mm3 (0.00-0.031); Immature Granulocyte Percent A 0.2 % (0-0.5); Lymphocytes Absolute Auto 4.96 K/mm3 (0.9-3.2); Lymphocytes Percent Auto 57.7 % (18.3-44.2); Mean Corpuscular HGB Conc 34.5 g/dl (32-36); Mean Corpuscular Hemoglobin 33.9 pg (26-34); Mean Corpuscular Volume 98.4 fl (80-100); Mean Platelet Volume 11.9 fl (7.4-10.4); Monocytes Absolute Auto 0.8 K/mm3 (0.1-0.6); Neutrophils Absolute Auto 2.6 K/mm3 (1.3-6.7); Neutrophils Percent Auto 29.7 % (45.5-73.1); Platelet Count Result 107 k/mm3 (150-375); Red Cell Distribution Width 18.6 % (11.5-14.5); White Blood Count 8.6 K/mm3 (4.5-10.0)
[2022-11-30 15:32] LABS: INR 1.4
[2022-11-30 15:33] LABS: Alanine Aminotransferase 37 U/L (6-50); Albumin Level 2.6 g/dL (3.5-5.1); Alkaline Phosphatase 215 U/L (38-126); Anion Gap 9 mmol/L (8-16); Aspartate Amino Transferase 128 U/L (17-59); Bilirubin,Total 3.3 mg/dL (0.2-1.3); Blood Urea Nitrogen 6 mg/dL (9-20); Calcium 7.3 mg/dL (8.4-10.2); Carbon Dioxide 23 mmol/L (22-30); Chloride 109 mmol/L (98-107); Estimated CRCL calculation 131 ml/min; Estimated Glomerular Filt Rate > 60; Glucose 94 mg/dL (65-110); Potassium 3.6 mmol/L (3.4-5.0); Sodium 141 mmol/L (137-145)
[2022-11-30] MEDS: HYDROmorphone HCL INJ (*CRX) 1 MG/ML SYR 0.5 MG IV PUSH (15:36)
== END 2022-11-30 17:49 | disposition home or self-care (01) ==
PROVIDERS: Emergency Provider Emergency Medicine
DX: S09.90XA Unspecified injury of head, initial encounter (principal); S22.41XA Multiple fractures of ribs, right side, initial encounter for closed fracture; C22.0 Liver cell carcinoma; J44.9 Chronic obstructive pulmonary disease, unspecified; E78.5 Hyperlipidemia, unspecified; I25.2 Old myocardial infarction; I50.20 Unspecified systolic (congestive) heart failure; Z87.11 Personal history of peptic ulcer disease; K80.20 Calculus of gallbladder without cholecystitis without obstruction; K74.60 Unspecified cirrhosis of liver; K76.6 Portal hypertension; R19.00 Intra-abdominal and pelvic swelling, mass and lump, unspecified site; I67.2 Cerebral atherosclerosis; W18.30XA Fall on same level, unspecified, initial encounter
CPT/HCPCS: 36415; 70450; 71260; 74177; 80053; 85025; 85610; 85730; 96374; 99284; J1170; Q9967

== ENCOUNTER 2022-12-03 12:52 | Inpatient (IN) | payer MEDICARE, MEDICAID, SELFPAY ==
[2022-12-03] VITALS (29 sets, daily range): BP systolic 101–140; BP diastolic 79–107; PULSE 83–107; RESP 13–23; TEMP 36.8–36.9; O2SAT 95–99; BMI 26.9
--- NOTE | ~2022-12-03 | XR_ITS ---
XR chest 2V DATE: 12/03/2022 13:59 INDICATION: Fall. TECHNIQUE: AP and lateral views COMPARISON: 11/30/2022 CT chest abdomen pelvis FINDINGS: There is cardiomegaly. No pulmonary infiltrate or consolidation, pleural effusion or pulmonary vascular congestion or pneumo thorax is evident. Osteopenia. Probable bilateral chronic rotator cuff atrophy. Bilateral old rib fractures. More recent right anterior sixth, seventh and eighth rib fractures are b albino demonstrated on 11/30/2022 CDT chest examination. IMPRESSION: Cardiomegaly Reviewed, dictated and finalized at location A. IMPRESSION: Cardiomegaly
--- NOTE | ~2022-12-03 | XR_ITS ---
XR shoulder LT min 2V DATE: 12/03/2022 14:00 INDICATION: Shoulder pain TECHNIQUE: 4 views COMPARISON: None FINDINGS: Diffuse osteopenia. Old healed fractures of the posterolateral left fourth and fifth ribs. No fracture or dislocation, periosteal reaction or bone destruction or abnormal soft tissue calcifica tion is noted the left shoulder. There is evidence of left rotator cuff tear or atrophy with mild sup erior subluxation of the humeral head, approximating undersurface of the acromion. IMPRESSION: Diffuse osteopenia Left rotator cuff cuff tear or atrophy Reviewed, dictated and finalized at location A.
--- NOTE | 2022-12-03 13:04 | ECG_ITS ---
Measurements Intervals [place] Rate: 82 P: 78 HI: 244 QRS: -58 QRSD: 132 T: 71 QT: 430 QTc: 505 Interpretive Statements SINUS RHYTHM WITH FIRST DEGREE AV BLOCK WITH FREQUENT VENTRICULAR PREMATURE COMPLEXES MARKED LEFT AXIS DEVIATION [QRS AXIS < -30] LEFT BUNDLE BRANCH BLOCK ABNORMAL ECG COMPARED TO ECG 12/03/2022 12:59:43 LEFT-AXIS DEVIATION NOW PRESENT LEFT BUNDLE-BRANCH BLOCK NOW PRESENT Electronically Signed On 12-04-2022 13:29:32 CDT by Mateo Betancourt M.D.
--- NOTE | 2022-12-03 13:09 | ECG_ITS ---
Measurements Intervals [place] Rate: 78 P: 23 TN: 212 QRS: -60 QRSD: 141 T: 83 QT: 431 QTc: 491 Interpretive Statements SINUS RHYTHM WITH FIRST DEGREE AV BLOCK WITH FREQUENT VENTRICULAR PREMATURE COMPLEXES NONSPECIFIC INTRAVENTRICULAR CONDUCTION DELAY INFERIOR MYOCARDIAL INFARCTION , OF INDETERMINATE AGE [40+ ms Q WAVE AND/OR ST/T ABNORMALITY IN II/aVF] ABNORMAL ECG COMPARED TO ECG 10/07/2022 14:18:24 INTRAVENTRICULAR CONDUCTION DELAY NOW PRESENT MYOCARDIAL INFARCT FINDING NOW PRESENT Electronically Signed On 12-03-2022 14:46:50 CDT by Mateo Betancourt M.D.
[2022-12-03] MEDS: MORPHINE SULFATE (*CRX) 4 MG/ML INJ IV PUSH (14:01)
[2022-12-03 14:15] LABS: Hematocrit 38.2 % (42.0-52.0); Hemoglobin 13.1 g/dL (14.0-18.0); Immature Platelet Fraction Pct 19.3 % (0.9-11.2); Mean Corpuscular HGB Conc 34.3 g/dl (32-36); Mean Corpuscular Hemoglobin 34.1 pg (26-34); Mean Corpuscular Volume 99.5 fl (80-100); Mean Platelet Volume 13.4 fl (7.4-10.4); Platelet Count Result 70 k/mm3 (150-375); Red Blood Count 3.84 M/mm3 (4.6-6.20); Red Cell Distribution Width 18.1 % (11.5-14.5); White Blood Count 9.9 K/mm3 (4.5-10.0)
[2022-12-03 14:22] LABS: Alanine Aminotransferase 37 U/L (6-50); Albumin Level 2.5 g/dL (3.5-5.1); Alkaline Phosphatase 139 U/L (38-126); Anion Gap 7 mmol/L (8-16); Aspartate Amino Transferase 137 U/L (17-59); Bilirubin,Total 5.9 mg/dL (0.2-1.3); Blood Urea Nitrogen 5 mg/dL (9-20); Calcium 7.8 mg/dL (8.4-10.2); Carbon Dioxide 24 mmol/L (22-30); Chloride 105 mmol/L (98-107); Estimated CRCL calculation 155 ml/min; Estimated Glomerular Filt Rate > 60; Glucose 86 mg/dL (65-110); Potassium 3.4 mmol/L (3.4-5.0); Sodium 136 mmol/L (137-145)
[2022-12-03 15:22] LABS: Band Neutrophils Percent 1 % (0-6); Eosinophils Absolute Manual 0.39 K/mm3 (0.02-0.5); Eosinophils Percent Manual 4 % (0-4); Lymphocytes Absolute Manual 4.45 K/mm3 (1.1-4.5); Monocytes Absolute Manual 0.59 K/mm3 (0.1-0.90); Monocytes Percent Manual 6 % (3-9); Neutrophils Absolute Manual 4.45 K/mm3 (1.3-6.7); Neutrophils Percent Manual 44 % (46-73); Platelet Estimate Decreased (Adequate); Schistocytes None Seen (NORMAL); Total Cells Counted 100
[2022-12-03 15:23] LABS: Anisocytosis 2+ (NORMAL)
--- NOTE | 2022-12-03 15:32 | ED.GENADULT ---
HPI - General Adult General Chief complaint: Weakness Stated complaint: fall History of Present Illness HPI narrative: This is a 67-year-old male, with history of liver cancer on hospice, brought in by EMS after a ground-level fall at home. The patient states he was attempting to sit on his bed, and slid to the floor, landing on his bottom and striking his left shoulder. The patient states the mattress was not fully seated on his bed. He has no other complaints and denies loss of consciousness. The patient was recently seen here after a fall with a rib fracture. He complains of persistent rib pain. Related Data Allergies Allergy/AdvReac Type Severity Reaction Status Date / Time No Known Allergies Allergy Verified 10/17/22 07:20 Review of Systems Review of Systems: CONSTITUTIONAL: Denies fever, chills, or sweats. CARDIOVASCULAR: Chest wall pain Denies chest pain, palpitations, or edema. RESPIRATORY: Denies cough or dyspnea. GASTROINTESTINAL: Denies abdominal pain, nausea, vomiting, or diarrhea. GENITOURINARY: Denies dysuria or hematuria. SKIN: Denies rash or itching. MUSCULOSKELETAL: Left shoulder pain, persistent rib pain denies back pain, joint pain, or myalgia. NEUROLOGIC: Denies headache, numbness, dizziness, or weakness. PSYCHIATRIC: Denies anxiety or depression. [facility] Past Medical History Medical History COPD (chronic obstructive pulmonary disease) ETOH abuse Hepatocellular carcinoma Hyperlipidemia (03/14/14) Non-STEMI (non-ST elevated myocardial infarction) PUD (peptic ulcer disease) Systolic heart failure Tobacco abuse Family History Family History Mother Family history of Alzheimer's disease Carcinoma of colon Father Family history of diabetes mellitus in first degree relative Septicemia Femur fracture Social History Social History Social History: Best friend Subhash to be healthcare surrogate. Patient has no other family. Does not drive Fairly independent. Usually walks to [employer], manages his ADLs Smoking packs per day: 0 Smoking cigarettes per day: 0.0 Years smoked: 35 Smoking pack-years: 0.00 Smoking status: Current every day smoker Tobacco type: cigarettes Second hand tobacco smoke exposure: Yes Alcohol intake: current Drinks per week: 42 Substance use: never Substance use type: does not use Lack of Transportation: YES Lack of Food: Sometimes True Current Housing: I Have Housing Concerned About Future Housing: No Difficulty Paying Gas/Electric Bills: YES Difficulty Paying for Meds: No Currently Unemployed: No Education: Trade/Vocational Certificate Difficulty w/ Childcare or Family Care: No Spiritual care concerns: No Exam Narrative: GENERAL: Well-developed, well-nourished, and in no acute distress. HEAD: Normocephalic, atraumatic. EYES: PERRLA and EOMI. ENT: Nares clear, no rhinorrhea or epistaxis. Mucous membranes moist. Oropharynx without tonsillar hypertrophy exudate or other lesions. NECK: Supple. No midline spine tenderness to palpation, no step-off or crepitus CHEST: Clear to auscultation. No respiratory distress. No wheezes rales or rhonchi HEART: Regular rate and rhythm. No murmur heard. Normal peripheral pulses. ABDOMEN: Soft, nontender, nondistended, normal active bowel sounds. BACK: No midline spine tenderness to palpation, no step-off or crepitus EXTREMITIES: No significant tenderness to palpation of the left shoulder. There is no noted erythema, ecchymosis or deformity. Normal range of motion. No edema. SKIN: Warm, dry, no rash. NEURO: Alert and oriented x3. Moving all 4 limbs purposefully. PSYCH: Normal mood and affect. Course Course Emergency Course: 15:35 - X-rays not concerning for pneumothorax, fracture or dislocation. Chemistries d
[2022-12-03] MEDS: CALCIUM GLUC 1,000 MG/NS 50 ML 1,000 MG/50 ML BAG 100 MG IVPB (15:44)
--- NOTE | 2022-12-03 15:45 | PC.NURSE ---
attempted to walk patient at this time with walker, patient unable to stand upright without falling backwards onto bed. MD Siu made aware at this time.
--- NOTE | 2022-12-03 22:21 | PM.IMHP ---
H&P: HPI History of Present Illness Date/Time: 12/03/22 19:30 Chief Complaint: Fall, unable to get up. Narrative: This is a pleasant 67-year-old male smoker with history of alcohol abuse, hepatocellular carcinoma status post chemoembolization, cirrhosis, peptic ulcer, combined systolic and diastolic heart failure with recent ejection fraction of 35 to 40% and grade 1 diastolic dysfunction, hyperlipidemia, chronic obstructive pulmonary disease, and other comorbidities who presented to the emergency department via EMS from home for evaluation after he was unable to get himself up after a fall. The patient provides the following history. He had been unhoused for quite some time and now has his own place in [place]. He has no family in the area but his friend Subhash does help out if possible. Unfortunately the patient has become increasingly weak and has had numerous falls the last few months. He attributes the falls to his weakness however he reports that a couple of times he ?blacked out? though nobody has given him any answers. In fact he had a fall 3 days ago at which time he was seen in the emergency department where he was found to have fractures of the right 6th, 7th, and 8th ribs. He has been taking oxycodone which seems to help the pain. Today he was attempting sit down on the bed but instead slid to the floor where he was unable to get himself up. EMS was summoned and he was brought to the hospital for evaluation as he was complaining of left shoulder pain. X-ray of the left shoulder showed diffuse osteopenia and left rotator cuff tear or arthropathy. After discussions with the patient, he is being admitted for pain control. Care coordination (Emiliano) was consulted by the ED physician and they will be attempting to find the patient a possible facility depending on how he progresses with therapy tomorrow. Ideally he would like to stay in his own place but understands that might not be an option. Review of Systems Review of Systems: Twelve systems were reviewed. No head trauma or loss of consciousness in the fall today. He denies fever, chills, and sweats. He has a chronic cough which is unchanged. He has chronic shortness of breath with exertion which is also unchanged. No chest or pleuritic pain. Appetite is okay. No nausea, vomiting, or diarrhea. He denies issues with constipation and reports moving his bowels every day or 2. No dysuria. He has persistent pain in the ribs at the site of recent fractures as above. He has lower extremity edema and has been evaluated for possible DVT before but that has always been negative. No calf pain or tenderness. He denies ever having signs or symptoms of alcohol withdrawal. Except as documented, all other systems were reviewed and are negative. [facility] Past Medical History Medical History (Updated 12/03/22 @ 23:31 by Rachel Raines PA-C) Alcohol abuse Chronic obstructive pulmonary disease Cirrhosis Combined systolic and diastolic congestive heart failure Hepatocellular carcinoma Status post chemoembolization. Hyperlipidemia (03/14/14) Kidney stones Non-STEMI (non-ST elevated myocardial infarction) Peptic ulcer Tobacco abuse Family History Family History Mother Family history of Alzheimer's disease Carcinoma of colon Father Family history of diabetes mellitus in first degree relative Septicemia Femur fracture Social History Social History (Updated 12/03/22 @ 23:28 by Rachel Raines PA-C) Social History: Surrogate medical decision maker: Subhash Hong, friend ([phone]). Code status: Do not resuscitate. Smoking packs per day: 0 Smoking cigarettes per day: 0.0 Years smoked: 35 Smoking pack-years: 0.00 Smoking status: Current every day smoker Second hand tobacco smoke exposure: Yes Alcohol intake: current Drinks per week: 42 Substance use: never Substance use type: does not use Lack of Transportat
[2022-12-04] VITALS (8 sets, daily range): BP systolic 100–130; BP diastolic 55–72; PULSE 80–109; RESP 14–20; TEMP 36.6–36.8; O2SAT 94–97
[2022-12-04] MEDS: oxyCODONE HCL (*CRX) 5 MG TAB IR PO ×3 (00:11→20:15)
[2022-12-04 06:42] LABS: Hemoglobin 11.9 g/dL (14.0-18.0); Immature Platelet Fraction Pct 17.9 % (0.9-11.2); Mean Corpuscular Hemoglobin 34.5 pg (26-34); Mean Corpuscular Volume 98.6 fl (80-100); Mean Platelet Volume 13.5 fl (7.4-10.4); Platelet Count Result 68 k/mm3 (150-375); Red Blood Count 3.45 M/mm3 (4.6-6.20); Red Cell Distribution Width 18.4 % (11.5-14.5); White Blood Count 13.7 K/mm3 (4.5-10.0)
--- NOTE | 2022-12-04 06:55 | PC.NURSE ---
Pt A&O x4, able to make needs known. Pt resting comfortably in his bed. Pt was oriented to his surroundings and explained how to use the call light. Fall precautions in place. Pt c/o pain, pain medication was administered per orders. Rights and responsibilities explained along with all the other admission procedures. Pt denies nausea/emesis. Pt able to use a urinal. All the meets are met at this time.
[2022-12-04 06:56] LABS: Anion Gap 11 mmol/L (8-16); Blood Urea Nitrogen 7 mg/dL (9-20); Calcium 7.6 mg/dL (8.4-10.2); Carbon Dioxide 19 mmol/L (22-30); Chloride 104 mmol/L (98-107); Estimated CRCL calculation 131 ml/min; Estimated Glomerular Filt Rate > 60; Glucose 69 mg/dL (65-110); Magnesium 1.3 mg/dL (1.6-2.3); Potassium 3.4 mmol/L (3.4-5.0); Sodium 134 mmol/L (137-145)
[2022-12-04 07:44] LABS: Band Neutrophils Percent 2 % (0-6); Basophils Absolute Manual 0.13 K/mm3 (0.0-0.1); Basophils Percent Manual 1 % (0-1); Eosinophils Absolute Manual 0.13 K/mm3 (0.02-0.5); Eosinophils Percent Manual 1 % (0-4); Lymphocytes Absolute Manual 3.01 K/mm3 (1.1-4.5); Monocytes Absolute Manual 0.95 K/mm3 (0.1-0.90); Monocytes Percent Manual 7 % (3-9); Neutrophils Absolute Manual 9.45 K/mm3 (1.3-6.7); Neutrophils Percent Manual 67 % (46-73); Nucleated Red Blood Cells 1 %; Total Cells Counted 100
[2022-12-04 07:45] LABS: Burr Cells 2+ (NORMAL); Macrocytosis 1+ (NORMAL); Platelet Estimate Decreased (Adequate); Schistocytes None Seen (NORMAL); Smudge Cells PRESENT; Target Cells 1+ (NORMAL)
[2022-12-04 07:46] LABS: Anisocytosis 1+ (NORMAL)
[2022-12-04 07:47] LABS: Alanine Aminotransferase 35 U/L (6-50); Albumin Level 2.3 g/dL (3.5-5.1); Alkaline Phosphatase 117 U/L (38-126); Aspartate Amino Transferase 138 U/L (17-59); Bilirubin Direct 1.9 mg/dL (0-0.3); Bilirubin Indirect 2.8 mg/dL (0-1.1); Bilirubin,Total 6.3 mg/dL (0.2-1.3)
[2022-12-04] MEDS: POTASSIUM CHLORIDE 20 MEQ ER TABLET PO (08:25)
[2022-12-04] MEDS: METOPROLOL SUCCINATE EXT REL 12.5 MG TABCR PO (08:25)
[2022-12-04] MEDS: LOSARTAN POTASSIUM 12.5 MG TABLET PO (08:25)
[2022-12-04] MEDS: MAGNESIUM SULF 2 GM/WATER 50ML 2 GM/50 ML BAG IVPB (08:26)
--- NOTE | 2022-12-04 11:52 | PM.IMPN ---
Progress Note: A&P Assessment and Plan (1) Right rib fracture: Code(s): S22.31XA - Fracture of one rib, right side, initial encounter for closed fracture Status: Acute Assessment and Plan: The patient presents for evaluation of left shoulder pain after a fall. CXR showing again the recent rib fractures noted by the CT scan from 11/30. Also with old rib fractures noted. Left shoulder xray showing rotator cuff tear vs atrophy. He has been having frequent falls due to weakness. He also may be having episodes of possible orthostatic hypotension but no drop in BP from supine to sitting(not done standing though). Resting blood pressures have been stable. Check orthostatic vital signs again. Symptomatic care. PT/OT (2) Frequent falls: Code(s): R29.6 - Repeated falls Status: Acute Assessment and Plan: Related to malnutrition, alcohol, metastatic cancer. As above. (3) Hepatocellular carcinoma: Code(s): C22.0 - Liver cell carcinoma Status: Acute Assessment and Plan: The patient with known HCC s/p chemoembolization. CT chest/abd/pelvis on 11/30 showing 8.6cm liver mass with changes of chemoembolization and right rectus abdominis mass and right adrenal mass c/w metastatic disease. He also has underlying cirrhosis as well. Ammonia level 64 but AOx4 so follow for now. No recent alpha-fetoprotein. ER note states patient is on hospice but he denies this. coordinator mining products consult. (4) Thrombocytopenia: Code(s): D69.6 - Thrombocytopenia, unspecified Status: Acute Assessment and Plan: Patient with chronic thrombocytopenia related to above. Low but stable. (5) Combined systolic and diastolic congestive heart failure: Code(s): I50.40 - Unspecified combined systolic (congestive) and diastolic (congestive) heart failure Status: Acute Assessment and Plan: The patient with chronic systolic and diastolic CHF. He clinically appears euvolemic. Will continue losartan and metoprolol as BP toelrates. Parameters added (6) Chronic obstructive pulmonary disease: Code(s): J44.9 - Chronic obstructive pulmonary disease, unspecified Status: Acute Assessment and Plan: Stable. No wheezing. Not on inhalers. Albuterol prn available Follow (7) Alcohol abuse: Code(s): F10.10 - Alcohol abuse, uncomplicated Status: Inactive Assessment and Plan: Patient was educated about the benefits of alcohol cessation. Start thiamine and folate. Add MVI. Librium prn for signs/symptoms of withdrawal. [place] protocol (8) Tobacco abuse: Code(s): Z72.0 - Tobacco use Status: Acute Assessment and Plan: Patient was educated about the benefits of smoking cessation. Subjective Date/time seen: 12/04/22 11:52 Interval history: 67yo male with HCC, Cirrhosis, alcoholism and tobacco abuse here for fall. Patient lives alone. Complains of rib pain. Also with productive cough. He used to have frequent falls but were better up until 1 week ago when he has had 3 falls. He is being treated for liver CA and last chemo was 2 months ago. No abd pain. Had a brain MRI in [place] recently which was normal per patient. He continues to drink alcohol and smoke tobacco Exam Narrative: AF 98.0 130/62 107 20 95% ra Gen - chronically ill appearing male in NARD HEENT - poor dentition Chest - CTA bilaterally, nml RR CV - RRR S1/S2 with occasional extra beat. Abd - Soft, NT, left liver tip vs mass RUQ. Ext - trace pedal edema. 2+ PT pulses bilaterally Neuro - Alert and oriented x4. Psych - Nml mood and affect Skin - Warm and dry Objective Data Vital Signs Vital Signs: Vital Signs - 24 hr 12/03/22 12:48 12/03/22 15:26 12/03/22 13:03 Temperature 98.2 F Pulse Rate 83 91 86 Respiratory Rate 16 17 14 Blood Pressure 140/107 H 127/90 Pulse Oximetry 97 98 98 Oxygen Delivery 12/03/22 13:20 12/03/22 1
[2022-12-04 12:50] LABS: Ammonia 64 umol/L (9-30)
[2022-12-04] MEDS: guaiFENesin 12 HR 600 MG TABCR PO ×2 (13:26→20:15)
[2022-12-04] MEDS: THIAMINE HCL 100 MG TABLET PO (18:21)
[2022-12-05] VITALS (8 sets, daily range): BP systolic 81–126; BP diastolic 52–76; PULSE 72–105; RESP 12–18; TEMP 36.3–37.2; O2SAT 96–98; BMI 28.6
[2022-12-05 05:37] LABS: Hematocrit 32.2 % (42.0-52.0); Hemoglobin 11.5 g/dL (14.0-18.0); Immature Platelet Fraction Pct 20.4 % (0.9-11.2); Mean Corpuscular HGB Conc 35.7 g/dl (32-36); Mean Corpuscular Hemoglobin 34.4 pg (26-34); Mean Corpuscular Volume 96.4 fl (80-100); Platelet Count Result 63 k/mm3 (150-375); Red Blood Count 3.34 M/mm3 (4.6-6.20); Red Cell Distribution Width 18.2 % (11.5-14.5); White Blood Count 10.5 K/mm3 (4.5-10.0)
[2022-12-05 05:49] LABS: Albumin Level 2.2 g/dL (3.5-5.1); Anion Gap 6 mmol/L (8-16); Blood Urea Nitrogen 9 mg/dL (9-20); Calcium 7.5 mg/dL (8.4-10.2); Carbon Dioxide 25 mmol/L (22-30); Chloride 101 mmol/L (98-107); Estimated CRCL calculation 131 ml/min; Estimated Glomerular Filt Rate > 60; Glucose 103 mg/dL (65-110); Magnesium 1.6 mg/dL (1.6-2.3); Phosphorus 3.2 mg/dL (2.5-4.5); Sodium 132 mmol/L (137-145)
[2022-12-05] MEDS: METOPROLOL SUCCINATE EXT REL 12.5 MG TABCR PO (08:52)
[2022-12-05] MEDS: MAGNESIUM SULF 2 GM/WATER 50ML 2 GM/50 ML BAG IVPB (08:52)
[2022-12-05] MEDS: POTASSIUM CHLORIDE 20 MEQ ER TABLET 40 MEQ PO (08:52)
[2022-12-05] MEDS: FOLIC ACID 1 MG TABLET PO (08:52)
[2022-12-05] MEDS: guaiFENesin 12 HR 600 MG TABCR PO ×2 (08:53→21:45)
[2022-12-05] MEDS: THERAPEUTIC MULTIVITAMINS/MINERALS TAB (*BKC) 1 TABLET PO (08:53)
[2022-12-05] MEDS: THIAMINE HCL 100 MG TABLET PO (08:53)
[2022-12-05] MEDS: LOSARTAN POTASSIUM 12.5 MG TABLET PO (08:53)
--- NOTE | 2022-12-05 09:23 | PCPTNOTE ---
Attempted PT evaluation. Pt eating breakfast. Will follow.
--- NOTE | 2022-12-05 10:56 | PM.IMPN ---
Progress Note: A&P Assessment and Plan (1) Right rib fracture: Code(s): S22.31XA - Fracture of one rib, right side, initial encounter for closed fracture Status: Acute Assessment and Plan: The patient presents for evaluation of left shoulder pain after a fall. CXR showing again the recent rib fractures noted by the CT scan from 11/30. Also with old rib fractures noted. Left shoulder xray showing rotator cuff tear vs atrophy. He has been having frequent falls due to weakness. He also may be having episodes of possible orthostatic hypotension but no drop in BP from supine to sitting(not done standing though). Resting blood pressures have been stable. Symptomatic care. PT/OT (2) Frequent falls: Code(s): R29.6 - Repeated falls Status: Acute Assessment and Plan: Related to malnutrition, alcohol, metastatic cancer. As above. (3) Hepatocellular carcinoma: Code(s): C22.0 - Liver cell carcinoma Status: Acute Assessment and Plan: The patient with known HCC s/p chemoembolization. CT chest/abd/pelvis on 11/30 showing 8.6cm liver mass with changes of chemoembolization and right rectus abdominis mass and right adrenal mass c/w metastatic disease. He also has underlying cirrhosis as well. Ammonia level 64 and AOx3. workforce management coordinator consulted and [facility] actually [facility]. Plan to discharge tomorrow back to hospice care (4) Thrombocytopenia: Code(s): D69.6 - Thrombocytopenia, unspecified Status: Acute Assessment and Plan: Patient with chronic thrombocytopenia related to above. Low but stable. (5) Combined systolic and diastolic congestive heart failure: Code(s): I50.40 - Unspecified combined systolic (congestive) and diastolic (congestive) heart failure Status: Acute Assessment and Plan: The patient with chronic systolic and diastolic CHF. He clinically appears euvolemic. Will continue losartan and metoprolol as BP toelrates. Parameters added (6) Chronic obstructive pulmonary disease: Code(s): J44.9 - Chronic obstructive pulmonary disease, unspecified Status: Acute Assessment and Plan: Stable. No wheezing. Not on inhalers. Albuterol prn available Follow (7) Alcohol abuse: Code(s): F10.10 - Alcohol abuse, uncomplicated Status: Inactive Assessment and Plan: Patient was educated about the benefits of alcohol cessation. Continue thiamine, folate and MVI. Librium prn for signs/symptoms of withdrawal. CIWA protocol (8) Tobacco abuse: Code(s): Z72.0 - Tobacco use Status: Acute Assessment and Plan: Patient was educated about the benefits of smoking cessation. Subjective Date/time seen: 12/05/22 10:56 Interval history: 67yo male with HCC, Cirrhosis, alcoholism and tobacco abuse here for fall. Patient is alert and mostly oriented today. Slept poorly last night for unclear reasons. No CP or SOB. He is not sure where he is on his chemo treatment. He received one dose and nothing furthre. he had an MRI abdomen 2 weeks ago in [place] by his oncologist but did not know results or what next steps are in his treatment; he then mentions that he has been on hospice for the past 2 weeks. Exam Narrative: AF 98.1 117/54 72 18 96% ra Gen - chronically ill appearing male in NARD HEENT - poor dentition Chest - CTA bilaterally, nml RR CV - RRR S1/S2 with occasional extra beat. Abd - Soft, NT, soft tissue mass RUQ Ext - no pedal edema Neuro - Alert and oriented x3 Psych - Nml mood and affect Skin - Warm and dry. spider hemangiomas noted Objective Data Vital Signs Vital Signs: Vital Signs - 24 hr 12/04/22 14:00 12/04/22 21:13 12/04/22 20:00 Temperature 97.8 F 98.3 F Pulse Rate 89 80 Respiratory Rate 16 18 Blood Pressure 102/55 L 100/60 108/62 Pulse Oximetry 95 97 Oxygen Delivery 12/04/22 20:00 12/05/22 00:00 12/05/22 04:00
[2022-12-05] MEDS: LACTULOSE 20 GM/30 ML UDC PO (14:24)
[2022-12-05] MEDS: chlordiazePOXIDE (*CRX) 25 MG CAPSULE PO (21:53)
[2022-12-05] MEDS: oxyCODONE HCL (*CRX) 5 MG TAB IR PO (22:09)
[2022-12-06 02:58] VITALS: BP 113/69; PULSE 92; RESP 18; TEMP 37.2; O2SAT 96
[2022-12-06] MEDS: LORazepam INJ (*CRX) 2 MG/ML VIAL 1 MG IV PUSH ×3 (02:58→20:32)
[2022-12-06] MEDS: chlordiazePOXIDE (*CRX) 25 MG CAPSULE 50 MG PO ×3 (03:08→20:37)
[2022-12-06] MEDS: THIAMINE HCL 100 MG TABLET PO (08:30)
[2022-12-06] MEDS: guaiFENesin 12 HR 600 MG TABCR PO (08:30)
[2022-12-06] MEDS: FOLIC ACID 1 MG TABLET PO (08:30)
[2022-12-06 08:31] VITALS: PULSE 94
[2022-12-06] MEDS: METOPROLOL SUCCINATE EXT REL 12.5 MG TABCR PO (08:31)
[2022-12-06 11:45] VITALS: BMI 10.0
--- NOTE | 2022-12-06 13:36 | PC.NURSE ---
On 12/06/22, the student, [Marine Nguyen], provided care and completed [facility] documentation on this patient. I have reviewed the student's documentation and agree with the findings.
[2022-12-06 14:34] VITALS: BP 136/80; PULSE 107; RESP 18; TEMP 36.3; O2SAT 97
--- NOTE | 2022-12-06 17:08 | PM.IMPN ---
Progress Note: A&P Assessment and Plan (1) Hepatocellular carcinoma: Code(s): C22.0 - Liver cell carcinoma Status: Acute Assessment and Plan: The patient with known HCC s/p chemoembolization. CT chest/abd/pelvis on 11/30 showing 8.6cm liver mass with changes of chemoembolization and right rectus abdominis mass and right adrenal mass c/w metastatic disease. He also has underlying cirrhosis as well. dye and chemical coordinator consulted and patient actually is [facility]. Patient ws living alone but can not care for himself. Will try to find another hospice service that could possibly get him to a residential but patietn only wants to go home. Discharge plan uncertain now (2) Right rib fracture: Code(s): S22.31XA - Fracture of one rib, right side, initial encounter for closed fracture Status: Acute Assessment and Plan: The patient presents for evaluation of left shoulder pain after a fall. CXR showing again the recent rib fractures noted by the CT scan from 11/30. Also with old rib fractures noted. Left shoulder xray showing rotator cuff tear vs atrophy. He has been having frequent falls due to weakness. He also may be having episodes of possible orthostatic hypotension but no drop in BP from supine to sitting(not done standing though). Resting blood pressures have been stable. Symptomatic care. PT/OT (3) Frequent falls: Code(s): R29.6 - Repeated falls Status: Acute Assessment and Plan: Related to malnutrition, alcohol, metastatic cancer. As above. (4) Thrombocytopenia: Code(s): D69.6 - Thrombocytopenia, unspecified Status: Acute Assessment and Plan: Patient with chronic thrombocytopenia related to above. Low but stable. (5) Combined systolic and diastolic congestive heart failure: Code(s): I50.40 - Unspecified combined systolic (congestive) and diastolic (congestive) heart failure Status: Acute Assessment and Plan: The patient with chronic systolic and diastolic CHF. He clinically appears euvolemic. Will continue losartan and metoprolol as BP toelrates. Parameters added (6) Chronic obstructive pulmonary disease: Code(s): J44.9 - Chronic obstructive pulmonary disease, unspecified Status: Acute Assessment and Plan: Stable. No wheezing. Not on inhalers. Albuterol prn available Follow (7) Alcohol abuse: Code(s): F10.10 - Alcohol abuse, uncomplicated Status: Inactive Assessment and Plan: Patient was educated about the benefits of alcohol cessation. Continue thiamine, folate and MVI. Librium prn for signs/symptoms of withdrawal. He is requiring Librium and Ativan at times. Continue CIWA protocol (8) Tobacco abuse: Code(s): Z72.0 - Tobacco use Status: Acute Assessment and Plan: Patient was educated about the benefits of smoking cessation. Subjective Date/time seen: 12/06/22 0830 Interval history: 67yo male with HCC, Cirrhosis, alcoholism and tobacco abuse here for fall. Patient having bouts of confusion. Slept poorly last night. Exam Narrative: AF 97.3 136/80 107 18 97% ra Gen - chronically ill appearing male in NARD Chest - lungs clear anteriorly CV - RRR S1/S2 Abd - Soft, NT, soft tissue mass RUQ Ext - no pedal edema Neuro - Alert and oriented x3 (not the location) Psych - Nml mood and affect Skin - Warm and dry. Objective Data Vital Signs Vital Signs: Vital Signs - 24 hr 12/05/22 20:34 12/06/22 02:58 12/06/22 08:31 Temperature 98.9 F 98.9 F Pulse Rate 86 92 94 Respiratory Rate 18 18 Blood Pressure 126/76 113/69 Pulse Oximetry 98 96 Oxygen Delivery 12/06/22 08:00 12/06/22 14:34 Temperature 97.3 F L Pulse Rate 107 H Respiratory Rate 18 Blood Pressure 136/80 Pulse Oximetry 97 Oxygen Delivery Room Air Intake/Output Intake/Output: Intake & Output 12/03/22 12/04/22 12/05/22
[2022-12-06 20:00] VITALS: BP 115/54; PULSE 94; RESP 18; TEMP 36.4; O2SAT 97
--- NOTE | 2022-12-06 20:44 | PC.NURSE ---
pt exhibited significant aspiration again while taking PO librium for ETOH withdrawal, non admin guaifenesin at this time. Provider notified again. Pt is hospice care outpatient and has been allowed PO intake. Pt will be NPO until mentation improves to allow for PO intake again.
[2022-12-06 22:00] VITALS: BP 111/63; PULSE 96; RESP 18; TEMP 37.1; O2SAT 99
[2022-12-07] MEDS: LORazepam INJ (*CRX) 2 MG/ML VIAL 1 MG IV PUSH (02:11)
--- NOTE | 2022-12-07 09:00 | PM.DS ---
DS: Discharge Diagnosis Discharge Diagnosis (1) Hepatocellular carcinoma: Code(s): C22.0 - Liver cell carcinoma Status: Acute Assessment and Plan: The patient with known HCC s/p chemoembolization. CT chest/abd/pelvis on 11/30 showing 8.6cm liver mass with changes of chemoembolization and right rectus abdominis mass and right adrenal mass c/w metastatic disease. He also has underlying cirrhosis as well. retail and promotions coordinator consulted and patient actually is [facility]. Patient ws living alone but can not care for himself. Will try to find another hospice service that could possibly get him to a chcf but patietn only wants to go home. Discharge plan uncertain now (2) Right rib fracture: Code(s): S22.31XA - Fracture of one rib, right side, initial encounter for closed fracture Status: Acute Assessment and Plan: The patient presents for evaluation of left shoulder pain after a fall. CXR showing again the recent rib fractures noted by the CT scan from 11/30. Also with old rib fractures noted. Left shoulder xray showing rotator cuff tear vs atrophy. He has been having frequent falls due to weakness. He also may be having episodes of possible orthostatic hypotension but no drop in BP from supine to sitting(not done standing though). Resting blood pressures have been stable. Symptomatic care. PT/OT (3) Frequent falls: Code(s): R29.6 - Repeated falls Status: Acute Assessment and Plan: Related to malnutrition, alcohol, metastatic cancer. As above. (4) Thrombocytopenia: Code(s): D69.6 - Thrombocytopenia, unspecified Status: Acute Assessment and Plan: Patient with chronic thrombocytopenia related to above. Low but stable. (5) Combined systolic and diastolic congestive heart failure: Code(s): I50.40 - Unspecified combined systolic (congestive) and diastolic (congestive) heart failure Status: Acute Assessment and Plan: The patient with chronic systolic and diastolic CHF. He clinically appears euvolemic. Will continue losartan and metoprolol as BP toelrates. Parameters added (6) Chronic obstructive pulmonary disease: Code(s): J44.9 - Chronic obstructive pulmonary disease, unspecified Status: Acute Assessment and Plan: Stable. No wheezing. Not on inhalers. Albuterol prn available Follow (7) Alcohol abuse: Code(s): F10.10 - Alcohol abuse, uncomplicated Status: Inactive Assessment and Plan: Patient was educated about the benefits of alcohol cessation. Continue thiamine, folate and MVI. Librium prn for signs/symptoms of withdrawal. He is requiring Librium and Ativan at times. Continue CIWA protocol (8) Tobacco abuse: Code(s): Z72.0 - Tobacco use Status: Acute Assessment and Plan: Patient was educated about the benefits of smoking cessation. DS: Summary Time Spent with Patient Time attestation: Total time spent providing and/or coordinating discharge services: Exam Narrative: AF 97.3 136/80 107 18 97% ra Gen - chronically ill appearing male in NARD Chest - lungs clear anteriorly CV - RRR S1/S2 Abd - Soft, NT, soft tissue mass RUQ Ext - no pedal edema Neuro - Alert and oriented x3 (not the location) Psych - Nml mood and affect Skin - Warm and dry. Discharge Plan Discharge Attending physician on discharge: Delmis Araujo Discharging Clinician: Delmis Araujo Patient Disposition: Hospice - Medical Facility Activity: as tolerated Diet: as tolerated Stand Alone Forms: General Discharge Information Discharge Medications: New folic acid 1 mg Tablet 1 mg PO DAILY 30 Days Qty: 30 0RF lactulose 20 gram/30 mL Solution 20 g PO QAM 30 Days Qty: 900 0RF thiamine HCl (vitamin B1) [Vitamin B-1] 100 mg Tablet 100 mg PO QAM 30 Days Qty: 30 0RF Continued metoprolol succinate [Toprol XL] 25 mg ta
[2022-12-07 13:14] VITALS: BP 111/63; PULSE 96; RESP 18; TEMP 37.1; O2SAT 99
[2022-12-07 14:00] VITALS: BP 102/59; PULSE 80; RESP 13; TEMP 36.6; O2SAT 97
[2022-12-07 19:57] VITALS: BP 90/53; PULSE 80; RESP 18; TEMP 36.4; O2SAT 94
[2022-12-07 20:00] VITALS: BP 90/53; PULSE 80; RESP 18; TEMP 36.4; O2SAT 94
[2022-12-08 05:50] VITALS: BP 90/45; PULSE 77; RESP 18; TEMP 36.5; O2SAT 100
[2022-12-08 08:00] VITALS: BP 89/54
[2022-12-08] MEDS: SODIUM CHLORIDE 0.9% IV 1,000 ML 999 ML IV CONT (11:06)
--- NOTE | 2022-12-08 12:30 | PCSTNOTE ---
Please refer to the Bedside Swallow Evaluation in the EMR. Please note, silent aspiration cannot be ruled out at bedside.
[2022-12-08 14:00] VITALS: BP 102/70; PULSE 77; RESP 14; TEMP 36.6; O2SAT 97
--- NOTE | 2022-12-08 15:37 | PM.IMPN ---
Progress Note: A&P Assessment and Plan (1) Hepatocellular carcinoma: Code(s): C22.0 - Liver cell carcinoma Status: Acute Assessment and Plan: The patient with known HCC s/p chemoembolization. CT chest/abd/pelvis on 11/30 showing 8.6cm liver mass with changes of chemoembolization and right rectus abdominis mass and right adrenal mass c/w metastatic disease. He also has underlying cirrhosis as well. quality improvement coordinator consulted and patient actually is [facility]. Patient ws living alone but can not care for himself. Will try to find another hospice service that could possibly get him to a alf but patietn only wants to go home. Discharge plan uncertain now, still trying to figure out where patient can go (2) Right rib fracture: Code(s): S22.31XA - Fracture of one rib, right side, initial encounter for closed fracture Status: Acute Assessment and Plan: The patient presents for evaluation of left shoulder pain after a fall. CXR showing again the recent rib fractures noted by the CT scan from 11/30. Also with old rib fractures noted. Left shoulder xray showing rotator cuff tear vs atrophy. He has been having frequent falls due to weakness. He also may be having episodes of possible orthostatic hypotension but no drop in BP from supine to sitting(not done standing though). Resting blood pressures have been stable. Symptomatic care. PT/OT (3) Frequent falls: Code(s): R29.6 - Repeated falls Status: Acute Assessment and Plan: Related to malnutrition, alcohol, metastatic cancer. As above. (4) Thrombocytopenia: Code(s): D69.6 - Thrombocytopenia, unspecified Status: Acute Assessment and Plan: Patient with chronic thrombocytopenia related to above. Low but stable. (5) Combined systolic and diastolic congestive heart failure: Code(s): I50.40 - Unspecified combined systolic (congestive) and diastolic (congestive) heart failure Status: Acute Assessment and Plan: The patient with chronic systolic and diastolic CHF. He clinically appears euvolemic. Will continue losartan and metoprolol as BP toelrates. Parameters added (6) Chronic obstructive pulmonary disease: Code(s): J44.9 - Chronic obstructive pulmonary disease, unspecified Status: Acute Assessment and Plan: Stable. No wheezing. Not on inhalers. Albuterol prn available Follow (7) Alcohol abuse: Code(s): F10.10 - Alcohol abuse, uncomplicated Status: Inactive Assessment and Plan: Patient was educated about the benefits of alcohol cessation. Continue thiamine, folate and MVI. Librium prn for signs/symptoms of withdrawal. He is requiring Librium and Ativan at times. Continue CIWA protocol (8) Tobacco abuse: Code(s): Z72.0 - Tobacco use Status: Acute Assessment and Plan: Patient was educated about the benefits of smoking cessation. Subjective Date/time seen: 12/07/22 15:37 Interval history: 67yo male with HCC, Cirrhosis, alcoholism and tobacco abuse here for fall. Patient very somnolent and somewhat confused. No overnight events, no fevers, no complaints. Review of Systems Review of Systems: ROS unobtainable: Yes unobtainable due to mental status Exam Narrative: General: Somnolent, easily arousable HEENT: Atraumatic, normocephalic, mucous membranes moist CV: Regular rate and rhythm, S1, S2 Lungs: Clear to auscultation bilaterally, no rales or crackles noted, no wheezes, good air entry Abdomen: Soft, nontender, nondistended Extremities: Normal to inspection Skin: No rashes noted, no lesions or wounds seen Psych: Unable to assess Objective Data Vital Signs Vital Signs: Vital Signs - 24 hr 12/07/22 19:57 12/07/22 20:00 12/07/22 20:00 Temperature 97.5 F L 97.5 F L Pulse Rate 80 80 Respiratory Rate 18 18 Blood Pressure 90/53 L 90/53 L Pulse Oximetry 94
--- NOTE | 2022-12-08 15:41 | PM.IMPN ---
Progress Note: A&P Assessment and Plan (1) Hepatocellular carcinoma: Code(s): C22.0 - Liver cell carcinoma Status: Acute Assessment and Plan: The patient with known HCC s/p chemoembolization. CT chest/abd/pelvis on 11/30 showing 8.6cm liver mass with changes of chemoembolization and right rectus abdominis mass and right adrenal mass c/w metastatic disease. He also has underlying cirrhosis as well. international logistics coordinator consulted and patient actually is [facility]. Patient was living alone but can not care for himself. Will try to find another hospice service that could possibly get him to a chcf but patient only wants to go home. Discharge plan uncertain now, still trying to figure out where patient can go Patient now refusing hospice or nursing facility would like to go by himself, PT/OT/ST rose so all ordered and pending (2) Right rib fracture: Code(s): S22.31XA - Fracture of one rib, right side, initial encounter for closed fracture Status: Acute Assessment and Plan: The patient presents for evaluation of left shoulder pain after a fall. CXR showing again the recent rib fractures noted by the CT scan from 11/30. Also with old rib fractures noted. Left shoulder xray showing rotator cuff tear vs atrophy. He has been having frequent falls due to weakness. He also may be having episodes of possible orthostatic hypotension but no drop in BP from supine to sitting(not done standing though). Resting blood pressures have been stable. Symptomatic care. PT/OT (3) Frequent falls: Code(s): R29.6 - Repeated falls Status: Acute Assessment and Plan: Related to malnutrition, alcohol, metastatic cancer. As above. (4) Thrombocytopenia: Code(s): D69.6 - Thrombocytopenia, unspecified Status: Acute Assessment and Plan: Patient with chronic thrombocytopenia related to above. Low but stable. (5) Combined systolic and diastolic congestive heart failure: Code(s): I50.40 - Unspecified combined systolic (congestive) and diastolic (congestive) heart failure Status: Acute Assessment and Plan: The patient with chronic systolic and diastolic CHF. He clinically appears euvolemic. Will continue losartan and metoprolol as BP toelrates. Parameters added (6) Chronic obstructive pulmonary disease: Code(s): J44.9 - Chronic obstructive pulmonary disease, unspecified Status: Acute Assessment and Plan: Stable. No wheezing. Not on inhalers. Albuterol prn available Follow (7) Alcohol abuse: Code(s): F10.10 - Alcohol abuse, uncomplicated Status: Inactive Assessment and Plan: Patient was educated about the benefits of alcohol cessation. Continue thiamine, folate and MVI. Librium prn for signs/symptoms of withdrawal. He is requiring Librium and Ativan at times. Continue CIWA protocol (8) Tobacco abuse: Code(s): Z72.0 - Tobacco use Status: Acute Assessment and Plan: Patient was educated about the benefits of smoking cessation. Subjective Date/time seen: 12/08/22 15:41 Interval history: 67yo male with HCC, Cirrhosis, alcoholism and tobacco abuse here for fall. No overnight events noted. No chest pain or shortness of breath. No nausea, vomiting or diarrhea. No fevers or chills. Patient much more awake and alert today. Eager to go home, refusing placement or hospice. Review of Systems Review of Systems: 12 point review of systems was assessed and was negative except as noted in the HPI Exam Narrative: General: No acute distress, alert and oriented per baseline HEENT: Atraumatic, normocephalic, mucous membranes moist CV: Regular rate and rhythm, S1, S2 Lungs: Clear to auscultation bilaterally, no rales or crackles noted, no wheezes, good air entry Abdomen: Soft, nontender, nondistended Extremities: Normal to inspection Skin: No rashes noted, no le
[2022-12-08] MEDS: SODIUM CHLORIDE 0.9% IV 1,000 ML 70 ML IV CONT (17:59)
--- NOTE | 2022-12-08 18:19 | PC.NURSE ---
Pt alert and oriented today. Requesting to no longer follow with hospice/home care. Also requesting to be made a modified code- Do Not Intubate. Notified provider of these changes and patient's BP of 89/54. Received order to give an IV bolus and swallow eval. Patient failed bedside eval and was recommended to be kept NPO. No new orders received. Attempted to reach provider multiple times regarding patient's condition. Patient now wanting to leave AMA. Patient agreeable to waiting until the morning when he has a ride available to pick him up. Received orders for maintenance fluids from evening provider.
[2022-12-08 21:17] VITALS: BP 103/64; PULSE 74; RESP 18; TEMP 36.3; O2SAT 98
[2022-12-09] MEDS: SODIUM CHLORIDE 0.9% IV 1,000 ML 70 ML IV CONT (04:36)
[2022-12-09 05:26] VITALS: BP 102/59; PULSE 73; RESP 17; TEMP 36.7; O2SAT 96
[2022-12-09 06:13] LABS: Hematocrit 35.1 % (42.0-52.0); Hemoglobin 12.2 g/dL (14.0-18.0); Immature Platelet Fraction Pct 15.5 % (0.9-11.2); Mean Corpuscular HGB Conc 34.8 g/dl (32-36); Mean Corpuscular Hemoglobin 35.5 pg (26-34); Mean Platelet Volume 12.6 fl (7.4-10.4); Platelet Count Result 71 k/mm3 (150-375); Red Blood Count 3.44 M/mm3 (4.6-6.20); Red Cell Distribution Width 19.6 % (11.5-14.5); White Blood Count 8.5 K/mm3 (4.5-10.0)
[2022-12-09 06:17] LABS: Anion Gap 3 mmol/L (8-16); Blood Urea Nitrogen 9 mg/dL (9-20); Calcium 7.3 mg/dL (8.4-10.2); Carbon Dioxide 22 mmol/L (22-30); Chloride 109 mmol/L (98-107); Estimated CRCL calculation 176 ml/min; Estimated Glomerular Filt Rate > 60; Glucose 76 mg/dL (65-110); Potassium 3.4 mmol/L (3.4-5.0); Sodium 134 mmol/L (137-145)
[2022-12-09 06:24] LABS: Ammonia 35 umol/L (9-30)
[2022-12-09 06:56] LABS: Eosinophils Absolute Manual 0.34 K/mm3 (0.02-0.5); Eosinophils Percent Manual 4 % (0-4); Large Platelets Present; Lymphocytes Absolute Manual 2.12 K/mm3 (1.1-4.5); Monocytes Absolute Manual 1.02 K/mm3 (0.1-0.90); Monocytes Percent Manual 12 % (3-9); Neutrophils Percent Manual 59 % (46-73); Target Cells 1+ (NORMAL); Total Cells Counted 100
[2022-12-09 06:57] LABS: Schistocytes None Seen (NORMAL)
[2022-12-09 09:17] VITALS: O2SAT 96
--- NOTE | 2022-12-09 11:44 | PCPTNOTE ---
Attempted to see patient for PT, however patient refused. Patient reported he wants a drink first, patient is NPO.
--- NOTE | 2022-12-09 13:55 | PC.NURSE ---
Patient notified of risks of leaving AMA. Dr. Krause notified. Patient signed AMA form.
--- NOTE | 2022-12-09 16:36 | PM.DS ---
DS: Admitting Diagnosis Discharge Date 12/09/22 Admitting Diagnosis falls DS: Discharge Diagnosis Discharge Diagnosis (1) Hepatocellular carcinoma: Code(s): C22.0 - Liver cell carcinoma Status: Acute (2) Right rib fracture: Code(s): S22.31XA - Fracture of one rib, right side, initial encounter for closed fracture Status: Acute (3) Frequent falls: Code(s): R29.6 - Repeated falls Status: Acute (4) Thrombocytopenia: Code(s): D69.6 - Thrombocytopenia, unspecified Status: Acute (5) Combined systolic and diastolic congestive heart failure: Code(s): I50.40 - Unspecified combined systolic (congestive) and diastolic (congestive) heart failure Status: Acute (6) Chronic obstructive pulmonary disease: Code(s): J44.9 - Chronic obstructive pulmonary disease, unspecified Status: Acute (7) Alcohol abuse: Code(s): F10.10 - Alcohol abuse, uncomplicated Status: Inactive (8) Tobacco abuse: Code(s): Z72.0 - Tobacco use Status: Acute DS: Summary Hospital Course Hospital Course: HPI: This is a pleasant 67-year-old male smoker with history of alcohol abuse, hepatocellular carcinoma status post chemoembolization, cirrhosis, peptic ulcer, combined systolic and diastolic heart failure with recent ejection fraction of 35 to 40% and grade 1 diastolic dysfunction, hyperlipidemia, chronic obstructive pulmonary disease, and other comorbidities who presented to the emergency department via EMS from home for evaluation after he was unable to get himself up after a fall. The patient provides the following history. He had been unhoused for quite some time and now has his own place in [place]. He has no family in the area but his friend Subhash does help out if possible. Unfortunately the patient has become increasingly weak and has had numerous falls the last few months. He attributes the falls to his weakness however he reports that a couple of times he ?blacked out? though nobody has given him any answers. In fact he had a fall 3 days ago at which time he was seen in the emergency department where he was found to have fractures of the right 6th, 7th, and 8th ribs. He has been taking oxycodone which seems to help the pain. Today he was attempting sit down on the bed but instead slid to the floor where he was unable to get himself up. EMS was summoned and he was brought to the hospital for evaluation as he was complaining of left shoulder pain. X-ray of the left shoulder showed diffuse osteopenia and left rotator cuff tear or arthropathy. After discussions with the patient, he is being admitted for pain control. Care coordination (Emiliano) was consulted by the ED physician and they will be attempting to find the patient a possible facility depending on how he progresses with therapy tomorrow. Ideally he would like to stay in his own place but understands that might not be an option. During the hospital course patient refused to work with therapy. He also failed a swallow evaluation and was kept NPO until completion of modified barium swallow. This was most likely related to his mental status. He was treated with IV fluids. It was recommended for him to go to rehabilitation however patient refused. Patient was alert and oriented x3 on my evaluation. He was offered to work with physical therapy and speech therapy and do modified barium swallow however patient adamant at going home today and eventually left against medical advice. Time Spent with Patient Time attestation: Total time spent providing and/or coordinating discharge services: 35 minutes Exam Narrative: General:? No acute distress, alert and oriented x3 HEENT:? Atraumatic, normocephalic, mucous membranes moist CV:? Regular rate and rhythm, S1, S2 Lungs:? Clear to auscultation bilaterally, no rales or crackles noted, no wheezes, good air entry Abdomen:? Soft, nontender, nondistended Extremities:? Normal to inspect
[2022-12-10 17:48] LABS: Alpha Fetoprotein Tumor Marker 4.3 ng/mL (<6.1)
== END 2022-12-09 13:54 | disposition left against medical advice (07) | DRG 184 ==
LOC: ANHED 18:52 → ANH2MED 19:15
PROVIDERS: Family Medicine; Internal Medicine; Admitting Provider General Practice; Emergency Provider Preventive Medicine Aerospace Medicine; Visit Provider Internal Medicine
DX: S22.41XA Multiple fractures of ribs, right side, initial encounter for closed fracture (principal); C22.0 Liver cell carcinoma; C79.71 Secondary malignant neoplasm of right adrenal gland; I50.42 Chronic combined systolic (congestive) and diastolic (congestive) heart failure; C79.89 Secondary malignant neoplasm of other specified sites; E46 Unspecified protein-calorie malnutrition; S40.012A Contusion of left shoulder, initial encounter; R53.1 Weakness; D69.6 Thrombocytopenia, unspecified; J44.9 Chronic obstructive pulmonary disease, unspecified; K74.60 Unspecified cirrhosis of liver; E78.5 Hyperlipidemia, unspecified; R29.6 Repeated falls; F10.10 Alcohol abuse, uncomplicated; W06.XXXA Fall from bed, initial encounter; I25.2 Old myocardial infarction; Z87.891 Personal history of nicotine dependence; Z68.26 Body mass index [BMI] 26.0-26.9, adult
CPT/HCPCS: 36415; 71046; 73030; 80048; 80053; 80069; 80076; 82105; 82140; 83735; 85025; 85027; 85055; 92610; 93005; 96365; 96366; 96367; 96375; 96376; 97161; 97166; 97530; 97535; 99285; A9270; G0378; J0612; J2060; J2270; J3475; J7030

== ENCOUNTER 2022-12-22 08:19 | Inpatient (IN) | payer OTHER, MEDICARE, SELFPAY ==
[2022-12-22] VITALS (18 sets, daily range): BP systolic 91–125; BP diastolic 63–77; PULSE 82–91; RESP 15–20; TEMP 36.6–37.2; O2SAT 91–100; BMI 29.5
--- NOTE | ~2022-12-22 | XR_ITS ---
EXAMINATION: XR chest 1V portable DATE: 12/22/2022 08:49 INDICATION: Lower extremity edema. TECHNIQUE: A single frontal view of the chest was obtained. COMPARISON: Chest 2 views 12/03/2022 FINDINGS: The patient is rotated to his right. There is mild atelectasis at left lung base. No pleura l effusion or pneumothorax. The heart size is normal. There are old healed left rib fractures. IMPRESSION: 1. Mild atelectasis at left lung base. Reviewed, dictated and finalized at location A. ET TURNER
--- NOTE | 2022-12-22 08:29 | ED.LOWEXIN ---
HPI - Extremity Injury (Lower) General Chief Complaint: Extremity Problem,Nontraumatic Stated Complaint: edema Time Seen by Provider: 12/22/22 08:28 Source: patient and EMS Mode of arrival: EMS Limitations: no limitations and physical limitation History of Present Illness HPI Narrative: this is a 67-year-old male that presents via EMS with some lower extremity erythema warmth redness and pain, does have pitting edema to his lower extremities bilaterally, this is a patient that is currently on hospice and his hospice nurse was that he was visiting his home and felt that he has cellulitis of the lower extremities and would require IV antibiotics. Patient has a history of hepatocellular carcinoma, and CHF COPD alcohol abuse. Currently the patient is alert oriented his blood pressure is stable when he 1st came in patient currently receiving IV fluids via EMS. There is currently no fever chills no chest pain no shortness of breath does complain of pain to his lower extremities. Onset (ago): hour(s) Place: home Severity: moderate Related Data Home Medications Medication Instructions Recorded Confirmed atorvastatin 40 mg tablet (Lipitor) 40 mg PO QHS 12/03/22 12/22/22 metoprolol succinate 25 mg 12.5 mg PO DAILY 12/03/22 12/22/22 tablet,extended release 24 hr (Toprol XL) Allergies Allergy/AdvReac Type Severity Reaction Status Date / Time No Known Allergies Allergy Verified 10/17/22 07:20 Review of Systems Review of Systems: All systems reviewed & are unremarkable except as noted in HPI and below PMFSH Past Medical History Medical History Alcohol abuse Chronic obstructive pulmonary disease Cirrhosis Combined systolic and diastolic congestive heart failure Hepatocellular carcinoma Status post chemoembolization. Hyperlipidemia (03/14/14) Kidney stones Non-STEMI (non-ST elevated myocardial infarction) Peptic ulcer Tobacco abuse Family History Family History Mother Family history of Alzheimer's disease Carcinoma of colon Father Family history of diabetes mellitus in first degree relative Septicemia Femur fracture Social History Social History Social History: Surrogate medical decision maker: Subhashdemario Hong, friend ([phone]). Code status: Do not resuscitate. Smoking packs per day: 0.5 Smoking cigarettes per day: 10.0 Years smoked: 33 Smoking pack-years: 16.50 Smoking status: Current every day smoker Tobacco type: cigarettes Second hand tobacco smoke exposure: Yes Alcohol intake: current Drinks per week: 42 Substance use: never Substance use type: does not use Lack of Transportation: YES Lack of Food: Never True Current Housing: I Have Housing Concerned About Future Housing: No Difficulty Paying Gas/Electric Bills: YES Difficulty Paying for Meds: No Currently Unemployed: No Education: Trade/Vocational Certificate Difficulty w/ Childcare or Family Care: No Additional living arrangements comments: Lives in [place]. He has children but not in the area. Additional occupation/education comments: Retired. Spiritual care concerns: Yes Exam Const: General: no acute distress Nutritional Appearance: well nourished Orientation/consciousness: patient oriented x3 Limitations: physical limitations Eyes: Conjunctivae: conjunctivae normal Pupils: Equal, round and reactive pupils present Chest: Chest palpation & inspection: normal inspection of the chest Resp: Effort & Inspection: normal respiratory effort Auscultation: clear to auscultation bilaterally Cardio: Rate: regular rate Rhythm: regular rhythm GI: GI Palp: Yes Soft to palpation Auscultation: normal bowel sounds : General: Yes bladder normal to palpation Skin: Wounds: wounds noted Other: Bilateral lower extremity
--- NOTE | 2022-12-22 08:35 | ECG_ITS ---
Measurements Intervals [place] Rate: 83 P: 72 CO: 245 QRS: -63 QRSD: 145 T: 58 QT: 453 QTc: 534 Interpretive Statements SINUS RHYTHM WITH FIRST DEGREE AV BLOCK LEFT BUNDLE BRANCH BLOCK BASELINE ARTIFACT- II, III, AVR, AVF, V2 ABNORMAL ECG COMPARED TO ECG 12/03/2022 13:04:08 VENTRICULAR PREMATURE COMPLEXES NO LONGER PRESENT Electronically Signed On 12-22-2022 9:08:32 DREDGE PIPE OPERATOR by Terry Vicente D.O.
[2022-12-22 09:04] LABS: Hematocrit 32.5 % (37.0-46.0); Hemoglobin 11.6 g/dL (12.4-15.3); Mean Corpuscular HGB Conc 35.7 g/dL (32.0-36.0); Mean Corpuscular Volume 98.2 fL (78.0-102.0); Mean Platelet Volume 11.4 fl (8.7-11.0); Platelet Count Result 175 K/mm3 (150-420); Red Blood Count 3.31 M/mm3 (4.70-6.10); Red Cell Distribution Width 16.7 % (11.6-14.4); White Blood Count 8.8 K/mm3 (4.8-10.8)
[2022-12-22] MEDS: MORPHINE SULFATE (*CRX) 2 MG/ML INJ IV PUSH (09:12)
[2022-12-22] MEDS: SODIUM CHLORIDE 0.9% IV 1,000 ML 999 ML IV CONT (09:13)
[2022-12-22 09:16] LABS: Band Neutrophils Percent 0 % (0-6); Basophils Percent Manual 0 % (0-1); Eosinophils Absolute Manual 0.35 K/mm3 (0.02-0.5); Eosinophils Percent Manual 4 % (1-6); Lymphocytes Percent Manual 58 % (18-44); Monocytes Absolute Manual 0.52 K/mm3 (0.1-0.90); Monocytes Percent Manual 6 % (3-9); Neutrophils Absolute Manual 2.81 K/mm3 (1.3-6.7); Neutrophils Percent Manual 32 % (46-73); Platelet Estimate Adequate (Adequate); Total Cells Counted 100
[2022-12-22 09:17] LABS: INR 1.3; Partial Thromboplastin Time 30.8 SEC (23.90-30.70)
[2022-12-22] MEDS: PIPERACILLN/TAZ 3.375GM/NS50ML 3.375 GM/50 ML BAG IVPB (09:19)
[2022-12-22 09:29] LABS: Alanine Aminotransferase 46 U/L (16-63); Albumin Level 1.5 g/dL (3.4-5.0); Alkaline Phosphatase 298 U/L (46-116); Anion Gap 7 mmol/L (8-16); Aspartate Amino Transferase 95 U/L (15-37); Bilirubin,Total 2.5 mg/dL (0.00-1.00); Blood Urea Nitrogen 8 mg/dL (7-18); CRP 1.3 mg/dL (0.0-0.9); Calcium 7.4 mg/dL (8.5-10.1); Carbon Dioxide 27 mmol/L (21-32); Chloride 103 mmol/L (98-108); Estimated CRCL calculation 72 ml/min; Estimated Glomerular Filt Rate > 60; Glucose 87 mg/dL (70-99); Lactic Acid Reflex 1.9 mmol/L (0.4-2.0); Osmolality Calculated 281 mOsm/kg (285-295); Potassium 3.6 mmol/L (3.5-5.1); Sodium 137 mmol/L (136-145); Total Protein 6.2 g/dL (6.4-8.2)
[2022-12-22 09:31] LABS: NT Pro B Type Natriuretic Pept 362 pg/mL (0-125)
[2022-12-22] MEDS: LACTATED RINGERS 1,000 ML 150 ML IV CONT (10:00)
[2022-12-22 10:33] LABS: Appearance Urine Clear (Clear); Bilirubin Urine Negative (Negative); Blood Urine Trace-Intact (Negative); Color Urine Yellow (Yellow); Glucose Urine UA Negative (Negative); Ketones Urine Negative (Negative); Leukocyte Esterase Ur Negative LEU/UL (Negative); Nitrate Urine Negative (Negative); Protein Urine Negative (Negative); Specific Grav Ur <= 1.005 (1.010-1.020)
[2022-12-22 10:40] LABS: Add Urine Microscopic? YES; RBC Urine 0-2 /hpf (0-2); WBC Urine None seen /hpf (0-3)
[2022-12-22 10:41] LABS: Bacteria Urine None seen /hpf
--- NOTE | 2022-12-22 11:52 | PC.NURSE ---
Patient arrived on unit from ER on stretcher, accompanied by ER staff. Required 3 assist and maxislide to transfer from stretcher to bed. Patient has cellphone and watch. No other personal items noted. Patient educated on use of call light, bed controls, rapid response system, visiting hours, fall risk and prevention measures and general hospital policies. Patient alert and oriented and voices understanding.
--- NOTE | 2022-12-22 11:58 | PC.NURSE ---
Patient answered yes to having 3 or more loose stools in past 24 hours. Patient answered yes to multiple covid symptoms. Patient answered yes to multiple questions on the [place] screening. Charge nurse made aware of patient's answers and will notify PROCUREMENT OFFICER.
--- NOTE | 2022-12-22 12:12 | PC.NURSE ---
ENGINEERING PRODUCTION LIAISON made aware of patient's answers on covid questions and ordered lab test. ENGINEERING PRODUCTION LIAISON also made aware of answers on [place] screening and about patient having more than 3 loose stools in24 hours. Patient to be monitored for suicidal thoughts and patient is currently on lactulose, explaining the loose stools.
[2022-12-22] MEDS: oxyCODONE HCL (*CRX) 5 MG TAB IR PO ×2 (12:55→21:06)
[2022-12-22] MEDS: FUROSEMIDE INJ 40 MG/4 ML VIAL IV PUSH (13:09)
[2022-12-22] MEDS: MIDODRINE HCL 2.5 MG TABLET 10 MG PO ×2 (13:12→17:00)
[2022-12-22] MEDS: ALBUMIN HUMAN 25% 25 GM/100 ML 100 ML IVPB (13:32)
[2022-12-22] MEDS: DOXYCYCLINE 100 MG/NS 100 ML 100 MG/100 ML BAG IVPB ×2 (13:39→21:09)
[2022-12-22 16:00] LABS: Influenza A QL RT-PCR Negative (Negative); Influenza B QL RT-PCR Negative (Negative); RSV RNA, RT-PCR Negative (Negative); SARS-CoV-2 RNA PCR Negative (Negative)
[2022-12-22] MEDS: LACTULOSE 20 GM/30 ML UDC 15 GM PO (16:58)
--- NOTE | 2022-12-22 17:26 | PM.IMHP ---
H&P: HPI History of Present Illness Date/Time: 12/22/22 17:26 Chief Complaint: lower extremity swelling Narrative: This is a 67 year old male with a PMH of hepatocellular s/p chemoembolization in [place] a coupld of months ago, current ETOH abuse, COPD, HLD, peptic ulcer, and current smoker. He also says that he has renal cell carcinoma. He presented to the ED today after being seen by his hospice nurse at home who recommended that he be seen for increased bilateral lower extremity swelling, erythema, and pain. Of note he was seen recently at [facility] after a fall with rib fractures and d/c'd on 12/09. He then was seen at [facility] for pain related to his rib fractures and concerns for pneumonia. He was given a course of oral antibiotics at d/c on 12/19 which he says he has completed. He follows with [facility] for his HCC/renal cancer. He says he lives alone and has a friend, Subhash who he is close with. He has two adult children whom he is estranged; Shanita who lives in [place] and Jarred who lives in [place]. He reports daily drinking 6-12 beers a day and denies withdrawal from ETOH during past hospitalizations. He also continues to smoke daily. He denies illicit drug use. On assessment he is laying in bed resting comfortably. He does not appear to be in acute distress. He says that he has chronic lower extremity swelling but not to this degree. Over the last four days the swelling has been increasing and he has had pain and warmth associated with the swelling. He says he has not been able to sleep well for the last two days because of the pain. He also reports a headache and some chest wall tenderness related to his recent fractures. He has taken his oxycodone at home for pain and it makes him sleep. He denies dizziness, shortness of breath, nausea, vomiting, diarrhea, or constipation. Review of Systems Review of Systems: All systems reviewed & are unremarkable except as noted in HPI and below PMFSH Past Medical History Medical History (Updated 12/22/22 @ 17:49 by Mary Jo Tiwari, ROSEMARIE) Alcohol abuse Chronic obstructive pulmonary disease Cirrhosis Combined systolic and diastolic congestive heart failure Hepatocellular carcinoma Status post chemoembolization. 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 Code status: Full Code Patient lives alone at home. Is a patient of [facility]. He says that his hospice nurse said he would not be kicked off of hospice for this admission. 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 He has two adult children, Jarred (lives in [place]) and Shanita (lives in [place]) with whom he is estranged. He says this is because of their upbringing as Anglican as they do not celebrate holidays, birthdays, etc. Smoking packs per day: 0.5 Smoking cigarettes per day: 10.0 Years smoked: 33 Smoking pack-years: 16.50 Smoking status: Current every day smoker Tobacco type: cigarettes Second hand tobacco smoke exposure: Yes Alcohol intake: current Drinks per week: 70 Substance use: never Substance use type: does not use Lack of Transportation: YES Lack of Food: Never True Current Housing: I Have Housing Concerne
[2022-12-22] MEDS: NICOTINE (*PBKC) 21 MG PATCH 1 PATCH TRANSDERM (18:26)
[2022-12-22] MEDS: chlordiazePOXIDE (*CRX) 25 MG CAPSULE PO (21:06)
[2022-12-22] MEDS: ATORVASTATIN 40 MG TABLET PO (21:06)
[2022-12-23] MEDS: ALBUTEROL SULFATE (*SP) INHALER 2 PUFF INHALATION ×3 (00:25→18:25)
[2022-12-23 05:39] LABS: Hematocrit 30.3 % (37.0-46.0); Hemoglobin 10.8 g/dL (12.4-15.3); Mean Corpuscular HGB Conc 35.6 g/dL (32.0-36.0); Mean Corpuscular Hemoglobin 34.8 pg (27.0-31.0); Mean Corpuscular Volume 97.7 fL (78.0-102.0); Mean Platelet Volume 11.4 fl (8.7-11.0); Platelet Count Result 153 K/mm3 (150-420); Red Cell Distribution Width 16.7 % (11.6-14.4); White Blood Count 10.4 K/mm3 (4.8-10.8)
[2022-12-23 05:54] LABS: Alanine Aminotransferase 35 U/L (16-63); Albumin Level 1.6 g/dL (3.4-5.0); Alkaline Phosphatase 257 U/L (46-116); Anion Gap 4 mmol/L (8-16); Aspartate Amino Transferase 84 U/L (15-37); Bilirubin,Total 3.3 mg/dL (0.00-1.00); Blood Urea Nitrogen 9 mg/dL (7-18); Calcium 7.4 mg/dL (8.5-10.1); Carbon Dioxide 29 mmol/L (21-32); Chloride 104 mmol/L (98-108); Estimated CRCL calculation 91 ml/min; Estimated Glomerular Filt Rate > 60; Glucose 94 mg/dL (70-99); Magnesium 1.2 mg/dL (1.8-2.4); Osmolality Calculated 282 mOsm/kg (285-295); Potassium 3.3 mmol/L (3.5-5.1); Sodium 137 mmol/L (136-145); Total Protein 5.6 g/dL (6.4-8.2)
[2022-12-23 05:58] LABS: Band Neutrophils Percent 1 % (0-6); Basophils Percent Manual 0 % (0-1); Eosinophils Absolute Manual 0.41 K/mm3 (0.02-0.5); Eosinophils Percent Manual 4 % (1-6); Lymphocytes Percent Manual 51 % (18-44); Monocytes Absolute Manual 0.72 K/mm3 (0.1-0.90); Monocytes Percent Manual 7 % (3-9); Neutrophils Absolute Manual 3.95 K/mm3 (1.3-6.7); Neutrophils Percent Manual 37 % (46-73); Platelet Estimate Adequate (Adequate)
[2022-12-23] MEDS: MAGNESIUM SULF 4 GM/WATER100ML 4 GM/100 ML BAG IVPB (07:40)
[2022-12-23 07:51] VITALS: BP 119/78; PULSE 82; RESP 16; TEMP 36.6; O2SAT 96
[2022-12-23] MEDS: FUROSEMIDE INJ 40 MG/4 ML VIAL IV PUSH (08:58)
[2022-12-23] MEDS: THIAMINE HCL 200 MG/2 ML VIAL 100 MG IV PUSH (08:59)
[2022-12-23] MEDS: NICOTINE (*PBKC) 21 MG PATCH 1 PATCH TRANSDERM (09:01)
[2022-12-23] MEDS: POTASSIUM CHLORIDE 20 MEQ PACKET (FOR LIQUID) 40 MEQ PO (09:01)
[2022-12-23] MEDS: LACTULOSE 20 GM/30 ML UDC 10 GM PO ×2 (09:01→16:48)
[2022-12-23] MEDS: THERAPEUTIC MULTIVITAMINS/MINERALS TAB (*BKC) 1 TABLET PO (09:02)
[2022-12-23] MEDS: MIDODRINE HCL 2.5 MG TABLET 10 MG PO ×3 (09:03→16:49)
[2022-12-23] MEDS: chlordiazePOXIDE (*CRX) 25 MG CAPSULE PO (09:17)
--- NOTE | 2022-12-23 09:19 | PC.NURSE ---
Patient needed to have a bowel movement and did not want to try to use the bedpan. Patient was able to stand from the bed with assistance of 2, but had a very difficult time taking 2 steps to the commode. Once on the commode, patient was not strong enough to scoot his butt onto the hole independently. When patient was done on the commode, patient was unable to stand with assistance so that press writer could clean him up. Cristy Steady plus used to get patient from the commode to the recliner. During transfer patient started to display major tremors. Patient was given Librium for tremors, likely related to alcohol withdrawal. Patient currently in recliner.
--- NOTE | 2022-12-23 09:41 | PC.NURSE ---
Patient's urine noted to be an orange color today. Yesterday, urine was yellow.
[2022-12-23] MEDS: DOXYCYCLINE 100 MG/NS 100 ML 100 MG/100 ML BAG IVPB ×2 (10:22→21:00)
--- NOTE | 2022-12-23 12:49 | PM.IMPN ---
Progress Note: A&P Assessment and Plan (1) Cellulitis: Qualifiers: Laterality: unspecified laterality Site of cellulitis: extremity Site of cellulitis of extremity: lower extremity Qualified Code(s): L03.119 - Cellulitis of unspecified part of limb Code(s): L03.90 - Cellulitis, unspecified Status: Acute Assessment and Plan: IV ANTIBIOITICS\ ROCEPHIN, CEFEPIME IV FLUIDS (2) Cirrhosis: Code(s): K74.60 - Unspecified cirrhosis of liver Status: Acute Assessment and Plan: CANCER LIVER ON HOSPICE ALTHOUGH PATIENT DENIES (3) Alcohol abuse: Code(s): F10.10 - Alcohol abuse, uncomplicated Status: Acute Assessment and Plan: ETOH ABUSE PT STATES HE HAS NO SEIZURES WITH WITHDRAWAL (4) Hypomagnesemia: Code(s): E83.42 - Hypomagnesemia Status: Acute Assessment and Plan: IV MAGNESIUM Plan PT WANTS EVERYTHING DONE HOSPICE STATES HE CAN BE A INPATIENT ON HOSPICE PT WILL PARTICIPATE WITH REHAB PT EATING AND DRINKING PT WILL NOT GO TO [facility] PT WILL CONTINUE TO GET UP TO RECLINER CHAIR PT WILL TAKE MEDICATIONS DOXYCYCLINE PO WILL CONTINUE TO MONITOR Subjective Date/time seen: 12/23/22 12:49 Interval history: PATIENT IS IN THE BED RESTING WELL AT THIS TIME. PATIENT STATES THAT HIS LEG SWELLED ALL OF A SUDDEN. PATIENT STATES THAT HE DOES NOT GO THROUGH THE WITHDRAWLS WHEN HE DOES NOT DRINK. PATIENT STATES THAT HE IS WILLING TO PARTICAPATE WITH THERAPY AND HE IS FEELING A LITTLE BETTER. ATT HIS TIME WE WILL CONTINUE WITH IV ANTIBIOITICS AND FOLLOWING PATIENT. PATIENT HAS REMAINED AFEBRILE AND WE WILL FOLLOW THIS WEEKEND. PATIENT IS JAUNDICE AND STATES IT COME FROM WELDING NOT HIS DRINKING. Exam Narrative: General: appears comfortable, well developed, well nourished, appears stated age. HEENT: normocephalic, atraumatic. Mucous membranes moist. EOMI,?PERRLA, bilateral sclera anicteric, no conjunctival injection. Neck supple without JVD, lymphadenopathy, or bruit. Respiratory: Speaks in full sentences, clear lung sounds bilaterally, No rales/rhonic/wheezes. Cardiovascular: Regular rate and rhythm, normal S1-S2 upon auscultation. No murmurs, rubs, or clicks. PMI is nondisplaced, capillary re-fill less than 3 second. Abdomen: Soft, round, no pulsatile masses, non-distended and mildly tender to right, upper abdomen which he says is from his fall. No rebound, no guarding. No CVA tenderness, no hepatosplenomegaly.? Bowel sounds present to all four quadrants. No high pitch or tinkling sounds, resonant to percussion. Extremities: No cyanosis, clubbing. + 4 BLE edema with erythema, warmth, and scant serous drainage. Pulses are palpable 2/.? Active ROM to all four extremities. Neuro: Alert and orientated x 4. PERRLA. Cranial nerves 2-12 intact without focal deficit. Skin: Warm, dry, and intact, without rash, erythema, or lesion. Slight jaundice. Lines: PIV Incisions: NA Psych: pleasant, cooperative, normal speech, normal affect, no hallucinations, no dysarthria. Objective Data Vital Signs Vital Signs: Vital Signs - 24 hr 12/22/22 14:00 12/22/22 16:00 12/22/22 23:02 Temperature 97.8 F 98.7 F 98.9 F Pulse Rate 82 90 91 Respiratory Rate 18 16 20 Blood Pressure 106/69 115/67 125/73 Pulse Oximetry 98 91 95 Oxygen Delivery Room Air Room Air Room Air 12/23/22 07:51 Temperature 97.9 F Pulse Rate 82 Respiratory Rate 16 Blood Pressure 119/78 Pulse Oximetry 96 Oxygen Delivery Room Air Intake/Output Intake/Output: Intake & Output 12/20/22 12/21/22 12/22/22 12/23/22 23:59 23:59 23:59 23:59 Intake Total 3610 3160 Output Total 3725 800 Balance -115 2360 Meds/Results Medications: Active Medications Generic Name Dose Route Start Last Admin Trade Name Freq PRN Reason Stop Dose Admin Acetaminophen 650 mg 12/22/22 12:52 Acetaminophen 325 Mg Tablet PO Q4H PRN Mild Pain (1-3) or Fever Albutero
--- NOTE | 2022-12-23 13:10 | PC.NURSE ---
Patient changed from observation status to inpatient status at 1302
[2022-12-23 16:00] VITALS: BP 115/73; PULSE 91; RESP 18; TEMP 37.1; O2SAT 96
[2022-12-23] MEDS: oxyCODONE HCL (*CRX) 5 MG TAB IR PO (16:48)
[2022-12-23] MEDS: ATORVASTATIN 40 MG TABLET PO (20:13)
[2022-12-23] MEDS: LORazepam INJ (*CRX) 2 MG/ML VIAL IV PUSH (21:17)
[2022-12-23 23:21] VITALS: BP 108/78; PULSE 86; RESP 17; TEMP 37.2; O2SAT 97
[2022-12-24 05:36] LABS: Basophils Absolute Auto 0.07 K/mm3 (0.00-0.10); Basophils Percent Auto 0.6 % (0.0-1.0); Eosinophils Absolute Auto 0.38 K/mm3 (0.02-0.50); Eosinophils Percent Auto 3.5 % (1.0-6.0); Hematocrit 32.8 % (37.0-46.0); Hemoglobin 11.6 g/dL (12.4-15.3); Immature Granulocyte Absolute 0.04 K/mm3 (0.00-0.00); Immature Granulocyte Percent A 0.4 % (0.0-0.0); Lymphocytes Absolute Auto 4.52 K/mm3 (1.10-4.50); Lymphocytes Percent Auto 41.2 % (18.0-42.0); Mean Corpuscular HGB Conc 35.4 g/dL (32.0-36.0); Mean Corpuscular Volume 99.1 fL (78.0-102.0); Mean Platelet Volume 11.2 fl (8.7-11.0); Monocytes Absolute Auto 1.43 K/mm3 (0.10-0.90); Neutrophils Absolute Auto 4.5 K/mm3 (1.7-7.2); Neutrophils Percent Auto 41.3 % (50.0-70.0); Platelet Count Result 153 K/mm3 (150-420); Red Blood Count 3.31 M/mm3 (4.70-6.10); Red Cell Distribution Width 16.4 % (11.6-14.4)
[2022-12-24 05:52] LABS: Alanine Aminotransferase 38 U/L (16-63); Albumin Level 1.5 g/dL (3.4-5.0); Alkaline Phosphatase 246 U/L (46-116); Anion Gap 2 mmol/L (8-16); Aspartate Amino Transferase 76 U/L (15-37); Bilirubin,Total 3.5 mg/dL (0.00-1.00); Blood Urea Nitrogen 8 mg/dL (7-18); Calcium 7.5 mg/dL (8.5-10.1); Carbon Dioxide 31 mmol/L (21-32); Chloride 103 mmol/L (98-108); Estimated CRCL calculation 93 ml/min; Estimated Glomerular Filt Rate > 60; Glucose 92 mg/dL (70-99); Magnesium 1.3 mg/dL (1.8-2.4); Osmolality Calculated 280 mOsm/kg (285-295); Potassium 3.4 mmol/L (3.5-5.1); Sodium 136 mmol/L (136-145); Total Protein 5.7 g/dL (6.4-8.2)
[2022-12-24 08:00] VITALS: BP 117/74; PULSE 87; RESP 16; TEMP 36.6; O2SAT 96
[2022-12-24] MEDS: POTASSIUM CHLORIDE 20 MEQ PACKET (FOR LIQUID) 40 MEQ PO (08:52)
[2022-12-24] MEDS: LACTULOSE 20 GM/30 ML UDC 10 GM PO ×2 (08:52→17:28)
[2022-12-24] MEDS: THIAMINE HCL 200 MG/2 ML VIAL 100 MG IV PUSH (08:53)
[2022-12-24] MEDS: ALBUTEROL SULFATE (*SP) INHALER 2 PUFF INHALATION (08:53)
[2022-12-24] MEDS: MIDODRINE HCL 2.5 MG TABLET 10 MG PO ×3 (08:54→17:28)
[2022-12-24] MEDS: NICOTINE (*PBKC) 21 MG PATCH 1 PATCH TRANSDERM (08:54)
[2022-12-24] MEDS: THERAPEUTIC MULTIVITAMINS/MINERALS TAB (*BKC) 1 TABLET PO (08:54)
--- NOTE | 2022-12-24 10:35 | PM.IMPN ---
Progress Note: A&P Assessment and Plan (1) Cellulitis: Qualifiers: Laterality: unspecified laterality Site of cellulitis: extremity Site of cellulitis of extremity: lower extremity Qualified Code(s): L03.119 - Cellulitis of unspecified part of limb Code(s): L03.90 - Cellulitis, unspecified Status: Acute Assessment and Plan: IV ANTIBIOITICS\ ROCEPHIN, CEFEPIME IV FLUIDS (2) Cirrhosis: Code(s): K74.60 - Unspecified cirrhosis of liver Status: Acute Assessment and Plan: CANCER LIVER ON HOSPICE ALTHOUGH PATIENT DENIES (3) Alcohol abuse: Code(s): F10.10 - Alcohol abuse, uncomplicated Status: Acute Assessment and Plan: ETOH ABUSE PT STATES HE HAS NO SEIZURES WITH WITHDRAWAL (4) Hypomagnesemia: Code(s): E83.42 - Hypomagnesemia Status: Acute Assessment and Plan: IV MAGNESIUM Plan PT WANTS EVERYTHING DONE HOSPICE STATES HE CAN BE A INPATIENT ON HOSPICE PT WILL PARTICIPATE WITH REHAB PT EATING AND DRINKING PT WILL NOT GO TO [facility]IDENT[facility] PT WILL CONTINUE TO GET UP TO RECLINER CHAIR PT WILL TAKE MEDICATIONS DOXYCYCLINE PO WILL CONTINUE TO MONITOR POT/OT evaluate and treat Subjective Date/time seen: 12/24/22 10:35 Interval history: Patient is in the bed and states that he is feeling ok at this time. Patient remain on hospice as ok with them. Patient has coughing spells and he has LIVER Cancer. Patient remain hypokalemic and we will treat electrolyte imbalance. Patient continues not swallowing well and lungs are slightly wheezy Exam Narrative: General: appears comfortable, well developed, well nourished, appears stated age. HEENT: normocephalic, atraumatic. Mucous membranes moist. EOMI,?PERRLA, bilateral sclera anicteric, no conjunctival injection. Respiratory: Speaks in full sentences, clear lung sounds bilaterally, scattered wheezes. Cardiovascular: Regular rate and rhythm, normal S1-S2 upon auscultation. Abdomen: Soft, round, no pulsatile masses, non-distended and mildly tender to right, upper abdomen which he says is from his fall. No rebound, no guarding. No CVA tenderness, no hepatosplenomegaly.? Bowel sounds present to all four quadrants. No high pitch or tinkling sounds, resonant to percussion. Extremities: + 4 BLE edema with erythema, warmth, and scant serous drainage. Pulses are palpable 2/1.? Active ROM to all four extremities. Neuro: Alert and orientated x 4. PERRLA. Cranial nerves 2-12 intact without focal deficit. Skin: Warm, dry, and intact, without rash, erythema, or lesion. Jaundice all over Lines: PIV Incisions: NA Psych: pleasant, cooperative, normal speech, normal affect, no hallucinations, no dysarthria. Objective Data Vital Signs Vital Signs: Vital Signs - 24 hr 12/23/22 16:00 12/23/22 23:21 12/24/22 08:00 Temperature 98.7 F 99 F 97.9 F Pulse Rate 91 86 87 Respiratory Rate 18 17 16 Blood Pressure 115/73 108/78 117/74 Pulse Oximetry 96 97 96 Oxygen Delivery Room Air Room Air Room Air Intake/Output Intake/Output: Intake & Output 12/21/22 12/22/22 12/23/22 12/24/22 23:59 23:59 23:59 23:59 Intake Total 3610 4890 380 Output Total 3725 3325 525 Balance -115 1565 -145 Meds/Results Medications: Active Medications Generic Name Dose Route Start Last Admin Trade Name Freq PRN Reason Stop Dose Admin Acetaminophen 650 mg 12/22/22 12:52 Acetaminophen 325 Mg Tablet PO Q4H PRN Mild Pain (1-3) or Fever Albuterol 2 puff 12/22/22 12:39 12/24/22 08:53 Albuterol Sulfate (*Sp) Inhaler INHALATION 2 puff QID PRN Administration Shortness Of Breath Atorvastatin Calcium 40 mg 12/22/22 21:00 12/23/22 20:13 Atorvastatin 40 Mg Tablet PO 40 mg QHS JACK Administration Chlordiazepoxide HCl 25 mg 12/22/22 18:00 12/23/22 09:17 Chlordiazepoxide (*Crx) 25 Mg Capsule PO 25 mg Q6H PRN Administration Withdrawal Ceftriaxone Sodium 1
[2022-12-24] MEDS: DOXYCYCLINE 100 MG/NS 100 ML 100 MG/100 ML BAG IVPB ×2 (10:50→21:15)
[2022-12-24] MEDS: oxyCODONE HCL (*CRX) 5 MG TAB IR PO ×2 (11:43→18:13)
[2022-12-24 16:35] VITALS: BP 114/74; PULSE 85; RESP 18; TEMP 36.6; O2SAT 97
[2022-12-24] MEDS: ATORVASTATIN 40 MG TABLET PO (21:15)
[2022-12-25] VITALS: BP 105/71; PULSE 80; RESP 18; TEMP 36.7; O2SAT 97
[2022-12-25] MEDS: ALBUTEROL SULFATE (*SP) INHALER 2 PUFF INHALATION ×3 (00:22→22:20)
[2022-12-25 08:00] VITALS: BP 110/73; PULSE 85; RESP 16; TEMP 36.4; O2SAT 96
[2022-12-25] MEDS: LACTULOSE 20 GM/30 ML UDC 10 GM PO ×2 (08:40→18:05)
[2022-12-25] MEDS: POTASSIUM CHLORIDE 20 MEQ PACKET (FOR LIQUID) 40 MEQ PO (08:40)
[2022-12-25] MEDS: THERAPEUTIC MULTIVITAMINS/MINERALS TAB (*BKC) 1 TABLET PO (08:41)
[2022-12-25] MEDS: THIAMINE HCL 200 MG/2 ML VIAL 100 MG IV PUSH (08:41)
[2022-12-25] MEDS: MIDODRINE HCL 2.5 MG TABLET 10 MG PO ×3 (08:41→18:04)
[2022-12-25] MEDS: NICOTINE (*PBKC) 21 MG PATCH 1 PATCH TRANSDERM (08:41)
[2022-12-25] MEDS: DOXYCYCLINE 100 MG/NS 100 ML 100 MG/100 ML BAG IVPB ×2 (10:05→21:10)
[2022-12-25] MEDS: oxyCODONE HCL (*CRX) 5 MG TAB IR PO ×2 (10:14→18:11)
--- NOTE | 2022-12-25 10:29 | PM.IMPN ---
Progress Note: A&P Assessment and Plan (1) Cellulitis: Qualifiers: Laterality: unspecified laterality Site of cellulitis: extremity Site of cellulitis of extremity: lower extremity Qualified Code(s): L03.119 - Cellulitis of unspecified part of limb Code(s): L03.90 - Cellulitis, unspecified Status: Acute Assessment and Plan: IV ANTIBIOITICS\ ROCEPHIN, CEFEPIME IV FLUIDS discontinued (2) Cirrhosis: Code(s): K74.60 - Unspecified cirrhosis of liver Status: Acute Assessment and Plan: CANCER LIVER ON HOSPICE ALTHOUGH PATIENT DENIES (3) Alcohol abuse: Code(s): F10.10 - Alcohol abuse, uncomplicated Status: Acute Assessment and Plan: ETOH ABUSE PT STATES HE HAS NO SEIZURES WITH WITHDRAWAL no s./s of withdrawals (4) Hypomagnesemia: Code(s): E83.42 - Hypomagnesemia Status: Acute Assessment and Plan: IV MAGNESIUM will recheck mag level in am Plan PT WANTS EVERYTHING DONE HOSPICE STATES HE CAN BE A INPATIENT ON HOSPICE PT WILL PARTICIPATE WITH REHAB PT EATING AND DRINKING PT WILL NOT GO TO [facility] PT WILL CONTINUE TO GET UP TO RECLINER CHAIR PT WILL TAKE MEDICATIONS DOXYCYCLINE PO WILL CONTINUE TO MONITOR POT/OT evaluate and treat Pt to swing in the am Subjective Date/time seen: 12/25/22 10:29 Interval history: Patient leg continues to remain red and swollen with PVD noticed on his leg. Patient is in the bed and has remained afebrile He remains Jaudice and he has continued to eat and drink without difficulties. Patient is able to make his needs know and he is ready for Swing bed and he may need a couple more days of IV Antibiotic. Patient legs look no different than when I initially saw them and he denies any increased pain. Exam Narrative: General: appears comfortable, well developed, well nourished, appears stated age. HEENT: normocephalic, atraumatic. Mucous membranes moist. EOMI,?PERRLA, bilateral sclera anicteric, no conjunctival injection. Respiratory: Speaks in full sentences, clear lung sounds bilaterally, scattered wheezes. Cardiovascular: Regular rate and rhythm, Abdomen: Soft, round, no pulsatile masses, non-distended and mildly tender to right, upper abdomen which he says is from his fall. No rebound, no guarding. No CVA tenderness, no hepatosplenomegaly.? Bowel sounds present to all four quadrants. No high pitch or tinkling sounds, resonant to percussion. Extremities: + 4 BLE edema with erythema, warmth, and scant serous drainage. Pulses are palpable 2/1.? Active ROM to all four extremities. Neuro: Alert and orientated x 4. PERRLA. Cranial nerves 2-12 intact without focal deficit. Skin: Warm, dry, and intact, without rash, erythema, or lesion. Jaundice all over Lines: PIV Incisions: NA Psych: pleasant, cooperative, normal speech, normal affect, no hallucinations, no dysarthria. Objective Data Vital Signs Vital Signs: Vital Signs - 24 hr 12/24/22 16:35 12/25/22 00:00 12/25/22 08:00 Temperature 98 F 98.0 F 97.6 F Pulse Rate 85 80 85 Respiratory Rate 18 18 16 Blood Pressure 114/74 105/71 110/73 Pulse Oximetry 97 97 96 Oxygen Delivery Room Air Room Air Room Air Intake/Output Intake/Output: Intake & Output 12/22/22 12/23/22 12/24/22 12/25/22 23:59 23:59 23:59 23:59 Intake Total 3610 4890 1670 675 Output Total 3725 3325 1325 1100 Balance -115 1565 345 -425 Meds/Results Medications: Active Medications Generic Name Dose Route Start Last Admin Trade Name Freq PRN Reason Stop Dose Admin Acetaminophen 650 mg 12/22/22 12:52 Acetaminophen 325 Mg Tablet PO Q4H PRN Mild Pain (1-3) or Fever Albuterol 2 puff 12/22/22 12:39 12/25/22 08:42 Albuterol Sulfate (*Sp) Inhaler INHALATION 2 puff QID PRN Administration Shortness Of Breath Atorvastatin Calcium 40 mg 12/22/22 21:00 12/24/22 21:15 Atorvastatin 40 Mg Tablet PO 40 mg QHS SC
[2022-12-25 16:30] VITALS: BP 102/78; PULSE 81; RESP 16; TEMP 36.6; O2SAT 98
[2022-12-25] MEDS: ATORVASTATIN 40 MG TABLET PO (21:10)
[2022-12-26] VITALS: BP 122/78; PULSE 82; RESP 18; TEMP 36.9; O2SAT 97
[2022-12-26] MEDS: ALBUTEROL SULFATE (*SP) INHALER 2 PUFF INHALATION ×2 (03:46→09:26)
[2022-12-26 05:14] LABS: Hematocrit 31.3 % (37.0-46.0); Mean Corpuscular HGB Conc 35.1 g/dL (32.0-36.0); Mean Corpuscular Hemoglobin 34.9 pg (27.0-31.0); Mean Corpuscular Volume 99.4 fL (78.0-102.0); Mean Platelet Volume 11.4 fl (8.7-11.0); Platelet Count Result 151 K/mm3 (150-420); Red Blood Count 3.15 M/mm3 (4.70-6.10); Red Cell Distribution Width 16.8 % (11.6-14.4); White Blood Count 8.8 K/mm3 (4.8-10.8)
[2022-12-26 05:24] LABS: Anion Gap 7 mmol/L (8-16); Blood Urea Nitrogen 8 mg/dL (7-18); Calcium 7.5 mg/dL (8.5-10.1); Carbon Dioxide 26 mmol/L (21-32); Chloride 104 mmol/L (98-108); Estimated CRCL calculation 100 ml/min; Estimated Glomerular Filt Rate > 60; Glucose 120 mg/dL (70-99); Osmolality Calculated 283 mOsm/kg (285-295); Potassium 3.6 mmol/L (3.5-5.1); Sodium 137 mmol/L (136-145)
[2022-12-26 05:28] LABS: Magnesium 0.9 mg/dL (1.8-2.4)
--- NOTE | 2022-12-26 05:28 | PC.NURSE ---
Lab called to report a critical magnesium value of 0.9.
--- NOTE | 2022-12-26 05:58 | PC.NURSE ---
Message left on Rosetta Prater's voice mail regarding critical magnesium value.
--- NOTE | 2022-12-26 06:04 | PC.NURSE ---
Rosetta Prater NP returned call and gave orders for magnesium 4 mg IVPB x1
[2022-12-26] MEDS: MAGNESIUM SULF 4 GM/WATER100ML 4 GM/100 ML BAG IVPB (06:37)
[2022-12-26 08:00] VITALS: BP 92/58; PULSE 72; PULSE 73; RESP 16; TEMP 36.3
[2022-12-26] MEDS: LACTULOSE 20 GM/30 ML UDC 10 GM PO (09:14)
[2022-12-26] MEDS: THERAPEUTIC MULTIVITAMINS/MINERALS TAB (*BKC) 1 TABLET PO (09:15)
[2022-12-26] MEDS: POTASSIUM CHLORIDE 20 MEQ PACKET (FOR LIQUID) 40 MEQ PO (09:15)
[2022-12-26] MEDS: NICOTINE (*PBKC) 21 MG PATCH 1 PATCH TRANSDERM (09:15)
[2022-12-26] MEDS: THIAMINE HCL 200 MG/2 ML VIAL 100 MG IV PUSH (09:17)
[2022-12-26] MEDS: MIDODRINE HCL 2.5 MG TABLET 10 MG PO ×2 (09:18→12:46)
[2022-12-26] MEDS: DOXYCYCLINE 100 MG/NS 100 ML 100 MG/100 ML BAG IVPB (09:45)
[2022-12-26] MEDS: AMOXICILLIN/CLAVULANATE K 875-125 MG TAB 1 TABLET PO (12:46)
--- NOTE | 2022-12-26 13:28 | PM.DS ---
DS: Admitting Diagnosis Discharge Date 12/26/2022 Admitting Diagnosis Cellulitis, Liver Cancers w mets DS: Discharge Diagnosis Discharge Diagnosis (1) Cellulitis: Qualifiers: Laterality: unspecified laterality Site of cellulitis: extremity Site of cellulitis of extremity: lower extremity Qualified Code(s): L03.119 - Cellulitis of unspecified part of limb Code(s): L03.90 - Cellulitis, unspecified Status: Acute Assessment and Plan: Doxy and Augementin oral (2) Thrombocytopenia: Code(s): D69.6 - Thrombocytopenia, unspecified Status: Acute (3) Alcohol abuse: Code(s): F10.10 - Alcohol abuse, uncomplicated Status: Acute Assessment and Plan: refrain from alcohol (4) Cirrhosis: Code(s): K74.60 - Unspecified cirrhosis of liver Status: Acute (5) Hypomagnesemia: Code(s): E83.42 - Hypomagnesemia Status: Acute Assessment and Plan: IV magnesium given pt going home on hospice (6) Hepatocellular carcinoma: Code(s): C22.0 - Liver cell carcinoma Status: Acute Assessment and Plan: Hospice care Remains Jaudice DS: Summary Hospital Course Reason for hospitalization: Hypomagnesium , Hospice liver cancer and Hospital Course: This is a 67 year old male that presented to the hospital after a fall and was found to have cellulitis with some PVD. Patient was at home on hospice from liver cancer with metasis. Patient is jaudice and was treated with IV antibioitic with electrolyte imbalance replace from the potassium and magnesium. Patient was able to eat and drink without difficulties. Patient denies much pain. Patient was hypotensive here and we started him on midorine although now that he is being discharged on hospice we will discontinue this medication at this time. I will send patient home on oral augmentin and doxycline with probiotics. Patient informed me that he was leaving AMA if I was not going to discharge today I wanted to ensure that patient get his antibioitc to help treat the cellulitis in the leg. Patient has called his ride and he states he has everything he needs. A call to residential hospice who has stated they will take him back at this time. Time Spent with Patient Time attestation: Total time spent providing and/or coordinating discharge services: Exam Narrative: General: appears comfortable, well developed, well nourished, appears stated age. HEENT: normocephalic, atraumatic. Mucous membranes moist. EOMI,?PERRLA, bilateral sclera anicteric, no conjunctival injection. Jaudice Respiratory: Speaks in full sentences, clear lung sounds bilaterally, scattered wheezes. Cardiovascular: Regular rate and rhythm, Abdomen: Soft, round, no pulsatile masses, non-distended and mildly tender to right, upper abdomen which he says is from his fall. No rebound, no guarding. No CVA tenderness, no hepatosplenomegaly.? Bowel sounds present to all four quadrants. No high pitch or tinkling sounds, resonant to percussion. Extremities: + 4 BLE edema with erythema, warmth, and scant serous drainage. Pulses are palpable 2/1.? Active ROM to all four extremities. Neuro: Alert and orientated x 4. PERRLA. Cranial nerves 2-12 intact without focal deficit. Skin: Warm, dry, and intact, without rash, erythema, or lesion. Jaundice all over Lines: PIV Incisions: NA Psych: pleasant, cooperative, normal speech, normal affect, no hallucinations, no dysarthria. DS: Data Data Completed and Pending Labs on day of discharge: Labs from last 24 hours 12/26/22 05:07 WBC 8.8 RBC 3.15 L Hgb 11.0 L Hct 31.3 L MCV 99.4 MCH 34.9 H MCHC 35.1 RDW 16.8 H Plt Count 151 MPV 11.4 H Sodium 137 Potassium 3.6 Chloride 104 Carbon Dioxide 26 Anion Gap 7 L BUN 8 Creatinine 0.81 Estim Creat Clear Calc 100 Estimated GFR > 60 Glucose 120 H Calculated Osmolality 283 L Calcium 7.5 L Magnesium 0.9 L* Preliminary m
--- NOTE | 2022-12-26 15:35 | PC.NURSE ---
Patient transferred by wheelchair to private vehicle upon discharge from facility. Ambulated from wheelchair to vehicle with gait belt. No difficulty in transfer noted. Discharge instructions and personal belongings with patient in vehicle.
--- NOTE | 2022-12-28 09:47 | PC.NURSE ---
discharge call back attempted, no answer, voice mail not set up
--- NOTE | 2023-01-02 08:26 | PC.NURSE ---
unable to contact for discharge call back
== END 2022-12-26 15:35 | disposition hospice, home (50) | DRG 603 ==
LOC: CHSED 10:36 → CHS2ND 10:53
PROVIDERS: Nurse Practitioner Acute Care; Nurse Practitioner Family; Admitting Provider Internal Medicine; Emergency Provider Emergency Medicine; PCP Family Medicine; Visit Provider Internal Medicine
DX: L03.115 Cellulitis of right lower limb (principal); C22.0 Liver cell carcinoma; I50.42 Chronic combined systolic (congestive) and diastolic (congestive) heart failure; L03.116 Cellulitis of left lower limb; K70.30 Alcoholic cirrhosis of liver without ascites; E83.42 Hypomagnesemia; E87.6 Hypokalemia; E78.5 Hyperlipidemia, unspecified; I73.9 Peripheral vascular disease, unspecified; F10.10 Alcohol abuse, uncomplicated; R29.6 Repeated falls; F17.210 Nicotine dependence, cigarettes, uncomplicated; S22.31XD Fracture of one rib, right side, subsequent encounter for fracture with routine healing; Z87.442 Personal history of urinary calculi; Z87.11 Personal history of peptic ulcer disease; Z51.5 Encounter for palliative care
CPT/HCPCS: 36415; 71045; 80048; 80053; 81001; 83605; 83735; 83880; 85025; 85027; 85610; 85730; 86140; 87040; 87637; 93005; 96361; 96365; 96366; 96367; 96375; 96376; 97161; 97165; 97530; 99285; A9270; G0378; J0696; J1940; J2060; J2270; J2543; J3411; J3475; J7030; J7120; P9047

== ENCOUNTER 2023-06-17 16:25 | Emergency (ER) | payer MEDICARE, SELFPAY ==
[2023-06-17] VITALS (27 sets, daily range): BP systolic 101–112; BP diastolic 67–94; PULSE 95–106; RESP 15–20; TEMP 36.9; O2SAT 89–96
--- NOTE | 2023-06-17 17:02 | ED.WEAKNESS ---
HPI - Weakness General Chief complaint: Weakness Stated complaint: weakness Time Seen by Provider: 06/17/23 16:43 Source: patient Mode of arrival: ambulatory Limitations: no limitations History of Present Illness HPI Narrative: patient is a 67-year-old male with a significant past medical history that presents today for weakness. Patient is a hospice home hospice patient and his hospice nurse was there today and he was weak and not able to get off his chair because all the fluid he accumulated in his legs lower extremities. He takes 40 mg of Lasix a day. He has stage IV liver cancer and liver cirrhosis and has not had a drainage before of his abdomen. Both legs are very swollen with 4+ pitting edema. He denies any shortness of breath or chest pain. His blood pressure was little low on arrival. MD Complaint: generalized weakness Onset (ago): day(s) Duration: intermittent Location: generalized Migration: none Severity: mild Severity scale (1-10): 3 Relieving factors: none Exacerbating factors: none Associated symptoms: dysuria Related Data Home Medications Medication Instructions Recorded Confirmed furosemide 40 mg tablet 40 mg PO DAILY 06/17/23 06/17/23 Allergies Allergy/AdvReac Type Severity Reaction Status Date / Time No Known Allergies Allergy Verified 06/17/23 18:05 Review of Systems Review of Systems: All systems reviewed & are unremarkable except as noted in HPI and below Constitutional: Constitutional: Reports as per HPI Eyes: Eyes: Reports no additional eye complaints ENT: Reports system reviewed and no additional complaints, except as documented Cardiovascular: Cardiovascular: Reports no additional cardiovascular complaints Respiratory: Respiratory: Reports no additional respiratory complaints Gastrointestinal: Gastrointestinal: Reports abdominal pain and Reports bloating Comments: cirrhosis of liver needs paracentesis Genitourinary: Genitourinary: Reports no additional male genitourinary complaints Musculoskeletal: Musculoskeletal: Reports no additional musculoskeletal complaints Integumentary/Breasts: Skin/Breast: Reports system reviewed and no additional complaints, except as docu Neurologic: Reports system reviewed and no additional complaints, except as documented Psychiatric: Psychiatric: Reports no additional psychiatric complaints Endocrine: Endocrine: Reports no additional endocrine complaints Hematologic/Lymphatic: Hematologic/Lymphatic: Reports no additional hematologic/lymphatic complaints Allergic/Immunologic: Allergic/Immunologic: Reports no additional allergic/immunologic complaints PMFSH Past Medical History Medical History Alcohol abuse Chronic obstructive pulmonary disease Cirrhosis Combined systolic and diastolic congestive heart failure Hepatocellular carcinoma Status post chemoembolization. 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 Code status: Full Code Patient lives alone at home. Is a patient of [facility]. He says that his hospice nurse said he would not be kicked off of hospice for this admission. 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 He has two adult children, Jarred
[2023-06-17 17:54] LABS: Basophils Absolute Auto 0.03 K/mm3 (0.00-0.10); Basophils Percent Auto 0.4 % (0.0-1.0); Eosinophils Absolute Auto 0.06 K/mm3 (0.02-0.50); Eosinophils Percent Auto 0.7 % (1.0-6.0); Hematocrit 30.4 % (37.0-46.0); Hemoglobin 11.2 g/dL (12.4-15.3); Immature Granulocyte Absolute 0.07 K/mm3 (0.00-0.00); Immature Granulocyte Percent A 0.8 % (0.0-0.0); Lymphocytes Absolute Auto 2.78 K/mm3 (1.10-4.50); Lymphocytes Percent Auto 33.7 % (18.0-42.0); Mean Corpuscular HGB Conc 36.8 g/dL (32-36); Mean Corpuscular Volume 100.3 fL (78.0-102.0); Mean Platelet Volume 12.3 fl (8.7-11.0); Monocytes Absolute Auto 1.05 K/mm3 (0.10-0.90); Monocytes Percent Auto 12.7 % (2.0-11.0); Neutrophils Absolute Auto 4.27 K/mm3 (1.70-7.20); Neutrophils Percent Auto 51.7 % (50.0-70.0); Nucleated Red Blood Cells Absolute Auto 0.09 K/mm3 (0.00-0.00); Nucleated Red Blood Cells Perc 1.1 % (0-0.0); Platelet Count Result 73 K/mm3 (150-420); Red Blood Count 3.03 M/mm3 (4.70-6.10); Red Cell Distribution Width 19.8 % (11.6-14.4); White Blood Count 8.3 K/mm3 (4.8-10.8)
[2023-06-17 17:58] LABS: Alanine Aminotransferase 99 U/L (16-63); Albumin Level 1.4 g/dL (3.4-5.0); Alkaline Phosphatase 187 U/L (46-116); Anion Gap 16 mmol/L (4-12); Aspartate Amino Transferase 318 U/L (15-37); Bilirubin Direct 8.8 mg/dL (0-0.2); Bilirubin,Total 11.6 mg/dL (0.00-1.00); Blood Urea Nitrogen 15 mg/dL (7-18); Carbon Dioxide 21 mmol/L (21-32); Chloride 93 mmol/L (98-108); Estimated CRCL calculation 97 ml/min; Estimated Glomerular Filt Rate > 60; Glucose 83 mg/dL (70-99); Lipase 28 U/L (16-77); Osmolality Calculated 269 mOsm/kg (285-295); Potassium 3.6 mmol/L (3.5-5.1); Sodium 130 mmol/L (136-145); Total Protein 6.9 g/dL (6.4-8.2)
[2023-06-17 18:04] LABS: Lactic Acid Reflex 5.5 mmol/L (0.4-2.0)
[2023-06-17 18:16] LABS: Bilirubin Urine 3+ (Negative); Blood Urine 2+ (Negative); Glucose Urine UA Trace (Negative); Ketones Urine Trace (Negative); Leukocyte Esterase Ur Trace LEU/UL (Negative); Nitrate Urine Positive (Negative); Protein Urine 1+ (Negative); Specific Grav Ur 1.025 (1.010-1.020); Urobilinogen Urine >=8.0 mg/dL (0.2-1.0); pH Urine 6.5 (5.0-8.0)
[2023-06-17 18:47] LABS: Add Urine Microscopic? YES; Appearance Urine Cloudy (Clear); Color Urine Dark Orange (Yellow); WBC Urine 0-3 /hpf (0-3)
[2023-06-17 18:48] LABS: Amorphous Sediment Urine Heavy; Bacteria Urine Trace /hpf; Granular Casts Urine 20-29 /lpf; Hyaline Casts Urine 20-29 /lpf; Mucus Urine Heavy /lpf
[2023-06-17 20:42] LABS: Reflex Lactic Acid Yes or No Add Lactic
--- NOTE | 2023-06-17 21:04 | PC.NURSE ---
1914 introduced self to pt. no needs per pt. uncomfortable in the bed , offered to reposition pt. pt refused. call terence in reach. 1939 call to [facility] for transfer. awaiting call back 2104 call from [facility], update and information given.
[2023-06-17 21:56] LABS: Lactic Acid 4.5 mmol/L (0.4-2.0)
--- NOTE | 2023-06-21 16:54 | PC.NURSE ---
pt transferred and discharged from [facility], reviewed urine culture per dr barbosa. no change needed.
--- NOTE | 2023-07-04 11:05 | ED_ITS ---
Clinical impression: liver failure, liver cancer, LE edema Clinical discharge dispo: Acute care hospital transfer Clinical discharge condition: stable
== END 2023-06-17 22:00 | disposition short-term general hospital (02) ==
PROVIDERS: Emergency Provider Family Medicine
DX: K72.90 Hepatic failure, unspecified without coma (principal); C22.9 Malignant neoplasm of liver, not specified as primary or secondary; R60.9 Edema, unspecified; F10.10 Alcohol abuse, uncomplicated; E78.5 Hyperlipidemia, unspecified; J44.9 Chronic obstructive pulmonary disease, unspecified; I50.40 Unspecified combined systolic (congestive) and diastolic (congestive) heart failure; I25.2 Old myocardial infarction; F17.210 Nicotine dependence, cigarettes, uncomplicated
CPT/HCPCS: 36415; 80053; 81001; 82248; 83605; 83690; 85025; 87077; 87086; 87088; 87181; 99285

== ENCOUNTER 2023-06-17 22:33 | Observation (INO) | payer OTHER, MEDICARE, SELFPAY ==
--- NOTE | ~2023-06-17 | US_ITS ---
US abdomen limited DATE: 06/18/2023 10:40 INDICATION: Requested paracentesis TECHNIQUE: Real time imaging of all 4 quadrants COMPARISON: None FINDINGS: No ascitic fluid is detected. IMPRESSION: No sonographic evidence of ascites Reviewed, dictated and finalized at [facility] Reviewed, dictated and finalized at [facility].
[2023-06-17 23:16] VITALS: BMI 70.4
[2023-06-17 23:59] VITALS: BMI 32.0
[2023-06-18] VITALS: BP 126/67; PULSE 104; RESP 18; TEMP 36.3; O2SAT 96
[2023-06-18] MEDS: chlordiazePOXIDE (*CRX) 25 MG CAPSULE 50 MG PO ×2 (05:44→13:08)
[2023-06-18 06:00] VITALS: BP 112/58; PULSE 109; RESP 16; TEMP 36.4; O2SAT 93
--- NOTE | 2023-06-18 07:53 | PM.IMHP ---
H&P: HPI History of Present Illness Date/Time: 06/18/23 07:53 Chief Complaint: weakness Narrative: 67-year-old male with pmh stage IV liver cancer and liver cirrhosis, CHF, COPD, HLD, kidney stones, tobacco use that presents today for weakness.? Patient is a hospice home hospice patient and his hospice nurse was there today and he was weak and not able to get off his chair because all the fluid he accumulated in his legs lower extremities.? He was started on 40 mg of Lasix and spironolactone per PCP but have not started it yet.?He used to be [employer] but no longer practices it. He has stage IV liver cancer and liver cirrhosis and has not had a drainage before of his abdomen.? Both legs are very swollen with 4+ pitting edema which is pretty close to his baseline.? He denies any shortness of breath or chest pain.?he was admitted for paracentesis. Pt is seen and examined today- he is alert, oriented, pleasant. Denies any discomfort except leg swelling which he states normal for him . [facility] Past Medical History Medical History Alcohol abuse Chronic obstructive pulmonary disease Cirrhosis Combined systolic and diastolic congestive heart failure Hepatocellular carcinoma Status post chemoembolization. 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 Code status: Full Code Patient lives alone at home. Is a patient of [facility]. He says that his hospice nurse said he would not be kicked off of hospice for this admission. 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 He has two adult children, Jarred (lives in [place]) and Shanita (lives in [place]) with whom he is estranged. He says this is because of their upbringing as Oriental orthodox as they do not celebrate holidays, birthdays, etc. Smoking packs per day: 0.5 Smoking cigarettes per day: 10.0 Years smoked: 30 Smoking pack-years: 15.00 Smoking status: Current every day smoker Tobacco type: cigarettes Second hand tobacco smoke exposure: Yes Alcohol intake: current Drinks per week: 7 Substance use: never Substance use type: does not use Do You Feel Safe in your Home?: Yes Lack of Transportation: No Lack of Food: Never True Current Housing: I Have Housing Concerned About Future Housing: No Difficulty Paying Gas/Electric Bills: No Difficulty Paying for Meds: No Currently Unemployed: No Education: Trade/Vocational Certificate Difficulty w/ Childcare or Family Care: No Living arrangements: alone Additional living arrangements comments: Lives in [place]. He has children but not in the area. Occupation/Education: retired Additional occupation/education comments: Retired from [employer] [facility] concerns: No Agree to blood products: Yes Meds Home Medications and Allergies Home Medications Medication Instructions Recorded Confirmed Type oxycodone 5 mg tablet 5 mg PO Q8H PRN pain #90 tabs 12/16/22 06/17/23 Rx albuterol sulfate 90 mcg/actuation 2 puff inhalation QID PRN 01/05/23 06/17/23 Rx aerosol inhaler (Proventil HFA) Shortness Of Breath #8.5 grams furosemide 40 mg tablet 40 mg PO DAILY 06/17/23 06/17/23 History Allergies Allergy/AdvReac
[2023-06-18 09:13] LABS: INR 1.8; Prothrombin Time 21.6 Seconds (11.1-14.7)
[2023-06-18 09:14] LABS: Partial Thromboplastin Time 40.9 Seconds (22.3-36.8)
[2023-06-18 09:25] LABS: Magnesium 1.7 mg/dL (1.6-2.3)
--- NOTE | 2023-06-18 11:28 | PM.DS ---
DS: Admitting Diagnosis Discharge Date 06/18/23 Admitting Diagnosis liver cirrhosis DS: Discharge Diagnosis Discharge Diagnosis (1) Combined systolic and diastolic congestive heart failure: Code(s): I50.40 - Unspecified combined systolic (congestive) and diastolic (congestive) heart failure Status: Acute Assessment and Plan: was started on lasix per pcp (2) Chronic obstructive pulmonary disease: Code(s): J44.9 - Chronic obstructive pulmonary disease, unspecified Status: Acute Assessment and Plan: albuterol prn (3) Hepatocellular carcinoma: Code(s): C22.0 - Liver cell carcinoma Status: Acute Assessment and Plan: - DNR - US paracentesis ordered- pt was taken for a procedure but it was not done as no fluids there to tap - will give 20 mg IV lasix to aid with leg edema and discharge pt to f/u with GI and PCP as outpt (4) Tobacco abuse: Code(s): Z72.0 - Tobacco use Status: Acute (5) Weakness: Code(s): R53.1 - Weakness Status: Acute (6) Alcohol abuse: Code(s): F10.10 - Alcohol abuse, uncomplicated Status: Acute Assessment and Plan: - CIWA Plan pt was admitted for paracentesis which was not done as there was notihng to tap. Pt does have leg swelling which is his baseline. He was started on lasix per his PCP but have not taken meds yet. We will give him iv dose now- 20 mg and send him back home. Hospice to follow, pcp within a week DS: Summary Hospital Course Reason for hospitalization: paracentesis Hospital Course: unable to perform paracentesis as pt had nothing to drain. IV lasix Time spent discussing smoking cessation with patient: 3 to 10 minutes Status at Discharge Cognitive/behavioral status at discharge: using wheelchair if needed as weakness and leg swelling Functional status at discharge: wheelchair bound Overall status at discharge: patient is back to baseline Time Spent with Patient Time attestation: Total time spent providing and/or coordinating discharge services: Time spent: Greater than 30 minutes Exam Const: General: comfortable; No no acute distress Resp: Effort & Inspection: normal respiratory effort Auscultation: clear to auscultation bilaterally, no crackles, no rales, no rhonchi and no wheezes Cardio: Rate: regular rate Rhythm: regular rhythm GI: Inspection: distended Skin: General skin exam: other (jaundice) Neuro: Sensory Exam: normal sensation Extrem: General: edema Psych: Mental Status: mental status grossly normal Affect: normal affect DS: Data Data Completed and Pending Completed studies during hospitalization: none Pending studies at discharge: none Labs on day of discharge: Labs from last 24 hours 06/18/23 08:21 PT 21.6 H INR 1.8 APTT 40.9 H Magnesium 1.7 Procedures/Treatments: unable to do paracentesis- no fluid to tap Discharge Plan Discharge Discharging Clinician: Lina Parker Patient Disposition: Hospice - Home Activity: as tolerated Diet: as tolerated Discharge Instructions: Please start taking Lasix as prescribed per PCP to help with leg swelling. Elevate legs when not ambulating to reduce swelling. Patient Instructions: Antibiotic Form Stand Alone Forms: General Discharge Information Follow-up/Referrals: UNKNOWN,DOCTOR [Primary Care Provider] - 1 Week (please f/u with your PCP within a week) Discharge Medications: Continued furosemide 40 mg tablet 40 mg PO DAILY Rx Instructions: TAKE ONE TABLET BY MOUTH IN THE MORNING albuterol sulfate [Proventil HFA] 90 mcg/actuation HFA aerosol inhaler 2 puff inhalation QID PRN (Reason: Shortness Of Breath) Qty: 8.5 0RF oxycodone 5 mg tablet 5 mg PO Q8H PRN (Reason: pain) Qty: 90 0RF Date of admission: 06/17/23 22:33 Primary Care Provider: UNKNOWN,DOCTOR Admitting Provider: Jamal Grace V. Attending physician on admission:
[2023-06-18 11:57] VITALS: BP 101/59; PULSE 109; RESP 20; TEMP 36.6; O2SAT 95
[2023-06-18 12:00] VITALS: BP 101/59
[2023-06-18] MEDS: FUROSEMIDE 20 MG TABLET PO (13:08)
--- NOTE | 2023-06-18 15:21 | PC.NURSE ---
Patient unable to roll himself in bed, incontinent, uncooperative. RN asked if patient would be willing to go to facility to continue hospice there where there is more help available. Patient refused saying I do not plan on going to any facility anytime soon . RN called care coordination Hermila and spoke with her in regards to the situation. EMS in route to take patient back home as he is fully alert and oriented and these are his requests.
[2023-06-18 16:28] VITALS: BP 97/60; PULSE 100; RESP 21; TEMP 36.4; O2SAT 92
--- NOTE | 2023-06-18 16:33 | PC.NURSE ---
RN reviewed sepsis lázaroseye. Patient is going back home on hospice with [facility].
== END 2023-06-18 18:00 | disposition hospice, home (50) ==
PROVIDERS: Nurse Practitioner; Admitting Provider Internal Medicine; Visit Provider Internal Medicine
DX: I50.40 Unspecified combined systolic (congestive) and diastolic (congestive) heart failure (principal); J44.9 Chronic obstructive pulmonary disease, unspecified; C22.0 Liver cell carcinoma; R53.1 Weakness; F10.10 Alcohol abuse, uncomplicated; E78.5 Hyperlipidemia, unspecified; I25.2 Old myocardial infarction; F17.210 Nicotine dependence, cigarettes, uncomplicated; Z79.51 Long term (current) use of inhaled steroids; Z79.891 Long term (current) use of opiate analgesic
CPT/HCPCS: 36415; 76705; 83735; 85610; 85730; A9270; G0378; G0379